=== PATIENT | female | born 1955 | race Caucasian/White ===

== ENCOUNTER → 2019-03-14 08:39 | Outpatient (CLI) | payer BC, SELFPAY ==
--- NOTE | 2019-03-14 13:49 | NEURO ---
NCS and/or EMG Patient Report Ordering Doctor: Logan Sen DATE OF SERVICE: 03/14/19 Kristine Hebert is a 63-year-old female presents for electrodiagnostic testing of the lower limbs. She reports chronic low back pain with burning in the feet. Electrodiagnostic findings: Peroneal motor nerve demonstrates normal distal latency, amplitude and conduction velocity bilaterally. Normal tibial motor response bilaterally. Peroneal tibial F waves are normal. Borderline prolonged H reflex bilaterally. Prolonged left sural latency is noted. Normal right sural response. Normal superficial peroneal and plantar responses bilaterally. On needle EMG, all muscles tested in the lower limb showed no evidence of denervation with normal motor unit action potentials. Electrodiagnostic impression: This is an abnormal study. 1. 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 It is unlikely whether this is of any significant clinical consequence. 2. No electrodiagnostic evidence is noted for peripheral polyneuropathy. 3. No electrodiagnostic evidence is noted for lumbosacral radiculopathy. If there are any further questions, please not hesitate to contact me
== END ==
PROVIDERS: Family Provider Family Medicine; PCP Family Medicine
DX: M54.17 Radiculopathy, lumbosacral region (principal)
CPT/HCPCS: 95886; 95913

== ENCOUNTER → 2023-02-24 | Outpatient (CLI) | payer MEDICARE, SELFPAY ==
[2023-02-24 10:14] LABS: Absolute Lymphocyte Count 0.95 X10^3/uL (0.83-4.51); Absolute Neutrophil Count 1.5 X10^3/uL (2.0-7.7); Basophil# 0.02 X10^3/uL; Basophil% 0.7 % (0-1); Eosinophil# 0.15 X10^3/uL; Eosinophils% 5.1 % (0-5); Hematocrit 42.3 % (37-47); Hemoglobin 13.7 g/dL (12.0-15.0); Lymphocyte # 0.95 X10^3/ul (0.83-4.51); Lymphocyte % 32.5 % (19-41); Mean Corp Hgb Conc 32.4 g/dL (32-36); Mean Corpuscular Hgb 27.9 pg (27.0-32.0); Mean Corpuscular Volume 86.2 fL (81-99); Mean Platelet Vol. 11.1 fl (6.2-12.0); Monocyte# 0.31 X10^3/uL; Monocyte% 10.6 % (0-10); NRBC Flagged by Analyzer 0 % (0-5); Neutrophil # 1.48 X10^3/uL (2.7-7.7); Neutrophil % 50.8 % (47-70); Platelet Count 202 K/mm3 (150-450); RBC Distribution Width CV 12.1 % (11.6-14.6); RBC Distribution Width SD 38.2 fl (35.1-43.9); Red Blood Count 4.91 M/mm3 (4.2-5.4); White Blood Count 2.9 K/mm3 (4.4-11.0)
[2023-02-24 10:41] LABS: Vitamin D,25 Hydroxy 72.7 ng/mL
[2023-02-24 10:55] LABS: AST(SGOT) 25 U/L (15-37); Alanine Aminotransfer ALT/SGPT 32 U/L (13-56); Albumin, Serum 3.7 g/dL (3.2-5.0); Alkaline Phosphatase 80 U/L (45-117); Anion Gap 4 (5-15); BUN 25 mg/dL (7-18); BUN/Creat Ratio 30.8 RATIO (10-20); Calcium,Total 9.2 mg/dL (8.5-10.1); Chloride 109 mmol/L (98-107); Cholesterol 176 mg/dL (200); Creatinine, Serum 0.81 mg/dL (0.55-1.02); EST Glomerular Filtration Rate 75 mL/min (>60); Est Glom Filt Rate - Afr Amer 91 mL/min (>60); Globulin 3.6 g/dL (2.2-4.2); Glucose 85 mg/dL (74-106); High Density Lipoprotein 66 mg/dL; Potassium 3.9 mmol/L (3.5-5.1); Protein, Total 7.3 g/dL (6.4-8.2); Sodium Level 141 mmol/L (136-145); T4 Total, Thyroxin 9.6 ug/dL (4.8-13.9); Thyroid Stim Hormone (TSH) 1.01 uIU/mL (0.358-3.74); Triglycerides 52 mg/dL; Very Low Density Lipoprotein 10 mg/dL (5-40)
== END | disposition home or self-care (01) ==
LOC: MFPLAB 08:21
PROVIDERS: PCP Family Medicine; Visit Provider Family Medicine
DX: E03.9 Hypothyroidism, unspecified (principal); E78.5 Hyperlipidemia, unspecified; E83.51 Hypocalcemia
CPT/HCPCS: 36415; 80053; 80061; 82306; 84436; 84443; 85025

== ENCOUNTER → 2024-03-15 | Outpatient (CLI) | payer MEDICARE, OTHER, SELFPAY ==
--- NOTE | 2024-03-15 11:47 | RAD_ITS ---
EXAM: XR LUMBOSACRAL SPINE, 2 OR 3 VIEWS CLINICAL INDICATION: DISC HENIATION TECHNIQUE: Frontal and lateral views of the lumbar spine and sacrum. COMPARISON: No relevant prior studies available. FINDINGS: VERTEBRAE: Bilateral L5 spondylolysis noted with grade 2 spondylolisthesis associated with prominent disc space narrowing of L5-S1. Mild levoscoliosis of the lumbar spine centered at the L2-3 level with the assumption that the T12 vertebral body with small or absent ribs. DISC SPACES: There is prominent disc space narrowing and vertebral body hypertrophy at the L3 level. RAD/Lumbar Spine 2 or 3 Views IMPRESSION: Chronic changes as described above. Electronically Signed: Francesco Cardenas MD at 14:32 EDT ,
== END | disposition home or self-care (01) ==
PROVIDERS: PCP Family Medicine; Referring Provider Family Medicine; Visit Provider Family Medicine
DX: M51.26 Other intervertebral disc displacement, lumbar region (principal)
CPT/HCPCS: 72100

== ENCOUNTER 2024-04-19 08:42 | Outpatient (RCR) | payer MEDICARE, OTHER, SELFPAY ==
--- NOTE | 2024-04-19 12:00 | HP.PTEVAL ---
Patient's Visit Information Visit Information Visit Information: NEY MILNER is a 69 year old F referred to Physical Therapy by Florence Mendez MD with a diagnosis of LUMBAR DISC HERNIATION. Date of Evaluation: 04/19/24 Physical Therapist: Millicent Malloy PT, Cert MDT Visit Plan Frequency: 2-3x /Week Duration: 4-6 Weeks Plan: AQUATIC THERAPY FOR PAIN RELIEF, POSTURE CORRECTION/STRENGTHENING, INSTRUCTION IN APPROPRIATE BODY MECHANICS AND ACTIVITY MODIFICATIONS. DLS WITH NEUTRAL SPINE ONLY. ARJUN LE ROM, STRETCHING AND STRENGTHENING. HEP INSTRUCTION. 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 Disability: NO Present symptoms: LOW BACK PAIN. R HIP PAIN. R THIGH PAIN. R LEG PAIN. PATIENT DENIES L LE SX AND DENIES ARJUN LE NUMBNESS AND TINGLING INCLUDING FEET. Present since: YEARS AGO. LOW BACK PAIN HAS BECOME WORSE IN THE LAST YEAR OR SO. PATIENT REPORTS FLARE UP OF R HIP BURSITIS (THAT SHE HAS HAD BEFORE AND TREATED WITH CORTISONE INJECTION) THAT FLARED UP AFTER WORK YESTERDAY AND IS CAUSING HER TO LIMP TODAY. STATES SHE WAS NOT LIMPING BEFORE YESTERDAY. Pain Scale: WORST 8/10, LEAST 1/10 Currently: 5/10 Is it getting better, worse or staying the same: WORSE Commenced as a result of: NO APPARENT REASON Symptoms at onset: LOW BACK Worse: PROLONGED SITTING, RISING FROM SITTING, INITIATING GAIT AFTER SITTING, LIFTING, AM - FIRST THING IN THE MORNING I CAN'T EVEN BEND OVER OR LIFT LEG TO PUT SOCK ON. AFTER I DO THE STRETCHES I'M A LITTLE BIT BETTER. Better: THE DAY PROGRESSES, BIOFREEZE, EXTRA-STRENGTH TYLONOL, STRETCHES IN THE MORNING, INVERSION TABLE. CHIROPRACTOR ONCE A MONTH IN [place] Disturbed sleep: I TOSS AND TURN Previous history/Previous treatment: CHIROPRACTOR. NO BACK SURGERY OR PAIN MGMT PROCEEDURES. R HIP CORTISONE INJECTION FOR BURSITIS BY DR. DENNIS IN [place]. Treatment this episode: STEROID DOSE JAMES - helped while on it then pain came back, opioid prescribed and filled but not taken per patient report. CONSULT PENDING WITH DR. SOTO MAY 10 2024. PATIENT REPORTS SHE WAS FIRST DX'D WITH LUMBAR DISC HERNIATION BY DR. MENDEZ IN MAR 2024. Coughing/sneezing/straining: DENIES INCREASED PAIN Gait: INDEP WITHOUT AD. IT HASN'T SLOWED ME DOWN ANY ONCE I GET GOING. PATIENT REPORTS SHE IS FINE ALL DAY WHILE SHE IS MOVING BUT DELAYED ONSET OF PAIN AFTER SHE IS DONE FOR THE DAY AND RESTS. Bowel or Bladder Dysfunction: NO Accidents: NO Unexplained weight loss: NO Imagin03/15/24 LUMBAR X-RAY: FINDINGS: VERTEBRAE: Bilateral L5 spondylolysis noted with grade 2 spondylolisthesis associated with prominent disc space narrowing of L5-S1. Mild levoscoliosis of the lumbar spine centered at the L2-3 level with the assumption that the T12 vertebral body with small or absent ribs. DISC SPACES: There is prominent disc space narrowing and vertebral body hypertrophy at the L3 level. PMH/Recent major surgery: UNREMARKABLE. Objective Objective: Sitting/Standing Posture: DECREASED LORDOSIS. NO RELEVANT LATERAL SHIFT. Active Correction of posture: Other Observations: INDEP GAIT BUT SLOW AND ANTALGIC WITH MAJOR LIMP ON R LE WHICH PATIENT REPORTS IS NEW STARTING YESTERDAY AFTER DOING A LOT OF FAST WALKING AT WORK. SHE RELATES IT TO FLARING UP HER R HIP BURSITIS WHICH SHE HAD A COUPLE OF YEARS AGO WHICH RESOLVED WITH A CORTISONE SHOT. Sensory deficit: ARJUN LE LIGHT TOUCH SENSATION GROSSLY INTACT AND SYMMETRICAL ROM deficit: R HIP ER TIGHTNESS AND PAIN. ARJUN HS, CALF AND HIP FLEX TIGHTNESS. Motor deficit: R HIP WEAKNESS 4-/5. L HIP 4/5 Reflexes: 2+ ARJUN QUADS. 1+ L ACHILLES. R ACHILLES ABSENT Dural Signs: NEGATIVE ARJUN LE'S. Lumbar mvmt loss: flex - MOD - INCREASES LOW BACK PAIN - NW ext - MOD - NE R SG - MOD - INCREASES R HIP - NW L SG - MOD BUT EASIER THAN R - NE. Core strength: POOR Palpation: TENDERNESS WITH PALPATION OF L345 AND UPPER SACRUM. ALSO TENDER OVER R GREATER TROCH AND AND PROXIMAL LATERAL R THIGH. Balance/Special Test Scores Oswestry Low Back Score: 10 Goals Goal 1:: DECREASE C/O LBP AND R LE PAIN BY AT LEAST 50% TO EASE WORK AND ADL FUNCTION Goal Time Frame: 4-6 Weeks Goal 2:: IMPROVE SITTING, RISING FROM SITTING, LIFTING, STANDING, WALKING, TRAVEL, HOMEMAKING AND SLEEP FUNCTION Goal Time Frame: 4-6 Weeks Goal 3:: INSTRUCT IN PROPHYLAXIS Goal Time Frame: 4-6 Weeks Rehabilitation Potential Physical Therapy Diagnosis: THIS PATIENT PRESENTS TO PT WITH C/O ARJUN LBP AND R LE PAIN LIMPING ON R LE. SHE HAS CORE WEAKNESS, ARJUN LE STIFFNESS R>L AND ARJUN LE WEAKNESS R>L. Rehabilitation Potential: Good Anticipated Interventions Patient/Client Instruction: Educate patient on: Condition, Plan of Care and Risk Factors For the Purpose of:: To improve self management Therapeutic Exercise to Include: Strength training, Body mechanics, Postural training, Flexibilty training, Neuromotor development, In an aquatic setting and Dynamic Lumbar Stabilization For the Purpose of:: To decrease pain, To improve muscle performance and motor function, To increase tolerance to activity/condition/position, To improve ability of physical actions for home/community/work/leisure and To increase flexibility/ROM Thermo therapy (hot pack): Yes Ultrasound (thermal/non thermal): Yes For the Purpose of:: To decrease pain and To improve nutrient delivery to tissue Text: Thank you for the opportunity to evaluate your patient. For Medicare and Medicare HMO plans, please review the plan of care and approve it. It will need to be FAXED BACK to us at [phone] for Medicare purposes. For Medicare only, by signing this I certify the plan of care. Please let me know if there are questions or concerns regarding this plan of care. Physician Signature: Date:
--- NOTE | 2024-06-27 10:24 | HP.PT.NRP ---
Patient Information Patient Information: NEY MILNER was seen in my office for initial evaluation on 04/19/24. The following Plan of Care was established for this patient: POC Established Initial Frequency: 2-3x /Week Initial Duration: 4-6 Weeks Anticipated Interventions Patient/Client Instruction: Educate patient on: Condition, Plan of Care and Risk Factors For the Purpose of:: To improve self management Therapeutic Exercise to Include: Strength training, Body mechanics, Postural training, Flexibilty training, Neuromotor development, In an aquatic setting and Dynamic Lumbar Stabilization For the Purpose of:: To decrease pain, To improve muscle performance and motor function, To increase tolerance to activity/condition/position, To improve ability of physical actions for home/community/work/leisure and To increase flexibility/ROM Thermo therapy (hot pack): Yes Ultrasound (thermal/non thermal): Yes For the Purpose of:: To decrease pain and To improve nutrient delivery to tissue Last Seen Last Seen: This patient was last seen in our office 04/19/24. Pertinent comments regarding their Physical therapy will appear below: It has been my pleasure to see this patient for a total of 1 visits (Initial Evaluation). This patient has not returned to Physical Therapy for more visits and is appropriate to return to MD for further follow-up as needed. At this point I will be discontinuing this patient from physical therapy. I would be happy to see this patient again in the future if found appropriate by the physician. Thank you! Millicent Malloy, PT, Cert MDT Balance/Gait/Functional tests Balance/Special Test Scores Oswestry Low Back Score: 10
== END 2024-04-19 19:00 | disposition home or self-care (01) ==
LOC: PT 08:42
PROVIDERS: PCP Family Medicine; Referring Provider Family Medicine; Visit Provider Family Medicine
DX: M51.26 Other intervertebral disc displacement, lumbar region (principal)
CPT/HCPCS: 97162; 97530

== ENCOUNTER → 2024-05-26 | Outpatient (CLI) | payer MEDICARE, OTHER, SELFPAY ==
--- NOTE | 2024-05-26 07:49 | MRI_ITS ---
STUDY: MRI LUMBAR SPINE WITHOUT CONTRAST REASON FOR EXAM: Female, 69 years old. pain TECHNIQUE: Standardized fat and water weighted pulse sequences were obtained in the sagittal and axial planes. COMPARISON: X-ray 03/15/2024 FINDINGS: T12-L1: Mild broad disc protrusion reduces mild spinal stenosis and mild bilateral neural foraminal stenosis. Normal lumbar lordosis. Mild levoscoliosis centered at L3. Normal conus medullaris that terminates at the T12/L1. L1-2: 2 mm retrolisthesis of L1 on L2 with a mild bilobed disc protrusion produces mild spinal stenosis and mild bilateral neural foraminal stenosis. L2-3: Mild bilobed disc protrusion produces mild spinal stenosis and mild bilateral neural foraminal stenosis. L3-4: 2 mm retrolisthesis of L3 on L4 with a mild broad disc protrusion reduces mild spinal stenosis and mild bilateral neural foraminal stenosis. L4-5: Mild broad disc protrusion produces mild spinal stenosis and mild bilateral neural foraminal stenosis. L5-S1: Bilateral pars defects the L5 vertebra consistent with L5 spondylolysis. 10 mm of anterolisthesis of L5 on S1 consistent with grade 2 spondylolisthesis. Mild broad disc protrusion produces mild spinal stenosis and moderate bilateral neural foraminal stenosis. Normal visualized sacral ala. Normal visualized paraspinous soft tissue structures. MRI/Spine Lumbar (Routine) IMPRESSION: L5 spondylolysis with grade 2 spinal listhesis of L5 on S1 with moderate bilateral neural foraminal stenosis with abutment of the L5 nerve roots bilaterally. Mild levoscoliosis and degenerative disc disease as described above. Electronically Signed: Lee Saunders MD at 15:06 EST ,
== END | disposition home or self-care (01) ==
LOC: MRI 14:56
PROVIDERS: PCP Family Medicine; Referring Provider Student in an Organized Health Care Education/Training Program; Visit Provider Student in an Organized Health Care Education/Training Program
DX: M43.06 Spondylolysis, lumbar region (principal); M48.07 Spinal stenosis, lumbosacral region; M41.9 Scoliosis, unspecified
CPT/HCPCS: 72148

== ENCOUNTER 2024-06-15 12:53 | Day surgery (SDC) | payer MEDICARE, OTHER, SELFPAY ==
[2024-05-17 12:18] VITALS: BP 113/74; PULSE 82; RESP 16; TEMP 36.6; O2SAT 99; BMI 25.6
--- NOTE | 2024-05-17 13:29 | NURSING ---
1315 discussed with pt about surgery delay and she has decided to not have surgery today because she has another procedure this afternoon. pt will call dr isabel's office to reschedule
[2024-06-15 13:55] VITALS: BP 135/85; PULSE 81; RESP 18; TEMP 36.4; O2SAT 99; BMI 25.6
--- NOTE | 2024-06-15 14:45 | LES_PTH ---
PATIENT: NEY MILNER LOC: [facility] [place] U#:[id number] AGE/SX: 69/F ROOM: RE06/15/[address]: Dr. Maryann Mantilla MD : [id number] BED: DIS: 06/15/2024 SPEC #: [id number] RECD: 06/15/24 17:02 STATUS: DAVE SINGH #: [id number] JOAQUIN: 06/15/24 14:[address]: Maryann Mantilla DEPT: SURGICAL PATHOLOGY RECD BY: Sammy Lombardo ENTERED: 06/18/24 07:35 SP TYPE: Lesion OTHR DR: Florence Looney MD Tissues: A - Skin of face, NOS B - Skin of face, NOS Procedures: Surgery Specimen Level IV HEADER OPERATION: Excision lesion left cheek, shave biopsy of left cheek PRE-OP DIAGNOSIS: Neoplasm of uncertain behavior of skin of face TISSUE SUBMITTED: A- Neoplasm of uncertain behavior of skin of face - left cheek *lateral*, B- Neoplasm of uncertain behavior of skin of face - left cheek *medial* MICROSCOPIC DIAGNOSIS A. Skin lesion of left cheek, lateral: Actinic keratosis with moderate atypia and severe solar elastosis. B. Skin lesion of left cheek, medial: Actinic keratosis with severe atypia transected at the base. Focal seborrheic changes. See Comment. This case has been reviewed in consultation with Dr. Sudha Sarmiento. IDC:NEFTALI CISNEROS. 06/19/2024 COMMENT Clinical correlation necessary. MICROSCOPIC DESCRIPTION Slides are reviewed. GROSS DESCRIPTION A. Received in fixative is one container labeled with the patient's name and designated Neoplasm of uncertain behavior of skin of face - left cheek - lateral. The specimen consists of a perera-white skin ellipse measuring 1.0 x 0.5 x 0.2cm. The specimen is inked, serially sectioned and submitted entirely in one cassette. B. Received in fixative is one container labeled with the patient's name and designated Neoplasm of uncertain behavior of skin of face - left cheek - medial. The specimen consists of a shave biopsy of perera-white skin measuring 0.7 x 0.4 x 0.1cm. The specimen is inked, serially sectioned and submitted entirely in one cassette. SJMarcos 06/18/2024 TC:5 CPT:39886b3
--- NOTE | 2024-06-15 15:21 | PCM.HP.STD ---
HPI - General General Date of Admission: 06/15/24 Date of Service: 06/15/24 Chief Complaint: Growing or changing neoplasms of her left cheek HPI Narrative NEY MILNER, is a 69 F who presents with relatively new onset of 2 neoplasms of left cheek. [facility] Medical History History of malignant neoplasm of cervix History of cardiac murmur History of cataract History of back problems History of arthritis History of environmental allergies Home Medications ?Medication ?Instructions ?Recorded ?Last Taken ?Type levothyroxine 50 mcg tablet 50 mcg PO QDAY 05/01/24 06/14/24 History cholecalciferol (vitamin D3) 25 25 mcg PO QDAY 05/10/24 06/15/24 History mcg (1,000 unit) capsule minoxidil 2.5 mg tablet 2.5 mg PO DAILY 05/10/24 05/17/24 History rosuvastatin 10 mg tablet 10 mg PO DAILY 05/10/24 05/15/24 History vitamin E 200 unit capsule 200 unit PO DAILY 06/15/24 06/15/24 History Allergy/AdvReac Type Severity Reaction Status Date / Time No Known Allergies Allergy Verified 06/15/24 13:52 Family History Father Alcoholism Mother Heart disease Brother Pancreatitis Grandmother Breast cancer Surgical History History of bunionectomy History of appendectomy Social History Smoking Status: Never smoker alcohol intake: never substance use type: does not use additional social history: pt denies marijuana use,denies edibles pt does vape pt does not use aspirin, pt uses ibuprofen Vital Signs Vital Signs Vital Signs: 06/15/24 13:55 06/15/24 13:55 Temperature 97.6 F L Temperature Source Temporal Pulse Rate 81 Respiratory Rate 18 Respiratory Pattern Normal Blood Pressure 135/85 H Blood Pressure Mean 101 Blood Pressure Source Monitor Blood Pressure Position Semi-Fowlers Blood Pressure Location Right Arm Pulse Ox 99 Oxygen Delivery Method Room Air Weight Weight: 158 lb 11.725 oz Body Mass Index (BMI) 25.6 Physical Exam Narrative She has a hyperkeratotic and erythematous lesion of the left cheek with another erythematous lesion just anterior to this. Because of a concern regarding skin malignancy, we will perform biopsy of both sites today with excision and shave biopsy Const alert, oriented x3, no apparent distress, average body habitus and well nourished General Appearance: cooperative and well developed Orientation / Consciousness: oriented to person, oriented to place and oriented to time HEENT head/scalp atraumatic, external ears normal and external nose normal Head and Scalp: normal to inspection, normocephalic, atraumatic and abrasion Face and Sinus: normal facial exam and face symmetric Nose: external nose normal External Ear: external ears normal External Auditory Canal: EAC's normal Mouth: lips normal Eyes PERRL, EOMs intact bilaterally and conjunctivae normal General Eye: normal appearance of both eyes Periorbital: periorbital findings normal Eyelid: eyelids normal Conjunctiva: conjunctiva normal Pupil: PERRL Neck full ROM Lymph Lymphatic: no lymphadenopathy noted Chest inspection of chest normal Breast/Axilla Palpation: no axillary lymphadenopathy Resp normal respiratory effort, normal air movement and clear to auscultation bilaterally Auscultation: clear to auscultation bilaterally Cardio regular rate, regular rhythm, S1 normal heart sound, S2 normal heart sound and no murmurs Rate: regular rate Rhythm: regular rhythm GI soft to palpation and non-tender Extremity normal to inspection and full ROM General Extremity: normal exam except as noted Skin General Skin Exam: turgor normal Neuro oriented x3, CN's II-XII intact bilaterally, moves all extremities, no focal motor deficits and no sensory deficits noted Sensorium / Orientation: awake, alert, oriented to person, oriented to place and oriented to time Speech: speech normal Gait (Neuro): normal gait Psych mental status grossly normal Attention / Concentration: concentration grossly intact Memory / Cognition: memory grossly intact Assessment & Plan Assessment/Plan (1) Neoplasm of uncertain behavior of skin of face: PLAN: Plan For excision lesion left cheek and shave lesion left anterior cheek
[2024-06-15 15:28] VITALS: BP 103/67; BP 121/65; O2SAT 95; O2SAT 96; O2SAT 97
[2024-06-15] MEDS: Lidocaine 1% /Epi 1:100 9 ML, Sodium Bicarbonate 1 MEQ OPERA.SITE (15:59)
[2024-06-15] MEDS: Bacitracin 500 UNITS/GM PACKET (16:02)
--- NOTE | 2024-06-15 16:08 | DCINST_ITS ---
Discharge Instructions Dressing / Incision Additional Dressing/Incision Instructions:: Apply a thin layer of antibiotic ointment (like Neosporin, bacitracin, or triple antibiotic ointment) to the site daily. You can discontinue wearing a Band-Aid when no further drainage is noted. Take the oral antibiotic (Keflex) 2 times a day until finished. Keeping your back elevated at night (recliner position) will decrease swelling and bruising. Follow Up Care Please Follow Up With: Maryann Mantilla MD When: 2 weeks Test Results: Test results from this visit will be discussed in further detail at your follow- up appointment, if applicable. Discharge Plan Admission Attending Provider: Maryann Mantilla Primary Care Provider: Florence Looney Instructions Print Language: Swedish Discharge Orders/Prescriptions Prescriptions: New cephalexin 500 mg capsule 500 mg PO BID 5 Days Qty: 10 0RF No Action rosuvastatin 10 mg tablet 10 mg PO DAILY minoxidil 2.5 mg tablet 2.5 mg PO DAILY cholecalciferol (vitamin D3) 25 mcg (1,000 unit) capsule 25 mcg PO QDAY levothyroxine 50 mcg tablet 50 mcg PO QDAY vitamin E 200 unit capsule 200 unit PO DAILY Referrals / Follow Up: Florence Looney MD [Primary Care Provider] - Disposition Disposition (needs filled in before D/C Order can be placed): Home, Self Care
--- NOTE | 2024-06-15 16:11 | OP.PCM_ITS ---
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: No Type of Anesthesia: Local RN Documented Start/Stop Times: Operation Date: 06/15/24 14:45 Case Time Into Pre-Op 06/15/24 13:54 Out of Pre-Op 06/15/24 15:21 Into Room 06/15/24 15:24 Procedure Start 06/15/24 15:41 Procedure End 06/15/24 16:03 Anesthesia End 06/15/24 16:08 Out of Room 06/15/24 16:08 Procedure Start Time: 15:41 Procedure Stop Time: 16:03 Select all DRAINS/GRAFTS/IMPLANTS that apply: None Estimated Blood Loss: Minimal Specimen collected: Yes Description of specimen(s) removed: Excise lesion left cheek; shave lesion left cheek Description of surgery: The patient presents for evaluation of 2 new lesions of the left cheek. The specimens will be sent to pathology for evaluation. Patient is brought to the operating room and placed on the operating room table in supine position. The face is prepped and draped in the usual sterile fashion. 1% Xylocaine with epinephrine buffered with sodium bicarb is used for local anesthetic. Following this, the hyperkeratotic lesion which is located laterally is excised and passed off the operative field to be sent to pathology. Hemostasis is controlled with cautery. The wound is then closed in layers using a Monocryl suture in the subcutaneous tissue and dermis. Skin edges were approximated with a running subcuticular Monocryl suture. Further reinforcement the closure is done with interrupted chromic suture. We then directed our attention to the erythematous lesion located medial to this. After this is anesthetized, it is shaved at the base and the base full rise. Antibiotic ointment and a Band-Aid is applied as a dressing. She tolerated the procedure well was taken to the recovery area in an awake and stable condition. Needle and sponge counts are correct. Surgical Findings: As above Complications Complications: No Admit VTE Documentation VTE Mechan Device Prophylaxis: None Reason prophylaxis not ordered: Treatment Not Indicated
[2024-06-15 16:30] VITALS: BP 132/76; BP 135/85; PULSE 74; RESP 16; TEMP 36.4; O2SAT 100
== END 2024-06-15 16:45 | disposition home or self-care (01) ==
LOC: SDC 12:54 → AC 12:59
PROVIDERS: PCP Family Medicine; Referring Provider Plastic Surgery; Visit Provider Plastic Surgery
PROC: (CPT 21011; principal; 2024-06-15 14:35)
DX: L57.0 Actinic keratosis (principal); L57.8 Other skin changes due to chronic exposure to nonionizing radiation; Z79.890 Hormone replacement therapy; Z79.899 Other long term (current) drug therapy
CPT/HCPCS: 21011; 11311

== ENCOUNTER → 2024-08-11 | Outpatient (CLI) | payer MEDICARE, OTHER, SELFPAY ==
--- NOTE | 2024-08-11 08:00 | MRI_ITS ---
PROCEDURE: MRI right hip without IV contrast REASON FOR EXAM: Pain, failed physical therapy TECHNIQUE: Multisequence multiplanar MR images of the right hip were obtained without the administration of intravenous contrast. COMPARISON: None. FINDINGS Negative for acute fracture or marrow edema. No suspicious marrow replacement. No sizeable joint effusion. Full-thickness tear of the gluteus minimus tendon with retraction measuring up to 1.2 cm. Contiguous full-thickness tear of the gluteus medius tendon at its lateral trochanteric facet with 1.9 cm of retraction. Posterior fibers of the gluteus medius tendon are intact and attached to the posterosuperior greater trochanteric facet. Gluteus marla, iliopsoas, common hamstring and rectus femoris tendons are intact. Degenerative tearing of the anterosuperior labrum with small adjacent paralabral cysts. Adjacent chondral thinning/fibrillation of the anterosuperior acetabulum. No full-thickness chondral defects. Moderate fluid in the trochanteric bursa. No other periarticular fluid collections. Musculature is symmetric. Degenerative changes of the pubic symphysis. MRI/Lower Ext Joint Only (Routine) IMPRESSION: 1. Full-thickness retracted tear of the gluteus minimus tendon. 2. Full-thickness partial width tear of the gluteus medius tendon. 3. Moderate fluid in the trochanteric bursa. 4. Mild right hip osteoarthritis as above. Reading Location: [facility]
== END | disposition home or self-care (01) ==
LOC: MRI 07:49
PROVIDERS: PCP Family Medicine; Referring Provider Family Medicine; Visit Provider Family Medicine
DX: M25.551 Pain in right hip (principal)
CPT/HCPCS: 73721

== ENCOUNTER 2024-10-24 10:16 | Day surgery (SDC) | payer MEDICARE, OTHER, SELFPAY ==
[2024-10-24 10:49] VITALS: BP 140/88; PULSE 83; RESP 16; TEMP 36.9; O2SAT 98; BMI 25.8
--- NOTE | 2024-10-24 11:00 | LES_PTH ---
PATIENT: NEY MILNER LOC: [facility] [place] U#:[id number] AGE/SX: 69/F ROOM: RE10/24/[address]: Dr. Maryann Mantilla MD : [id number] BED: DIS: 10/24/2024 SPEC #: [id number] RECD: 10/24/24 12:12 STATUS: DAVE SINGH #: [id number] JOAQUIN: 10/24/24 11:[address]: Maryann Mantilla DEPT: SURGICAL PATHOLOGY RECD BY: Chadwick Bee ENTERED: 10/24/24 13:18 SP TYPE: Lesion OTHR DR: Florence Looney MD Tissues: A - Skin of face, NOS Procedures: Frozen Section (charge) Immunohistochemical Stains Surgery Specimen Level IV IHC Stain ADDITIONAL HEADER OPERATION: Excision neoplasm of left cheek with frozen section PRE-OP DIAGNOSIS: Neoplasm of uncertain behavior of skin TISSUE SUBMITTED: A- Atypical lesion, left cheek FROZEN SECTION DIAGNOSIS A. Atypical lesion, left cheek, excision: Negative for malignancy. 10/24/2024 MICROSCOPIC DIAGNOSIS A. Skin, left cheek, excision: * Actinically damaged skin with reactive changes - see note and Comment. * Scar and associated reactive changes consistent with a previous surgical procedure. * Focal ectopic/dystrophic bone. * Note: IHC for Melan-A (A1, A3) supports the diagnosis. No atypical melanocytic proliferation is identified. COMMENT Selected slides/images were reviewed in intradepartmental consultation by Dr Rosalba Madera (dermatopathology division, [facility]) MICROSCOPIC DESCRIPTION Slides are reviewed. All matched controls reacted appropriately. These tests were developed and their performance characteristics determined by [facility]. They may not have been cleared or approved by the [place]. Food and Drug Administration. The FDA has determined that such clearance or approval is not necessary.? The above immunohistochemical/dualISH?markers are ordered and reviewed by the Pathologist. GROSS DESCRIPTION A. Received fresh for intraoperative consultation in a container labeled with the patient's name, date of , and Atypical Lesion L Cheek is an oriented and circular skin excision received oriented by the surgeon by an illustrated diagram. Digital photos are taken. A section diagram is made. The specimen is 1.1 cm from 12-6 o'clock, 1.0 cm from 3-9 o'clock, with a depth up to 0.5 cm. The white-perera epidermis is somewhat nodular, but otherwise unremarkable. The 9:00 half is inked blue, and the 3:00 half is inked black. The specimen is serially sectioned from 12:00 to 6:00 to reveal white-yellow, uniform, rubbery cut surfaces. The specimen is submitted entirely for frozen section analysis. The remaining remnants are submitted entirely as follows:A1. 12:00 end, perpendicularA2. 6:00 end, perpendicularA3. Midportion of specimen [facility] 10-24-2024 CPT:27376,93737,03617
--- NOTE | 2024-10-24 11:08 | PCM.HP.BLA ---
History and Physical Date of Admission: 10/24/24 The patient is examined and there are no changes to the H&P dated 10/17/2024. 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 Informed consent was obtained for reexcision of the neoplasm of the left cheek with frozen section evaluation of margins. Assessment & Plan Assessment/Plan (1) Neoplasm of uncertain behavior of skin: PLAN: Plan For reexcision neoplasm of the left cheek with frozen section evaluation.
[2024-10-24 11:30] VITALS: BP 122/65; BP 128/67; BP 141/77; O2SAT 94; O2SAT 95; O2SAT 96; O2SAT 97; O2SAT 98
[2024-10-24] MEDS: Lidocaine 1% /Epi 1:100 9 ML, Sodium Bicarbonate 1 MEQ OPERA.SITE (11:58)
--- NOTE | 2024-10-24 12:57 | DCINST_ITS ---
Discharge Instructions Dressing / Incision Additional Dressing/Incision Instructions:: Keep the paper tapes dry and intact until seen in the office. Keep your back elevated (recliner position) for the next 3-4 nights to help reduce swelling and bleeding. Take the oral antibiotic (Keflex) 2 times a day until finished. Follow Up Care Please Follow Up With: Maryann Mantilla MD When: 1 to 2 weeks Test Results: Test results from this visit will be discussed in further detail at your follow- up appointment, if applicable. Discharge Plan Admission Attending Provider: Maryann Mantilla Primary Care Provider: Florence Looney Instructions Print Language: Croatian Discharge Orders/Prescriptions Prescriptions: New cephalexin 500 mg capsule 500 mg PO BID 5 Days Qty: 10 0RF No Action rosuvastatin 10 mg tablet 10 mg PO DAILY minoxidil 2.5 mg tablet 2.5 mg PO DAILY cholecalciferol (vitamin D3) 25 mcg (1,000 unit) capsule 25 mcg PO QDAY levothyroxine 50 mcg tablet 50 mcg PO QDAY vitamin E 200 unit capsule 200 unit PO DAILY Referrals / Follow Up: Florence Looney MD [Primary Care Provider] - Disposition Disposition (needs filled in before D/C Order can be placed): Home, Self Care
--- NOTE | 2024-10-24 12:59 | PCM.OPRPT ---
Problems Associated Problem List Diagnoses (1) Neoplasm of uncertain behavior of skin: Operative Report (Standard) Operative Information Date of Procedure: 10/24/24 Pre-Operative Diagnosis: Neoplasm of uncertain behavior left cheek History of atypical neoplasm left cheek Post-Operative Diagnosis: Same Surgery/Procedure Performed: Excision neoplasm left cheek (2.5 cm) with frozen section and intermediate closure face painter: No Type of Anesthesia: Local RN Documented Start/Stop Times: Operation Date: 10/24/24 11:20 Case Time Into Pre-Op 10/24/24 10:40 Anesthesia Start 10/24/24 11:33 Into Room 10/24/24 11:33 Procedure Start 10/24/24 11:55 Procedure End 10/24/24 12:57 Anesthesia End 10/24/24 12:58 Out of Room 10/24/24 12:58 Procedure Start Time: 11:55 Procedure Stop Time: 12:57 Select all DRAINS/GRAFTS/IMPLANTS that apply: None Estimated Blood Loss: Minimal Specimen collected: Yes Description of specimen(s) removed: Neoplasm left cheek Description of surgery: The patient presents today with a history of an neoplasm with atypia of the left cheek. This site has remained elevated and firm to touch. She presents for reexcision of the area and frozen section evaluation of margins to rule out malignant transformation. An informed consent is obtained and the patient is marked in the preop holding area. The patient was brought to the operating room and placed on the operating room table in the supine position. The left face is prepped and draped in the usual sterile fashion. We initially began with injecting 1% Xylocaine with epinephrine buffered with sodium bicarb around the periphery of the site. Following this, the area is elliptically excised and passed off the operative field maintaining orientation for pathology. Pathology returns no evidence of malignancy. After ensuring hemostasis, the site is closed in layers using Monocryl suture for the subcutaneous tissue and dermis. Skin edges were approximated with a running subcuticular Monocryl suture. Further reinforcement the closure was done with interrupted Prolene suture. Dermabond and Steri-Strips were placed on the site. She tolerated the procedure well was taken to the recovery area in an awake and stable condition. Needle and sponge counts are correct. Surgical Findings: As above Complications Complications: No Admit VTE Documentation VTE Mechan Device Prophylaxis: None Reason prophylaxis not ordered: Treatment Not Indicated
== END 2024-10-24 13:19 | disposition home or self-care (01) ==
LOC: SDC 10:17 → AC 10:20
PROVIDERS: PCP Family Medicine; Referring Provider Plastic Surgery; Visit Provider Plastic Surgery
PROC: (CPT 11443; principal; 2024-10-24 11:10)
DX: L90.5 Scar conditions and fibrosis of skin (principal); L91.8 Other hypertrophic disorders of the skin; F17.290 Nicotine dependence, other tobacco product, uncomplicated; Z79.890 Hormone replacement therapy; Z79.899 Other long term (current) drug therapy
CPT/HCPCS: 11443; 12051; 88305; 88331; 88341; 88342

== ENCOUNTER → 2024-12-17 | Outpatient (CLI) | payer MEDICARE, OTHER, SELFPAY ==
[2024-12-17 18:05] LABS: Hematocrit 39.2 % (37-47); Hemoglobin 12.8 g/dL (12.0-15.0); Immature Granulocytes Count 0.010 X10^3/uL (0.0-0.0); Mean Corp Hgb Conc 32.7 g/dL (32-36); Mean Corpuscular Volume 84.3 fL (81-99); Mean Platelet Vol. 11.5 fl (6.2-12.0); NRBC Flagged by Analyzer 0 % (0-5); Platelet Count 207 K/mm3 (150-450); RBC Distribution Width CV 12.4 % (11.6-14.6); RBC Distribution Width SD 37.6 fl (35.1-43.9); Red Blood Count 4.65 M/mm3 (4.2-5.4); White Blood Count 4.7 K/mm3 (4.4-11.0)
[2024-12-17 18:37] LABS: AST(SGOT) 26 U/L (<=31); Alanine Aminotransfer ALT/SGPT 18 U/L (<=34); Albumin, Serum 4.3 g/dL (3.4-4.8); Alkaline Phosphatase 84 U/L (35-104); Anion Gap 12 (5-15); BUN 29 mg/dL (4-19); BUN/Creat Ratio 41.5 RATIO (10-20); Calcium,Total 9.5 mg/dL (7.6-11.0); Carbon Dioxide 24.3 mmol/L (21.0-32.0); Chloride 105 mmol/L (98-108); Cholesterol 179 mg/dL (<=200); Globulin 2.7 g/dL (2.2-4.2); Glucose 85 mg/dL (70-99); Low Density Lipoprotein Calc. 95 mg/dL; Potassium 4.1 mmol/L (3.3-5.1); Triglycerides 141 mg/dL; Very Low Density Lipoprotein 28 mg/dL (5-40); Vitamin D,25 Hydroxy 44.9 ng/mL (30-100); cholesterol:hdl ratio screen 3.19
--- OUTSIDE RECORDS SUMMARY | 2024-12-17 22:45 | XMS RPT_ITS | CCD ---
Author Organization [facility] Care Team Providers Care Bit Gatherer Name Role Phone Eugenia Adair Unavailable Craske, W. Don Unavailable Pedro Villatoro Unavailable Craske, W Logan Unavailable Unavailable Craske, W Logan Unavailable Unavailable Craske, W Logan Unavailable Unavailable Craske, W Logan Unavailable Unavailable Craske, W Logan Unavailable Unavailable Craske, W Logan Unavailable Unavailable CRASKE, W. DON Unavailable Unavailable CRASKE, W. DON Unavailable Unavailable MANA, EUGENIA PRASANNA Unavailable Unavailable CRASKE, W. DON Unavailable Unavailable CRASKE, W. DON Unavailable Unavailable CRASKE, W. DON Unavailable Unavailable MANA, EUGENIA PRASANNA Unavailable Unavailable CRASKE, W. DON Unavailable Unavailable CRASKE, W. DON Unavailable Unavailable MANA, EUGENIA PRASANNA Unavailable Unavailable CRASKE, W. DON Unavailable Unavailable MANA, EUGENIA PRASANNA Unavailable Unavailable CRASKE, W. DON Unavailable Unavailable CRASKE, W. DON Unavailable Unavailable MANA, EUGENIA PRASANNA Unavailable Unavailable CRASKE, W. DON Unavailable Unavailable MANA, EUGENIA PRASANNA Unavailable Unavailable CRASKE, W. DON Unavailable Unavailable MANA, EUGENIA PRASANNA Unavailable Unavailable Craske, W. Don III Unavailable Pedro Villatoro Sr. Unavailable Eugenia Adair Primary Care Provider Craske, W. Don Unavailable Pedro Villatoro Unavailable [phone] IGOR KHAN Admitting Unavaila JACKIE Clarke Attending Unavailable IGOR KHAN Referring Unavaila ble EUGENIA ADAIR PRASANNA Primary Care Unavailable IGOR KHAN Admitting Unavaila JACKIE Clarke Attending Unavailable IGOR KHAN Referring Unavaila EUGENIA Horn Primary Care Unavailable IGOR KHAN Admitting Unavaila ble LEENA BARBOSA Attending Unavailable IGOR KHAN Referring Unavaila liset ADAIR, EUGENIA MIMS Primary Care Unavailable IGOR KHAN Admitting Unavaila ble THERESA, JACKIE Attending Unavailable IGOR KHAN Referring Unavaila ble EUGENIA ADAIR Primary Care Unavailable Eugenia Adair Unavailable Unavailable Unavailable Eugenia Adair Unavailable Yoan Leos Unavailable Unavailabl Eugenia Fitzpatrick MD Unavailable Unavailable Unavailable Chadwick Mckeon Unavailable Unavailable Mana, Dr. uEgenia Mims Attending Unavailab claritza Adair, Dr. Eugenia Mims Primary Care Unavailab claritza Adair, Dr. Eugenia Mims Referring Unavailab le Mana, Dr. Eugenia Mims Attending Unavailab claritza Adair, Dr. Eugenia Mims Primary Care Unavailab claritza Adair, Dr. Eugenia Mims Referring Unavailab le Mana, Dr. Eugenia Mims Attending Unavailab claritza Adair, Dr. Eugenia Mims Primary Care Unavailab claritza Adair, Dr. Eugenia Mims Referring Unavailab Eugenia Marquez MD Primary Care Provider Chadwick Mckeon Attending Unavailable Mana, Dr. Eugenia Mims Primary Care Unavailab Chadwick Dunaway Attending Unavailable Mana, Dr. Eugenia Mims Primary Care Unavailab EUGENIA Marquez Primary Care Unavailable Eugenia Adair MD Unavailable EUGENIA ADAIR Attending Unavailable EUGENIA ADAIR Primary Care Unavailable Florence Mendez MD Primary Care Provider KOREY, LEENA Referring Unavailable LIZA ROACH Attending Unavail able LIZA ROACH Referring Unavail able AVERY BENTON Referring Unavailable AVERY BENTON Attending Unavailable MANA, EUGENIA L Primary Care Unavailable CHADWICK MCKEON Attending Unavailable EUGENIA ADAIR L Primary Care Unavailable JAZMYN KAPADIA Attending Unavailable Aayush ARRIOLA, [place] Primary Care Provider [phone] Aayush ARRIOLA, [place] Referring Provider Dr. Maryann Mantilla MD Attending Provider Emmy Smith Attending Provider [phone] Zakia ARRIOLA, Dr. Bragg Attending Provider [phone] Emmy Smith Referring Provider [phone] Annalee ARRIOLA, Dr. Wolf Referring Provider Dr. Maryann Mantilla MD Other Provider [phone] Aayush ARRIOLA, [place] Attending Provider Aayush ARRIOLA, [place] Primary Care Provider [phone] Aayush ARRIOLA, [place] Referring Provider [phone] Dr. Maryann Mantilla MD Attending Provider Emmy Smith Attending Provider [phone] Maryann Mantilla MD Referring Provider Dr. Maryann Mantilla MD Other Provider [phone] Aayush ARRIOLA, [place] Primary Care Provider [phone] Aayush ARRIOLA, [place] Referring Provider [phone] Dr. Maryann Mantilla MD Attending Provider Aayush, Chalon Primary Care Unavailable Aayush, Chalon Referring Unavailable Ghazoul, Maryann Attending Unavailable Aayush, Chalon Primary Care Unavailable Aayush, Chalon Referring Unavailable Ghazoul, Maryann Attending Unavailable Aayush, Chalon Primary Care Unavailable Aayush, Chalon Referring Unavailable Ghazoul, Maryann Attending Unavailable Aayush, Chalon Primary Care Unavailable Aayush, Chalon Referring Unavailable Ghazoul, Maryann Attending Unavailable Aayush, Chalon Referring Unavailable Ghazoul, Maryann Attending Unavailable Aayush, Chalon Primary Care Unavailable Aayush, Chalon Referring Unavailable Ghazoul, Maryann Attending Unavailable Aayush, Chalon Primary Care Unavailable Aayush, Chalon Primary Care Unavailable Aayush, Chalon Referring Unavailable Chary, Emmy Attending Unavailable Aayush, Chalon Primary Care Unavailable Zakia, Yemi Attending Unavailable Chary, Emmy Referring Unavailable Chary, Emmy Attending Unavailable Aayush, Chalon Primary Care Unavailable Aayush, Chalon Primary Care Unavailable Ghazoul, Maryann Consulting Unavailable Ghazoul, Maryann Referring Unavailable Ghazoul, Maryann Attending Unavailable Aayush, Chalon Primary Care Unavailable Ghazoul, Maryann Consulting Unavailable Ghazoul, Maryann Referring Unavailable Ghazoul, Maryann Attending Unavailable Aayush, Chalon Referring Unavailable Aayush, Chalon Primary Care Unavailable Ghazoul, Maryann Attending Unavailable Aayush, Chalon Primary Care Unavailable Ghazoul, Maryann Referring Unavailable Ghazoul, Maryann Attending Unavailable Aayush, Chalon Referring Unavailable Aayush, Chalon Attending Unavailable Aayush, Chalon Primary Care Unavailable Aayush, Chalon Referring Unavailable Aayush, Chalon Attending Unavailable Aayush, Chalon Primary Care Unavailable Aayush, Chalon Primary Care Unavailable Aayush, Chalon Referring Unavailable Aayush, Chalon Attending Unavailable Aayush, Chalon Primary Care Unavailable Ghazoul, Maryann Referring Unavailable Ghazoul, Maryann Attending Unavailable Aayush, Chalon Primary Care Unavailable Aayush, Chalon Referring Unavailable Ghazoul, Maryann Attending Unavailable Chary, Emmy Attending Unavailable Aayush, Chalon Primary Care Unavailable Aayush, Chalon Referring Unavailable Allergies Allergy Classification Reported Allergen(s) Allergy Type Date of Onset Reaction(s) Facility (20 sources) OTHER; Translations: [OTHER] Propensity to adverse reactions 5 Other (See Comments), Itching [facility] Work Phone: (8 sources) Simvastatin; Translations: [Zocor] Drug Allergy 3 Other [facility] Work Phone: (17 sources) beta-Blocking agent; Translations: [BETA-BLOCKERS (BETA-ADRENERGI C BLOCKING AGTS)] Propensity to adverse reactions to drug 3 Contraindicatio n-Medical Surgical, Other [facility] Work Phone: (17 sources) cow milk allergenic extract; Translations: [MILK] Drug Allergy 6 Diarrhea [facility] Work Phone: (17 sources) Tree and shrub pollen; Translations: [TREE AND SHRUB POLLEN] Drug Allergy 8 Other: See Comments, Other [facility] (13 sources) Cat Hair Extract; Translations: [CAT HAIR EXTRACT] Propensity to adverse reactions 5 Itching [facility] Work Phone: (12 sources) grasses [Other] Propensity to adverse reactions 6 Itching [facility] Work Phone: (12 sources) hops food [Other] Propensity to adverse reactions 6 [facility] Work Phone: (12 sources) pollens [Other] Propensity to adverse reactions 5 [facility] Work Phone: (3 sources) Simvastatin; Translations: [SIMVASTATIN] Drug Allergy 3 [facility] Medications Current Medications Medication Drug Class(es) Dates Sig (Normalized) Sig (Original) azithromycin 250 mg oral tablet (1 source) Macrolide Antimicrobial Start: 07-17-2022 take 2 tablets by mouth once, then take 1 tablet by mouth once daily azithromycin 250 mg oral tablet ; Take 2 tabs (500mg) x 1 days, then 1 tab (250mg) once daily x 4 days Quantity: 6 Refills: 0 Ordered: 17-Jul-2022 Chadwick Mckeon Start: 17-Jul-2022 Generic Substitution Allowed Comments: Do not take dairy products, antacids, or iron preparations within one hour of this medication.Finish all this medication unless otherwise directed by prescriber. Comment on above: Do not take dairy pr oducts, antacids, or iron preparations within one hour of this medication.Finish all this medication unless otherwise directed by prescriber. brompheniramine maleate 0.4 mg/ml / dextromethorphan hydrobromide 2 mg/ml / pseudoephedrine hydrochloride 6 mg/ml oral solution (2 sources) alpha-Adrenergic Agonist, Uncompetitive O-rbhpfh-M-aspartat e Receptor Antagonist, Sigma-1 Agonist Start: 08-05-2022 take 10 mL by mouth every six hours brompheniramine/p seudoephedrine/de xtromethorphan [id number]/5 mL oral syrup ; 5 milliliter(s) orally every 4-6 hours PRN cough Quantity: 120 Refills: 0 Ordered: 05-Aug-2022 Luisabdullahi Chadwick Start: 05-Aug-2022 Generic Substitution Allowed Comments: May cause drowsiness. Alcohol may intensify this effect. Use care when operating dangerous machinery.Obtain medical advice before taking any non-prescription drugs as some may affect the action of this medication. Start: 08-19-2020 take 5 mL by mouth every four to six hours brompheniramine/pseudoephedrine/dextrome thorphan [id number]/5 mL oral syrup ; 5 milliliter(s) orally every 4 to 6 hours, As Needed Quantity: 120 Refills: 0 Ordered: 19-Aug-2020 Alejo Horner Start: 19-Aug-2020 Generic Substitution Allowed Comments: May cause drowsiness. Alcohol may intensify this effect. Use care when operating dangerous machinery.Obtain medical advice before taking any non-prescription drugs as some may affect the action of this medication. Comment on above: May cause drowsiness . Alcohol may intensify this effect. Use care when operating dangerous machinery.Obtain medical advice before taking any non-prescription drugs as some may affect the action of this medication. calcium citrate 950 mg oral tablet (3 sources) take 1 tablet by mouth twice daily calcium citrate 950 mg (200 mg elemental calcium) oral tablet ; 1 tab(s) orally 2 times a day Quantity: 0 Refills: 0 Ordered: 07-May-2020 Jesica Moise Generic Substitution Allowed cholecalciferol 0.025 mg oral capsule (5 sources) Vitamin D Start: 2023 take 1 capsule by mouth once daily Cholecalciferol (Vitamin D3) 25 mcg (1,000 unit) capsule Active 25 ug PO daily May 10, 2024 1:00am cholecalciferol 400 unt / tricalcium phosphate 658 mg chewable tablet (11 sources) Vitamin D calcium phosphate-vitamin D3 (CALTRATE GUMMY BITES) 250-400 mg-unit Chew Chew and Swallow daily. 0 Active docosahexaenoic acid 120 mg / eicosapentaenoic acid 180 mg oral capsule (8 sources) fish oil concent rate (Bourg-3) 120-180 mg capsule Take by mouth. 0 Active krill oil 500 mg oral capsule (3 sources) take 2 capsules by mouth twice daily Fish Oil 500 mg oral capsule ; 2 cap(s) orally 2 times a day Quantity: 0 Refills: 0 Ordered: 07-May-2020 Jesica Moise Generic Substitution Allowed levothyroxine sodium 0.05 mg oral tablet (20 sources) l-Thyroxine Start: 2023 take 1 tablet by mouth once daily Levothyroxine 50 mcg tablet Active 50 ug PO daily May 01, 2024 1:00am Start: 04-21-2018 Levothyroxine Sodium 50 MCG Oral Tablet TAKE TABLET 1 tablet daily except on sunady take 0.5 tablet Quantity: 90 Refills: 3 Ordered: 20-Nov-2021 Eugenia Adair MD Start : 21-Apr-2018 Active Start: 03-06-2008 levothyroxine sodium(SYNTHROID 50 MCG TAB) Take 50 mcg by mouth. 50mg everyday 25 mg on 90 4 03/06/2008 Active levothyroxine (T irosint) 50 mcg capsule Take by mouth. 0 Active take 1 capsule by [facility] once daily levothyroxine 50 mcg (0.05 mg) oral capsule ; 1 cap(s) orally once a day Quantity: 0 Refills: 0 Ordered: 07-May-2020 Jesica Moise Generic Substitution Allowed Comment on above: Take 50 mcg by mouth . 50mg everyday 25 mg on meloxicam 15 mg oral tablet (3 sources) Nonsteroidal Anti-inflammatory Drug take 1 tablet by mouth once daily meloxicam (MOBIC) 15 MG tablet Take 15 mg by mouth daily . 0 Active minoxidil 2.5 mg oral tablet (5 sources) Arteriolar Vasodilator Start: 4 take 1 tablet by mouth once daily Minoxidil 2.5 mg tablet Active 2.5 mg PO DAILY May 10, 2024 1:00am montelukast 10 mg oral tablet (20 sources) Leukotriene Receptor Antagonist Start: 9 take 1 tablet by mouth once daily at bedtime montelukast (Singulair) 10 mg tablet Take 1 tablet (10 mg) by mouth once daily at bedtime. 0 04/20/2019 Active MONTELUKAST SODI UM (SINGULAIR ORAL) Indications: Encounter for screening for osteoporosis , Asymptomatic postmenopausal status , Encounter for gynecological examination without abnormal finding Take by mouth once daily. 0 Active Comment on above: Take by mouth once d aily. multivitamin (multivitamin) per tablet (10 sources) take 1 tablet by mouth once daily multivitamin (multivitamin) per tablet Take 1 tablet by mouth daily. 0 Active take 1 tablet by mouth once lennox y multivitamin (multivitamin) per tablet Take 1 tablet by mouth daily. Active Multivitamin Tablet (1 source) take 1 tablet by mouth once daily multivitamin (multivitamin) per tablet Take 1 tablet by mouth daily. Active multivitamin tablet (1 source) take 1 tablet by mouth once daily multivitamin tablet Take 1 tablet by mouth once daily. 0 Active naproxen sodium 220 mg oral tablet (8 sources) Nonsteroidal Anti-inflammatory Drug naproxen sodium ( Aleve) 220 mg tablet Take by mouth. 0 Active Aleve TABS Quant ity: 0 Refills: 0 Ordered: 16-Apr-2019 DO Active rosuvastatin calcium 10 mg oral tablet (20 sources) HMG-CoA Reductase Inhibitor Start: 05-10-2024 take 1 tablet by mouth once daily Rosuvastatin 10 mg tablet Active 10 mg PO DAILY May 10, 2024 1:00am Start: 03-02-2017 rosuvastatin ( CRESTOR) 10 mg tablet 10 mg. 0 03/02/2017 Active Start: 03-02-2017 rosuvastatin ( CRESTOR) 10 MG tablet 10 mg nightly . 1 03/02/2017 Active Comment on above: 10 mg. vitamin e 90 mg oral capsule (5 sources) Start: 06-15-2024 take 1 capsule by mouth once daily Vitamin E 200 unit capsule Active 200 U PO DAILY June 15, 2024 1:00am Completed/Discontinued Medications Medication Drug Class(es) Dates Sig (Normalized) Sig (Original) amoxicillin 875 mg / clavulanate 125 mg oral tablet (1 source) Penicillin-class Antibacterial Start: 08-19-2020 End: 08-28-2020 take 1 tablet by mouth twice daily at mealtime amoxicillin-clavul anate 875 mg-125 mg oral tablet ; 1 tab(s) orally 2 times a day Quantity: 20 Refills: 0 Ordered: 19-Aug-2020 Alejo Horner Start: 19-Aug-2020 End: 28-Aug-2020 Generic Substitution Allowed Comments: Finish all this medication unless otherwise directed by prescriber.Take with food or milk. Comment on above: Finish all this medi cation unless otherwise directed by prescriber.Take with food or milk. Calcium (7 sources) Phosphate Binder, Calcium Calcium + D TABS Quantity: 0 Refills: 0 Ordered: 16-Apr-2019 DO Active calcium carbonate 1500 mg oral tablet (14 sources) Start: 10-07-2009 calcium carbonate(CALTRATE 600 600 MG (1,500 MG) TAB) Take one(1) tablet three times daily. 0 10/07/2009 Active Start: 10-07-2009 calcium carbon ate 600 mg calcium (1,500 mg) tablet Take by mouth. 0 10/07/2009 Active End: 05-12-2017 calcium carbonate (OS-FARHEEN) 5 00 mg calcium (1,250 mg) chewable tablet Chew and Swallow 1 tablet daily. 05/12/2017 Discontinued Comment on above: Take one(1) tablet t hree times daily. cephalexin 500 mg oral capsule (13 sources) Cephalosporin Antibacterial Start: End: take 1 capsule by mouth twice daily Cephalexin 500 mg capsule Discontinued 500 mg PO TWICE A DAY 10 October 24, 2024 12:00am October 31, 2024 2:17pm Start: 06-15-2024 End: 07-11-2024 take 1 capsule by mouth twice daily Cephalexin 500 mg capsule Discontinued 500 mg PO TWICE A DAY June 27, 2024 1:00am July 11, 2024 3:41pm COMPOUNDED PRESCRIPTION (12 sources) Start: 10-07-2009 COMPOUNDED PRESCRIPTION eye drop for dry eyes - two drops in each eye once a day 0 10/07/2009 Active Comment on above: eye drop for dry eye s - two drops in each eye once a day [id number] 0.3 ml EPINEPHrine 1 mg/ml auto-injector (12 sources) alpha-Adrenergic Agonist, beta-Adrenergic Agonist, Catecholamine Start: 02-13-2014 EPINEPHrine (EPIPEN) 0.3 mg/0.3 mL (1:1,000) atIn Inject 0.3 mL intramuscularly as needed (for allergic reaction.Seek emergent medical care immediately after use.Disp:one 2-packw/manager document control). 1 Each 1 02/13/2014 Active Comment on above: Inject 0.3 mL intram uscularly as needed (for allergic reaction.Seek emergent medical care immediately after use.Disp:one 2-packw/manager document control). fluticasone propionate 0.05 mg/actuat metered dose nasal spray (20 sources) Corticosteroid Start: 08-08-2013 take 1-2 spray(s) nasal route once daily fluticasone 50 mcg/actuation nasal spray Indications: Allergic rhinitis, cause unspecified Use 1-2 Sprays in each nostril once daily. 3 Bottle 3 08/08/2013 Active fluticasone 50 m cg/inh nasal spray ; 1 spray(s) nasal once a day Quantity: 0 Refills: 0 Ordered: 07-May-2020 Jesica Moise Generic Substitution Allowed Comment on above: Use 1-2 Sprays in ea ch nostril once daily. ipratropium bromide 0.021 mg/actuat metered dose nasal spray (12 sources) Anticholinergic Start: 12-16-19 11 take 2 spray(s) nasal route four times daily as needed Ipratropium [place] (ATROVENT) 0.03 % NASAL nasal spray Use 2 Sprays in each nostril four times daily. As needed for runny nose. 3 Bottle 3 12/15/2010 Active Comment on above: Use 2 Sprays in each nostril four times daily. As needed for runny nose. Medrol Dosepak 4 mg oral tablet (1 source) Start: 08-06-19 23 Medrol Dosepak 4 mg oral tablet ; Take as directed. Quantity: 1 Refills: 0 Ordered: 05-Aug-2022 Chadwick Mckeon Start: 05-Aug-2022 Generic Substitution Allowed Comments: It is very important that you take or use this exactly as directed. Do not skip doses or discontinue unless directed by your doctor.Obtain medical advice before taking any non-prescription drugs as some may affect the action of this medication.Take with food or milk. Comment on above: It is very important that you take or use this exactly as directed. Do not skip doses or discontinue unless directed by your doctor.Obtain medical advice before taking any non-prescription drugs as some may affect the action of this medication.Take with food or milk. multivitamins(DAILY MULTIVITAMIN TAB) (12 sources) Start: 10-08-19 10 multivitamins(DAILY MULTIVITAMIN TAB) Take one(1) tablet daily. 0 10/07/2009 Active Comment on above: Take one(1) tablet d aily. nystatin 100 unt/mg topical powder (9 sources) Polyene Antifungal Start: 10-03-19 End: 02-11-20 23 nystatin (NYSTOP) powder Apply 1 application to affected area four times daily. 1 Bottle 1 10/02/2018 02/10/2023 Discontinued Comment on above: Apply 1 application to affected area four times daily. olopatadine 1 mg/ml ophthalmic solution (13 sources) Histamine-1 Receptor Inhibitor Start: 01-25-20 13 take 1 drop(s) into the eye(s) every twelve hours as needed olopatadine (PATANOL) 0.1 % ophthalmic solution Use 1 Drop in both eyes twice daily as needed. 3 Bottle 3 01/24/2013 Active Start: 01-24-2013 take 1 drop(s) into the eye(s) every twelve hours olopatadine (Patanol) 0.1 % ophthalmic solution 1 drop every 12 hours if needed. 0 01/24/2013 Active Start: 01-24-2013 take 1 drop(s) into the eye(s) twice daily as needed olopatadine (PATANOL) 0.1 % ophthalmic solution Use 1 Drop in both eyes twice daily as needed. 3 Bottle 3 01/24/2013 Active Comment on above: Use 1 Drop in both e yes twice daily as needed. predniSONE 10 mg oral tablet (1 source) Start: 08-20-19 21 take 3 tablets by mouth once daily at mealtime, then take 2 tablets by mouth once daily, then take 1 tablet by mouth once daily predniSONE 10 mg oral tablet ; 30 mg daily for 3 days, then take 20 mg daily for 3 days, then take 10 mg daily for 3 days. Quantity: 18 Refills: 0 Ordered: 19-Aug-2020 Alejo Horner Start: 19-Aug-2020 Generic Substitution Allowed Comments: It is very important that you take or use this exactly as directed. Do not skip doses or discontinue unless directed by your doctor.Obtain medical advice before taking any non-prescription drugs as some may affect the action of this medication.Take with food or milk. Comment on above: It is very important that you take or use this exactly as directed. Do not skip doses or discontinue unless directed by your doctor.Obtain medical advice before taking any non-prescription drugs as some may affect the action of this medication.Take with food or milk. triamcinolone acetonide 40 mg/ml injectable suspension (1 source) Corticosteroid Start: 04-08-20 Kenalog 40 MG/ML Injection Suspension INJECT 1 ML Intra-articular Quantity: 0 Refills: 0 Ordered: 08-Apr-2022 Eugenia Adair MD Start : 08-Apr-2022 Complete Problems Active Problems Problem Classification Problem Date Documented Date Episodic/Chronic Acquired foot deformities (2 sources) Hallux valgus; Translations: [Hallux valgus (acquired), left foot] 02-10-2023 Chronic Disorders of lipid metabolism (9 sources) Hyperlipidemia; Translations: [Other and unspecified hyperlipidemia] Onset: 3 11-25-2022 Chronic Headache; including migraine (1 source) Headache; including migraine; Translations: [Headache, unspecified] Onset: 3 Heart valve disorders (9 sources) Mitral valve prolapse; Translations: [Mitral valve disorders] Onset: 3 11-25-2022 Chronic Immunizations and screening for infectious disease (8 sources) Immunization due; Translations: [Need for prophylactic vaccination and inoculation against unspecified single disease] Episodic Neoplasms of unspecified nature or uncertain behavior (18 sources) Neoplasm of uncertain behavior of skin of face; Translations: [Neoplasm of uncertain behavior of skin] Onset: 5 05-01-2024 Episodic Other acquired deformities (10 sources) Lumbar spondylolisthesis; Translations: [Spondylolisthesis, lumbar region] 05-10-2024 Episodic Other acquired deformities (1 source) Dysplastic spondylolisthesis; Translations: [Spondylolisthesis, site unspecified] 05-10-2024 Episodic Other and unspecified benign neoplasm (7 sources) Dermal cellular nevus ; Translations: [Benign neoplasm of skin, site unspecified] Episodic Other and unspecified benign neoplasm (20 sources) Benign neoplasm of skin of face; Translations: [Other benign neoplasm of skin of unspecified part of face] 06-27-2024 Episodic Other bone disease and musculoskeletal deformities (1 source) Osteopenia; Translations: [Other specified disorders of bone density and structure, unspecified site] Episodic Other connective tissue disease (2 sources) Trochanteric bursitis; Translations: [Enthesopathy of hip region] Episodic Other connective tissue disease (2 sources) Pain in left foot; Translations: [Pain in left foot] 02-04-2023 Episodic Other connective tissue disease (1 source) Pain in left foot; Translations: [Pain in left foot] Onset: 3 Episodic Other screening for suspected conditions (not mental disorders or infectious disease) (10 sources) Patient encounter status; Translations: [Encounter for screening mammogram for malignant neoplasm of breast] Onset: 2 Episodic Other skin disorders (1 source) Foot callus; Translations: [Corns and callosities] 02-10-2023 Episodic Other skin disorders (12 sources) Scar conditions and fibrosis of skin; Translations: [Scar conditions and fibrosis of skin] 08-28-2024 Episodic Other upper respiratory disease (19 sources) Allergic rhinitis; Translations: [Allergic rhinitis, cause unspecified] Onset: 5 03-08-2005 Chronic Other upper respiratory infections (14 sources) Acute sinusitis; Translations: [Acute sinusitis, unspecified] Onset: 3 07-17-2022 Episodic Comment on above: URI Spondylosis; intervertebral disc disorders; other back problems (20 sources) Prolapsed lumbar intervertebral disc; Translations: [Displacement of lumbar intervertebral disc without myelopathy] Onset: 4 07-26-2024 Chronic Spondylosis; intervertebral disc disorders; other back problems (6 sources) Lumbosacral radiculopathy; Translations: [Thoracic or lumbosacral neuritis or radiculitis, unspecified] Episodic Syncope (2 sources) Syncope; Translations: [Syncope and collapse] 09-07-2021 Episodic Thyroid disorders (13 sources) Hypothyroidism; Translations: [Unspecified acquired hypothyroidism] Onset: 3 11-25-2022 Chronic Unclassified (2 sources) Other specified postprocedural states; Translations: [Other specified postprocedural states] Onset: 7 Unclassified (2 sources) LIGHT HEADED 09-07-2021 Comment on above: LIGHT HEADED Unclassified (2 sources) 1 YEAR OV 10-23-2020 Comment on above: 1 YEAR OV Unclassified (1 source) Cough, unspecified; Translations: [Cough, unspecified] Onset: 3 Unclassified (2 sources) Spondylolisthesis of lumbar region; Translations: [M43.16 - Spondylolisthesis, lumbar region] Unclassified (1 source) Low back pain, unspecified; Translations: [Low back pain, unspecified] Onset: Past or Other Problems Problem Classification Problem Date Documented Date Episodic/Chronic Lymphadenitis (2 sources) Localized enlarged lymph nodes; Translations: [Localized enlarged lymph nodes] Onset: 04-04-2023 Episodic Malaise and fatigue (1 source) Other malaise; Translations: [Other malaise] Onset: 08-05-2022 Episodic Other acquired deformities (1 source) Spondylolisthesis, lumbar region; Translations: [Spondylolisthesis, lumbar region] Onset: 05-10-2024 Episodic Other connective tissue disease (8 sources) Tibialis posterior tendinitis ; Translations: [Tibialis posterior tendinitis, unspecified laterality] Onset: 01-15-2019 01-15-2019 Episodic Other diseases of veins and lymphatics (9 sources) Peripheral venous insufficiency; Translations: [Venous insufficiency (chronic) (peripheral)] Onset: 06-01-2017 Resolved: 06-15-2017 06-15-2017 Episodic Other diseases of veins and lymphatics (4 sources) Disorder of vein; Translations: [Venous insufficiency] Onset: 06-01-2017 Resolved: 06-15-2017 06-15-2017 Episodic Other non-traumatic joint disorders (1 source) Pain in right hip; Translations: [Pain in right hip] Onset: 08-20-2024 Episodic Residual codes; unclassified (1 source) Pain, unspecified; Translations: [Pain, unspecified] Onset: 08-05-2022 Episodic Unclassified (5 sources) History of radiation therapy; Translations: [Status post endovenous radiofrequency ablation of saphenous vein] Onset: 06-15-2017 06-15-2017 Episodic Unclassified (1 source) Onset: 11-25-2022 11-25-2022 Varicose veins of lower extremity (20 sources) Venous varices; Translations: [Varicose veins of unspecified lower extremity with pain] Onset: 03-24-2017 03-24-2017 Episodic Results Test Name Value Interpretation Reference Range Facility Plastic Surgery Visit Report on 11-07-2024 Plastic Surgery Visit Report [facility] [address], [address] [place] [address] OFFICE VISIT Date of Service: 11/07/24 MR#: [id number] Acct: [id number] Name: NEY MILNER Rep #: [id number] : 1955 Provider: Dr. Maryann boyd MD Age/Sex: 69/F Location: [facility] Status: Signed Intake Vital Signs 10/31/24 14:16 11/07/24 14:12 Height 5 ft 6 in 5 ft 6 in Weight: 163 lb 2 oz 164 lb BMI 26.3 26.4 BP 123/71 H 113/71 Blood Pressure Location Lt brachial Lt brachial Position Sitting Sitting Respiration 18 18 Pulse 88 91 Temp 98.2 F 98.3 F Temp Source Temporal Temporal Pulse Oximetry (%) 95 95 Oxygen Delivery Method room air room air Intake Visit Reasons: 1 W FU Chief Complaint: post cheek lesion Is patient in pain?: No Allergies No Known Allergies Allergy (Verified 11/07/24 14:13) Medications ???Medication ???Instructions ???Recorded ???Confirmed ???Type levothyroxine 50 mcg tablet 50 mcg PO QDAY 05/01/24 11/07/24 H istory cholecalciferol (vitamin D3) 25 25 mcg PO QDAY 05/10/24 11/07/24 H istory mcg (1,000 unit) capsule minoxidil 2.5 mg tablet 2.5 mg PO DAILY 05/10/24 11/07/24 History rosuvastatin 10 mg tablet 10 mg PO DAILY 05/10/24 11/07/24 H istory vitamin E 200 unit capsule 200 unit PO DAILY 06/15/24 5 History Have you fallen in the past year?: No Nurse's Note: pt here for post cheek lesion, no issues Subjective Details: Ney comes for recheck of the lesion removed from her left cheek. She denies any problems. She has been applying antibiotic ointment to the site. Objective Details: The incisions well-approximated. There is no evidence of infection. I instructed the patient how to use Aquaphor on the area and massage this with pressure. She is to do this daily. I have also reviewed the importance of protecting it from sun exposure to help reduce the chance of pigmentation along the scar line. I also reviewed the path again with her. No further intervention is necessary. Coding Level of Care Code Global Post Op Diagnoses Benign neoplasm of skin of face D23.30 Scar condition and fibrosis of skin L90.5 [facility] Medical History History of malignant neoplasm of cervix History of cardiac murmur History of cataract History of back problems History of arthritis History of environmental allergies Surgical History History of bunionectomy History of appendectomy Family History Father Alcoholism Mother Heart disease Brother Pancreatitis Grandmother Breast cancer Social History Smoking Status: Never smoker alcohol intake: never substance use type: does not use additional social history: pt denies marijuana use,denies edibles pt does vape pt does not use aspirin, pt uses ibuprofen Assessment and Plan (No Qualifiers) Assessment and Plan (1) Benign neoplasm of skin of face: Status: Acute (2) Scar condition and fibrosis of skin: Status: Acute Plan Details Additional Comments: Follow-up as needed. 11/07/24 1503 Date Maryann Tabares Signature: Date (if applicable) CC: Normal [facility] Plastic Surgery Visit Report on 10-31-2024 Plastic Surgery Visit Report [facility] [address], [address] [place] [address] OFFICE VISIT Date of Service: 10/31/24 MR#: [id number] Acct: [id number] Name: NEY MILNER Rep #: [id number] : 1955 Provider: Dr. Maryann boyd MD Age/Sex: 69/F Location: [facility] Status: Signed Intake Vital Signs 10/17/24 14:20 10/24/24 10:49 10/31/24 14:16 Height 5 ft 6 in 5 ft 6 in 5 ft 6 in Weight: 163 lb 2 oz BMI 26.3 BP 123/71 H Blood Pressure Location Lt brachial Position Sitting Respiration 18 Pulse 88 Temp 98.2 F Temp Source Temporal Pulse Oximetry (%) 95 Oxygen Delivery Method room air Intake Visit Reasons: post op Chief Complaint: bump on cheek where previous lesion located Is patient in pain?: No Allergies No Known Allergies Allergy (Verified 10/31/24 14:17) Medications ???Medication ???Instructions ???Recorded ???Confirmed ???Type levothyroxine 50 mcg tablet 50 mcg PO QDAY 05/01/24 10/31/24 H istory cholecalciferol (vitamin D3) 25 25 mcg PO QDAY 05/10/24 10/31/24 H istory mcg (1,000 unit) capsule minoxidil 2.5 mg tablet 2.5 mg PO DAILY 05/10/24 10/31/24 History rosuvastatin 10 mg tablet 10 mg PO DAILY 05/10/24 10/31/24 H istory vitamin E 200 unit capsule 200 unit PO DAILY 06/15/24 5 History Have you fallen in the past year?: No Nurse's Note: pt here post op lesion on face Subjective Details: Ney comes in for recheck of the excision site on the left cheek. She denies any problems. Objective Details: The Steri-Strips are intact. There is no evidence of infection. Steri-Strips are removed and reinforcing sutures are clipped. Incisions well-approximated. I applied antibiotic ointment and showed the patient how to gently massage the incision. The pathology report was reviewed with her which demonstrated: Skin, left cheek, excision: * Actinically damaged skin with reactive changes - see note and Comment. * Scar and associated reactive changes consistent with a previous surgical procedure. * Focal ectopic/dystrophic bone. * Note: IHC for Melan-A (A1, A3) supports the diagnosis. No atypical melanocytic proliferation is identified. No further intervention is necessary. I will see her back in a week for recheck. Coding Level of Care Code Global Post Op Diagnoses Benign neoplasm of skin of face D23.30 [facility] Medical History History of malignant neoplasm of cervix History of cardiac murmur History of cataract History of back problems History of arthritis History of environmental allergies Surgical History History of bunionectomy History of appendectomy Family History Father Alcoholism Mother Heart disease Brother Pancreatitis Grandmother Breast cancer Social History Smoking Status: Never smoker alcohol intake: never substance use type: does not use additional social history: pt denies marijuana use,denies edibles pt does vape pt does not use aspirin, pt uses ibuprofen Assessment and Plan (No Qualifiers) Assessment and Plan (1) Benign neoplasm of skin of face: Status: Acute Plan Details Additional Comments: Follow-up 1 week 10/31/24 1440 Date Maryann Mantilla MD [facility] Signature: Date (if applicable) CC: Normal [facility] Discharge Instructionon 05 Discharge Instruction [facility] Medical Records Department [address] [place] [address] Instructions for Home/Discharge Instructions 10/24/24 1257 MR#: [id number] Acct: [id number] Name: NEY MILNER Rep #: [id number] : 1955 69 From: Maryann Mantilla MD PCP: Dr. Florence Mendez MD [place] [facility] [place] Instructions Dressing / Incision Additional Dressing/Incision Instructions:: Keep the paper tapes dry and intact until seen in the office. Keep your back elevated (recliner position) for the next 3-4 nights to help reduce swelling and bleeding. Take the oral antibiotic (Keflex) 2 times a day until finished. Follow Up Care Please Follow Up With: Maryann Mantilla MD When: 1 to 2 weeks Test Results: Test results from this visit will be discussed in further detail at your follow-up appointment, if applicable. Discharge Plan Admission Attending Provider: Maryann Mantilla Primary Care Provider: Florence Mendez Instructions Print Language: [place] Islander Discharge Orders/Prescriptions Prescriptions: New cephalexin 500 mg capsule 500 mg PO BID 5 Days Qty: 10 0RF No Action rosuvastatin 10 mg tablet 10 mg PO DAILY minoxidil 2.5 mg tablet 2.5 mg PO DAILY cholecalciferol (vitamin D3) 25 mcg (1,000 unit) capsule 25 mcg PO QDAY levothyroxine 50 mcg tablet 50 mcg PO QDAY vitamin E 200 unit capsule 200 unit PO DAILY Referrals / Follow Up: Florence Mendez MD [Primary Care Provider] - Disposition Disposition (needs filled in before D/C Order can be placed): Home, Self Care 10/24/24 0872 Maryann Mantilla MD CC: Dr. Florence Mendez MD Signed Normal [facility] Frozen Section (charge)on Frozen Section (charge) Patient Age/Sex Location Account Attending Physician NEY MILNER 69/[place] [facility] [id number]. Maryann Mantilla MD Specimen: [id number] Received: 10/24/24 Status: DAVE Cormier Num: [id number] Spec Type: Lesion Subm Dr: Dr. Maryann Mantilla MD HEADER OPERATION: Excision neoplasm of left cheek with frozen section PRE-OP DIAGNOSIS: Neoplasm of uncertain behavior of skin TISSUE SUBMITTED: A- Atypical lesion, left cheek FROZEN SECTION DIAGNOSIS A. Atypical lesion, left cheek, excision: Negative for malignancy. mr 10/24/2024 MICROSCOPIC DIAGNOSIS A. Skin, left cheek, excision: * Actinically damaged skin with reactive changes - see note and Comment. * Scar and associated reactive changes consistent with a previous surgical procedure. * Focal ectopic/dystrophic bone. * Note: IHC for Melan-A (A1, A3) supports the diagnosis. No atypical melanocytic proliferation is identified. COMMENT Selected slides/images were reviewed in intradepartmental consultation by Dr Rosalba Madera (dermatopathology division, [facility]) MICROSCOPIC DESCRIPTION Slides are reviewed. All matched controls reacted appropriately. These tests were developed and their performance characteristics determined by [facility]. They may not have been cleared or approved by the U.S. Food and Drug Administration. The FDA has determined that such clearance or approval is not necessary.??? The above immunohistochemical/dual IBIS???markers are ordered and reviewed by the Pathologist. Patient Age/Sex Location Account Attending Physician NEY MILNER 69/[place] [facility] [id number]. Maryann Mantilla MD GROSS DESCRIPTION A. Received fresh for intraoperative consultation in a container labeled with the patient's name, date of , and Atypical Lesion L Cheek is an oriented and circular skin excision received oriented by the surgeon by an illustrated diagram. Digital photos are taken. A section diagram is made. The specimen is 1.1 cm from 12-6 o'clock, 1.0 cm from 3-9 o'clock, with a depth up to 0.5 cm. The white-perera epidermis is somewhat nodular, but otherwise unremarkable. The 9:00 half is inked blue, and the 3:00 half is inked black. The specimen is serially sectioned from 12:00 to 6:00 to reveal white-yellow, uniform, rubbery cut surfaces. The specimen is submitted entirely for frozen section analysis. The remaining remnants are submitted entirely as follows:A1. 12:00 end, perpendicularA2. 6:00 end, perpendicularA3. Midportion of specimen B 10-24-2024 CPT:32148,70717,46126 Patient Age/Sex Location Account Attending Physician NEY MILNER 69/[place] [facility] [id number] [place]. Maryann Mantilla MD Signed (signature on file) Dr. Radha Damico MD 10/31/24 1208 [facility] Comment on above: Performed By: #### P FSC ####[facility] [id number] [place], [address] Operative Reporton 5 Operative Report [facility] Medical Records Department [address] [place] [address] Operative Report 10/24/24 1259 MR#: [id number] Acct: [id number] Name: NEY MILNER Rep #: [id number] : 1955 69 From: Maryann Mantilla MD PCP: Dr. 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 Post-Operative Diagnosis: Same Surgery/Procedure Performed: Excision neoplasm left cheek (2.5 cm) with frozen section and intermediate closure crepe maker: No Type of Anesthesia: Local RN Documented Start/Stop Times: Operation Date: 10/24/24 11:20 Case Time Into Pre-Op 10/24/24 10:40 Anesthesia Start 10/24/24 11:33 Into Room 10/24/24 11:33 Procedure Start 10/24/24 11:55 Procedure End 10/24/24 12:57 Anesthesia End 10/24/24 12:58 Out of Room 10/24/24 12:58 Procedure Start Time: 11:55 Procedure Stop Time: 12:57 Select all DRAINS/GRAFTS/IMPLANTS that apply: None Estimated Blood Loss: Minimal Specimen collected: Yes Description of specimen(s) removed: Neoplasm left cheek Description of surgery: The patient presents today with a history of an neoplasm with atypia of the left cheek. This site has remained elevated and firm to touch. She presents for reexcision of the area and frozen section evaluation of margins to rule out malignant transformation. An informed consent is obtained and the patient is marked in the preop holding area. The patient was brought to the operating room and placed on the operating room table in the supine position. The left face is prepped and draped in the usual sterile fashion. We initially began with injecting 1% Xylocaine with epinephrine buffered with sodium bicarb around the periphery of the site. Following this, the area is elliptically excised and passed off the operative field maintaining orientation for pathology. Pathology returns no evidence of malignancy. After ensuring hemostasis, the site is closed in layers using Monocryl suture for the subcutaneous tissue and dermis. Skin edges were approximated with a running subcuticular Monocryl suture. Further reinforcement the closure was done with interrupted Prolene suture. Dermabond and Steri-Strips were placed on the site. She tolerated the procedure well was taken to the recovery area in an awake and stable condition. Needle and sponge counts are correct. Surgical Findings: As above Complications Complications: No Admit VTE Documentation VTE Mechan Device Prophylaxis: None Reason prophylaxis not ordered: Treatment Not Indicated 10/24/24 1303 Cosigner Signature (if applicable): CC: Dr. Florence Mendez MD; Dr. Maryann Mantilla MD Signed Normal [facility] Plastic Surgery Visit Report on 10-17-2024 Plastic Surgery Visit Report [facility] [address], [address] [place] [address] OFFICE VISIT Date of Service: 10/17/24 MR#: [id number] Acct: [id number] Name: NEY MILNER Rep #: [id number] : 1955 Provider: Dr. Maryann boyd MD Age/Sex: 69/F Location: [facility] Status: Signed Intake Vital Signs 08/28/24 10:40 10/17/24 14:20 Height 5 ft 6 in 5 ft 6 in Weight: 163 lb 4 oz 163 lb BMI 26.3 26.3 BP 119/67 126/75 H Blood Pressure Location Lt brachial Lt brachial Position Sitting Sitting Respiration 18 18 Pulse 71 78 Temp 98.7 F 97.6 F L Temp Source Temporal Temporal Pulse Oximetry (%) 96 95 Oxygen Delivery Method room air room air Intake Visit Reasons: 1 M FU Chief Complaint: bump on cheek where previous lesion located Allergies No Known Allergies Allergy (Verified 10/17/24 14:21) Medications ???Medication ???Instructions ???Recorded ???Confirmed ???Type levothyroxine 50 mcg tablet 50 mcg PO QDAY 05/01/24 10/17/24 H istory cholecalciferol (vitamin D3) 25 25 mcg PO QDAY 05/10/24 10/17/24 H istory mcg (1,000 unit) capsule minoxidil 2.5 mg tablet 2.5 mg PO DAILY 05/10/24 10/17/24 History rosuvastatin 10 mg tablet 10 mg PO DAILY 05/10/24 10/17/24 H istory vitamin E 200 unit capsule 200 unit PO DAILY 06/15/24 5 History Have you fallen in the past year?: No [facility] Medical History History of malignant neoplasm of cervix History of cardiac murmur History of cataract History of back problems History of arthritis History of environmental allergies Surgical History History of bunionectomy History of appendectomy Family History Father Alcoholism Mother Heart disease Brother Pancreatitis Grandmother Breast cancer Social History Smoking Status: Never smoker alcohol intake: never substance use type: does not use additional social history: pt denies marijuana use,denies edibles pt does vape pt does not use aspirin, pt uses ibuprofen HPI 1 M FU Details: Ney comes in for recheck of the neoplasm removed from the left cheek in June. She has been doing conservative management of the scar with pressure and topical hydrocortisone. Exam Details There is a firm area of hypertrophic scar of the left cheek at the site of the previous excision. This has not resolved with conservative measures. The pathology on both sites was consistent with actinic keratosis and atypia noted along the margins. Because of this reason, I recommended reexcision with frozen section to ensure that this is not evolved into malignant neoplasm. This will be done under local anesthetic as an outpatient with frozen section evaluation of margins. Const General: cooperative, healthy appearing, no acute distress and well developed Nutritional Appearance: well nourished Orientation: alert [facility] Head: normal to inspection, normocephalic and atraumatic Ears: hearing grossly normal bilaterally Nose: external nose normal Face and sinus: normal facial exam and face symmetric Mouth: lip normal Eyes General: appearance normal, both eyes and all related structures Eyelids: eyelids normal Pupils: PERRL EOM: EOM intact bilaterally Neck Neck: normal visual inspection and no lymphadenopathy Chest Chest palpation inspection: normal inspection of the chest Resp Effort Inspection: normal respiratory effort Auscultation: clear to auscultation bilaterally Cardio Rate: regular rate Rhythm: regular rhythm Heart Sounds: S2 normal and click GI Inspection: normal to inspection Palpation: soft and nontender Neuro General: patient alert, patient awake and patient oriented x3 Cognition: normal cognition Speech: speech normal Motor: muscle tone normal throughout Sensory Exam: no sensory deficits noted Extrem General: normal to inspection and no pedal edema Psych Appearance: grossly normal Affect: normal affect Speech and Movement: speech and movement normal Attitude: cooperative Judgment: judgment good Coding Level of Care Code Off vis,est,level 4 Diagnoses Neoplasm of uncertain behavior of skin D48.5 Assessment and Plan (No Qualifiers) Assessment and Plan (1) Neoplasm of uncertain behavior of skin: Status: Acute Plan Details Additional Comments: The procedure of excision neoplasm left cheek with frozen section and intermediate closure was thoroughly reviewed with the patient including risks and alternatives of care. Informed consent was obtained. The patient will be scheduled for the procedure under [local] anesthesia. They are to call with any prob (more content not included)... Normal [facility] Plastic Surgery Visit Report on 09-19-2024 Plastic Surgery Visit Report [facility] [address], [address] [place] [address] OFFICE VISIT Date of Service: 09/19/24 MR#: [id number] Acct: [id number] Name: NEY MILNER Rep #: [id number] : 1955 Provider: Dr. Maryann boyd MD Age/Sex: 69/F Location: [facility] Status: Signed Intake Vital Signs 08/28/24 10:40 09/19/24 14:18 Height 5 ft 6 in Weight: 163 lb 4 oz 164 lb BMI 26.3 BP 119/67 112/75 Blood Pressure Location Lt brachial Lt brachial Position Sitting Sitting Respiration 18 18 Pulse 71 76 Pulse Source Monitor Temp 98.7 F 97.9 F Temp Source Temporal Oral Pulse Oximetry (%) 96 96 Oxygen Delivery Method room air room air Intake Visit Reasons: 3 W FU Chief Complaint: bump on cheek where previous lesion located Is patient in pain?: No Allergies No Known Allergies Allergy (Verified 09/19/24 14:17) Medications ???Medication ???Instructions ???Recorded ???Confirmed ???Type levothyroxine 50 mcg tablet 50 mcg PO QDAY 05/01/24 09/19/24 H istory cholecalciferol (vitamin D3) 25 25 mcg PO QDAY 05/10/24 09/19/24 H istory mcg (1,000 unit) capsule minoxidil 2.5 mg tablet 2.5 mg PO DAILY 05/10/24 09/19/24 History rosuvastatin 10 mg tablet 10 mg PO DAILY 05/10/24 09/19/24 H istory vitamin E 200 unit capsule 200 unit PO DAILY 06/15/24 5 History Have you fallen in the past year?: No Nurse's Note: pt reports doing well, thinks there is improvement to lesion. No concerns today. [facility] Medical History History of malignant neoplasm of cervix History of cardiac murmur History of cataract History of back problems History of arthritis History of environmental allergies Surgical History History of bunionectomy History of appendectomy Family History Father Alcoholism Mother Heart disease Brother Pancreatitis Grandmother Breast cancer Social History Smoking Status: Never smoker alcohol intake: never substance use type: does not use additional social history: pt denies marijuana use,denies edibles pt does vape pt does not use aspirin, pt uses ibuprofen HPI 3 W FU Details: Ney comes in for recheck of the neoplasm removed from her left cheek. She has been managing the scar with topical baar-syr-eigzbfp hydrocortisone and massage with pressure. She has seen improvement in the site as a result. Exam Details The area of excision on the left cheek has become less discolored. There is still some thickness to the site, although improved. I have asked her to continue with massage and pressure. I will see her back in a month for recheck. I have reviewed the possibility of a steroid injection to further promote scar remodeling. I also reviewed with her that despite the pathology being benign, atypical cells were noted and therefore there should be a reduced threshold to reexcise the site with any adverse signs. I will see her back in a month for recheck Const General: cooperative and healthy appearing Coding Level of Care Code Off vis,est,level 3 Diagnoses Scar condition and fibrosis of skin L90.5 Benign neoplasm of skin of face D23.30 Assessment and Plan (No Qualifiers) Assessment and Plan (1) Scar condition and fibrosis of skin: Status: Acute (2) Benign neoplasm of skin of face: Status: Acute Plan Details Additional Comments: Follow-up in 1 month Clinical Quality Measures Falls Risk Screening/Assistive Devices Have you fallen in the past year?: No 09/19/24 1450 Date Maryann Mantilla MD Cosigner Signature: Date (if applicable) CC: Normal [facility] Plastic Surgery Visit Report on 08-28-2024 Plastic Surgery Visit Report [facility] [address], [address] [place] [address] OFFICE VISIT Date of Service: 08/28/24 MR#: [id number] Acct: [id number] Name: NEY MILNER Rep #: [id number] : 1955 Provider: Dr. Maryann boyd MD Age/Sex: 69/F Location: [facility] Status: Signed Intake Vital Signs 07/11/24 14:42 08/28/24 10:40 Height 5 ft 6 in 5 ft 6 in Weight: 163 lb 163 lb 4 oz BMI 26.3 26.3 BP 138/81 H 119/67 Blood Pressure Location Lt brachial Lt brachial Position Sitting Sitting Respiration 18 18 Pulse 72 71 Temp 98.4 F 98.7 F Temp Source Temporal Temporal Pulse Oximetry (%) 96 96 Oxygen Delivery Method room air room air Intake Visit Reasons: PAINFUL BUMP Chief Complaint: bump on cheek where previous lesion located Is patient in pain?: Yes () Allergies No Known Allergies Allergy (Verified 08/28/24 10:42) Medications ???Medication ???Instructions ???Recorded ???Confirmed ???Type levothyroxine 50 mcg tablet 50 mcg PO QDAY 05/01/24 08/28/24 H istory cholecalciferol (vitamin D3) 25 25 mcg PO QDAY 05/10/24 08/28/24 H istory mcg (1,000 unit) capsule minoxidil 2.5 mg tablet 2.5 mg PO DAILY 05/10/24 08/28/24 History rosuvastatin 10 mg tablet 10 mg PO DAILY 05/10/24 08/28/24 H istory vitamin E 200 unit capsule 200 unit PO DAILY 06/15/24 5 History Have you fallen in the past year?: No Nurse's Note: pt here for evaluation bump where previous lesion was removed on cheek [facility] Medical History History of malignant neoplasm of cervix History of cardiac murmur History of cataract History of back problems History of arthritis History of environmental allergies Surgical History History of bunionectomy History of appendectomy Family History Father Alcoholism Mother Heart disease Brother Pancreatitis Grandmother Breast cancer Social History Smoking Status: Never smoker alcohol intake: never substance use type: does not use additional social history: pt denies marijuana use,denies edibles pt does vape pt does not use aspirin, pt uses ibuprofen HPI PAINFUL BUMP Details: Ney comes in for recheck of the excision site on the left cheek which she states is a bump and is slightly red. She has been massaging the area with Aquaphor. Exam Details The site of the excision on the left cheek is slightly thickened and there are some surrounding discoloration. The overlying skin is intact. This was the site of a previous actinic keratosis. I reviewed massage with moderate pressure on the site. I also suggested a topical hydrocortisone to diminish the erythema. She is to massage this several times a day but only to apply the hydrocortisone once a day. I will see her back in 3 to 4 weeks for recheck. Coding Level of Care Code Off vis,est,level 2 Diagnoses Benign neoplasm of skin of face D23.30 Scar condition and fibrosis of skin L90.5 Assessment and Plan (No Qualifiers) Assessment and Plan (1) Benign neoplasm of skin of face: Status: Acute (2) Scar condition and fibrosis of skin: Status: Acute Plan Details Additional Comments: Follow-up in 3 to 4 weeks. Clinical Quality Measures Falls Risk Screening/Assistive Devices Have you fallen in the past year?: No 08/28/24 1318 Date Maryann Mantilla MD Cosign Signature: Date (if applicable) CC: Normal [facility] Magnetic resonance imaging r eportOrdered By: Georges Pardo on 08-12-2024 Study report [facility] Imaging Services [address] [place], [place] [id number] Lower Ext Joint Only (Routine) MR#: [id number] Acct: [id number] Name: NEY MILNER Rep #: [id number] : 1955 F 69 From: Bert Pardo DO PCP: Dr. Florence Mendez MD Status: REG CL I Study:Lower Ext Joint Only (Routine) Date of Exam: 08/11/24 Exam# [id number] Ordering Dr: Jen Mendez MD PROCEDURE: MRI right hip without IV contrast REASON FOR EXAM: Pain, failed physical therapy TECHNIQUE: Multisequence multiplanar MR images of the right hip were obtained without the administration of intravenous contrast. COMPARISON: None. FINDINGS Negative for acute fracture or marrow edema. No suspicious marrow replacement. No sizeable joint effusion. Full-thickness tear of the gluteus minimus tendon with retraction measuring up to 1.2 cm. Contiguous full-thickness tear of the gluteus medius tendon at its lateral trochanteric facet with 1.9 cm of retraction. Posterior fibers of the gluteus medius tendon are intact and attached to the posterosuperior greater trochanteric facet. Gluteus marla, iliopsoas, common hamstring and rectus femoris tendons are intact. Degenerative tearing of the anterosuperior labrum with small adjacent paralabralcysts. Adjacent chondral thinning/fibrillation of the anterosuperior acetabulum. No full-thickness chondral defects. Moderate fluid in the trochanteric bursa. No other periarticular fluid collections. Musculature is symmetric. Degenerative changes of the pubic symphysis. MRI/Lower Ext Joint Only (Routine) IMPRESSION: 1. Full-thickness retracted tear of the gluteus minimus tendon. 2. Full-thickness partial width tear of the gluteus medius tendon. 3. Moderate fluid in the trochanteric bursa. 4. Mild right hip osteoarthritis as above. Reading Location: [facility] CC: Dr. Florence Mendez MD ~ Building Drafter: Signed [facility] Lower Ext Joint Only (Routin e)on 08-11-2024 Lower Ext Joint Only (Routine) [facility] Imaging Services [address] [place] [id number] Lower Ext Joint Only (Routine) MR#: [id number] Acct: [id number] Name: NEY MILNER Rep #: [id number] : 1955 F 69 From: Georges Martinez PCP: Dr. Florence Mendez MD Status: REG CLI Study: Lower Ext Joint Only (Routine) Date of Exam: 0 08/11/24 Exam# [id number] Ordering Dr: Florence Mendez MD PROCEDURE: MRI right hip without IV contrast REASON FOR EXAM: Pain, failed physical therapy TECHNIQUE: Multisequence multiplanar MR images of the right hip were obtained without the administration of intravenous contrast. COMPARISON: None. FINDINGS Negative for acute fracture or marrow edema. No suspicious marrow replacement. No sizeable joint effusion. Full-thickness tear of the gluteus minimus tendon with retraction measuring up to 1.2 cm. Contiguous full-thickness tear of the gluteus medius tendon at its lateral trochanteric facet with 1.9 cm of retraction. Posterior fibers of the gluteus medius tendon are intact and attached to the posterosuperior greater trochanteric facet. Gluteus marla, iliopsoas, common hamstring and rectus femoris tendons are intact. Degenerative tearing of the anterosuperior labrum with small adjacent paralabral cysts. Adjacent chondral thinning/fibrillation of the anterosuperior acetabulum. No full-thickness chondral defects. Moderate fluid in the trochanteric bursa. No other periarticular fluid collections. Musculature is symmetric. Degenerative changes of the pubic symphysis. MRI/Lower Ext Joint Only (Routine) IMPRESSION: 1. Full-thickness retracted tear of the gluteus minimus tendon. 2. Full-thickness partial width tear of the gluteus medius tendon. 3. Moderate fluid in the trochanteric bursa. 4. Mild right hip osteoarthritis as above. Reading Location: [facility] CC: Dr. Florence Mendez MD Building Drafter: Signed Normal [facility] Orthopedic Visit Reporton Orthopedic Visit Report [facility] [address] [place] [address] OFFICE VISIT Date of Service: 07/26/24 MR#: [id number] Acct: [id number] Name: NEY MILNER Rep #: [id number] : 1955 Provider: SIOBHAN Keita Age/Sex: 69/F Location: [facility] Status: Signed Intake Vital Signs 07/11/24 14:42 Height 5 ft 6 in Weight: 163 lb BMI 26.3 BP 138/81 H Blood Pressure Location Lt brachial Position Sitting Respiration 18 Pulse 72 Temp 98.4 F Temp Source Temporal Pulse Oximetry (%) 96 Oxygen Delivery Method room air Intake Visit Reasons: LUMBAR SPINE Allergies No Known Allergies Allergy (Verified 07/26/24 15:01) Medications ???Medication ???Instructions ???Recorded ???Confirmed ???Type levothyroxine 50 mcg tablet 50 mcg PO QDAY 05/01/24 07/26/24 H istory cholecalciferol (vitamin D3) 25 25 mcg PO QDAY 05/10/24 07/26/24 H istory mcg (1,000 unit) capsule minoxidil 2.5 mg tablet 2.5 mg PO DAILY 05/10/24 07/26/24 History rosuvastatin 10 mg tablet 10 mg PO DAILY 05/10/24 07/26/24 H istory vitamin E 200 unit capsule 200 unit PO DAILY 06/15/24 5 History Have you fallen in the past year?: No PFSH Medical History History of malignant neoplasm of cervix History of cardiac murmur History of cataract History of back problems History of arthritis History of environmental allergies Surgical History History of bunionectomy History of appendectomy Family History Father Alcoholism Mother Heart disease Brother Pancreatitis Grandmother Breast cancer Social History Smoking Status: Never smoker alcohol intake: never substance use type: does not use additional social history: pt denies marijuana use,denies edibles pt does vape pt does not use aspirin, pt uses ibuprofen HPI LUMBAR SPINE Details: This documentation accurately reflects the service provided and the decisions made by me, SIOBHAN Keita 07/26/24 6018. Part of today???s visit was documented by Mer ZHAO, acting as scribe. NEY MILNER is a 69 year old F here today for MRI review of her lumbar spine. She states that her pain has gotten better and she just completed 8 weeks of PT for her right IT band but it did help with her low back pain as well. She has not seen pain management. Says that her right sided leg pain has improved. She does continue to have some bilateral lumbar back pain but says that it has improved and she does not wish for further treatment at this time. HPI from 05/10/24: NEY MILNER is a 69 year old F here today NEW patient for low back pain. She states that she has had pain for several years but within the last year it has gotten worse. She thinks that her work may be contributing to her pain as she walks a lot. She is also having right hip pain which she has talked to Dr. Mendez about and he says that she has bursitis and has given her 2 cortisone injections which she states helped her back more than her hip. When her hip is bothering her the pain radiates down her lateral thigh and stops at the knee. Denies numbness, tingling or other associated symptoms. She states that walking up steps increases her pain and she feels that her right leg is weak. Says that the pain increases when she sits and denies any pain with walking. She denies previous injury or surgery. She denies PT and injection in her low back. She does have stretches that she does every morning that she has been doing for several years which does help. She takes 200mg Ibuprofen at night for her pain. Denies any dexterity or balance issues. No history of diabetes, no blood thinners, no heart or lung issues. Ortho Exam General General: Yes no acute distress Neurologic: Yes alert and Yes oriented x3 Spine SPINE TESTING CERVICAL THORACIC LUMBAR Musculoskeletal Strength 0=absent - 5=normal Details: Neurological exam of the lower extremities shows 5x5 power. Normal sensations across all dermatomes. No hyperreflexia. Mild midline tenderness, no paraspinal tenderness. Coding Level of Care Code Off vis,est,level 3 Diagnoses Spondylolisthesis, lumbar region M43.16 Degeneration of intervertebral disc of lumbar region with discogenic back pain M51.360 Disc-related pain type: discogenic back pain only Assessment and Plan Assessment and Plan (1) Spondylolisthesis, lumbar region: Status: Acute (2) Disc degeneration, lumbar: Status: Acute Qualifiers: Disc-related pain type: discogenic back pain only Qualified Code(s): M51.360 - Other intervertebral disc degeneration, lumbar region with discogen (more content not included)... Normal [facility] Plastic Surgery Visit Report on 07-11-2024 Plastic Surgery Visit Report [facility] [address], [address] [place], [place] [address] OFFICE VISIT Date of Service: 07/11/24 MR#: [id number] Acct: [id number] Name: NEY MILNER Rep #: [id number] : 1955 Provider: Dr. Maryann boyd MD Age/Sex: 69/F Location: [facility] Status: Signed Intake Vital Signs 06/27/24 14:22 07/11/24 14:42 Height 5 ft 6 in 5 ft 6 in Weight: 165 lb 163 lb BMI 26.6 26.3 BP 139/79 H 138/81 H Blood Pressure Location Lt brachial Lt brachial Position Sitting Sitting Respiration 18 18 Pulse 67 72 Temp 97.9 F 98.4 F Temp Source Oral Temporal Pulse Oximetry (%) 96 96 Oxygen Delivery Method room air room air Intake Visit Reasons: 2 W F/U Chief Complaint: lesion on face Is patient in pain?: No Allergies No Known Allergies Allergy (Verified 06/27/24 14:23) Medications ???Medication ???Instructions ???Recorded ???Confirmed ???Type levothyroxine 50 mcg tablet 50 mcg PO QDAY 05/01/24 06/27/24 H istory cholecalciferol (vitamin D3) 25 25 mcg PO QDAY 05/10/24 06/27/24 H istory mcg (1,000 unit) capsule minoxidil 2.5 mg tablet 2.5 mg PO DAILY 05/10/24 06/27/24 History rosuvastatin 10 mg tablet 10 mg PO DAILY 05/10/24 06/27/24 H istory vitamin E 200 unit capsule 200 unit PO DAILY 06/15/24 5 History Have you fallen in the past year?: No Nurse's Note: pt here post op no issues Subjective Details: eNy comes in for recheck of the lesions removed from her left cheek. She denies any problems. She has been cleaning the area with peroxide and states the site is much improved. Objective Details: The incisions are well-approximated. There is no evidence of infection. I showed her how to massage the area with Aquaphor to help prevent adhesions of the scar. No further interventions necessary. I will see her back as needed. Coding Level of Care Code Off vis,est,level 2 Diagnoses Benign neoplasm of skin of face D23.30 [facility] Medical History History of malignant neoplasm of cervix History of cardiac murmur History of cataract History of back problems History of arthritis History of environmental allergies Surgical History History of bunionectomy History of appendectomy Family History Father Alcoholism Mother Heart disease Brother Pancreatitis Grandmother Breast cancer Social History Smoking Status: Never smoker alcohol intake: never substance use type: does not use additional social history: pt denies marijuana use,denies edibles pt does vape pt does not use aspirin, pt uses ibuprofen Assessment and Plan (No Qualifiers) Assessment and Plan (1) Benign neoplasm of skin of face: Status: Acute Plan Details Additional Comments: She will follow-up as needed. 07/11/24 1701 Date Maryann Mantilla MD Cosigner Signature: Date (if applicable) CC: Normal [facility] Plastic Surgery Visit Report on 06-27-2024 Plastic Surgery Visit Report [facility] [address], [address] [place] [address] OFFICE VISIT Date of Service: 06/27/24 MR#: [id number] Acct: [id number] Name: NEY MILNER Rep #: [id number] : 1955 Provider: Dr. Maryann boyd MD Age/Sex: 69/F Location: [facility] Status: Signed Intake Vital Signs 05/17/24 12:18 06/15/24 13:55 06/27/24 14:22 Height 5 ft 6 in 5 ft 6 in 5 ft 6 in Weight: 165 lb BMI 26.6 BP 139/79 H Blood Pressure Location Lt brachial Position Sitting Respiration 18 Pulse 67 Temp 97.9 F Temp Source Oral Pulse Oximetry (%) 96 Oxygen Delivery Method room air Intake Visit Reasons: post op Chief Complaint: lesion on face Is patient in pain?: No Allergies No Known Allergies Allergy (Verified 06/27/24 14:23) Medications ???Medication ???Instructions ???Recorded ???Confirmed ???Type levothyroxine 50 mcg tablet 50 mcg PO QDAY 05/01/24 06/27/24 History cholecalciferol (vitamin D3) 25 25 mcg PO QDAY 05/10/24 06/27/24 History mcg (1,000 unit) capsule minoxidil 2.5 mg tablet 2.5 mg PO DAILY 05/10/24 06/27/24 History rosuvastatin 10 mg tablet 10 mg PO DAILY 05/10/24 06/27/24 History vitamin E 200 unit capsule 200 unit PO DAILY 06/15/24 06/27/24 History Have you fallen in the past year?: No Nurse's Note: pt here post op facial lesion, no issues Subjective Details: Ney comes in for recheck of the lesions removed from her left cheek. She denies any problem other than tenderness. Objective Details: The shaved area appears as excoriated. The excised site is well-approximated. There is some slight erythema around the periphery of the area. There is no drainage. She has been keeping a spot Band- Aid on the area and I believe the adhesive is sticking directly to the open sites. I cleaned the area off with peroxide and applied a Band-Aid. I have encouraged her to keep this open is much as she can. I will call in a prescription for an oral antibiotic I will see her back in 2 weeks for recheck. The pathology was reviewed which demonstrated both sides to be consistent with actinic keratosis with atypia but no evidence of malignancy. No further intervention is necessary.. Coding Level of Care Code Global Post Op Diagnoses Benign neoplasm of skin of face D23.30 [facility] Medical History History of malignant neoplasm of cervix History of cardiac murmur History of cataract History of back problems History of arthritis History of environmental allergies Surgical History History of bunionectomy History of appendectomy Family History Father Alcoholism Mother Heart disease Brother Pancreatitis Grandmother Breast cancer Social History Smoking Status: Never smoker alcohol intake: never substance use type: does not use additional social history: pt denies marijuana use,denies edibles pt does vape pt does not use aspirin, pt uses ibuprofen Assessment and Plan (No Qualifiers) Assessment and Plan (1) Benign neoplasm of skin of face: Status: Acute Plan Details Additional Comments: Follow-up in 2 weeks 06/27/24 1535 Date Mrayann Mantilla MD [facility] Signature: Date (if applicable) CC: Normal [facility] Discharge Instructionon 06-06 Discharge Instruction [facility] Medical Records Department [address] [place] [address] Instructions for Home/Discharge Instructions 06/15/24 1608 MR#: [id number] Acct: [id number] Name: NEY MILNER Rep #: [id number] : 1955 69 From: Maryann Mantilla MD PCP: Dr. Florence Mendez MD [place] [facility] [place] Instructions Dressing / Incision Additional Dressing/Incision Instructions:: Apply a thin layer of antibiotic ointment (like Neosporin, bacitracin, or triple antibiotic ointment) to the site daily. You can discontinue wearing a Band-Aid when no further drainage is noted. Take the oral antibiotic (Keflex) 2 times a day until finished. Keeping your back elevated at night (recliner position) will decrease swelling and bruising. Follow Up Care Please Follow Up With: Maryann Mantilla MD When: 2 weeks Test Results: Test results from this visit will be discussed in further detail at your follow-up appointment, if applicable. Discharge Plan Admission Attending Provider: Maryann Mantilla Primary Care Provider: Florence Mendez Instructions Print Language: [place] Islander Discharge Orders/Prescriptions Prescriptions: New cephalexin 500 mg capsule 500 mg PO BID 5 Days Qty: 10 0RF No Action rosuvastatin 10 mg tablet 10 mg PO DAILY minoxidil 2.5 mg tablet 2.5 mg PO DAILY cholecalciferol (vitamin D3) 25 mcg (1,000 unit) capsule 25 mcg PO QDAY levothyroxine 50 mcg tablet 50 mcg PO QDAY vitamin E 200 unit capsule 200 unit PO DAILY Referrals / Follow Up: Florence Mendez MD [Primary Care Provider] - Disposition Disposition (needs filled in before D/C Order can be placed): Home, Self Care 06/15/24 1617 Maryann Mantilla MD CC: Dr. Florence Mendez MD Signed Normal [facility] Operative Reporton Operative Report [facility] Medical Records Department [address] [place] [address] Operative Report 06/15/24 1611 MR#: [id number] Acct: [id number] Name: NEY MILNER Rep #: [id number] : 1955 69 From: Maryann Mantilla MD PCP: Dr. Florence Mendez MD Status:[facility] Location: [place] [address] Problems Associated Problem List Diagnoses (1) Neoplasm of uncertain behavior of skin of face: Operative Report (Standard) Operative Information Date of Procedure: 06/15/24 Pre-Operative Diagnosis: Neoplasm uncertain behavior left cheek x 2 Post-Operative Diagnosis: Same Surgery/Procedure Performed: Excision lesion left cheek (1.5 cm) with intermediate closure; Shave lesion left cheek (1.0 cm) crepe maker: No Type of Anesthesia: Local RN Documented Start/Stop Times: Operation Date: 06/15/24 14:45 Case Time Into Pre-Op 06/15/24 13:54 Out of Pre-Op 06/15/24 15:21 Into Room 06/15/24 15:24 Procedure Start 06/15/24 15:41 Procedure End 06/15/24 16:03 Anesthesia End 06/15/24 16:08 Out of Room 06/15/24 16:08 Procedure Start Time: 15:41 Procedure Stop Time: 16:03 Select all DRAINS/GRAFTS/IMPLANTS that apply: None Estimated Blood Loss: Minimal Specimen collected: Yes Description of specimen(s) removed: Excise lesion left cheek; shave lesion left cheek Description of surgery: The patient presents for evaluation of 2 new lesions of the left cheek. The specimens will be sent to pathology for evaluation. Patient is brought to the operating room and placed on the operating room table in supine position. The face is prepped and draped in the usual sterile fashion. 1% Xylocaine with epinephrine buffered with sodium bicarb is used for local anesthetic. Following this, the hyperkeratotic lesion which is located laterally is excised and passed off the operative field to be sent to pathology. Hemostasis is controlled with cautery. The wound is then closed in layers using a Monocryl suture in the subcutaneous tissue and dermis. Skin edges were approximated with a running subcuticular Monocryl suture. Further reinforcement the closure is done with interrupted chromic suture. We then directed our attention to the erythematous lesion located medial to this. After this is anesthetized, it is shaved at the base and the base full rise. Antibiotic ointment and a Band-Aid is applied as a dressing. She tolerated the procedure well was taken to the recovery area in an awake and stable condition. Needle and sponge counts are correct. Surgical Findings: As above Complications Complications: No Admit VTE Documentation VTE Mechan Device Prophylaxis: None Reason prophylaxis not ordered: Treatment Not Indicated 06/15/24 1615 Cosigner Signature (if applicable): CC: Dr. Florence Mendez MD; Dr. Maryann Mantilla MD Signed Normal [facility] Surgery Specimen Level Tushar 06-15-2024 Surgery Specimen Level IV Patient Age/Sex Location Account Attending Physician NEY MILNER 69/[place] [facility] [id number]. Maryann Mantilla MD Specimen: [id number] Received: 06/15/24 Status: RAPHAELPaola Casa Num: [id number] Spec Type: Lesion Subm Dr: Dr. Maryann Mantilla MD HEADER OPERATION: Excision lesion left cheek, shave biopsy of left cheek PRE-OP DIAGNOSIS: Neoplasm of uncertain behavior of skin of face TISSUE SUBMITTED: A- Neoplasm of uncertain behavior of skin of face - left cheek *lateral*, B- Neoplasm of uncertain behavior of skin of face - left cheek *medial* MICROSCOPIC DIAGNOSIS A. Skin lesion of left cheek, lateral: Actinic keratosis with moderate atypia and severe solar elastosis. B. Skin lesion of left cheek, medial: Actinic keratosis with severe atypia transected at the base. Focal seborrheic changes. See Comment. This case has been reviewed in consultation with Dr. Sudha Sarmiento. IDC:[email or web address] 06/19/2024 COMMENT Clinical correlation necessary. MICROSCOPIC DESCRIPTION Slides are reviewed. GROSS DESCRIPTION A. Received in fixative is one container labeled with the patient's name and designated Neoplasm of uncertain behavior of skin of face - left cheek - lateral. The specimen consists of a perera-white skin ellipse measuring 1.0 x 0.5 x 0.2cm. The specimen is inked, serially sectioned and submitted entirely in one cassette. B. Received in fixative is one container labeled with the patient's name and designated Neoplasm of uncertain behavior of skin of face - left cheek - medial. The specimen consists of a shave biopsy of perera-white skin measuring 0.7 x 0.4 x 0.1cm. The specimen is inked, serially sectioned and submitted entirely in one cassette. mr 06/18/2024 TC:5 CPT:38577f5 Patient Age/Sex Location Account Attending Physician NEY MILNER 69/[place] [facility] [id number]. Maryann Mantilla MD Signed (signature on file) Dr. Heather Dorado MD 06/19/24 1249 Normal [facility] Comment on above: Performed By: #### P SUIV ####[facility] [id number] [facility]. [place], [place], [id number] Spine Lumbar (Routine)on Spine Lumbar (Routine) [facility] Imaging Services [address], [place] [address] Spine Lumbar (Routine) MR#: [id number] Acct: [id number] Name: NEY MILNER Rep #: [id number] : 1955 F 69 From: Lee Saunders MD PCP: Dr. Florence Mendez MD Status: [facility] Study: Spine Lumbar (Routine) Date of Exam: 05/26/24 Exam# [id number] Ordering Dr: Emmy Diez [id number] STUDY: MRI LUMBAR SPINE WITHOUT CONTRAST REASON FOR EXAM: Female, 69 years old. pain TECHNIQUE: Standardized fat and water weighted pulse sequences were obtained in the sagittal and axial planes. COMPARISON: X-ray 03/15/2024 FINDINGS: T12-L1: Mild broad disc protrusion reduces mild spinal stenosis and mild bilateral neural foraminal stenosis. Normal lumbar lordosis. Mild levoscoliosis centered at L3. Normal conus medullaris that terminates at the T12/L1. L1-2: 2 mm retrolisthesis of L1 on L2 with a mild bilobed disc protrusion produces mild spinal stenosis and mild bilateral neural foraminal stenosis. L2-3: Mild bilobed disc protrusion produces mild spinal stenosis and mild bilateral neural foraminal stenosis. L3-4: 2 mm retrolisthesis of L3 on L4 with a mild broad disc protrusion reduces mild spinal stenosis and mild bilateral neural foraminal stenosis. L4-5: Mild broad disc protrusion produces mild spinal stenosis and mild bilateral neural foraminal stenosis. L5-S1: Bilateral pars defects the L5 vertebra consistent with L5 spondylolysis. 10 mm of anterolisthesis of L5 on S1 consistent with grade 2 spondylolisthesis. Mild broad disc protrusion produces mild spinal stenosis and moderate bilateral neural foraminal stenosis. Normal visualized sacral ala. Normal visualized paraspinous soft tissue structures. MRI/Spine Lumbar (Routine) IMPRESSION: L5 spondylolysis with grade 2 spinal listhesis of L5 on S1 with moderate bilateral neural foraminal stenosis with abutment of the L5 nerve roots bilaterally. Mild levoscoliosis and degenerative disc disease as described above. Electronically Signed: Lee Saunders MD at 15:06 EST , CC: SIOBHAN Keita; Dr. Florence eMndez MD Building Drafter: Signed Normal [facility] L/S Spine Bending Flex/[place] 05-10-2024 L/S Spine Bending Flex/Ext [facility] [address] [place] [address] L/S Spine Bending Flex/Ext MR#: [id number] Acct: [id number] Name: ALFNEY MAE Rep #: [id number] : 1955 F 69 From: Matt Bethea MD PCP: Dr. Florence Mendez MD Status: DEP AMB Study: L/S Spine Bending Flex/Ext Date of Exam: 05/10 Exam# [id number] Ordering Dr: Emmy Diez [id number] EXAM: XR LUMBOSACRAL SPINE FLEXION/EXTENSION ONLY, 2 OR 3 VIEWS CLINICAL INDICATION: pain -- flex/ext TECHNIQUE: Lateral flexion/extension views of the lumbar spine and sacrum. COMPARISON: No relevant prior studies available. FINDINGS: VERTEBRAE: There is anterior spondylolisthesis of L5 on S1 of 9 mm on flexion and 9 mm on extension. There is a bilateral pars defect at L5. Preserved vertebral body height. No fracture. Preservation of the normal lumbar lordosis. No significant facet arthropathy. DISC SPACES: No acute findings. Disc spaces are maintained. GASTROINTESTINAL TRACT: Unremarkable as visualized. Included bowel gas pattern is non-obstructive. RAD/L/S Spine Bending Flex/Ext IMPRESSION: Bilateral pars defect at L5 with anterior spondylolisthesis of L5 on S1 of 9 mm. This does not change with flexion or extension. Electronically Signed: Matt Bethea MD at 23:58 EST , CC: SIOBHAN Keita; Dr. Florence Mendez MD Building Drafter: Signed Normal [facility] Orthopedic Visit Reporton Orthopedic Visit Report [facility] [address] [place] [address] [address] [place] [address] OFFICE VISIT Date of Service: 05/10/24 MR#: [id number] Acct: [id number] Name: NEY MILNER Rep #: [id number] : 1955 Provider: SIOBHAN Keita Age/Sex: 69/F Location: [facility] Status: Signed Intake Vital Signs 05/01/24 14:26 05/10/24 08:25 Height 5 ft 6 in 5 ft 6 in Weight: 159 lb 8 oz BMI 25.7 Intake Visit Reasons: LUMBAR SPINE Accompanied by: Self Is patient in pain?: Yes Pain scale (1-10): 4 Allergies No Known Allergies Allergy (Unverified 05/01/24 14:27) Medications ???Medication ???Instructions ???Recorded ???Confirmed ???Type levothyroxine 50 mcg tablet 50 mcg PO QDAY 05/01/24 05/10/24 History cholecalciferol (vitamin D3) 25 25 mcg PO QDAY 05/10/24 05/10/24 History mcg (1,000 unit) capsule minoxidil 2.5 mg tablet 2.5 mg PO DAILY 05/10/24 05/10/24 History rosuvastatin 10 mg tablet mg PO 05/10/24 05/10/24 History Have you fallen in the past year?: No PFSH Medical History History of malignant neoplasm of cervix History of cardiac murmur History of cataract History of back problems History of arthritis History of environmental allergies Surgical History History of bunionectomy History of appendectomy Family History Father Alcoholism Mother Heart disease Brother Pancreatitis Grandmother Breast cancer Social History Smoking Status: Never smoker alcohol intake: never substance use type: does not use additional social history: pt denies marijuana use,denies edibles pt does vape pt does not use aspirin, pt uses ibuprofen HPI LUMBAR SPINE Details: This documentation accurately reflects the service provided and the decisions made by me, SIOBHAN Keita 05/10/24 0821. Part of today???s visit was documented by Mer ZHAO, acting as scribe. NEY MILNER is a 69 year old F here today NEW patient for low back pain. She states that she has had pain for several years but within the last year it has gotten worse. She thinks that her work may be contributing to her pain as she walks a lot. She is also having right hip pain which she has talked to Dr. Mendez about and he says that she has bursitis and has given her 2 cortisone injections which she states helped her back more than her hip. When her hip is bothering her the pain radiates down her lateral thigh and stops at the knee. Denies numbness, tingling or other associated symptoms. She states that walking up steps increases her pain and she feels that her right leg is weak. Says that the pain increases when she sits and denies any pain with walking. She denies previous injury or surgery. She denies PT and injection in her low back. She does have stretches that she does every morning that she has been doing for several years which does help. She takes 200mg Ibuprofen at night for her pain. Denies any dexterity or balance issues. No history of diabetes, no blood thinners, no heart or lung issues. Ortho Exam General General: Yes no acute distress Neurologic: Yes alert and Yes oriented x3 Spine SPINE TESTING CERVICAL THORACIC LUMBAR Musculoskeletal Strength 0=absent - 5=normal Details: Neurological exam of the lower extremities shows 5x5 power. Normal sensations across all dermatomes. No hyperreflexia. Mild midline tenderness, no paraspinal tenderness. 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 Degeneration of intervertebral disc of lumbar region with discogenic back pain and lower extremity pain M51.362 Disc-related pain type: discogenic back pain and lower extremity pain Assessment and Plan Assessment and Plan (1) Dysplastic spondylolisthesis: Status: Acute (2) Disc degeneration, lumbar: Status: Acute Qualifiers: Disc-related pain type: discogenic back pain and lower extremity pain Qualified Code(s): M51.362 - Other intervertebral disc degeneration, lumbar region with discogenic back pain and lower extremity pain Orders: Orders L/S Spine Bending Flex/Ext Today M54.50 - Low back pain, unspecified Referrals Physical Therapy Referral M43.16 - Spondylolisthesis, lumbar region Plan Obtained and reviewed flexion/extension xrays today with the patient and reviewed prior lumbar imaging. Xrays shows a L5 on S1 dysplastic spondylolisthesis, subtle levoscoliosis, multilevel disc height loss, and decreased bone density. No MRI. Explained imaging findings in detail. Recommended physical therapy to increase strength and stretching. She has done lumbar extensor exercises jumana (more content not included)... Normal [facility] Plastic Surgery Visit Report on 05-01-2024 Plastic Surgery Visit Report [facility] [address], [address] [place] [address] OFFICE VISIT Date of Service: 05/01/24 MR#: [id number] Acct: [id number] Name: NEY MILNER Rep #: [id number] : 1955 Provider: Dr. Maryann boyd MD Age/Sex: 69/F Location: [facility] Status: Signed Intake Vital Signs 05/01/24 14:26 Height 5 ft 6 in Weight: 162 lb BMI 26.1 BP 124/78 H Blood Pressure Location Lt brachial Position Sitting Respiration 16 Pulse 78 Temp 98.0 F Temp Source Oral Pulse Oximetry (%) 95 Oxygen Delivery Method room air Intake Visit Reasons: LESION ON FACE Chief Complaint: lesion on face Is patient in pain?: Yes (09/13-hip) Allergies No Known Allergies Allergy (Unverified 05/01/24 14:27) Medications ???Medication ???Instructions ???Recorded ???Confirmed ???Type levothyroxine 50 mcg tablet 50 mcg PO QDAY 05/01/24 05/01/24 History Have you fallen in the past year?: No Nurse's Note: pt referred by Dr. Mendez for suspicious lesion on face [facility] Medical History (Updated 05/01/24 @ 14:[address] Maryann Mantilla MD) History of malignant neoplasm of cervix History of cardiac murmur History of cataract History of back problems History of arthritis History of environmental allergies Surgical History (Updated 05/01/24 @ 14:18 by Luh Whyte) History of bunionectomy History of appendectomy Family History (Updated 05/01/24 @ 14:20 by Luh Whyte) Father Alcoholism Mother Heart disease Brother Pancreatitis Grandmother Breast cancer Social History (Updated 05/01/24 @ 14:26 by Luh Whyte) Smoking Status: Never smoker alcohol intake: never substance use type: does not use additional social history: pt denies marijuana use,denies edibles pt does vape pt does not use aspirin, pt uses ibuprofen HPI LESION ON FACE Details: Ney is a 69-year-old female who comes in with a 6-month history of a lesion on her left cheek. She had been applying steroid cream to this without resolution. She denies a personal history of skin cancer in the past. She does state that her mother had a history of skin cancer of unknown type. She does admit to heavy sun exposure from yardwork in the past. ROS General General: Yes good health; No fatigue, fever(s) or weight loss HENHI HENMT: Yes rhinitis; No sore throat/mouth sore, nasal congestion, contacts or glaucoma Endo Endocrine: Yes thyroid disease; No polydipsia, heat intolerance, cold intolerance, hepatitis or excessive urine Skin Skin: No Bleeding, bruising, changing moles or suspicious lesion Musc Musculoskeletal: Yes joint stiffness, back pain and osteoarthritis; No joint pain, muscle weakness or Muscle aches/ myalgia Neuro Neurological: No headache(s), No lightheadedness and No numbness Cardio Cardiovascular: No chest pain, pacemaker, fatigue or shortness of breat with exertion Psych Psychiatric: No depression, claustrophobia or anxiety Resp Respiratory: No spitting up, shortness of breath, sleep apnea, asthma, emphysema, TB, Cough or Smoker Gastro Gastrointestinal: No diarrhea, constipation, blood in stool, nausea, vomiting or abdominal bloating Kamron Hematologic: No anemia, No bleeding and No abnormal bleeding Genitourinary: No urinary frequency, blood in urine or incontinence Exam Details Patient with a hyperkeratotic plaque of the left cheek lateral to the nasolabial fold. Just medial to this is also a patch of slightly erythematous and hyperkeratotic skin. I reviewed excision of the plaque under local anesthetic. The patch I reviewed shave excision with her. Both of the specimens will be sent to pathology for evaluation. She is aware the potential need for further surgery depending on the resulting pathology. Const General: cooperative, healthy appearing, no acute distress and well developed Nutritional Appearance: well nourished Orientation: alert [facility] Head: normal to inspection, normocephalic and atraumatic Ears: hearing grossly normal bilaterally Nose: external nose normal Face and sinus: normal facial exam and face symmetric Mouth: lip normal Eyes General: appearance normal, both eyes and all related structures Eyelids: eyelids normal Pupils: PERRL EOM: EOM intact bilaterally Neck Neck: normal visual inspection and no lymphadenopathy Chest Chest palpation inspection: normal inspection of the chest Resp Effort Inspection: normal respiratory effort Auscultation: clear to auscultation bilaterally Cardio Rate: regular rate Rhythm: regular rhythm Heart Sounds: S1 normal and S2 normal GI Inspection: normal to inspection Palpation: soft and nontender Skin General: no rashes or lesions noted Trauma: no lacerations or abrasions N (more content not included)... Normal [facility] Inital Evaluation (1) - PTon 04-19-2024 Inital Evaluation (1) - PT [facility] Physical Therapy [facility] [address] [place] [address] / REHABILITATION SERVICES INITIAL EVALUATION MR#: [id number] Acct: [id number] Name: NEY MILNER Rep #: [id number] : 1955 69 From: Millicent Malloy PT, Cert. MDT Referring Dr.: Dr. Florence Mendez MD Status: REG R Insurance: AET SR SUPPLEMENT INS MEDICARE PART A B Patient's Visit Information Visit Information Visit Information: NEY MILNER is a 69 year old F referred to Physical Therapy by Florence Mendez MD with a diagnosis of LUMBAR DISC HERNIATION. Date of Evaluation: 04/19/24 Physical Therapist: Millicent Malloy PT, Cert MDT Visit Plan Frequency: 2-3x /Week Duration: 4-6 Weeks Plan: AQUATIC THERAPY FOR PAIN RELIEF, POSTURE CORRECTION/STRENGTHENING , INSTRUCTION IN APPROPRIATE BODY MECHANICS AND ACTIVITY MODIFICATIONS. DLS WITH NEUTRAL SPINE ONLY. ARJUN LE ROM, STRETCHING AND STRENGTHENING. HEP INSTRUCTION. 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 Disability: NO Present symptoms: LOW BACK PAIN. R HIP PAIN. R THIGH PAIN. R LEG PAIN. PATIENT DENIES L LE SX AND DENIES ARJUN LE NUMBNESS AND TINGLING INCLUDING FEET. Present since: YEARS AGO. LOW BACK PAIN HAS BECOME WORSE IN THE LAST YEAR OR SO. PATIENT REPORTS FLARE UP OF R HIP BURSITIS (THAT SHE HAS HAD BEFORE AND TREATED WITH CORTISONE INJECTION) THAT FLARED UP AFTER WORK YESTERDAY AND IS CAUSING HER TO LIMP TODAY. STATES SHE WAS NOT LIMPING BEFORE YESTERDAY. Pain Scale: WORST 8/10, LEAST 1/10 Currently: 5/10 Is it getting better, worse or staying the same: WORSE Commenced as a result of: NO APPARENT REASON Symptoms at onset: LOW BACK Worse: PROLONGED SITTING, RISING FROM SITTING, INITIATING GAIT AFTER SITTING, LIFTING, AM - FIRST THING IN THE MORNING I CAN'T EVEN BEND OVER OR LIFT LEG TO PUT SOCK ON. AFTER I DO THE STRETCHES I'M A LITTLE BIT BETTER. Better: THE DAY PROGRESSES, BIOFREEZE, EXTRA-STRENGTH TYLONOL, STRETCHES IN THE MORNING, INVERSION TABLE. CHIROPRACTOR ONCE A MONTH IN [place] Disturbed sleep: I TOSS AND TURN Previous history/Previous treatment: CHIROPRACTOR. NO BACK SURGERY OR PAIN MGMT PROCEEDURES. R HIP CORTISONE INJECTION FOR BURSITIS BY DR. ADAIR IN [place]. Treatment this episode: STEROID DOSE JAMES - helped while on it then pain came back, opioid prescribed and filled but not taken per patient report. CONSULT PENDING WITH DR. SOTO MAY 10 2024. PATIENT REPORTS SHE WAS FIRST DX'D WITH LUMBAR DISC HERNIATION BY DR. MENDEZ IN MAR 2024. Coughing/sneezing/strain ing: DENIES INCREASED PAIN Gait: INDEP WITHOUT AD. IT HASN'T SLOWED ME DOWN ANY ONCE I GET GOING. PATIENT REPORTS SHE IS FINE ALL DAY WHILE SHE IS MOVING BUT DELAYED ONSET OF PAIN AFTER SHE IS DONE FOR THE DAY AND RESTS. Bowel or Bladder Dysfunction: NO Accidents: NO Unexplained weight loss: NO Imagin03/15/24 LUMBAR X-RAY: FINDINGS: VERTEBRAE: Bilateral L5 spondylolysis noted with grade 2 spondylolisthesis associated with prominent disc space narrowing of L5-S1. Mild levoscoliosis of the lumbar spine centered at the L2-3 level with the assumption that the T12 vertebral body with small or absent ribs. DISC SPACES: There is prominent disc space narrowing and vertebral body hypertrophy at the L3 level. PMH/Recent major surgery: UNREMARKABLE. Objective Objective: Sitting/Standing Posture: DECREASED LORDOSIS. NO RELEVANT LATERAL SHIFT. Active Correction of posture: Other Observations: INDEP GAIT BUT SLOW AND ANTALGIC WITH MAJOR LIMP ON R LE WHICH PATIENT REPORTS IS NEW STARTING YESTERDAY AFTER DOING A LOT OF FAST WALKING AT WORK. SHE RELATES IT TO FLARING UP HER R HIP BURSITIS WHICH SHE HAD A COUPLE OF YEARS AGO WHICH RESOLVED WITH A CORTISONE SHOT. Sensory deficit: ARJUN LE LIGHT TOUCH SENSATION GROSSLY INTACT AND SYMMETRICAL ROM deficit: R HIP ER TIGHTNESS AND PAIN. ARJUN HS, CALF AND HIP FLEX TIGHTNESS. Motor deficit: R HIP WEAKNESS 4-/5. L HIP 4/5 Reflexes: 2+ ARJUN QUADS. 1+ L ACHILLES. R ACHILLES ABSENT Dural Signs: NEGATIVE ARJUN LE'S. Lumbar mvmt loss: flex - MOD - INCREASES LOW BACK PAIN - NW ext - MOD - NE R SG - MOD - INCREASES R HIP - NW L SG - MOD BUT EASIER THAN R - NE. Core strength: POOR Palpation: TENDERNESS WITH PALPATION OF L345 AND UPPER SACRUM. ALSO TENDER OVER R GREATER TROCH AND AND PROXIMAL LATERAL R THIGH. Balance/Special Test Scores Oswestry Low Back Score: 10 Goals Goal 1:: DECREASE C/O LBP AND R LE PAIN BY AT LEAST 50% TO EASE WORK AND ADL FUNCTION Goal Time Frame: 4-6 Weeks Goal 2:: IMPROVE SITTING, RISING FROM SITTING, LIFTING, STANDING, WALKING, TRAVEL, HOMEMAKING AND SLEEP FUNCTION Goal Time Frame: 4-6 Weeks Goal 3:: INSTRUCT IN PROPHYLAXIS Goal Time Frame: 4-6 Weeks Rehabilitation Potential Physical Therapy D (more content not included)... Normal [facility] Lumbar Spine 2 or 3 Viewson 03-15-2024 Lumbar Spine 2 or 3 Views [facility] Imaging Services [address], [place] [id number] Lumbar Spine 2 or 3 Views MR#: [id number] Acct: [id number] Name: NEY MILNER Rep #: [id number] : 1955 F 68 From: Francesco Cardenas MD PCP: Dr. Florence Mendez MD Status: REG CLI Study: Lumbar Spine 2 or 3 Views Date of Exam: Exam# [id number] Ordering Dr: Florence Mendez MD [id number] EXAM: XR LUMBOSACRAL SPINE, 2 OR 3 VIEWS CLINICAL INDICATION: DISC HENIATION TECHNIQUE: Frontal and lateral views of the lumbar spine and sacrum. COMPARISON: No relevant prior studies available. FINDINGS: VERTEBRAE: Bilateral L5 spondylolysis noted with grade 2 spondylolisthesis associated with prominent disc space narrowing of L5-S1. Mild levoscoliosis of the lumbar spine centered at the L2-3 level with the assumption that the T12 vertebral body with small or absent ribs. DISC SPACES: There is prominent disc space narrowing and vertebral body hypertrophy at the L3 level. RAD/Lumbar Spine 2 or 3 Views IMPRESSION: Chronic changes as described above. Electronically Signed: Francesco Cardenas MD at 14:32 EDT , CC: Dr. Florence Mendez MD Building Drafter: Signed [facility] 03-24-2023 [facility] Office Visit (OBGYWM ) -------- NEY MILNER ([id number]) 1955 F Date Time Provider Department 03/24/23 8:40 AM LIZA ROACH OBGYWM During your visit today, we recorded the following information about you: Blood pressure Weight Height 112/70 73 kg 1.676 m Liza Roach MD 03/24/2023 9:09 AM Signed Datastage Developer offered: Patient declines. Carmona is a 67 year old who presents for an annual gynecologic exam without complaints. Postmenopausal: Yes si HRT use: No. Last Pap: 03/18/2022 normal HPV: 03/17/2022 negative History of abnormal pap: No Last mammogram: 2022 normal History of abnormal mammogram: No Sexually active: Yes History of STDS: None Patient concerns for STD exposure: No. 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 History Comments: Sexual Activity: Yes; Male; tubal ligation/Postmenopausal Contraception: Surgical PAST MEDICAL HISTORY Diagnosis Date Allergic rhinitis, cause unspecified Hypothyroidism Lactose intolerance Osteopenia PMH - PAST MEDICAL HISTORY OF IRREGULAR HEARTBEAT Varicose veins of lower extremities with inflammation varicose vein stripping PAST SURGICAL HISTORY Procedure Laterality Date APPENDECTOMY BREAST BIOPSY 12/2018 left breast COLONOSCOPY FLX DX W/COLLJ SPEC WHEN PFRMD 05/10/2014 Colonoscopy CONIZATION OF CERVIX; COLD KNIFE/LASER three times, over 20 years ago DILATION AND CURETTAGE DXAND/THER NONOBSTETRIC Dilation AND curettage EYE SURGERY PROCEDURE 10/2008 left eyelid repaired due to droopy eyelid LIG/TRNSXJ FLP TUBE ABDL/VAG APPR UNI/BI Tubal ligation x 2 OTHER foot surgery PAST SURGICAL HISTORY OF VEIN STRIPPING PAST SURGICAL HISTORY OF 10/11 shatterd right wrist PAST SURGICAL HISTORY OF Right 05/2017 vein closer REMOVAL BONE SPUR XYPHOID PROCESS 10/2018 right foot FAMILY HISTORY Problem Relation Age of Onset Heart Mother Coronary Artery Disease Father Breast Cancer Paternal Grandmother Cancer Brother pancreatic with mets other (Rheumatoid Arthritis) Daughter SOCIAL HISTORY Social History Tobacco Use Smoking status: Never Smokeless tobacco: Never Vaping Use Vaping Use: Never used Substance Use Topics Alcohol use: No Drug use: No REVIEW OF SYSTEMS Abdomen: No abdominal pain, nausea, vomiting, diarrhea, ++ constipation. No bloating, early satiety, indigestion, or increased flatulence. Bladder: No dysuria, gross hematuria, urinary frequency, urinary urgency, or incontinence Breast: No breast lumps, nipple d/c, overlying skin changes, redness or skin retraction Allergies and current medication updated:Yes EXAM: BP 112/70 Ht 5' 6 (1.68m) Wt 161 lb (73.0kg) BMI 26.00 kg/(m2). GENERAL: pleasant, female in no apparent distress HEENT: Normocephalic, atraumatic, mucus membranes moist, and no lesions NECK: Supple, full range of motion, no adenopathy, and thyroid normal DERMATOLOGY: Normal, without lesions, non-icteric, and non-hirsute BREAST: soft, non-tender, symmetric, no dominant mass, normal nipple-areolar complex, no lymphadenopathy, and no nipple discharge ABDOMEN: soft, non-tender, and no masses PELVIC: external genitalia normal, normal Bartholin's glands, urethra, Oakland's glands, no vulvar lesions, no cervical lesions, good vaginal support, physiologic discharge present, normal appearing perineal body and perianal region BIMANUAL: uterus normal size, shape and consistency, no adnexal masses, and non-tender RECTOVAGINAL: deferred. NEURO: alert and oriented x3,exam grossly non-focal EXTREMITIES: normal ASSESSMENT/PLAN: 1) Health maintenance: Pap/HPV screening no longer needed Mammogram ordered Mammogram up to date Nutrition, exercise and routine health maintenance exams reviewed. Calcium/Vitamin D supplementation information provided. Colon cancer screening: declined BMD: up to date- declines tx 2) Follow up one year or sooner as needed- Liza Pena MD Allergies As of Date: 03/24/2023 Noted Allergy Reaction BETA BLOCKERS (BETA-BLOCKERS (BET*02/07/2013 15 - Contraindication-Medical [place]* Comments: Please avoid use of beta blockers as the patient is on allergy immunotherapy. CAT HAIR EXTRACT 04/15/2005 9 - Itching grasses [Other] 10/19/2005 9 - Itching Comments: AND SNEEZING hops food [Other] 10/19/2005 MILK 10/19/2005 6 - Diarrhea pollens [Other] 04/15/2005 TREE AND SHRUB POLLEN 02/22/2018 14 - Other: See Comments Comments: Sinus Date Reviewed: 03/24/2023 Reviewed by: Jhoan Veras Ma (more content not included)... Normal [facility] CNCOon 03-17-2023 [facility] ID: [id number] Author: Coordinator, Mammography Service: ? Author Type: Physician Type: Letter Filed: 03/21/2023 11:40 PM Note Text: March 18, 2023 PID: [id number] Ney Milner [address] [place] [address] Dear Ms. Milner, We are pleased to inform you that the results of your recent breast imaging exam on 03/17/2023 are normal. Early detection of cancer is very important. We also understand recommendations regarding breast cancer screening are controversial. Please discuss with your primary care provider which strategy is best for you and whether a mammogram is right for you. Your imaging studies and report will be kept on file at [facility] as part of your permanent medical record and are available for your continuing care. Thank you for allowing us to help in meeting your health care needs. Sincerely, Dr. Min Interpreting Radiologist [facility] (Normal over 40) Normal [facility] SCREENING W TOMOon 03-17 [facility] SCREENING W DAVID * * *Final Report* * * DATE OF EXAM: Mar 17 2023 9:20AM [id number] - [facility] SCREENING W DAVID / PROCEDURE REASON: Encounter for screening mammogram for malignant neoplasm of breast * * * * Physician Interpretation * * * * RESULT: #[id number] - [facility] SCREENING W DAVID BILATERAL DIGITAL SCREENING MAMMOGRAM TOMOSYNTHESIS WITH CAD: 03/17/2023 HISTORY: Encounter For Screening Mammogram For Malignant Neoplasm Of Breast /Screening Mammogram with DAVID - patient reports NO breast symptoms /priors available for comparison. RESULT: TECHNIQUE: The study was acquired using full field digital technology and interpreted from soft copy. Digital Breast Tomosynthesis (DBT) images were obtained and used to assist in the interpretation of this examination. Current study was also evaluated with a Computer Aided Detection (CAD). Comparison is made to exams dated: 02/28/2020 mammogram, 03/02/2021 mammogram, and 03/11/2022 mammogram - [facility]. There are scattered areas of fibroglandular density. No significant masses, calcifications, or other findings are seen in either breast. There has been no significant interval change. IMPRESSION: NEGATIVE There is no mammographic evidence of malignancy. A 1 year screening mammogram is recommended. The exam was reviewed by a staff physician. Soraida Yeung M.D. ld,os/penrad:03/17/2023 11:15:54 Regional Coordinator(s): RT Shayne(Debbi)(M), [facility] letter sent: Normal over 40 Mammogram BI-RADS: 1 Negative Multiple national specialty organizations have released breast cancer screening guidelines for women at average risk for developing breast cancer - guidelines that are based on both evidence and opinion, yet differ on when to start and how often to screen for breast cancer. With representation from Breast Imaging, Internal Medicine, Women's Health, Family Medicine, and Medical/Surgical Oncology, the [facility] has carefully reviewed the data and reached the following consensus: 1) All women should engage in shared decision-making with their providers to decide when to start and how often to screen; 2) All women should have the opportunity to start screening mammography at age 40; 3) For women ages 45-55, we recommend annual screening mammograms; 4) For women ages 55 and over, we support both the transition from an annual to a biennial interval if this aligns more with patient's values and preferences, or continuation with annual screening; 5) All women should discuss with their providers when to stop screening mammograms. Building Drafter: Kayleigh Transcribe Date/Time: Mar 17 2023 9:01A Dictated by: JAMEY YEUNG MD This examination was interpreted and the report reviewed and electronically signed by: SORAIDA MIN MD on Mar 17 2023 11:15AM EST [id number] Normal [facility] CNOVon 02-10-2023 CNOV Office Visit (PODIWS ) -------- NEY MILNER ([id number]) 1955 F Date Time Provider Department 02/10/23 8:15 AM AVERY [facility] PODIWS During your visit today, we recorded the following information about you: Anna Payne LPN 02/10/2023 8:27 AM Signed AMB ROOMING INTAKE FLOWSHEET DATA Pain Pain Level: 8 Pain Location: Foot-Left Description: Sore Duration Amount of Time: 3 Duration Units: Months Frequency: Continuous Patient presents with: Left Foot - New, Pain MORIS Valladares Matthew 02/10/2023 8:27 AM Signed Initial Podiatric Office Visit: Chief Complaint: This 67 year old female who presents with chief complaint:callus of left 2nd toe HPI Patient presents to clinic for evaluation of left foot Has painful callus of left 2nd toe due to the toes rubbing She treats with pummice stone She is here to discuss the callus and seek opinions. She had bunion surgeyr many years ago. PAIN EVALUATION 02/10/2023 0806 Pain Level: 8 Pain Location: Foot-Left Description: Sore Duration Amount of Time: 3 Duration Units: Months Frequency: Continuous No results found for: HBA1C PCP: No primary care provider on file. PAST MEDICAL HISTORY Diagnosis Date Allergic rhinitis, cause unspecified Hypothyroidism Lactose intolerance Osteopenia PMH - PAST MEDICAL HISTORY OF IRREGULAR HEARTBEAT Varicose veins of lower extremities with inflammation varicose vein stripping Current Outpatient Medications Medication Sig rosuvastatin (CRESTOR) 10 mg tablet 10 mg. MONTELUKAST SODIUM (SINGULAIR ORAL) Take by mouth once daily. 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 fluticasone 50 mcg/actuation nasal spray Use 1-2 Sprays in each nostril once daily. olopatadine (PATANOL) 0.1 % ophthalmic solution Use 1 Drop in both eyes twice daily as needed. Ipratropium [place] (ATROVENT) 0.03 % NASAL nasal spray Use 2 Sprays in each nostril four times daily. As needed for runny nose. calcium carbonate(CALTRATE 600 600 MG (1,500 MG) TAB) Take one(1) tablet three times daily. multivitamins(DAILY MULTIVITAMIN TAB) Take one(1) tablet daily. COMPOUNDED PRESCRIPTION eye drop for dry eyes - two drops in each eye once a day levothyroxine sodium(SYNTHROID 50 MCG TAB) Take 50 mcg by mouth. 50mg everyday 25 mg on No current facility-administered medications for this visit. ALLERGIES Allergen Reactions Beta Blockers [Beta* Contraindication-Medical Surgical Please avoid use of beta blockers as the patient is on allergy immunotherapy. Cat Hair Extract Itching Grasses [Other] Itching AND SNEEZING Hops Food [Other] Milk Diarrhea Pollens [Other] Tree And Shrub Poll* Other: See Comments Sinus PAST SURGICAL HISTORY Procedure Laterality Date APPENDECTOMY BREAST BIOPSY 12/2018 left breast COLONOSCOPY FLX DX W/COLLJ SPEC WHEN PFRMD 05/10/2014 Colonoscopy CONIZATION OF CERVIX; COLD KNIFE/LASER three times, over 20 years ago DILATION AND CURETTAGE DXAND/THER NONOBSTETRIC Dilation AND curettage EYE SURGERY PROCEDURE 10/2008 left eyelid repaired due to droopy eyelid LIG/TRNSXJ FLP TUBE ABDL/VAG APPR UNI/BI Tubal ligation x 2 OTHER foot surgery PAST SURGICAL HISTORY OF VEIN STRIPPING PAST SURGICAL HISTORY OF 10/11 shatterd right wrist PAST SURGICAL HISTORY OF Right 05/2017 vein closer REMOVAL BONE SPUR XYPHOID PROCESS 10/2018 right foot FAMILY HISTORY Problem Relation Age of Onset Heart Mother Coronary Artery Disease Father Breast Cancer Paternal Grandmother Cancer Brother pancreatic with mets other (Rheumatoid Arthritis) Daughter Social History Tobacco Use Smoking status: Never Smokeless tobacco: Never Vaping Use Vaping Use: Never used Substance Use Topics Alcohol use: No Drug use: No REVIEW OF SYSTEMS GENERAL: Negative for Malaise, significant weight loss, fever RESPIRATORY: Negative for cough, wheezing and shortness of breath CARDIOVASCULAR: Negative for chest pain, leg swelling and palpitations GI: Negative for abdominal discomfort, blood in stools or black stools and change in bowel habits : Negative for dysuria, frequency and incontinence MUSCULOSKELETAL: Negative for joint pain or swelling, back pain, and muscle pain. SKIN: Negative for lesions, rash, and itching. HEMATOLOGY/LYMPHOLOGY Negative for prolonged bleeding, bruising easily, and swollen nodes. ENDOCRINE: Negative for cold or heat intolerance, polyuria, polydipsia and goiter. NEURO: negative Physical Exam: Constitutional: Pt is a well developed 67 year old female who is alert, oriented and cooperative Eyes: Following during examination. No redness or drainage. Respiratory: RR normal and nonlabo (more content not included)... Normal [facility] XR FOOT 3V AP/LAT/OBL LTon 0 02-10-2023 XR FOOT 3V AP/LAT/OBL LT * * *Final Report* * * DATE OF EXAM: Feb 10 2023 8:01AM [id number] - XR FOOT 3V AP/LAT/OBL LT / PROCEDURE REASON: Pain in left foot * * * * Physician Interpretation * * * * PROCEDURE: Left foot INDICATION: Pain in left foot .PT STATES GREAT TOE AND 2ND TOE RUBBING ON LEFT FOOT TECHNIQUE: XR FOOT 3V AP/LAT/OBL LT COMPARISON: None FINDINGS: Prior bunionectomy surgery with 2 threaded screws in the 1st metatarsal. No evidence for hardware loosening or fracture. Joint spaces are maintained. No erosion or focal soft tissue swelling. No fracture or dislocation. Small dorsal and plantar calcaneal spurs. Narrowing and bony irregularity at the navicular 1st cuneiform articulation most consistent with degenerative change. Chronic bunionectomy changes of the right great toe. 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 Building Drafter: RADHA Transcribe Date/Time: Feb 12 2023 9:10P Dictated by : MARCELINA GIBSON MD This examination was interpreted and the report reviewed and electronically signed by: MARCELINA GIBSON MD on Feb 12 2023 9:12PM EST [id number] Normal [facility] XR FOOT GENERAL 3V AP/LAT/OB L LEFTon 02-10-2023 [facility] TSH WITH REFLEX TO FREE T4 I F ABNORMALon 11-25-2022 TSH Qn 0.99 m[IU]/L Normal 0.44 - 3.[address] [facility] Comment on above: Result Comment: TSH testing is performed using different testing methodology at [facility] than at other [facility]. Direct result comparisons should only be made within the same method. Performed By: #### T HYDS #### [place] [address] Lab Specimen Source Normal [facility] Comment on above: Performed By: #### T HYDS #### [place] [id number] Covid 19 Resultson 3 SARS-CoV-2 (COVID-19) RNA GAMAL+probe Ql (Unsp spec) POSITIVE COVID-19 Test Coronaviruses are common world-wide and are the cause of many common colds. SARS-COV2 is a new coronavirus that began circulating worldwide in 2019 so we are calling it COVID-19. It has been estimated that four out of five patients with COVID-19 will recover at home without the need for medical attention. Symptoms of COVID-19 may include cough, fever, shortness of breath, loss of taste or smell and other flu-like symptoms including chills, sore muscles, sore throat, and headache. Severe illness is more common in older people and people with other health problems such as high blood pressure, obesity, and immune system problems. If the test is positive, you have COVID-19. You will be contacted by the ordering physicians office and instructed to remain on home isolation, in accordance with CDC guidelines. You may also be contacted by the [facility] to see if any of your close contacts may have been exposed to the virus and need to quarantine. If the test is negative, you likely do not have COVID-19 at this time, but you still may have a different illness that can spread to other people (like Influenza, or the Flu) and could still be at risk for getting COVID-19. We recommend that you stay away from other people to limit the spread of illness until your symptoms are improving and you are fever-free for 24 hours without the use of fever lowering medications such as acetaminophen or ibuprofen. No test is 100% accurate so if you are still concerned you may have COVID-19, talk to your doctor about the need to continue to stay away from others. Medicines Unless your provider told you not to use the following: Acetaminophen (Tylenol and others) is generally safe. Anti-inflammatory medications, such as Ibuprofen (Advil or Motrin) or Naproxen (Aleve) can also be used. Ataa-oqb-jninwti cough and cold medicines can be used according to the instructions on the package. Some emfq-ryl-zdxdnuh medicines also contain acetaminophen. Make sure you are not taking more than your recommended dose. For those not hospitalized, there is no specific treatment available for this illness. Antibiotics do not treat Coronaviruses. Follow-Up Follow up with your doctor by scheduling a virtual visit or consider follow-up at one of our urgent care fever clinics. If you are having difficulty breathing, or are very weak and having difficulty standing, this is a medical emergency. Call 911 or have someone take you to the nearest emergency room immediately. If possible, wear a facemask. Additional guidance from the CDC for patients who tested POSITIVE for COVID-19 How to isolate: Isolate yourself in a specific room at home and limit your contact with others. Use a separate bathroom from other members of the household, when possible. Leave home only to get essential medical care. Do not go to work, school or public areas. Avoid using public transportation, ride-sharing, or taxis. Restrict contact with pets and other animals. If you must care for your pet or be around animals while you are sick, wash your hands before and after your interaction and wear a facemask. Make sure that shared spaces in the home have good airflow, such as by an air conditioner or an opened window, weather permitting. Personal Hygiene Procedures: Wear a face mask when in the same room as other people or pets. If a face mask interferes with your breathing, others should wear a mask when sharing space with you. Frequent hand-washing: wash your hands with soap and water for at least 20 seconds. If soap and water are not available, use alcohol-based hand drainage design coordinator. Avoid touching your eyes, nose, and mouth with unwashed hands. Household Hygiene Procedures: Avoid sharing personal household items such as dishes, glassware, cups, eating utensils, towels or bedding with other people or pets in your home. After use, these items should be washed with soap and hot water. Disinfect all high-touch surfaces every day with antibacterial cleaning solutions such as Lysol wipes, bleach, cleansers, etc. High-touch surfaces include tabletops, doorknobs, bathroom fixtures, toilets, phones, keyboards, tablets and bedside tables. Immediately clean any surfaces that may have blood, poop or body fluids on them, using antibacterial cleaning solutions such as Lysol wipes, bleach, cleansers, etc. If clothing or bedding come into contact with blood, poop or body fluids, they should be washed immediately. Follow the directions on the laundry detergent and clothing labels but hot water is recommended when possible. Stopping home isolation precautions: If possible, consult your doctor before stopping home isolation precautions. According to the CDC, you can discontinue home isolation precautions when you have met both of these criteria: Your fever and respiratory symptoms have been gone for 24 carolyne (more content not included)... Normal [facility] INFLUENZA A/B, COVID 2019 PC R,SYMPTOMATICon 08-05-2022 INFLUENZA A, PCR Not detected Normal Not Detected [facility] Comment on above: Result Comment: Resp iratory virus testing is performed routinely by PCR for Influenza A/B and RSV. Not Detected results do not preclude Influenza A/B or RSV infections since the adequacy of sample collection or low viral burden may impact the clinical sensitivity of this test method. Performed By: #### C OINP #### [place] [address] INFLUENZA B, PCR Not detected Normal Not Detected [facility] Comment on above: Result Comment: Resp iratory virus testing is performed routinely by PCR for Influenza A/B and RSV. Not Detected results do not preclude Influenza A/B or RSV infections since the adequacy of sample collection or low viral burden may impact the clinical sensitivity of this test method. Performed By: #### C OINP #### [place] [address] SARS-CoV-2 (COVID-19) RNA GAMAL+probe Ql (Unsp spec) Detected Abnormal Not Detected [facility] Comment on above: Result Comment: . This test has received [facility] Emergency Use Authorization (EUA) and has been verified by [facility]. This test is only authorized for the duration of time that circumstances exist to justify the authorization of the emergency use of in vitro diagnostic tests for the detection of SARS-CoV-2 virus and/or diagnosis of COVID-19 infection under section 564(b)(1) of the Act, 21 U.S.C. 360bbb-3(b)(1), unless the authorization is terminated or revoked sooner. [facility] is certified under CLIA-88 as qualified to perform high complexity testing. Testing is performed in the [facility] laboratory located at [address] [place] [address]. SARS-CoV-2/Flu/RSV Multiplex Test: Fact sheet for providers: https://www.fda.gov/media/955104/download Fact sheet for patients: https://www.fda.gov/media/033644/download Performed By: #### C OINP #### [place] [address] Lab Specimen Source Nasal, Nasopharyngeal Normal [facility] Comment on above: Performed By: #### C OINP #### [address] [place] [address] Provider Note - ED v3on 030 Provider Note - ED v3 Provider Note: Chart Review: ED NOTES ED NOTES: Presents for evaluation of URI. Symptoms including cough, congestion, body aches, malaise, and headache have been present for 1 days and refractory to OTC meds. No fever, chills, loss of taste/smell, nausea, vomiting, abdominal pain, CP, or SOB. No exacerbating factors. No known COVID 19/flu exposure. HISTORY OF PRESENTING ILLNESS NEY is a 67 year old Female and was seen by me at 05-Aug-2022 09:17. Triage Information: Most recent Vital Sign Value Date PAST MEDICAL HISTORY ALLERGIES/INTOLERANCES: Intolerance Allergen: Zocor Type: Drug Reaction: Muscle Weakness HEALTH HISTORY: Medical History Name:Thyroid disorder Code:E07.9 Name:High cholesterol Code:E78.00 Name:Irregular heart beat Code:I49.9 OUTPATIENT MEDICATIONS: Home Medications Review Status for Reconciliation: Complete Med Status: Patient Currently Takes Medications Drug Name: fluticasone 50 mcg/inh nasal spray Instructions: 1 spray(s) nasal once a day Drug Name: Fish Oil 500 mg oral capsule Instructions: 2 cap(s) orally 2 times a day Drug Name: calcium citrate 950 mg (200 mg elemental calcium) oral tablet Instructions: 1 tab(s) orally 2 times a day Drug Name: levothyroxine 50 mcg (0.05 mg) oral capsule Instructions: 1 cap(s) orally once a day Drug Name: Medrol Dosepak 4 mg oral tablet Instructions: Take as directed. Drug Name: brompheniramine/pseudoep hedrine/dextromethorphan [id number]/5 mL oral syrup Instructions: 5 milliliter(s) orally every 4-6 hours PRN cough SIGNIFICANT EVENTS: Past Medical History Description:HYPOTHYROIDI SM Past Surgical History Description:APPENDECTOMY / RT WRIST/ LT EYE REVIEW OF SYSTEMS All other systems reviewed and are negative REVIEW OF SYSTEMS: Comments See HPI PHYSICAL EXAM CONSTITUTIONAL: Dull nasally voice but appear, well nourished, awake, alert, oriented to person, place, time/situation and in no apparent distress. HENMT: Airway patent, ears with clear tympanic membranes bilaterally. Nasal mucosa clear. Mouth with normal mucosa. Throat has PND and posterior OP erythema, no edema, no oropharyngeal exudates and uvula is midline. Face with anterior cervical lymphadenopathy. EYES: Clear bilaterally, pupils equal, round and reactive to light. CARDIOVASCULAR: Normal rate, regular rhythm. Heart sounds S1, S2. No murmurs, rubs or gallops. PMI non-displaced. RESPIRATORY: Breath sounds clear and equal bilaterally. NEUROLOGICAL: Alert and oriented, no focal deficits, no motor or sensory deficits. SKIN: Skin normal color for race, warm, dry and intact. No evidence of trauma. PSYCHIATRIC: Alert and oriented to person, place, time/situation. normal mood and affect. No apparent risk to self or others. CRITICAL CARE VITAL SIGNS: T PRBP SpO2O2(LPM) %FiO2 Method 05-Aug-2022 09:07:[id number] MDM MDM/ED COURSE: Discussed Findings with: patient Data Reviewed: vital signs Awaiting: lab results Treatment Plan: Rx medrol dose james and bromfed DM. Swab obtained for flu/covid testing. Patient's clinical presentation is otherwise unremarkable at this time. Patient is discharged with instructions to follow-up with primary care or seek emergency medical attention for worsening symptoms or any new concerns. DISPOSITION Diagnosis/Annotation: ED Dx Name:Acute upper respiratory infection Code:J06.9 Disposition: discharged Type: home CONSULT CRITICAL CARE TIME Is this a critically ill patient: no Electronic Signatures: Chadwick Mckeon (GAS STATION SERVICE ATTENDANT-SUBSTATION OPERATOR TRANSFORMING) (Signed 05-Aug-2022 09:22) Authored: ED Notes, HPI, PMH, ROS, PE, Results/Vital Signs, MDM/ED Course, Clinical Impression, Attestation, Chart Review, Scores Last Updated: 05-Aug-2022 09:22 by Chadwick Mckeon (GAS STATION SERVICE ATTENDANT-SUBSTATION OPERATOR TRANSFORMING) [facility] Provider Note - ED v3on 07-07 Provider Note - ED v3 Provider Note: Chart Review: ED NOTES ED NOTES: Presents for evaluation of URI. Symptoms including cough, congestion, body aches, malaise, and headache have been present for several days and refractory to OTC meds. No fever, chills, loss of taste/smell, nausea, vomiting, abdominal pain, CP, or SOB. No exacerbating factors. No known COVID 19/flu exposure. HISTORY OF PRESENTING ILLNESS NEY is a 67 year old Female and was seen by me at 17-Jul-2022 09:06. Triage Information: Most recent Vital Sign Value Date PAST MEDICAL HISTORY ALLERGIES/INTOLERANCES: Intolerance Allergen: Zocor Type: Drug Reaction: Muscle Weakness HEALTH HISTORY: Medical History Name:Thyroid disorder Code:E07.9 Name:High cholesterol Code:E78.00 Name:Irregular heart beat Code:I49.9 OUTPATIENT MEDICATIONS: Home Medications Review Status for Reconciliation: Complete Med Status: Patient Currently Takes Medications Drug Name: fluticasone 50 mcg/inh nasal spray Instructions: 1 spray(s) nasal once a day Drug Name: Fish Oil 500 mg oral capsule Instructions: 2 cap(s) orally 2 times a day Drug Name: calcium citrate 950 mg (200 mg elemental calcium) oral tablet Instructions: 1 tab(s) orally 2 times a day Drug Name: levothyroxine 50 mcg (0.05 mg) oral capsule Instructions: 1 cap(s) orally once a day Drug Name: azithromycin 250 mg oral tablet Instructions: Take 2 tabs (500mg) x 1 days, then 1 tab (250mg) once daily x 4 days SIGNIFICANT EVENTS: Past Medical History Description:HYPOTHYROIDI SM Past Surgical History Description:APPENDECTOMY / RT WRIST/ LT EYE REVIEW OF SYSTEMS All other systems reviewed and are negative REVIEW OF SYSTEMS: Comments See HPI PHYSICAL EXAM CONSTITUTIONAL: Dull nasally voice but appears well nourished, awake, alert, oriented to person, place, time/situation and in no apparent distress. HENMT: Airway patent, ears with clear tympanic membranes bilaterally. Nasal mucosa clear. Mouth with normal mucosa. Throat has no vesicles, no oropharyngeal exudates and uvula is midline. Face with no lymph node enlargement. EYES: Clear bilaterally, pupils equal, round and reactive to light. CARDIOVASCULAR: Normal rate, regular rhythm. Heart sounds S1, S2. No murmurs, rubs or gallops. PMI non-displaced. RESPIRATORY: Breath sounds clear and equal bilaterally. NEUROLOGICAL: Alert and oriented, no focal deficits, no motor or sensory deficits. SKIN: Skin normal color for race, warm, dry and intact. No evidence of trauma. PSYCHIATRIC: Alert and oriented to person, place, time/situation. normal mood and affect. No apparent risk to self or others. CRITICAL CARE VITAL SIGNS: T PRBP SpO2O2(LPM) %FiO2 Method 17-Jul-2022 08:54:[id number] MDM MDM/ED COURSE: Differential Diagnosis: bronchitis, sinusitis, upper respiratory infection and viral syndrome Discussed Findings with: patient Data Reviewed: vital signs Treatment Plan: Rx Zithromax. Encouraged pt to trial otc cold remedies, push by mouth fluids and rest. Patient's clinical presentation is otherwise unremarkable at this time. Patient is discharged with instructions to follow-up with primary care or seek emergency medical attention for worsening symptoms or any new concerns. DISPOSITION Diagnosis/Annotation: ED Dx Name:Acute sinusitis Code:J01.90 Disposition: discharged Type: home CONSULT CRITICAL CARE TIME Is this a critically ill patient: no Electronic Signatures: Chadwick Mckeon (GAS STATION SERVICE ATTENDANT-SUBSTATION OPERATOR TRANSFORMING) (Signed 17-Jul-2022 09:10) Authored: ED Notes, HPI, PMH, ROS, PE, Results/Vital Signs, MDM/ED Course, Clinical Impression, Attestation, Chart Review, Scores Last Updated: 17-Jul-2022 09:10 by Chadwick Mckeon (GAS STATION SERVICE ATTENDANT-SUBSTATION OPERATOR TRANSFORMING) Normal [facility] Tobacco Screening.on 023 Tobacco use status CPHS b) No -[facility] Work Phone: JESSICA DIAG W DAVID RTon 022 JESSICA DIAG W DAVID RT * * *Final Report* * * DATE OF EXAM: Apr 21 2022 10:03AM WRW [id number] - JESSICA DIAG W DAVID RT / PROCEDURE REASON: Abnormal mammogram * * * * Physician Interpretation * * * * RESULT: #[id number] - JESSICA DIAG W DAVID RT UNILATERAL RIGHT DIGITAL DIAGNOSTIC MAMMOGRAM TOMOSYNTHESIS WITH CAD: 04/21/2022 HISTORY: Abnormal Mammogram / Call back/abnormal mamm: Right /priors available for comparison. RESULT: TECHNIQUE: The study was acquired using full field digital technology and interpreted from soft copy. Digital Breast Tomosynthesis (DBT) images were obtained and used to assist in the interpretation of this examination. Current study was also evaluated with a Computer Aided Detection (CAD). Comparison is made to exams dated: 03/11/2022 mammogram, 03/02/2021 mammogram, 02/28/2020 mammogram, and 02/23/2019 mammogram - [facility]. There are scattered fibroglandular elements in right breast. Prior asymmetry is no longer seen in the right breast. This is consistent with overlapping fibroglandular tissue. The parenchymal pattern and appearance of the right breast is unchanged from older mammograms taking into account differences in positioning and technique. No significant masses, calcifications, or other findings are seen in the breast. IMPRESSION: NEGATIVE There is no mammographic evidence of malignancy. Return to annual mammogram screening schedule is recommended. Stevenson rangel/kayleigh:04/21/2022 10:11:34 Regional Coordinator(s): Cherie Joya, [facility] Mammogram BI-RADS: 1 Negative Multiple national specialty organizations have released breast cancer screening guidelines for women at average risk for developing breast cancer - guidelines that are based on both evidence and opinion, yet differ on when to start and how often to screen for breast cancer. With representation from Breast Imaging, Internal Medicine, Women's Health, Family Medicine, and Medical/Surgical Oncology, the [facility] has carefully reviewed the data and reached the following consensus: 1) All women should engage in shared decision-making with their providers to decide when to start and how often to screen; 2) All women should have the opportunity to start screening mammography at age 40; 3) For women ages 45-55, we recommend annual screening mammograms; 4) For women ages 55 and over, we support both the transition from an annual to a biennial interval if this aligns more with patient's values and preferences, or continuation with annual screening; 5) All women should discuss with their providers when to stop screening mammograms. Building Drafter: Kayleigh Transcribe Date/Time: Apr 21 2022 9:54A Dictated by: STEVENSON TOMPKINS MD This examination was interpreted and the report reviewed and electronically signed by: STEVENSON TOMPKINS MD on Apr 21 2022 10:11AM EST [id number] Normal [facility] Office Visit (Family Medicin e)on 04-08-2022 Follow-up visit Diagnoses/Problems Greater trochanteric bursitis of right hip (726.5) (M70.61) Provider Impressions Procedure after informed written consent the insertion site was prepped with alcohol and Betadine. Using no touch technique introduced the needle at insertion site advanced the needle to the femoral trochanter. Withdrew needle 2 mm injected 1 ml Kenalog and 2 mL lidocaine without epi. Chief Complaint Pt. c/o right hip pain. History of Present Illness right hip x 1 year after starting jogging doing stretches 2 years ago every am merlenegerda elzbieta jennifer sees chiropracter limit unable to jog and walking no pain but aftert sitting hurts to get up unabl to sleep in the side mammogram march 12, 2022 PAP SMEAR 03/22/22 Active Problems Allergic rhinitis (477.9) (J30.9) Dermal nevus (216.9) (D23.9) Hyperlipidemia (272.4) (E78.5) Hypothyroidism (244.9) (E03.9) Immunization due (V05.9) (Z23) Lumbar disc herniation (722.10) (M51.26) Lumbosacral radiculopathy (724.4) (M54.17) Lumbosacral spondylosis (721.3) (M47.817) MVP (mitral valve prolapse) (424.0) (I34.1) Surgical History History of Appendectomy History of Bunionectomy History of Colonoscopy History of Eye surgery History of Tubal ligation History of Varicose vein ligation History of Wrist surgery Family History Family history of cardiac disorder (V17.49) (Z82.49) Family history of S/P CABG (coronary artery bypass graft) Family history of alcoholism (V17.0) (Z81.1) Family history of colonic polyps (V18.51) (Z83.71) Family history of alcoholism (V17.0) (Z81.1) Family history of pancreatic cancer (V16.0) (Z80.0) Social History Denies alcohol consumption (V49.89) (Z78.9) Never a smoker No illicit drug use No recent foreign travel Patient has living will (V49.89) (Z78.9) Allergies Zocor Recorded By: Silva Kay; 04/16/2019 7:53:26 AM Additional reactions - muscle aches Current Meds Medication NameInstructionReason Fluticasone Propionate 50 MCG/ACT Nasal SuspensionUSE 2 SPRAYS IN EACH NOSTRIL ONCE DAILYAllergic rhinitis Montelukast Sodium 10 MG Oral TabletTAKE 1 TABLET AT BEDTIME.Allergic rhinitis Aleve TABSHealth Maintenance Calcium + D TABSHealth Maintenance Bourg 3 1000 MG Oral CapsuleHealth Maintenance Rosuvastatin Calcium 10 MG Oral Tablettakes 1 three times per weekHyperlipidemia Levothyroxine Sodium 50 MCG Oral TabletTAKE TABLET 1 tablet daily except on sunady take 0.5 tabletHypothyroidism Vitals Vital Signs Recorded: 08Apr2022 09:10AM Heart Rate57 Dhbkjefn638 Gjomvagcx88 Ujjxgn116.64 cm Zlvxuo73.98 kg BMI Hwwppaypys54.33 kg/m2 BSA Calculated1.83 Tobacco Useb) No PHQ-2 #1. Over the last 2 weeks have you felt down, depressed or hopeless? (If yes, answer PHQ-9 below)No PHQ-2 #2. Over the last 2 weeks have you felt little interest or pleasure in doing things? (If yes, answer PHQ-9 below)No Falls Screening (Age 18+)a) No falls within the last year Physical Exam General: Alert and oriented, No acute distress. Musculoskeletal most tender at the right greater trochanteric bursa. Full range of motion of the hip Normal gait. Neurologic: Alert, Oriented, No focal deficits. Cognition and Speech: Oriented, Speech clear and coherent, Functional cognition intact. Psychiatric: Cooperative, Appropriate mood AND affect, Normal judgment. X-ray right hip Isa mild degenerative joint disease right hip. . 'Scores and Scales' Signatures Electronically signed by : Eugenia Adair MD; Apr 08 2022 9:55AM EST (Author) Normal [employer] Tobacco Screening.on 022 Adult depression screening assessment No [facility] Work Phone: Fall risk assessment a) No falls within the last year [facility] Work Phone: Tobacco use status CPHS b) No [facility] Work Phone: JESSICA SCREENING W Margarito 03-11 [facility] LIPID PANEL (CORONARY RISK 2 )on 11-23-2021 Cholesterol [Mass/Vol] 185 mg/dL Normal 0 - 199 [facility] Comment on above: Result Comment: . AGE DESIRABLE BORDERLINE HIGH HIGH 0-19 Y 0 - 169 170 - 199 >/= 200 20-24 Y 0 - 189 190 - 224 >/= 225 >24 Y 0 - 199 200 - 239 >/= 240 All ranges are based on fasting samples. Specific therapeutic targets will vary based on patient-specific cardiac risk. . Pediatric guidelines reference:Pediatrics 2011, 128(S5). Adult guidelines reference: NCEP ATPIII Guidelines, FERNANDO 2001, 258:2486-97 . Venipuncture immediately after or during the administration of Metamizole may lead to falsely low results. Testing should be performed immediately prior to Metamizole dosing. Performed By: #### L IPID #### [address] [address] Cholesterol in HDL [Mass/Vol] 61.0 mg/dL Normal [facility] Comment on above: Result Comment: . AGE VERY LOW LOW NORMAL HIGH 0-19 Y < 35 < 40 40-45 ---- 20-24 Y ---- < 40 >45 ---- >24 Y ---- < 40 40-60 >60 . Performed By: #### L IPID #### [address] [address] Cholesterol in LDL [Mass/Vol] 111 mg/dL High 0 - 99 [facility] Comment on above: Result Comment: . NEAR BORD AGE DESIRABLE OPTIMAL HIGH HIGH VERY HIGH 0-19 Y 0 - 109 --- 110-129 >/= 130 ---- 20-24 Y 0 - 119 --- 120-159 >/= 160 ---- >24 Y 0 - 99 100-129 130-159 160-189 >/=190 . Performed By: #### L IPID #### [address] [address] Cholesterol in VLDL [Mass/Vol] 13 mg/dL Normal 0 - 40 [facility] Comment on above: Performed By: #### L IPID #### [address] [address] Cholesterol.total/Ch olesterol in HDL [Mass ratio] 3.0 {ratio} Normal [facility] Comment on above: Result Comment: REF VALUES DESIRABLE < 3.4 HIGH RISK > 5.0 Performed By: #### L IPID #### [id number] [place] [address] Triglyceride [Mass/Vol] 64 mg/dL Normal 0 - 149 [facility] Comment on above: Result Comment: . AGE DESIRABLE BORDERLINE HIGH HIGH VERY HIGH 0 D-90 D 19 - 174 ---- ---- ---- 91 D- 9 Y 0 - 74 75 - 99 >/= 100 ---- 10-19 Y 0 - 89 90 - 129 >/= 130 ---- 20-24 Y 0 - 114 115 - 149 >/= 150 ---- >24 Y 0 - 149 150 - 199 200- 499 >/= 500 . Venipuncture immediately after or during the administration of Metamizole may lead to falsely low results. Testing should be performed immediately prior to Metamizole dosing. Performed By: #### L IPID #### [address] [address] Laboratory - Chemistry and C hemistry - challengeon 11-23-2021 TSH Qn 1.21 m[IU]/L See Below [facility] Work Phone: Comment on above: Reference Range: 0.4 4 - 3.98 TSH testing is performed using different testing methodology at [facility] than at other [facility]. Direct result comparisons should only be made within the same method. Lipid Panelon 11-23-2021 Cholesterol [Mass/Vol] 185 mg/dL 0 - 199 [facility] Work Phone: Comment on above: . AGE DESIRABLE BORD AZEB HIGH HIGH 0-19 Y 0 - 169 170 - 199 >/= 200 20-24 Y 0 - 189 190 - 224 >/= 225 >24 Y 0 - 199 200 - 239 >/= 240 All ranges are based on fasting samples. Specific therapeutic targets will vary based on patient-specific cardiac risk.. Pediatric guidelines reference:Pediatrics 2011, 128(S5). Adult guidelines reference: NCEP ATPIII Guidelines, FERNANDO 2001, 258:2486-97. Venipuncture immediately after or during the administration of Metamizole may lead to falsely low results. Testing should be performed immediately prior to Metamizole dosing. Cholesterol in HDL [Mass/Vol] 61.0 mg/dL [facility] Work Phone: Comment on above: . AGE VERY LOW LOW N ORMAL HIGH 0-19 Y < 35 < 40 40-45 ---- 20- 24 Y ---- < 40 >45 ---- >24 Y ---- < 40 40-60 >60. Cholesterol in LDL [Mass/Vol] 111 mg/dL above high threshold 0 - 99 [facility] Work Phone: Comment on above: . NEAR BORD AGE MACARIO RABLE OPTIMAL HIGH HIGH VERY HIGH 0-19 Y 0 - 109 --- 110-129 >/= 130 ---- 20-24 Y 0 - 119 --- 120-159 >/= 160 ---- >24 Y 0 - 99 100-129 130-159 160-189 >/=190. Cholesterol.total/Ch olesterol in HDL [Mass ratio] 3.0 {ratio} [facility] Work Phone: Comment on above: REF VALUESDESIRABLE < 3.4HIGH RISK > 5.0 Triglyceride [Mass/Vol] 64 mg/dL 0 - 149 [facility] Work Phone: Comment on above: . AGE DESIRABLE BORD AZEB HIGH HIGH VERY HIGH 0 D-90 D 19 - 174 ---- ---- ----91 D- 9 Y 0 - 74 75 - 99 >/= 100 ---- 10-19 Y 0 - 89 90 - 129 >/= 130 ---- 20-24 Y 0 - 114 115 - 149 >/= 150 ---- >24 Y 0 - 149 150 - 199 200- 499 >/= 500. Venipuncture immediately after or during the administration of Metamizole may lead to falsely low results. Testing should be performed immediately prior to Metamizole dosing. Lipid Panel 13 mg/dL 0 - 40 [facility] Work Phone: TSH WITH REFLEX TO FREE T4 I F ABNORMALon 11-23-2021 TSH Qn 1.21 m[IU]/L Normal 0.44 - 3.98 [facility] Comment on above: Result Comment: TSH testing is performed using different testing methodology at [facility] than at other [facility]. Direct result comparisons should only be made within the same method. Performed By: #### [facility] #### [facility] [address] [id number] Office Visit (Family Sandra combs)on 11-20-2021 Follow-up visit Diagnoses/Problems Hyperlipidemia (272.4) (E78.5) Hypothyroidism (244.9) (E03.9) MVP (mitral valve prolapse) (424.0) (I34.1) Orders Allergic rhinitis Renew: Fluticasone Propionate 50 MCG/ACT Nasal Suspension; USE 2 SPRAYS IN EACH NOSTRIL ONCE DAILY Renew: Montelukast Sodium 10 MG Oral Tablet (Singulair); TAKE 1 TABLET AT BEDTIME Hyperlipidemia Renew: Rosuvastatin Calcium 10 MG Oral Tablet; takes 1 three times per week Lipid Panel; Status:Active; Requested for:20Nov2021; Follow-up visit in 1 year Outpatient Follow-up Status: Hold For - Scheduling Requested for: 20Nov2021 Hypothyroidism Renew: Levothyroxine Sodium 50 MCG Oral Tablet; TAKE TABLET 1 tablet daily except on sunady take 0.5 tablet TSH WITH REFLEX TO FREE T4 IF ABNORMAL; Status:Active; Requested for:20Nov2021; Chief Complaint 1 yr mdck. History of Present Illness will get labs send letter with labs for next year since not done prior to exam Allergic rhinitis controlled with meds Family History of Colonic Polyps colonoscopy done normal Will get Cologuard next screening. 2024 due to patient's adverse reaction to bowel prep. Hyperlipidemia Doing well with Crestor no longer jogging due to a stress fracture that is being treated by Dr. Wilson. She walks regularly and does yard work. Hypothyroidism NOS no bowel changes continues to slowly lose weight appropriately. MVP [Mitral valve prolapse] occ palptiations but no Chest Pain exercises regularly no claudication mild edema varicose veins last echo 10+ years ago breast cancer screening Gets annually with [facility] her last one was March 2021 had dexa scan all other systems have been reviewed and are negative except as noted in the HPI Active Problems Allergic rhinitis (477.9) (J30.9) Dermal nevus (216.9) (D23.9) Hyperlipidemia (272.4) (E78.5) Hypothyroidism (244.9) (E03.9) Immunization due (V05.9) (Z23) Lumbar disc herniation (722.10) (M51.26) Lumbosacral radiculopathy (724.4) (M54.17) Lumbosacral spondylosis (721.3) (M47.817) MVP (mitral valve prolapse) (424.0) (I34.1) Surgical History History of Appendectomy History of Bunionectomy History of Colonoscopy History of Eye surgery History of Tubal ligation History of Varicose vein ligation History of Wrist surgery Family History Family history of cardiac disorder (V17.49) (Z82.49) Family history of S/P CABG (coronary artery bypass graft) Family history of alcoholism (V17.0) (Z81.1) Family history of colonic polyps (V18.51) (Z83.71) Family history of alcoholism (V17.0) (Z81.1) Family history of pancreatic cancer (V16.0) (Z80.0) Social History Denies alcohol consumption (V49.89) (Z78.9) Never a smoker No illicit drug use No recent foreign travel Patient has living will (V49.89) (Z78.9) Allergies Zocor Recorded By: Silva Kay; 04/16/2019 7:53:26 AM Additional reactions - muscle aches Current Meds Medication NameInstructionReason Fluticasone Propionate 50 MCG/ACT Nasal SuspensionUSE 2 SPRAYS IN EACH NOSTRIL ONCE DAILYAllergic rhinitis Singulair 10 MG Oral TabletTAKE 1 TABLET AT BEDTIME.Allergic rhinitis Aleve TABSHealth Maintenance Calcium + D TABSHealth Maintenance Bourg 3 1000 MG Oral CapsuleHealth Maintenance Rosuvastatin Calcium 10 MG Oral Tablettakes 1 three times per weekHyperlipidemia Levothyroxine Sodium 50 MCG Oral TabletTAKE TABLET 1 tablet daily except on sunady take 0.5 tabletHypothyroidism Vitals Vital Signs Recorded: 20Nov2021 08:38AM Heart Rate56 Aaslqzah886 Jqmmhvlds09 Zlzrip318.64 cm Zmqwvr38.39 kg BMI Feijbqmcix41.12 kg/m2 BSA Calculated1.83 Tobacco Useb) No PHQ-2 #1. Over the last 2 weeks have you felt down, depressed or hopeless? (If yes, answer PHQ-9 below)No PHQ-2 #2. Over the last 2 weeks have you felt little interest or pleasure in doing things? (If yes, answer PHQ-9 below)No 'Scores and Scales' Signatures Electronically signed by : Eugenia Adair MD; Nov 20 2021 9:17AM EST (Author) Normal [employer] Tobacco Screening.on 022 Adult depression screening assessment No [facility] Work Phone: [phone] Tobacco use status CPHS b) No -[facility] Work Phone: Initial Visit (Pain Medicine )on 10-05-2021 Initial Visit (Pain Medicine) Diagnoses/Problems Lumbosacral radiculopathy (724.4) (M54.17) Lumbar disc herniation (722.10) (M51.26) Lumbosacral spondylosis (721.3) (M47.817) Patient Discussion/Summary I discussed with the patient the likely etiology of her symptoms, as well as potential treatment options I reviewed her lumbar x-ray which showed multilevel disc disease along with a slight levoscoliosis but most importantly a grade 1 anterolisthesis at L5-S1 due to bilateral pars fractures. Her symptoms fit well with a right L5-S1 radiculopathy. We discussed options and since she has failed appropriate conservative management with NSAIDs, chiropractic treatments, and inversion table we will proceed with a right L5 and S1 transforaminal epidural steroid injection under fluoroscopy at her next visit. I went over the pros and cons of this plan and she was in agreement to proceed. If she fails to benefit we will consider a lumbar MRI and surgical consultation. I will see her for follow-up 4 weeks after the procedure for repeat evaluation. Chief Complaint NPV here for evaluation for rt side lower back pain started summer 2020, after she started jogging she ambulated to room 3 with a limp, describes as constant with sharp stabbing pain at times rates 5/10 now and 10/10 at its worst. She has tried Chiropractics, massage therapy, Inversion table, Aleve, Motrin, ES Tylenol she reports these things help to take the edge off of her pain but not good relief, she has had xrays. She is interest in an injection and would like to discuss her options. This is a 66-year-old female here for a new patient appointment for chief complaint of low back and right leg pain. She reports this has been going on for about a year with no obvious cause. She states the pain is constant but is worse with prolonged sitting. It will start in her back and radiate down the right leg into the top and bottom of the right foot. She has not noticed any left leg symptoms. She reports the symptoms are interrupting her function during the day as well as her sleep at night. She has been doing chiropractic treatments for several months and in particular has gone for the past 6 weeks. She reports some modest benefit but the pain is still limiting her function. She has been using NSAIDs for the past several months as well with limited benefit. She has also tried massage and inversion table. She does not want to have surgery unless there is no other choice. She denies numbness, tingling, weakness, or loss of bladder or bowel control. The patient's past medical, social, and family history along with medications and allergies are available and were reviewed. Adult Risk Screening Living Will. Living Will: Living will on file. Healthcare POA: No healthcare proxy on file. Domestic Violence Screen: Does not feel threatened or abused physically, emotionally or sexually. Do you feel UNSAFE? The patient feels safe in the home. Depression/Suicide Screening: She does not have a risk of suicide. She has not had thoughts of harming others. Reference Documentation See scanned note Review of Systems/ Opioid Risk Tool . History of Present Illness On a scale of 0 to 10, the patient rates the pain at 5. now and 10/10 at its worst. Pain Location: Low Back Pain and rt side. Pain Quality: Aching, Sharp and Stabbing. Pain Radiation: into lateral hip and down entire leg into bottom of her foot. Sensory/ Motor: Weakness and when the pain is really bad she has troube lifting her leg. Timing/Duration: Constant and > 12 weeks duration. Exacerbating Factors: standing, stairs, walking and weightbearing. Alleviating Factors: Massage, Medications, Moist Heat, Other: ___. 24 Hour Behavior: Symptoms are better in the am. Symptoms are the same as the day progresses. Symptoms are the same in the pm. Symptoms are worse when lying down. Effect of Movement on Symptoms: Bending doesn't change symptoms. Lying makes symptoms better. cannot lay on rt side. Rising from sitting makes symptoms worse. Sitting makes symptoms worse. Standing doesn't change symptoms. Rising from supine to sitting doesn't change symptoms. Walking makes symptoms worse. Twisting makes symptoms worse. Weather doesn't change symptoms. Pushing motion makes symptoms worse. Pulling motion makes symptoms worse. Lifting: Worse. Psychosocial Factors vs Last Visit: Physical Functioning: Worse. Family Relationships: Same. Social Relationships: Same. Mood: Same. Sleep Patterns: Worse. Overall Functioning: Worse. Self Management Tools: patient is resting with positive response, patient is using heat with positive response, patient is using exercise with positive response, patient is using mindfulness with positive response and patient is using relaxation with positive response. Goals for Pain Management: Opioid Risk score = 1. Patient Education:1 Inj. education completed written and verbally.1 . 1 Amended By: Chiara Coombs; October 05 (more content not included)... Normal [employer] Electrocardiogram 12 Leadon 09-07-2021 Electrocardiogram 12 Lead Ventricular Rate 58 Atrial Rate 58 P-R Interval 130 QRS Duration 100 Q-T Interval 422 QTC Calculation(Bazett) 414 P Aultman 35 R Aultman 82 T Aultman 53 QRS Count 10 Q Onset 222 P Onset 157 P Offset 204 T Offset 433 QTC Fredericia 417 Diagnosis Class Normal Diagnosis Please see physician note for formal interpretation confirmed by Scribe Confirmed by ELSY HUERTA () on 09/10/2021 10:24:52 AM Normal [facility] No Panel Informationon 09-07 Normal [facility] Work Phone: [phone] [email or web address]?RetrieveTestByDateTim e?QsmqlgyKT=[id number]&Da te=09-07-2021&Time=11%3a 35%3a56%3a00&TestType=EC G&Site=14&OutputType=PDF &Ext=PDF [facility] Work Phone: [phone] Please see physicia n note for formal interpretation confirmed by Scribe [facility] Work Phone: [phone] Normal [facility] Work Phone: [phone] [facility] Work Phone: [phone] [facility] Work Phone: [phone] [facility] Work Phone: [phone] [facility] Work Phone: [phone] [facility] Work Phone: [phone] [facility] Work Phone: [phone] [facility] Work Phone: [phone] [facility] Work Phone: [phone] [facility] Work Phone: [phone] [facility] Work Phone: [phone] [facility] Work Phone: [phone] [facility] Work Phone: [phone] [facility] Work Phone: [phone] [facility] Work Phone: Radiologyon 09-07-2021 XR Pelvis and Hip - left 2 Views Normal [facility] Work Phone: XR Spine Lumbosacral 2 or 3 Viewson 01-13-2019 XR Spine Lumbosacral 2 or 3 Views Exam Date/Time: 01/12/2019 08:27 EDT Reason for Exam: radiculopathy Report STUDY: XR Spine Lumbosacral 2 or 3 Views; 01/12/2019 8:27 am INDICATION: radiculopathy. COMPARISON: None. ACCESSION NUMBER(S): [id number] ORDERING CLINICIAN: Igor Khan FINDINGS: 3 views of the lumbar spine including AP, lateral and lateral cone-down views were obtained. There is no acute fracture identified. There is mild retrolisthesis of L1 on L2, of L2 on L3 and of L3 on L4 and mild to moderate anterolisthesis of L5 on S1. Mild discogenic degenerative changes are seen throughout the lumbar spine. Moderate facet degenerative changes are seen throughout the lumbar spine. IMPRESSION: 1. No evidence of acute fracture. 2. Degenerative changes throughout the lumbar spine, as described above. FINAL REPORT Dictated: 01/13/2019 12:44 pm Prasanna Fong MD Signed (Electronic Signature): 01/13/2019 12:44 pm Signed by: Prasanna Fong MD Technologist: HLL Normal [facility] Auto Diffon 10-09-2018 Basophils (Bld) [#/Vol] 0.0 E3/mcL Normal 0.0-0.2 [facility] Comment on above: Order Comment: Order Added by Discern Expert. Performed By: #### 2 [id number] #### [facility] [employer] [address] [place] [address] Basophils/100 WBC (Bld) 0.6 % Normal 0.0-2.0 [facility] Comment on above: Order Comment: Order Added by Discern Expert. Performed By: #### 2 [id number] #### [facility] [employer] [address] [place] [address] Eos Absolute 0.2 E3/mcL Normal 0.0-0.7 [facility] Comment on above: Order Comment: Order Added by Discern Expert. Performed By: #### 2 [id number] #### [facility] [employer] [address] [place] [address] Eosinophils/100 WBC (Bld) 3.3 % Normal 0.0-11.0 [facility] Comment on above: Order Comment: Order Added by Discern Expert. Performed By: #### 2 [id number] #### [facility] [employer] [address] [place] [address] Lymphocytes (Bld) [#/Vol] 1.4 E3/mcL Normal 1.2-3.4 [facility] Comment on above: Order Comment: Order Added by Discern Expert. Performed By: #### 2 [id number] #### [facility] [employer] [address] [place] [address] Lymphocytes/100 WBC (Bld) 28.4 % Normal 20.0-55.0 [facility] Comment on above: Order Comment: Order Added by Discern Expert. Performed By: #### 2 [id number] #### [facility] [employer] [address] [place] [address] Tyler Absolute 0.5 E3/mcL Normal 0.0-0.7 [facility] Comment on above: Order Comment: Order Added by Discern Expert. Performed By: #### 2 [id number] #### [facility] [address] [place] [address] Monocytes/100 WBC (Bld) 9.5 % Normal 0.0-10.0 [facility] Comment on above: Order Comment: Order Added by Discern Expert. Performed By: #### 2 [id number] #### [facility] [address] [place] [address] Neutro Absolute 2.9 E3/mcL Normal 1.4-6.5 [facility] Comment on above: Order Comment: Order Added by Discern Expert. Performed By: #### 2 [id number] #### [facility] [employer] [address] [place] [address] Neutro Auto 58.2 % Normal 37.0-75.0 [facility] Comment on above: Order Comment: Order Added by Discern Expert. Performed By: #### 2 [id number] #### [facility] [address] [place] [address] BMPon 10-09-2018 Anion gap [Moles/Vol] 10 mmol/L Normal 10-20 [facility] Comment on above: Performed By: #### 2 [id number] #### [facility] [place] [address] Calcium [Mass/Vol] 9.1 mg/dL Normal 8.6-10.3 [facility] Comment on above: Performed By: #### 2 [id number] #### [facility] [employer] [address] [place] [address] Chloride [Moles/Vol] 108 mmol/L High 98-107 [facility] Comment on above: Performed By: #### 2 [id number] #### [facility] [employer] [address] [place] [address] CO2 [Moles/Vol] 27.0 mmol/L Normal 21.0-32.0 [facility] Comment on above: Performed By: #### 2 532006 #### [facility] [employer] [address] [place] [address] Creatinine [Mass/Vol] 0.7 mg/dL Normal 0.5-1.1 [facility] Comment on above: Performed By: #### 2 695473 #### [facility] [employer] [address] [place] [address] Glucose [Mass/Vol] 97 mg/dL Normal 70-99 [facility] Comment on above: Performed By: #### 2 719646 #### [facility] [address] [place] [address] Potassium [Moles/Vol] 4.0 mmol/L Normal 3.5-5.3 [facility] Comment on above: Performed By: #### 2 794874 #### [facility] [address] [place] [address] Sodium [Moles/Vol] 141 mmol/L Normal 136-145 [facility] Comment on above: Performed By: #### 2 360085 #### [facility] [address] [place] [address] Urea nitrogen [Mass/Vol] 26 mg/dL High 6-23 [facility] Comment on above: Performed By: #### 2 381499 #### [facility] [address] [place] [address] Urea nitrogen/Creatinine [Mass ratio] 37.1 ratio High 5.4-30.0 [facility] Comment on above: Performed By: #### 2 [id number] #### [facility] [address] [place] [address] CBC w/ Auto Diffon 9 Erythrocyte distribution width (RBC) [Ratio] 13.3 % Normal 11.5-14.5 [facility] Comment on above: Performed By: #### 2 349576 #### [facility] [employer] [address] [place] [address] Hematocrit (Bld) [Volume fraction] 42.2 % Normal 36.0-48.0 [facility] Comment on above: Performed By: #### 2 874649 #### [facility] [employer] [address] [place] [address] Hemoglobin (Bld) [Mass/Vol] 13.6 g/dL Normal 12.0-16.0 [facility] Comment on above: Performed By: #### 2 397857 #### [facility] [employer] [address] [place] [address] MCH (RBC) [Entitic mass] 27.5 pg Normal 27.0-31.0 [facility] Comment on above: Performed By: #### 2 161733 #### [facility] [employer] [address] [place] [address] MCHC (RBC) [Mass/Vol] 32.3 g/dL Low 33.0-37.0 [facility] Comment on above: Performed By: #### 2 774346 #### [facility] [employer] [address] [place] [address] MCV (RBC) [Entitic vol] 85.1 fL Normal 78.0-100.0 [facility] Comment on above: Performed By: #### 2 282193 #### [facility] [employer] [address] [place] [address] Platelet mean volume (Bld) [Entitic vol] 9.3 fL Normal 7.4-11.0 [facility] Comment on above: Performed By: #### 2 347770 #### [facility] [employer] [address] [place] [address] Platelets (Bld) [#/Vol] 216 E3/mcL Normal 130-400 [facility] Comment on above: Performed By: #### 2 529172 #### [facility] [employer] [address] [place] [address] RBC (Bld) [#/Vol] 4.96 E6/mcL Normal 3.90-5.40 [facility] Comment on above: Performed By: #### 2 954560 #### [facility] [employer] [address] [place] [address] WBC (Bld) [#/Vol] 5.0 E3/mcL Normal 3.6-11.0 [facility] Comment on above: Performed By: #### 2 611170 #### [facility] [employer] [address] [place] [address] eGFRon 10-09-2018 GFR/1.73 sq M predicted among non-blacks MDRD (S/P/Bld) [Vol rate/Area] mL/min/{1.73_m2} Normal [facility] Comment on above: Order Comment: Order added by Discern Expert. Performed By: #### 1 [id number] #### [facility] [address] [place] [address] CMPon 09-13-2018 Albumin [Mass/Vol] 4.3 g/dL Normal 3.4-5.0 [facility] Comment on above: Performed By: #### 2 719297 #### [employer] [employer] [address] [place] [address] Albumin/Globulin [Mass ratio] 1.8 {ratio} Normal 1.1-1.9 [facility] Comment on above: Performed By: #### 2 463865 #### [employer] [employer] [address] [place] [address] Alk Phos 91 Int._Unit/L Normal 33-136 [facility] Comment on above: Performed By: #### 2 297620 #### [employer] [address] [place], [place] [id number] ALT [Catalytic activity/Vol] 28 Int._Unit/L Normal 7-45 [facility] Comment on above: Performed By: #### 2 051978 #### [employer] [employer] [address] [place] [address] Anion gap [Moles/Vol] 9 mmol/L Low 10-20 [facility] Comment on above: Performed By: #### 2 [id number] #### [employer] [employer] [address] [place] [address] AST [Catalytic activity/Vol] 29 Int._Unit/L Normal 9-39 [facility] Comment on above: Performed By: #### 2 [id number] #### [employer] [address] [place], [place] [id number] Bili Total 0.69 mg/dL Normal 0.00-1.20 [facility] Comment on above: Performed By: #### 2 900157 #### [employer] [employer] [address] [place] [address] Calcium [Mass/Vol] 9.5 mg/dL Normal 8.6-10.3 [facility] Comment on above: Performed By: #### 2 542229 #### [employer] [address] [place] [address] Chloride [Moles/Vol] 107 mmol/L Normal 98-107 [facility] Comment on above: Performed By: #### 2 902896 #### [employer] [address] [place] [address] CO2 [Moles/Vol] 30.0 mmol/L Normal 21.0-32.0 [facility] Comment on above: Performed By: #### 2 514179 #### [employer] [address] [place] [address] Creatinine [Mass/Vol] 0.8 mg/dL Normal 0.5-1.1 [facility] Comment on above: Performed By: #### 2 067478 #### [employer] [employer] [address] [place] [address] Globulin (S) [Mass/Vol] 2.0 g/dL Normal 2.0-4.0 [facility] Comment on above: Performed By: #### 2 862239 #### [employer] [employer] [address] [place] [address] Glucose [Mass/Vol] 85 mg/dL Normal 70-99 [facility] Comment on above: Performed By: #### 2 896701 #### [employer] [address] [place] [address] Potassium [Moles/Vol] 3.9 mmol/L Normal 3.5-5.3 [facility] Comment on above: Performed By: #### 2 443623 #### [employer] [employer] [address] [place] [address] Protein [Mass/Vol] 6.7 g/dL Normal 6.4-8.2 [facility] Comment on above: Performed By: #### 2 427966 #### [employer] [address] [place] [address] Sodium [Moles/Vol] 142 mmol/L Normal 136-145 [facility] Comment on above: Performed By: #### 2 001427 #### [employer] [address] [place] [address] Urea nitrogen [Mass/Vol] 27 mg/dL High 6-23 [facility] Comment on above: Performed By: #### 2 925110 #### [employer] [address] [place] [address] Urea nitrogen/Creatinine [Mass ratio] 33.8 ratio High 5.4-30.0 [facility] Comment on above: Performed By: #### 2 [id number] #### [employer] [address] [place] [address] Lipid Profileon 09-13-2018 Cholesterol [Mass/Vol] 185 mg/dL Normal 0-199 [facility] Comment on above: Result Comment: TOTA L CHOLEESTEROL: <200 NORMAL 200 - 239 BORDERLINE HIGH >240 HIGH Performed By: #### 3 [id number] #### [employer] [address] [place] [address] Cholesterol in HDL [Mass/Vol] 66 mg/dL High 40-60 [facility] Comment on above: Performed By: #### 3 [id number] #### [employer] [address] [place] [address] Cholesterol in LDL [Mass/Vol] 110 mg/dL Normal 0-130 [facility] Comment on above: Result Comment: <100 OPTIMAL 100-129 NEAR / ABOVE OPTIMAL 130-159 BORDERLINE HIGH 160-189 HIGH >190 VERY HIGH CALC LDL NOT VALID WHEN TRIGLYCERIDE IS >400 MG/DL Performed By: #### 3 [id number] #### [employer] [address] [place] [address] Cholesterol in VLDL [Mass/Vol] 9 mg/dL Normal 0-40 [facility] Comment on above: Performed By: #### 3 [id number] #### [employer] [address] [place] [address] Triglyceride [Mass/Vol] 47 mg/dL Normal 0-149 [facility] Comment on above: Result Comment: AGE DESIRABLE BORDERLINE HIGH 91 D - 9 Y 0 - 74 75 - 99 > 100 10 - 19 Y 0 - 89 90 - 129 > 130 20 -24 Y 0 - 114 115 - 149 > 150 > 25 0 - 149 150 - 199 200 - 499 Performed By: #### 3 [id number] #### [facility] [employer] [address] [place] [address] TSHon 09-13-2018 TSH Qn 0.01 mcIU/mL Low 0.30-5.60 [facility] Comment on above: Performed By: #### 2 015642 #### [facility] [employer] [address] [place] [address] eGFRon 09-13-2018 GFR/1.73 sq M predicted among non-blacks MDRD (S/P/Bld) [Vol rate/Area] mL/min/{1.73_m2} Normal [facility] Comment on above: Order Comment: Order added by Discern Expert. Performed By: #### 1 [id number] #### [facility] [facility] [place] [address] US DUPLEX VENOUS LEG RIGHTon 06-05-2017 US DUPLEX VENOUS LEG RIGHT Non-Invasive Vascular Patient: ALF [facility] Rec#: [id number] (Age): 1955(62y) Study Date: 06/03/2017 Room#: Type: Sex: F R eading: Dr. Georges Smith, MDReading: VESOReferring: Amberly KNOX III, DONSonographer: Marsha Angel, RVT, RDMSProcedure Info: [id number] Quality: Di agnosis:I87.2 Venous insufficiency (chronic) (peripheral)I83.811 Varicose veins of right lower extremities with painLower Venous Duplex Co nclusionsThe right great saphenous vein is noncompressible from the mid to distalthigh consistent with venous ablation. The right mid to distal femoraland popliteal veins are patent and compressible with no evidence of deepvenous thrombosis. The right great saphenous vein has been previouslyligated and is not visualized from the saphenofemoral junction to themid thigh. ____The procedure was explained to the patient. The patient voicedunderstanding. Finding Grids Right Duplex Exam Spont Phasic Mid Femoral Y Y Distal Femoral Y Y Popliteal Y Y Great Saphenous N N Augment Color Filling Compressibility Mid Femoral Y Y Y Distal Femoral Y Y Y Popliteal Y Y Y Great Saphenous N N N Bassett --------- Y = Yes N = NoHistory History Comments:GSV ablation zones 3-5 on 06/01/2017 with previousligation of the right GSV Electronically signed at 06/05/2017 11:38:50 by: Dr. Georges Smith MD [facility] US VENOUS INSUFFICIENCYon US VENOUS INSUFFICIENCY Non-Invasive Vascular Patient: ALF Sheppard [facility] Rec#: [id number] (Age): 1955(62y) Study Date: 04/29/2017 Room#: Type: Sex: F R eading: VESOReading: Dr. Georges Smith, MDReading: MAGGIE Louiseferring: Amberly KNOX III, DONSonographer: Lauren Vera RVT,RDMSProcedure Info: [id number] Quality: Lower Venous Reflux: Adequate Di agnosis:I83.819 Varicose veins of unspecified lower extremities with painLower Venous Duplex Lower Venous Reflux (Limb pain 729.5 ) C onclusionsNo evidence of deep venous thrombosis or obstruction noted bilaterally.No evidence of deep or reflux noted bilaterally. Evidence of superficialvenous reflux noted in the right great saphenous vein from the mid thighto knee. No Evidence of superficial venous reflux noted in the leftgreat saphenous vein form proximal thigh to the mid calf. No evidence ofsuperficial venous reflux noted in the small saphenous veinbilaterally. Carl lr'radha Comments: Right great saphenous vein post ligation andablation is visualized only form mid thigh to knee via branch . Leftsaphenous femoral junction is non visualized post ligation. The procedure was explained to the patient. The patient voicedunderstanding. Finding Grids Right Duplex Exam Spont Phasic External Iliac Y Y Common Femoral Y Y Proximal Profunda _ _ Proximal Femoral Y Y Mid Femoral Y Y Distal Femoral Y Y Popliteal Y Y Augment Color Filling Compressibility External Iliac Y Y Y Common Femoral Y Y Y Proximal Profunda _ _ Y Proximal Femoral Y Y Y Mid Femoral Y Y Y Distal Femoral Y Y Y Popliteal Y Y Y Bassett --------- Y = Yes Left Duplex Exam Spont Phasic External Iliac Y Y Common Femoral Y Y Proximal Profunda _ _ Proximal Femoral Y Y Mid Femoral Y Y Distal Femoral Y Y Popliteal Y Y Augment Color Filling Compressibility External Iliac Y Y Y Common Femoral Y Y Y Proximal Profunda _ _ Y Proximal Femoral Y Y Y Mid Femoral Y Y Y Distal Femoral Y Y Y Popliteal Y Y Y Bassett --------- Y = YesMeasurements Right Vein Diameters Name Value Units GSV at SFJ 0 mm GSV Thigh - prox 0 mm GSV Thigh - mid 3.7 mm GSV Thigh - dist 4.4 mm GSV at Knee 2.4 mm GSV Calf - prox 0 mm GSV Calf - mid 0 mm SSV at SPJ 0 mm SSV Calf - prox 3 mm SSV Calf - mid 2.3 mm Right Vein Reflux Times Name Value Units GSV at SFJ - Time 0 sec GSV Thigh - prox - Time 0 sec GSV Thigh - mid - Time 3.5 sec GSV Thigh - dist - Time 3 sec GSV at Knee - Time 3.8 sec GSV Calf - prox - Time 0 sec GSV Calf - mid - Time 0 sec SSV at SPJ - Time 0 sec SSV Calf - prox - Time 0 sec SSV Calf - mid - Time 0 sec Left Vein Diameters Name Value Units GSV at SFJ 0 mm GSV Thigh - prox 4.1 mm GSV Thigh - mid 2.2 mm GSV Thigh - dist 1.9 mm GSV at Knee 2 mm GSV Calf - prox 2.6 mm GSV Calf - mid 2.4 mm SSV at SPJ 3.4 mm SSV Calf - prox 3.9 mm SSV Calf - mid 2.4 mm Left Vein Reflux Times Name Value Units GSV at SFJ -Time 0 sec GSV Thigh - prox - Time 0 sec GSV Thigh - mid -Time 0 sec GSV Thigh - dist - Time 0 sec GSV at Knee - Time 0 sec GSV Calf - prox - Time 0 sec GSV Calf - mid - Time 0 sec SSV at SPJ - Time 0 sec SSV Calf - prox - Time 0 sec SSV Calf - mid - Time 0 sec History Hyperlipidemia. Varicose Veins. Vascular Surgery. History Comments:Bilateral GSV ligation; right GSV ablation Electronically signed at 04/29/2017 15:49:23 by: Dr. Georges Smith MD [facility] Ultrasound venous insufficie ncy examon 04-29-2017 Ultrasound venous insufficiency exam Non-Invasive Vascular Patient: ALF Sheppard [facility] Rec#: [id number] (Age): 1955(62y) Study Date: 04/29/2017 Room#: Type: Sex: F Reading: LEVI Reading: Dr. Georges Smith MD Reading: Amberly Knox DO Referring: Amberly KNOX III, DON [employer] Operator: Lauren Vera RVT,RDMS Procedure Info: [id number] Study Quality: Lower Venous Reflux: Adequate Diagnosis: I83.819 Varicose veins of unspecified lower extremities with pain Lower Venous Duplex Lower Venous Reflux (Limb pain 729.5 ) Conclusions No evidence of deep venous thrombosis or obstruction noted bilaterally. No evidence of deep or reflux noted bilaterally. Evidence of superficial venous reflux noted in the right great saphenous vein from the mid thigh to knee. No Evidence of superficial venous reflux noted in the left great saphenous vein form proximal thigh to the mid calf. No evidence of superficial venous reflux noted in the small saphenous vein bilaterally. [employer] Operator's Comments: Right great saphenous vein post ligation and ablation is visualized only form mid thigh to knee via branch . Left saphenous femoral junction is non visualized post ligation. The procedure was explained to the patient. The patient voiced understanding. Finding Grids Right Duplex Exam Spont Phasic External Iliac Y Y Common Femoral Y Y Proximal Profunda _ _ Proximal Femoral Y Y Mid Femoral Y Y Distal Femoral Y Y Popliteal Y Y Augment Color Filling Compressibility External Iliac Y Y Y Common Femoral Y Y Y Proximal Profunda _ _ Y Proximal Femoral Y Y Y Mid Femoral Y Y Y Distal Femoral Y Y Y Popliteal Y Y Y Bassett --------- Y = Yes Left Duplex Exam Spont Phasic External Iliac Y Y Common Femoral Y Y Proximal Profunda _ _ Proximal Femoral Y Y Mid Femoral Y Y Distal Femoral Y Y Popliteal Y Y Augment Color Filling Compressibility External Iliac Y Y Y Common Femoral Y Y Y Proximal Profunda _ _ Y Proximal Femoral Y Y Y Mid Femoral Y Y Y Distal Femoral Y Y Y Popliteal Y Y Y Bassett --------- Y = Yes Measurements Right Vein Diameters Name Value Units GSV at SFJ 0 mm GSV Thigh - prox 0 mm GSV Thigh - mid 3.7 mm GSV Thigh - dist 4.4 mm GSV at Knee 2.4 mm GSV Calf - prox 0 mm GSV Calf - mid 0 mm SSV at SPJ 0 mm SSV Calf - prox 3 mm SSV Calf - mid 2.3 mm Right Vein Reflux Times Name Value Units GSV at SFJ - Time 0 sec GSV Thigh - prox - Time 0 sec GSV Thigh - mid - Time 3.5 sec GSV Thigh - dist - Time 3 sec GSV at Knee - Time 3.8 sec GSV Calf - prox - Time 0 sec GSV Calf - mid - Time 0 sec SSV at SPJ - Time 0 sec SSV Calf - prox - Time 0 sec SSV Calf - mid - Time 0 sec Left Vein Diameters Name Value Units GSV at SFJ 0 mm GSV Thigh - prox 4.1 mm GSV Thigh - mid 2.2 mm GSV Thigh - dist 1.9 mm GSV at Knee 2 mm GSV Calf - prox 2.6 mm GSV Calf - mid 2.4 mm SSV at SPJ 3.4 mm SSV Calf - prox 3.9 mm SSV Calf - mid 2.4 mm Left Vein Reflux Times Name Value Units GSV at SFJ -Time 0 sec GSV Thigh - prox - Time 0 sec GSV Thigh - mid -Time 0 sec GSV Thigh - dist - Time 0 sec GSV at Knee - Time 0 sec GSV Calf - prox - Time 0 sec GSV Calf - mid - Time 0 sec SSV at SPJ - Time 0 sec SSV Calf - prox - Time 0 sec SSV Calf - mid - Time 0 sec History Hyperlipidemia. Varicose Veins. Vascular Surgery. History Comments:Bilateral GSV ligation; right GSV ablation Electronically signed at 04/29/2017 15:49:23 by: Dr. Georges Smith MD Invalid Interpretation Code EM RAD Ultrasound venous insufficiency exam Interface, [facility] - 04/29/2017 3:50 PM EST Non-Invasive Vascular Patient: ALF Sheppard [facility] Rec#: [id number] (Age): 1955(62y) Study Date: 04/29/2017 Room#: Type: Sex: F Reading: LEVI Reading: Dr. Georges Smith MD Reading: Amberly Knox DO Referring: Amberly KNOX III, DON [employer] Operator: Lauren Vera RVT, RDMS Procedure Info: [id number] Study Quality: Lower Venous Reflux: Adequate Diagnosis: I83.819 Varicose veins of unspecified lower extremities with pain Lower Venous Duplex Lower Venous Reflux (Limb pain 729.5 ) Conclusions No evidence of deep venous thrombosis or obstruction noted bilaterally. No evidence of deep or reflux noted bilaterally. Evidence of superficial venous reflux noted in the right great saphenous vein from the mid thigh to knee. No Evidence of superficial venous reflux noted in the left great saphenous vein form proximal thigh to the mid calf. No evidence of superficial venous reflux noted in the small saphenous vein bilaterally. [employer] Operator's Comments: Right great saphenous vein post ligation and ablation is visualized only form mid thigh to knee via branch . Left saphenous femoral junction is non visualized post ligation. The procedure was explained to the patient. The patient voiced understanding. Finding Grids Right Duplex Exam Spont Phasic External Iliac Y Y Common Femoral Y Y Proximal Profunda _ _ Proximal Femoral Y Y Mid Femoral Y Y Distal Femoral Y Y Popliteal Y Y Augment Color Filling Compressibility External Iliac Y Y Y Common Femoral Y Y Y Proximal Profunda _ _ Y Proximal Femoral Y Y Y Mid Femoral Y Y Y Distal Femoral Y Y Y Popliteal Y Y Y Bassett --------- Y = Yes Left Duplex Exam Spont Phasic External Iliac Y Y Common Femoral Y Y Proximal Profunda _ _ Proximal Femoral Y Y Mid Femoral Y Y Distal Femoral Y Y Popliteal Y Y Augment Color Filling Compressibility External Iliac Y Y Y Common Femoral Y Y Y Proximal Profunda _ _ Y Proximal Femoral Y Y Y Mid Femoral Y Y Y Distal Femoral Y Y Y Popliteal Y Y Y Bassett --------- Y = Yes Measurements Right Vein Diameters Name Value Units GSV at SFJ 0 mm GSV Thigh - prox 0 mm GSV Thigh - mid 3.7 mm GSV Thigh - dist 4.4 mm GSV at Knee 2.4 mm GSV Calf - prox 0 mm GSV Calf - mid 0 mm SSV at SPJ 0 mm SSV Calf - prox 3 mm SSV Calf - mid 2.3 mm Right Vein Reflux Times Name Value Units GSV at SFJ - Time 0 sec GSV Thigh - prox - Time 0 sec GSV Thigh - mid - Time 3.5 sec GSV Thigh - dist - Time 3 sec GSV at Knee - Time 3.8 sec GSV Calf - prox - Time 0 sec GSV Calf - mid - Time 0 sec SSV at SPJ - Time 0 sec SSV Calf - prox - Time 0 sec SSV Calf - mid - Time 0 sec Left Vein Diameters Name Value Units GSV at SFJ 0 mm GSV Thigh - prox 4.1 mm GSV Thigh - mid 2.2 mm GSV Thigh - dist 1.9 mm GSV at Knee 2 mm GSV Calf - prox 2.6 mm GSV Calf - mid 2.4 mm SSV at SPJ 3.4 mm SSV Calf - prox 3.9 mm SSV Calf - mid 2.4 mm Left Vein Reflux Times Name Value Units GSV at SFJ -Time 0 sec GSV Thigh - prox - Time 0 sec GSV Thigh - mid -Time 0 sec GSV Thigh - dist - Time 0 sec GSV at Knee - Time 0 sec GSV Calf - prox - Time 0 sec GSV Calf - mid - Time 0 sec SSV at SPJ - Time 0 sec SSV Calf - prox - Time 0 sec SSV Calf - mid - Time 0 sec History Hyperlipidemia. Varicose Veins. Vascular Surgery. History Comments:Bilateral GSV ligation; right GSV ablation Electronically signed at 04/29/2017 15:49:23 by: Dr. Georges Smith MD Invalid Interpretation Code [facility] Vital Signs Date Time Vital Sign Value Performing Clinician Facility 11-07-2024 14:120400 Body height 167.64 cm Florence Mendez MD Work Phone: [facility] 11-07-2024 14:12-0400 Body mass index (BMI) [Ratio] 26.4 kg/m2 Florence Mendez MD Work Phone: [facility] 11-07-2024 14:12-0400 Body temperature 98.3 [degF] Florence Mendez MD Work Phone: [facility] 11-07-2024 14:12-0400 Body weight 74.38 kg Florence Mendez MD Work Phone: [facility] 11-07-2024 14:12-0400 Diastolic blood pressure 71 mm[Hg] Florence Mendez MD Work Phone: [facility] 11-07-2024 14:12-0400 Heart rate 91 /min Florence Mendez MD Work Phone: [facility] 11-07-2024 14:12-0400 Respiratory rate 18 /min Florence Mendez MD Work Phone: [facility] 11-07-2024 14:12-0400 SaO2% (BldA) [Mass fraction] 95 % Florence Mendez MD Work Phone: [facility] 11-07-2024 14:12-0400 Systolic blood pressure 113 mm[Hg] Florence Mendez MD Work Phone: [facility] 10-31-2024 14:16-0400 Body height 167.64 cm Florence Mendez MD Work Phone: [facility] 10-31-2024 14:16-0400 Body mass index (BMI) [Ratio] 26.3 kg/m2 Florence Mendez MD Work Phone: [facility] 10-31-2024 14:16-0400 Body temperature 98.2 [degF] Florence Mendze MD Work Phone: [facility] 10-31-2024 14:16-0400 Body weight 73.99 kg Florence Mendez MD Work Phone: [facility] 10-31-2024 14:16-0400 Diastolic blood pressure 71 mm[Hg] Florence Mendez MD Work Phone: [facility] 10-31-2024 14:16-0400 Heart rate 88 /min Florence Mendez MD Work Phone: [facility] 10-31-2024 14:16-0400 Respiratory rate 18 /min Florence Mendez MD Work Phone: [facility] 10-31-2024 14:16-0400 SaO2% (BldA) [Mass fraction] 95 % Florence Mendez MD Work Phone: [facility] 10-31-2024 14:16-0400 Systolic blood pressure 123 mm[Hg] Florence Mendez MD Work Phone: [facility] 10-24-2024 11:30-0400 Diastolic blood pressure 65 mm[Hg] Florence Mendez MD Work Phone: [facility] 10-24-2024 11:30-0400 Systolic blood pressure 122 mm[Hg] Florence Mendez MD Work Phone: [facility] 10-24-2024 10:49-0400 Body height 167.64 cm Florence Mendez MD Work Phone: [facility] 10-24-2024 10:49-0400 Body mass index (BMI) [Ratio] 25.8 kg/m2 Florence Mendez MD Work Phone: [facility] 10-24-2024 10:49-0400 Body temperature 98.4 [degF] Florence Mendez MD Work Phone: [facility] 10-24-2024 10:49-0400 Body weight 72.57 kg Florence Mendez MD Work Phone: [facility] 10-24-2024 10:49-0400 Heart rate 83 /min Florence Mendez MD Work Phone: [facility] 10-24-2024 10:49-0400 Respiratory rate 16 /min Florence Mendez MD Work Phone: [facility] 10-24-2024 10:49-0400 SaO2% (BldA) [Mass fraction] 98 % Florence Mendez MD Work Phone: [facility] 10-17-2024 14:20-0400 Body height 167.64 cm Florence Mendez MD Work Phone: [facility] 10-17-2024 14:20-0400 Body mass index (BMI) [Ratio] 26.3 kg/m2 Florence Mendez MD Work Phone: [facility] 10-17-2024 14:20-0400 Body temperature 97.6 [degF] Florence Mendez MD Work Phone: [facility] 10-17-2024 14:20-0400 Body weight 73.93 kg Florence Mendez MD Work Phone: [facility] 10-17-2024 14:20-0400 Diastolic blood pressure 75 mm[Hg] Florence Mendez MD Work Phone: [facility] 10-17-2024 14:20-0400 Heart rate 78 /min Florence Mendez MD Work Phone: [facility] 10-17-2024 14:20-0400 Respiratory rate 18 /min Florence Mednez MD Work Phone: [facility] 10-17-2024 14:20-0400 SaO2% (BldA) [Mass fraction] 95 % Florence Mendez MD Work Phone: [facility] 10-17-2024 14:20-0400 Systolic blood pressure 126 mm[Hg] Florence Mendez MD Work Phone: [facility] 09-19-2024 14:18-0400 Body temperature 97.9 [degF] Florence Mendez MD Work Phone: [facility] 09-19-2024 14:18-0400 Body weight 74.38 kg Florence Mendez MD Work Phone: [facility] 09-19-2024 14:18-0400 Diastolic blood pressure 75 mm[Hg] Florence Mendez MD Work Phone: [facility] 09-19-2024 14:18-0400 Heart rate 76 /min Florence Mendez MD Work Phone: [facility] 09-19-2024 14:18-0400 Respiratory rate 18 /min Florence Mendez MD Work Phone: [facility] 09-19-2024 14:18-0400 SaO2% (BldA) [Mass fraction] 96 % Florence Mendez MD Work Phone: [facility] 09-19-2024 14:18-0400 Systolic blood pressure 112 mm[Hg] Florence Mendze MD Work Phone: [facility] 08-28-2024 10:40-0400 Body mass index (BMI) [Ratio] 26.3 kg/m2 Florence Mendez MD Work Phone: [facility] 08-28-2024 10:40-0400 Body temperature 98.7 [degF] Florence Mendez MD Work Phone: [facility] 08-28-2024 10:40-0400 Body weight 74.04 kg Florence Mendez MD Work Phone: [facility] 08-28-2024 10:40-0400 Diastolic blood pressure 67 mm[Hg] Florence Mendez MD Work Phone: [facility] 08-28-2024 10:40-0400 Heart rate 71 /min Florence Mendez MD Work Phone: [facility] 08-28-2024 10:40-0400 Respiratory rate 18 /min Florence Mendez MD Work Phone: [facility] 08-28-2024 10:40-0400 SaO2% (BldA) [Mass fraction] 96 % Florence Mendez MD Work Phone: [facility] 08-28-2024 10:40-0400 Systolic blood pressure 119 mm[Hg] Florence Mendez MD Work Phone: [facility] 07-11-2024 14:42-0500 Body height 167.64 cm Florence Mendez MD Work Phone: [facility] 07-11-2024 14:42-0500 Body mass index (BMI) [Ratio] 26.3 kg/m2 Florence Mendez MD Work Phone: [facility] 07-11-2024 14:42-0500 Body temperature 98.4 [degF] Florence Mendez MD Work Phone: [facility] 07-11-2024 14:42-0500 Body weight 73.93 kg Floernce Mendez MD Work Phone: [facility] 07-11-2024 14:42-0500 Diastolic blood pressure 81 mm[Hg] Florence Mendez MD Work Phone: [facility] 07-11-2024 14:42-0500 Heart rate 72 /min Florence Mendez MD Work Phone: [facility] 07-11-2024 14:42-0500 Respiratory rate 18 /min Florence Mendez MD Work Phone: [facility] 07-11-2024 14:42-0500 SaO2% (BldA) [Mass fraction] 96 % Florence Mendez MD Work Phone: [facility] 07-11-2024 14:42-0500 Systolic blood pressure 138 mm[Hg] Florence Mendez MD Work Phone: [facility] 06-27-2024 14:22-0500 Body mass index (BMI) [Ratio] 26.6 kg/m2 Florence Mendez MD Work Phone: [facility] 06-27-2024 14:22-0500 Body temperature 97.9 [degF] Florence Mendez MD Work Phone: [facility] 06-27-2024 14:22-0500 Body weight 74.84 kg Florence Mendez MD Work Phone: [facility] 06-27-2024 14:22-0500 Diastolic blood pressure 79 mm[Hg] Florence Mendez MD Work Phone: [facility] 06-27-2024 14:22-0500 Heart rate 67 /min Florence Mendez MD Work Phone: [facility] 06-27-2024 14:22-0500 Respiratory rate 18 /min Florence Mendez MD Work Phone: [facility] 06-27-2024 14:22-0500 SaO2% (BldA) [Mass fraction] 96 % Florence Mendez MD Work Phone: [facility] 06-27-2024 14:22-0500 Systolic blood pressure 139 mm[Hg] Florence Mendez MD Work Phone: 0(518)745-234859 [place] [address] 06-15-2024 16:30-0500 Body temperature 97.6 [degF] Florence Mendez MD Work Phone: 0(250)925-904807 [place] [address] 06-15-2024 16:30-0500 Diastolic blood pressure 76 mm[Hg] Florence Mendez MD Work Phone: 6(955)596-946107 [place] [address] 06-15-2024 16:30-0500 Heart rate 74 /min Florence Mendez MD Work Phone: 5(978)473-370507 [place] [address] 06-15-2024 16:30-0500 Respiratory rate 16 /min Florence Mendez MD Work Phone: 0(978)375-698107 [place] [address] 06-15-2024 16:30-0500 SaO2% (BldA) [Mass fraction] 100 % Florence Mendez MD Work Phone: 2(896)485-186607 [place] [address] 06-15-2024 16:30-0500 Systolic blood pressure 132 mm[Hg] Florence Mendez MD Work Phone: 4(733)078-799607 [place] [address] 06-15-2024 13:55-0500 Body mass index (BMI) [Ratio] 25.6 kg/m2 Florence Mendez MD Work Phone: 9(026)877-631407 [place] [address] 06-15-2024 13:55-0500 Body weight 72 kg Florence Mendez MD Work Phone: 2(328)566-925907 [place] [address] 05-10-2024 08:25-0500 Body mass index (BMI) [Ratio] 25.7 kg/m2 Florence Mendez MD Work Phone: 4(589)587-459107 [place] [address] 05-10-2024 08:25-0500 Body weight 72.34 kg Florence Mendez MD Work Phone: 1(114)081-742307 [place] [address] 05-01-2024 14:26-0500 Body mass index (BMI) [Ratio] 26.1 kg/m2 Florence Mendez MD Work Phone: 1(725)884-610307 [place] [address] 05-01-2024 14:26-0500 Body temperature 98 [degF] Florence Mendez MD Work Phone: 2(259)048-733607 [place] [address] 05-01-2024 14:26-0500 Body weight 73.48 kg Florence Mendez MD Work Phone: [facility] 05-01-2024 14:26-0500 Diastolic blood pressure 78 mm[Hg] Florence Mendez MD Work Phone: [facility] 05-01-2024 14:26-0500 Heart rate 78 /min Florence Mendez MD Work Phone: [facility] 05-01-2024 14:26-0500 Respiratory rate 16 /min Florence Mendez MD Work Phone: [facility] 05-01-2024 14:26-0500 SaO2% (BldA) [Mass fraction] 95 % Florence Mendez MD Work Phone: [facility] 05-01-2024 14:26-0500 Systolic blood pressure 124 mm[Hg] Florence Mendez MD Work Phone: [facility] 03-24-2023 08:30-0400 Body height 167.6 cm Liza Low MD Work Phone: [facility] 03-24-2023 08:30-0400 Body weight 73.03 kg Liza Low MD Work Phone: [facility] 03-24-2023 08:30-0400 Diastolic blood pressure 70 mm[Hg] Liza Low MD Work Phone: [facility] 03-24-2023 08:30-0400 Systolic blood pressure 112 mm[Hg] Liza Low MD Work Phone: [facility] 11-25-2022 08:02-0400 Body height 165.1 cm Eugenia Adair MD Work Phone: [facility] 11-25-2022 08:02-0400 Body mass index (BMI) [Ratio] 26.56 kg/m2 Eugenia Adair MD Work Phone: [facility] 11-25-2022 08:02-0400 Body weight 72.39 kg Eugenia Adair MD Work Phone: [facility] 11-25-2022 08:02-0400 Diastolic blood pressure 80 mm[Hg] Eugenia Adair MD Work Phone: [facility] 11-25-2022 08:02-0400 Heart rate 56 /min Eugenia Adair MD Work Phone: [facility] 11-25-2022 08:02-0400 SaO2% (BldA) [Mass fraction] 99 % Eugenia Adair MD Work Phone: [facility] 11-25-2022 08:02-0400 Systolic blood pressure 128 mm[Hg] Eugenia Adair MD Work Phone: [facility] 08-05-2022 11:07-0500 Body height 166 cm Eugenia Adair Other Phone: [facility] 08-05-2022 11:07-0500 Body temperature 97.88 [degF] Eugenia Adair Other Phone: [facility] 08-05-2022 11:07-0500 Diastolic blood pressure 76 mm[Hg] Eugenia Adair Other Phone: [facility] 08-05-2022 11:07-0500 Heart rate 86 /min Eugenia Adair Other Phone: [facility] 08-05-2022 11:07-0500 Respiratory rate 14 /min Eugenia Adair Other Phone: [facility] 08-05-2022 11:07-0500 SaO2% (BldA) [Mass fraction] 98 % Eugenia Adair Other Phone: [facility] 08-05-2022 11:07-0500 Systolic blood pressure 118 mm[Hg] Eugenia Adair Other Phone: [facility] 07-17-2022 10:54-0500 Body height 168 cm Eugenia Mana Other Phone: [facility] 07-17-2022 10:54-0500 Body temperature 96.98 [degF] Eugenia Roaer Other Phone: [facility] 07-17-2022 10:54-0500 Diastolic blood pressure 72 mm[Hg] Eugenia Roaer Other Phone: [facility] 07-17-2022 10:54-0500 Heart rate 80 /min Eugenia Roaer Other Phone: [facility] 07-17-2022 10:54-0500 SaO2% (BldA) [Mass fraction] 94 % Eugenia Roaer Other Phone: [facility] 07-17-2022 10:54-0500 Systolic blood pressure 122 mm[Hg] Eugenia Roaer Other Phone: [facility] 06-10-2022 09:03-0500 Body height 167.6 cm Eugenia L Mana Work Phone: [facility] Work Phone: 06-10-2022 09:03-0500 Body mass index (BMI) [Ratio] 26.05 kg/m2 Eugenia L Mana Work Phone: [facility] Work Phone: 06-10-2022 09:03-0500 Body surface area Derived from formula 1.83 m2 Eugenia L Mana Work Phone: [facility] Work Phone: 06-10-2022 09:03-0500 Body weight 73.16 kg Eugenia L Mana Work Phone: [facility] Work Phone: 06-10-2022 09:03-0500 Diastolic blood pressure 68 mm[Hg] Eugenia L Mana Work Phone: [facility] Work Phone: 06-10-2022 09:03-0500 Heart rate 62 /min Eugenia L Mana Work Phone: [facility] Work Phone: 06-10-2022 09:03-0500 Systolic blood pressure 102 mm[Hg] Eugenia L Mana Work Phone: [facility] Work Phone: 04-08-2022 09:10-0400 Body height 167.64 cm Eugenia L Mana Work Phone: [facility] Work Phone: 04-08-2022 09:10-0400 Body mass index (BMI) [Ratio] 26.33 kg/m2 Eugenia L Mana Work Phone: [facility] Work Phone: 04-08-2022 09:10-0400 Body surface area Derived from formula 1.83 m2 Eugenia L Mana Work Phone: [facility] Work Phone: 04-08-2022 09:10-0400 Body weight 73.98 kg Eugenia L Mana Work Phone: [facility] Work Phone: 04-08-2022 09:10-0400 Diastolic blood pressure 78 mm[Hg] Eugenia L Mana Work Phone: [facility] Work Phone: 04-08-2022 09:10-0400 Heart rate 57 /min Eugenia L Mana Work Phone: [facility] Work Phone: 04-08-2022 09:10-0400 Systolic blood pressure 128 mm[Hg] Eugenia L Mana Work Phone: [facility] Work Phone: 03-11-2022 09:46-0400 Body height 167.6 cm Liza Low MD Work Phone: [facility] 03-11-2022 09:46-0400 Body weight 73.03 kg Liza Low MD Work Phone: [facility] 03-11-2022 09:46-0400 Diastolic blood pressure 62 mm[Hg] Liza Low MD Work Phone: [facility] 03-11-2022 09:46-0400 Systolic blood pressure 110 mm[Hg] Liza Low MD Work Phone: [facility] 11-20-2021 08:38-0400 Body height 167.64 cm Eugenia L Mana Work Phone: [facility] Work Phone: 11-20-2021 08:38-0400 Body mass index (BMI) [Ratio] 26.12 kg/m2 Eugenia L Mana Work Phone: [facility] Work Phone: 11-20-2021 08:38-0400 Body surface area Derived from formula 1.83 m2 Eugenia L Mana Work Phone: [facility] Work Phone: 11-20-2021 08:38-0400 Body weight 73.39 kg Eugenia L Mana Work Phone: [facility] Work Phone: 11-20-2021 08:38-0400 Diastolic blood pressure 80 mm[Hg] Eugenia L Mana Work Phone: [facility] Work Phone: 11-20-2021 08:38-0400 Heart rate 56 /min Eugenia L Mana Work Phone: [facility] Work Phone: 11-20-2021 08:38-0400 Systolic blood pressure 120 mm[Hg] Eugenia L Mana Work Phone: [facility] Work Phone: 10-05-2021 09:59-0400 Body mass index (BMI) [Ratio] 26.63 kg/m2 Eugenia L Mana Work Phone: [facility] Work Phone: 10-05-2021 09:59-0400 Body surface area Derived from formula 1.84 m2 Eugenia L Mana Work Phone: [facility] Work Phone: 10-05-2021 09:59-0400 Body weight 74.84 kg Eugenia L Mana Work Phone: [facility] Work Phone: 10-05-2021 09:59-0400 Diastolic blood pressure 76 mm[Hg] Eugenia L Mana Work Phone: [facility] Work Phone: 10-05-2021 09:59-0400 Heart rate 71 /min Eugenia L Mana Work Phone: [facility] Work Phone: 10-05-2021 09:59-0400 Respiratory rate 14 /min Eugenia L Mana Work Phone: [facility] Work Phone: 10-05-2021 09:59-0400 Systolic blood pressure 128 mm[Hg] Eugenia L Mana Work Phone: [facility] Work Phone: 09-07-2021 14:30-0400 Diastolic blood pressure 75 mm[Hg] Eugenia Mana Other Phone: [facility] 09-07-2021 14:30-0400 Heart rate 57 /min Eugenia Mana Other Phone: [facility] 09-07-2021 14:30-0400 Respiratory rate 16 /min Eugenia Adair Other Phone: [facility] 09-07-2021 14:30-0400 SaO2% (BldA) [Mass fraction] 97 % Eugenia Adair Other Phone: [facility] 09-07-2021 14:30-0400 Systolic blood pressure 116 mm[Hg] Eugenia Adair Other Phone: [facility] 09-07-2021 13:47-0400 Body height 167.6 cm Eugenia Adair Other Phone: [facility] 09-07-2021 13:47-0400 Body temperature 98.24 [degF] Eugenia Adair Other Phone: [facility] 09-07-2021 13:47-0400 Body weight 72.7 kg Eugenia Adair Other Phone: [facility] 06-15-2017 14:02-0500 BP Diastolic 77 mm[Hg] Amberly Knox [facility] Work Phone: 06-15-2017 14:02-0500 BP Systolic 117 mm[Hg] Amberly Knox [facility] Work Phone: 06-15-2017 14:01-0500 BMI (Body Mass Index) 25.82 kg/m2 WMarcos Knox [facility] Work Phone: 06-15-2017 14:01-0500 Height 167.6 cm Amberly Knox [facility] Work Phone: 06-15-2017 14:01-0500 Pulse (Heart Rate) 80 /min Amberly Knox [facility] Work Phone: 06-15-2017 14:01-0500 Respiratory Rate 16 /min Amberly Knox [facility] Work Phone: 06-15-2017 14:01-0500 Weight 72.58 kg WMarcos Knox [facility] Work Phone: 05-12-2017 07:57-0500 BP Diastolic 78 mm[Hg] Amberly Knox [facility] Work Phone: 05-12-2017 07:57-0500 BP Systolic 120 mm[Hg] [facility] Work [facility]: 05-12-2017 07:57-0500 Pulse (Heart Rate) 61 /min Amberly Knox [facility] Work Phone: 05-12-2017 07:56-0500 BMI (Body Mass Index) 26.37 kg/m2 Amberly Knox [facility] Work Phone: 05-12-2017 07:56-0500 Height 167.6 cm Amberly Knox [facility] Work Phone: 05-12-2017 07:56-0500 Respiratory Rate 16 /min Amberly Knox [facility] Work Phone: 05-12-2017 07:56-0500 Weight 74.12 kg Amberly Knox [facility] Work Phone: 03-24-2017 07:59-0400 BP Diastolic 85 mm[Hg] Amberly Knox [facility] Work Phone: 03-24-2017 07:59-0400 BP Systolic 137 mm[Hg] Amberly Knox [facility] Work Phone: 03-24-2017 07:59-0400 Pulse (Heart Rate) 63 /min Amberly Knox [facility] Work Phone: 03-24-2017 07:58-0400 BMI (Body Mass Index) 26.87 kg/m2 Amberly Knox [facility] Work Phone: 03-24-2017 07:58-0400 Height 167.6 cm Amberly Knox [facility] Work Phone: 03-24-2017 07:58-0400 Respiratory Rate 16 /min [facility] Work Phone: 03-24-2017 07:58-0400 Weight 75.52 kg Amberly Knox [facility] Work Phone: Encounters Encounter Date Encounter Type Care Provider Facility Start: 11-07-2024 End: 11-07-[address] Maryann Mantilla MD -[facility] Work Phone: Start: 11-07-2024 End: 11-07-2024 ambulatory Florence Mendez MD Work Phone: [facility] Work Phone: Start: 10-31-2024 End: 10-31-[address] Maryann Mantilla MD -[facility] Work Phone: Start: 10-31-2024 End: 10-31-2024 ambulatory Florence Mendez MD Work Phone: [facility] Work Phone: Start: 10-24-2024 Non-patient / Non-visit Dr. Maryann tracy MD -[facility] Start: 10-24-2024 End: 10-24-2024 Admission to same day surgery center Dr. Maryann Mantilla MD [facility] Start: 10-24-2024 End: 10-24-2024 ambulatory Florence Mendez MD Work Phone: [facility] Work Phone: Start: 10-17-2024 End: 10-17-2024 ambulatory Florence Mendez MD Work Phone: [facility] Work Phone: Start: 10-17-2024 End: 10-17-[address] Mrayann Mantilla MD -[facility] Work Phone: Start: 09-19-2024 End: 09-19-[address] Maryann Mantilla MD -[facility] Work Phone: Start: 09-19-2024 End: 09-19-2024 ambulatory Chalon Aayush Facility:[facility] Start: 08-28-2024 End: 08-28-[address] Maryann Mantilla MD -[facility] Work Phone: Start: 08-28-2024 End: 08-28-2024 ambulatory Chalon Aayush Facility:[facility] Start: 08-11-2024 End: 08-11-2024 ambulatory Florence Mendez MD Work Phone: [facility] Work Phone: Start: 08-11-2024 End: 08-11-[address] Florence Mendez MD -[facility] Work Phone: Start: 08-11-2024 End: 08-11-2024 ambulatory Chalon Aayush Facility:[facility] Start: 07-26-2024 End: 07-26-2024 Patient encounter procedure Emmy MCCANN -[facility] Work Phone: Start: 07-26-2024 End: 07-26-2024 ambulatory Emmy Diez Facility:[facility] Start: 07-11-2024 End: 07-11-[address] Maryann Mantilla MD -[facility] Work Phone: Start: 07-11-2024 End: 07-11-2024 ambulatory Chalon Aayush Facility:[facility] Start: 06-27-2024 End: 06-27-[address] Maryann Mantilla MD -[facility] Work Phone: Start: 06-27-2024 End: 06-27-2024 ambulatory Chalon Aayush Facility:[facility] Start: 06-15-2024 ambulatory Chalon Aayush Facility:[facility] Start: 06-15-2024 Non-patient / Non-visit Dr. Maryann tracy MD -[facility] Start: 06-15-2024 End: 06-15-2024 Admission to same day surgery center Dr. Maryann Mantilla MD [facility] Start: 06-15-2024 End: 01-10-2025 ambulatory Chalon Aayush Facility:[facility] Start: 05-26-2024 End: 05-26-2024 Patient encounter procedure Emmy MCCANN -[facility] Work Phone: Start: 05-26-2024 End: 05-26-2024 ambulatory Emmy Diez Facility:[facility] Start: 05-10-2024 End: 05-10-2024 Patient encounter procedure Emmy MCCANN -[facility] Work Phone: Start: 05-10-2024 End: 05-10-2024 ambulatory Chalon Aayush Facility:[facility] Start: 05-01-2024 End: 05-01-[address] Maryann Mantilla MD -[facility] Work Phone: Start: 05-01-2024 End: 05-01-2024 ambulatory Chalon Aayush Facility:[facility] Start: 04-19-2024 End: 04-19-2024 ambulatory Chalon Aayush Facility:[facility] Start: 03-15-2024 End: 03-15-2024 ambulatory Chalon Aayush Facility:[facility] Start: 09-14-2023 End: 09-14-2023 ambulatory [facility] Start: 04-04-2023 End: 04-04-2023 ambulatory [facility] Start: 03-24-2023 End: 03-24-2023 ambulatory LIZA LOW Facility:[facility] Start: 03-24-2023 End: 03-24-2023 Patient encounter procedure Liza Low MD Work Phone: OB/Gynecology Comment on above: Encounter for gyneco logical examination (general) (routine) without abnormal findings (Primary Dx); Encounter for screening mammogram for breast cancer Start: 03-24-2023 End: 03-24-2023 Patient encounter status Liza Low MD Work Phone: [facility] Start: 03-17-2023 Documentation procedure Mammog rick Coordinator [facility] Start: 03-17-2023 Letter encounter Mammography Coordinator [facility] Department Start: 03-17-2023 End: 03-17-2023 ambulatory LIZA LOW Facility:[facility] Start: 03-17-2023 End: 03-17-2023 Subsequent hospital visit by physician Screen Mammo [facility] Comment on above: Encounter for screen ing mammogram for malignant neoplasm of breast [Z12.31] Start: 02-10-2023 End: 02-10-2023 ambulatory AVERY BENTON Facility:[facility] Start: 02-10-2023 End: 02-10-2023 Patient encounter procedure Avery Rolandmoses Work Phone: Podiatry Comment on above: Hallux valgus of lef t foot (Primary Dx); Hammer toe of left foot; Callus of foot Start: 02-10-2023 End: 02-10-2023 Subsequent hospital visit by physician Xr [facility] Rodriguez Aguillon Work Phone: Radiology Comment on above: Pain in left foot [M 79.672] Start: 02-04-2023 Orders Only Avery lopes Work Phone: Podiatry Comment on above: Pain in left foot (P rimary Dx) Start: 11-25-2022 End: 11-26-2022 ambulatory EUGENIA ADAIR [facility] Start: 11-25-2022 End: 11-25-2022 Encounter for general adult medical examination without abnormal findings [facility] Start: 11-25-2022 End: 11-25-2022 Assay of hemosiderin, quant Eugenia Adair MD Work Phone: [facility] Work Phone: Start: 11-25-2022 End: 11-25-2022 Patient encounter procedure Eugenia Adair MD Work Phone: [facility] Comment on above: Routine general medi farheen examination at health care facility (Primary Dx); Acquired hypothyroidism; Pure hypercholesterolemia; MVP (mitral valve prolapse) Start: 08-05-2022 End: 08-05-2022 Emergency department patient visit [facility] Start: 07-17-2022 End: 07-17-2022 Emergency department patient visit [facility] Start: 06-10-2022 Patient encounter procedure Eugenia Adair Work Phone: [facility] Work Phone: Start: 06-10-[address] Eugenia Orozco acility:[id number] Start: 04-21-2022 End: 04-21-2022 ambulatory [facility] Facility:[facility] Start: 04-21-2022 End: 04-21-2022 Subsequent hospital visit by physician Diagnostic Mammo [facility] Start: 04-08-2022 Patient encounter procedure Eugenia Adair Work Phone: [facility] Work Phone: Start: 04-08-[address] Eugenia Orozco acility:[phone] Start: 03-23-2022 Telephone encounter Liza Low MD Work Phone: OB/Gynecology Comment on above: Results Start: 03-12-2022 Telephone encounter Leena [facility] chris EATON Work Phone: OB/Gynecology Comment on above: Orders Start: 03-11-2022 Documentation procedure Mammog rick Coordinator [facility] Start: 03-11-2022 Letter encounter Mammography Coordinator [facility] Department Start: 03-11-2022 End: 03-11-2022 Patient encounter procedure Liza Low MD Work Phone: OB/Gynecology Comment on above: Encounter for gyneco logical examination (general) (routine) without abnormal findings (Primary Dx); Encounter for screening mammogram for malignant neoplasm of breast; Screening for osteoporosis; Osteopenia, unspecified location; Screening for cervical cancer; Special screening examination for human papillomavirus (HPV) Start: 03-11-2022 End: 03-11-2022 Patient encounter status Liza Low MD Work Phone: OB/Gynecology Start: 03-11-2022 End: 03-11-2022 Subsequent hospital visit by physician Screen Mammo [facility] Comment on above: Encounter for screen ing mammogram for malignant neoplasm of breast [Z12.31] Start: 11-24-2021 Chart Update Eugenia Amado Deann lr Work Phone: [facility] Work Phone: Start: 11-23-2021 Chart Update Eugeniatiffanie Roacandace lr Work Phone: [facility] Work Phone: Start: 11-20-[address] Eugenia Orozco acility:[phone] Start: 10-05-2021 Patient encounter procedure Eugenia Roaer Work Phone: [facility] Work Phone: Start: 09-07-2021 End: 09-07-2021 Emergency department patient visit Yoan Leos [facility] Emergency 16 Start: 03-02-2021 AUDIT Eugenia Amado Deann lr Work Phone: [facility] Work Phone: Start: 10-23-2020 Office outpatient vi sit 25 minutes Eugenia Amado Mana Work Phone: [facility] Work Phone: Start: 01-24-2019 End: 01-28-2019 Patient encounter procedure [facility] Start: 01-24-2019 End: 01-24-2019 Patient encounter procedure Igor Taylormerman Work Phone: [facility] Comment on above: Tibialis posterior t endinitis, unspecified laterality (Primary Dx) Start: 01-22-2019 End: 01-26-2019 Patient encounter procedure [facility] Start: 01-22-2019 End: 01-22-2019 Patient encounter procedure Igor Nieto Khan Work Phone: [facility] Comment on above: Tibialis posterior t endinitis, unspecified laterality (Primary Dx) Start: 01-17-2019 End: 01-21-2019 Patient encounter procedure IGOR KHAN [facility] Start: 01-17-2019 End: 01-17-2019 Patient encounter procedure Igor Khan Work Phone: [facility] Comment on above: Tibialis posterior t endinitis, unspecified laterality (Primary Dx) Start: 01-15-2019 End: 01-19-2019 Patient encounter procedure IGOR NIETO [facility] Start: 01-15-2019 End: 01-15-2019 Patient encounter procedure Igor Khan Work Phone: [facility] Comment on above: Tibialis posterior t endinitis, unspecified laterality Start: 06-15-2017 Office/outpatient vi sit, est, level 2 Amberly Knox Work Phone: [facility] Start: 06-03-2017 End: 06-04-2017 Ambulatory Candice Knox Facility:[place] Start: 06-03-2017 End: 06-03-2017 Ambulatory Amberly Chopracandace Work Phone: [facility] Start: 06-03-2017 End: 06-03-2017 Ambulatory Amberly Knox Work Phone: [facility] Start: 06-02-2017 Ambulatory Candice Knox Facilit y:[place] Start: 06-02-2017 End: 06-02-2017 Ambulatory Amberly Chopracandace Work Phone: [facility] Start: 06-01-2017 End: 06-02-2017 Ambulatory Amberly CHOPRACandace [facility] Ambulatory Start: 06-01-2017 ND OFFICE/OUTPT VISIT,PROCEDURE ONLY Amberly Knox Work Phone: [facility] Start: 06-01-2017 End: 06-01-2017 Ambulatory Amberly Knox Work Phone: [facility] Start: 05-12-2017 End: 05-12-2017 Ambulatory Amberly KNOX [facility] Start: 05-12-2017 Office outpatient vi sit 15 minutes Amberly Knox Work Phone: [facility] Start: 04-29-2017 End: 04-30-2017 Ambulatory Candice Knox Facility:[place] Start: 04-29-2017 End: 04-29-2017 Ambulatory Amberly Knox Work Phone: [facility] Start: 03-24-2017 End: 03-24-2017 [facility] Start: 03-24-2017 End: 03-24-2017 Office outpatient new 30 minutes Amberly Knox Work Phone: [facility] Comment on above: Varicose veins with pain (Primary Dx) Start: 02-24-2017 Ambulatory Amberly KNOX [facility] Ambulatory Procedures Date Procedure Procedure Detail Performing Clinician Start: 10-24-2024 Excision Florence combs MD Work Phone: Start: 08-11-2024 MRI of joint of lowe r extremity Florence Mendez MD Work Phone: Start: 05-26-2024 MRI of lumbar spine Jen Mendez MD Work Phone: Start: 05-10-2024 X-ray of lumbosacral spine Florence Mendez MD Work Phone: Start: 09-14-2023 POCT BD VERITOR TRIPLEX AG EUGENIA MANA Start: 04-04-2023 POCT BD VERITOR COVID-19 AG EUGENIATIFFANIE ADAIR Start: 03-17-2023 Screening digital br east tomosynthesis bi Liza Low MD Work Phone: Start: 02-10-2023 Radex foot complete minimum 3 views Avery Benton Work Phone: Start: 11-25-2022 TSH WITH REFLEX TO F REE T4 IF ABNORMAL EUGENIA ADAIR Start: 04-21-2022 JESSICA DIAG W DAVID RIGHT R enee Rosie GAS STATION SERVICE ATTENDANT.SUBSTATION OPERATOR TRANSFORMING Work Phone: Start: 03-11-2022 JESSICA SCREENING W DAVID De smitare Grace Low MD Work Phone: Start: 03-11-2022 Mammography Liza Low MD Work Phone: Start: 11-23-2021 Lipid 1996 panel - S rachelle or Plasma Eugenia Adair MD Work Phone: Start: 09-07-2021 End: 09-07-2021 EKG impression Yoan Leos Start: 03-02-2021 Mammography Eugenia drake MD Work Phone: Start: 05-12-2020 Colonoscopy Eugenia drake MD Work Phone: Start: 04-25-2019 Thyrotropin [Units/v olume] in Serum or Plasma Eugenia Adair MD Work Phone: Start: 02-22-2018 Mammography Jackie tovar Start: 06-24-2011 Colonoscopy Liza Low MD Work Phone: Appendectomy Eugenia L Mana Work Phone: Colonoscopy Eugenia L Mana Work Phone: Excision of bunion Eugenia L Mana Work Phone: Ligation of fallopian tube D ouglas L Mana Work Phone: Ligation of varicose vein Do uglas L Mana Work Phone: Operative procedure on wrist Eugenia L Mana Work Phone: Surgical procedure o n eye proper Eugenia L Mana Work Phone: Plan of Treatment Date Care Activity Detail Author Start: 05-12-2030 Screening for malign ant neoplasm of colon [facility] Start: 11-23-2026 Lipid 1996 panel - S rachelle or Plasma Lipid Screening [facility] Start: 11-23-2026 Lipid panel Lipid Panel [facility] Start: 11-23-2026 LIPID SCREEN LIPID SCREEN [facility] Start: 10-24-2024 Exc b9 les mrgn xcp sk tg f/e/e/n/l/m 2.1-3.0cm EXC FACE-MM B9+MACEY 2.1-3 CM [facility] Start: 10-24-2024 Repair intermediate f/e/e/n/l&/muc 2.5 cm/< INTMD RPR FACE/MM 2.5 CM/< [facility] Start: 10-24-2024 [facility] Start: 06-15-2024 [facility] Start: 06-15-2024 Excision tumor soft tiss face/scalp subq <2cm EXC FACE LES SC <2 CM [facility] Start: 06-15-2024 Shvg skin lesion 1 f/e/e/n/l/m diam 0.6-1.0 cm SHAVE SKIN LESION 0.6-1.0 CM [facility] Start: 05-10-2024 Patient referral [facility] Work Phone: Start: 03-17-2024 Mammography Mammogram Screening [facility] Start: 12-01-2023 End: 12-01-2023 Patient encounter procedure 12/01/2023 8:00 AM EDT Office Visit [facility] [address] [facility] [address] [place] [id number] Eugenia Adair MD [address] [facility] [address] [place] [address] [facility] Start: 03-11-2023 Mammography MAMMOGRAM [facility] Start: 02-04-2023 Covid-19 Vaccine ( season) Covid-19 Vaccine ( season) [facility] Start: 02-04-2023 Influenza vaccination INFLUENZA (#1) [facility] Start: 11-25-2022 End: 11-26-2023 TSH with reflex to Free T4 if abnormal TSH with reflex to Free T4 if abnormal Lab Routine Acquired hypothyroidism Expected: 11/25/2022 (Approximate), Expires: 11/26/2023 [facility] Service Area Work Phone: Comment on above: Expected: 11/25/2022 (Approximate), Expires: 11/26/2023 Start: 11-25-2022 Patient encounter procedure [facility] Medicine [place] Start: 11-22-2022 EPV, Provider: Eugenia Adair, Status: Pen, Time: 8:00 AM EPV, Provider: Eugenia Adair, Status: Pen, Time: 8:00 AM [facility] Work Phone: Start: 07-13-2022 COVID-19 VACCINE (5 - Moderna series) COVID-19 VACCINE (5 - Moderna series) [facility] Start: 06-06-2022 ADVANCE DIRECTIVE DISCUSSION ADVANCE DIRECTIVE DISCUSSION [facility] Start: 06-06-2022 DEPRESSION ASSESSMENT DEPRESSION ASS ESSMENT [facility] Start: 05-07-2022 COVID-19 Vaccine (4 - Booster for Moderna series) COVID-19 Vaccine (4 - Booster for Moderna series) [facility] Start: 03-02-2022 Mammography MAMMOGRAM [facility] Start: 03-02-2022 Screening for malign ant neoplasm of breast Mammogram [facility] Start: 11-23-2021 FUV, Provider: James Parker, Status: Pen, Time: 8:30 AM FUV, Provider: James Parker, Status: Pen, Time: 8:30 AM [facility]: Start: 11-20-2021 EPV, Provider: Eugenia Adair, Status: Pen, Time: 8:40 AM EPV, Provider: Eugenia Adair, Status: Pen, Time: 8:40 AM [facility] Work Phone: Start: 10-29-2021 EPV, Provider: Eugenia Adair, Status: Pen, Time: 8:40 AM EPV, Provider: Eugenia Adair, Status: Pen, Time: 8:40 AM [facility] Work Phone: Start: 10-29-2021 Patient encounter procedure [facility] Start: 06-06-2021 ADVANCE DIRECTIVE DISCUSSION ADVANCE DIRECTIVE DISCUSSION [facility] Start: 06-06-2021 DEPRESSION ASSESSMENT DEPRESSION ASS ESSMENT [facility] Start: 05-29-2021 COVID-19 VACCINE (4 - Booster for Moderna series) COVID-19 VACCINE (4 - Booster for Moderna series) [facility] Start: 2021 Pneumococcal Vaccine : 65+ (1 - PCV) Pneumococcal Vaccine: 65+ (1 - PCV) [facility] Start: 2021 PNEUMOCOCCAL: 65+ (1 - PCV) PNEUMOCOCCAL: 65+ (1 - PCV) [facility] Start: 04-25-2020 Thyroid stimulating hormone measurement TSH Level [facility] Start: 02-22-2019 Screening mammography [facility] Start: 02-22-2019 End: 02-22-2019 Treatment 02/22/2019 Treatment Rehabilitation Igor Khan, DPM [address] [place] [address] [phone] [facility] Start: 02-19-2019 End: 02-19-2019 Treatment 02/19/2019 Treatment Rehabilitation Igor Khan DPM [address] [place] [address] [phone] [facility] Start: 02-14-2019 End: 02-14-2019 Treatment 02/14/2019 Treatment Igor Cheng DPM [address] [place] [address] [phone] [facility] Barbosa, [facility] Start: 02-12-2019 End: 02-12-2019 Treatment 02/12/2019 Treatment Rehabilitation Igor Khan DPM [address] [place] [address] [phone] [facility] Start: 02-09-2019 End: 02-09-2019 Treatment 02/09/2019 Treatment Rehabilitation Igor Khan DPM [address] [place] [address] [phone] Selma Rincon, [facility] Start: 02-07-2019 End: 02-07-2019 Treatment 02/07/2019 Treatment Rehabilitation Igor Khan, DPM [address] [place] [address] [phone] Leena Barbosa PTA [facility] Start: 02-04-2019 Influenza vaccinatio n given SEQUENTIAL INFLUENZA VACCINE (#1) [facility] Start: 01-24-2019 End: 01-24-2019 Treatment 01/24/2019 Treatment Rehabilitation Igor Khan, JANEYM [address] [place] [address] [phone] Jackie Goff, PT [facility] Start: 01-22-2019 End: 01-22-2019 Treatment 01/22/2019 Treatment Rehabilitation Igor Khan, JANEYM [address] [place] [address] [phone] Leena Barbosa PTA [facility] Start: 01-17-2019 End: 01-17-2019 Treatment 01/17/2019 Treatment Rehabilitation Igor Khan, DPM [address] [place] [address] [phone] Jackie Goff, PT [facility] Start: 06-24-2018 Colonoscopy COLONOSCOPY [facility] Start: 06-24-2018 COLORECTAL CANCER SCREENING COLORECTAL CANCER SCREENING [facility] Start: 06-15-2017 Ambulatory 06/15/2017 Off ice Visit Cardiology Amberly Konx III, DO [address] [place] [address] [phone] [facility] Start: 06-03-2017 Ambulatory 06/03/2017 Ninfa ointment Cardiology Amberly Knox III, DO [address] [place] [address] [phone] [facility] Start: 05-12-2017 Ambulatory 05/12/2017 Off ice Visit Cardiology Amberly Knox III, DO [address] [facility] [place] [address] [phone] [facility] Start: 04-15-2017 Ambulatory 04/15/2017 Ninfa ointment Cardiology Amberly Knox III, DO [address] [place] [address] [phone] [facility] Start: 02-04-2017 Influenza vaccination SEQUENTI AL INFLUENZA VACCINE (#1) [facility] Work Phone: Start: 2016 RSV Vaccine (1 - 1-d ose 60+ series) RSV Vaccine (1 - 1-dose 60+ series) [facility] Start: 2016 Zoster vacc, sc ZOSTER VACCINE [facility] Work Phone: Start: 03-06-2016 DIABETES SCREEN DIABETES SCREEN [facility] Start: 03-06-2016 Diabetes Screening Diabetes Screenin g [facility] Start: 02-05-2016 LIPID SCREEN LIPID SCREEN [facility] Start: 08-08-2014 FECAL OCCULT BLOOD FECAL OCCULT BLOO D [facility] Start: 2006 Administration of he rpes zoster vaccine Zoster Vaccines (1 of 2) [facility] Start: 2006 SHINGRIX VACCINE (1 of 2) SHINGRIX VACCINE (1 of 2) [facility] Start: 2001 COLOGUARD (FIT-DNA) COLOGUARD (FIT-D NA) [facility] Start: [address] COLONOGRAPHY [facility] Start: 2001 SIGMOIDOSCOPY SIGMOIDOSCOPY [facility] Start: 1978 DTaP/Tdap/Td Vaccine s (1 - Tdap) DTaP/Tdap/Td Vaccines (1 - Tdap) [facility] Start: 1975 Urine microalbumin profile [facility] Start: 1974 Diabetes mellitus screening Diabetes Screening [facility] Start: 1974 HEPATITIS C SCREENING HEPATITIS C [facility] Start: 1974 Hepatitis C screening Hepatitis C [facility] Start: 1974 HIV SCREENING HIV SCREENING [facility] Start: 1959 History and physical examination, annual for health maintenance Wellness Visit [facility] Start: 1956 Hepatitis C antibody , confirmatory test HEPATITIS C SCREENING [facility] Start: 1956 Medicare Annual Well ness Visit Medicare Annual Wellness Visit (AWV) [facility] Start: 1956 Screening for malign ant neoplasm of colon [facility] Start: 1956 Screening for osteoporosis Bone Density Scan [facility] Start: 1956 Screening mammography Mammogram [facility] Start: 1956 HEPATITIS C SCREENING HEPATITIS C SC REENING [facility] Work Phone: Start: 1956 Screening colonoscopy COLONOSCOPY O [facility] Work Phone: Start: 1956 End: 1956 Screening for malignant neoplasm of cervix PAP SMEAR [facility] Work Phone: Start: 1956 End: 1956 Tetanus vaccination TETANUS EVERY 10 YR [facility] Work Phone: End: 04-11-2023 Diagnostic mammography computer-aided detcj uni JESSICA DIAGNOSTIC RT Radiology Routine Abnormal mammogram 1 Occurrences starting 03/12/2022 until 04/11/2023 [facility] Work Phone: Comment on above: 1 Occurrences starti ng 03/12/2022 until 04/11/2023 End: 04-10-2023 Dxa bone density study 1/> sites axial skel DXA-AXIAL SKELETON Radiology Routine Screening for osteoporosis Osteopenia, unspecified location 1 Occurrences starting 03/11/2022 until 04/10/2023 [facility] Work Phone: Comment on above: 1 Occurrences starti ng 03/11/2022 until 04/10/2023 H/O: surgery [facility] H/O: tubal ligation History of t ubal ligation [facility] History of appendectomy History of append ectomy [facility] History of colonoscopy History of colonos copy [facility] History of operative procedure on foot History of bunionectomy [facility] End: 04-10-2023 JESSICA SCREENING W DAVID JESSICA SCREENING W DAVID Radiology Routine Encounter for screening mammogram for malignant neoplasm of breast 1 Occurrences starting 03/11/2022 until 04/10/2023 [facility] Work Phone: Comment on above: 1 Occurrences starti ng 03/11/2022 until 04/10/2023 End: 04-22-2024 JESSICA SCREENING W DAVID JESSICA SCREENING W DAVID Radiology Routine Encounter for screening mammogram for breast cancer 1 Occurrences starting 03/24/2023 until 04/22/2024 [facility] Work Phone: Comment on above: 1 Occurrences starti ng 03/24/2023 until 04/22/2024 PAP FLUID CERVICAL SCREENING PAP FLUID CERVICAL SCREENING Lab Routine Screening for cervical cancer Special screening examination for human papillomavirus (HPV) Ordered: 03/11/2022 [facility] Work Phone: Comment on above: Ordered: 03/11/2022 Patient referral [facility] Work Phone: End: 06-03-2017 Ultrasound duplex venous leg right Ultrasound duplex venous leg right Routine Venous insufficiency Varicose veins of right lower extremity with pain Status post endovenous radiofrequency ablation (RFA) of saphenous vein Once for 1 Occurrences starting 06/03/2017 until 06/03/2017 [facility] Work Phone: Ultrasound duplex ve nous leg right Ultrasound duplex venous leg right Routine Venous insufficiency Varicose veins of right lower extremity with pain Status post endovenous radiofrequency ablation (RFA) of saphenous vein 06/03/2017 3:02 PM EST [facility] Work Phone: End: 06-01-2017 Ultrasound Venous Ablation Ultrasound Venous Ablation Routine Venous insufficiency Varicose veins of right lower extremity with pain Once for 1 Occurrences starting 06/01/2017 until 06/01/2017 [facility] Work Phone: Ultrasound Venous Ablation Ultrasound Venous Ablation Routine Venous insufficiency Varicose veins of right lower extremity with pain 06/01/2017 10:52 AM EST [facility] Work Phone: End: 05-25-2018 Ultrasound venous insufficiency exam Ultrasound venous insufficiency exam Routine Varicose veins with pain 1 Occurrences starting 03/24/2017 until 05/25/2018 [facility] Work Phone: Comment on above: 1 Occurrences starti ng 03/24/2017 until 05/25/2018 End: 04-11-2023 Us breast uni real time with image limited US BREAST LTD RT Radiology Routine Abnormal mammogram 1 Occurrences starting 03/12/2022 until 04/11/2023 [facility] Work Phone: Comment on above: 1 Occurrences starti ng 03/12/2022 until 04/11/2023 End: 03-05-2024 XR FOOT GENERAL 3V AP/LAT/OBL LEFT XR FOOT GENERAL 3V AP/LAT/OBL LEFT Radiology Routine Pain in left foot 1 Occurrences starting 02/04/2023 until 03/05/2024 [facility] Work Phone: Comment on above: 1 Occurrences starti ng 02/04/2023 until 03/05/2024 [facility] Immunizations Immunization Date Immunization Notes Care Provider Nigel de 03-27-2022 pneumococcal polysaccharide vaccine, 23 valent Eugenia Fischer [employer] Work Phone: [facility] Work Phone: Comment on above: Series: 03-12-2022 Pfizer COVID-19 Vac Bivalent 30 MCG/0.3ML Intramuscular Suspension Eugenia [employer] Work Phone: [facility] Work Phone: Comment on above: Series: 02-12-2022 Fluad Quadrivalent 0 .5 ML Intramuscular Prefilled Syringe Eugenia [employer] Work Phone: [facility] Work Phone: 02-12-2022 influenza, injectabl e, quadrivalent, preservative free Eugenia [employer] Work Phone: [facility] Work Phone: Comment on above: Series: 04-03-2021 Moderna COVID-19 Vac cine 100 MCG/0.5ML Intramuscular Suspension [employer] Work Phone: [facility] Work Phone: 03-27-2021 pneumococcal conjuga te vaccine, 13 valent Eugenia L Mana Work Phone: [facility] Work Phone: 03-04-2021 influenza, injectabl e, quadrivalent, preservative free Eugenia L Mana Work Phone: [facility] Work Phone: 09-25-2020 Moderna COVID-19 Vac cine 100 MCG/0.5ML Intramuscular Suspension Eugenia L Mana Work Phone: [facility] Work Phone: 08-28-2020 Moderna COVID-19 Vac cine 100 MCG/0.5ML Intramuscular Suspension Eugenia L Mana Work Phone: [facility] Work Phone: 03-05-2020 zoster vaccine recombinant Eugenia L Mana Work Phone: [facility] Work Phone: 12-27-2019 zoster vaccine recombinant Eugenia L Mana Work Phone: [facility] Work Phone: 04-20-2019 influenza, injectabl e, quadrivalent, preservative free; Translations: [Flulaval Quadrivalent 0.5 ML Intramuscular Suspension Prefilled Syringe] Eugenia L Mana Work Phone: [facility] Work Phone: Comment on above: Series: 04-21-2018 influenza, injectabl e, quadrivalent, preservative free Eugenia L Maan Work Phone: [facility] Work Phone: 04-25-2017 hepatitis B vaccine, adult dosage Eugenia L Mana Work Phone: [facility] Work Phone: 03-02-2017 influenza, injectabl e, quadrivalent, preservative free Eugenia L Mana Work Phone: [facility] Work Phone: 11-24-2016 hepatitis B vaccine, adult dosage Eugenia Roaer Work Phone: [facility] Work Phone: 10-13-2016 hepatitis B vaccine, adult dosage Eugenia Fischer Mana Work Phone: [facility] Work Phone: 05-14-2008 influenza virus vacc ine, unspecified formulation Liza Low MD Work Phone: [facility] 04-04-2007 influenza virus vacc ine, unspecified formulation Liza Low MD Work Phone: [facility] 04-12-2006 influenza virus vacc ine, unspecified formulation Liza Low MD Work Phone: [facility] 04-06-2005 influenza virus vacc ine, unspecified formulation Liza Low MD Work Phone: [facility] Work Phone: Payers Date Payer Category Payer Self-pay 2022 Private Health Insurance [id number] 2022 Private Health Insurance [id number] 2021 Medicare [id number] 2021 Medicare [id number] 2019 Unknown 2019 Unknown [id number] 2018 Unknown ALEXANDRE BEAL/KOTA/HMO/PPO xxxxxxxxxxxx 2018-Present [id number] 2018 Unknown [id number] 2017 Private Health Insurance [id number] 2.16.840.1.239163.3.249.1 3 1956 Unknown [id number] 2.16.840.1.825496.3.579.2 .903 1956 Unknown [id number] 2.16.840.1.473656.3.579.2 .903 1956 Unknown [id number] 2.16.840.1.854318.3.579.2 .903 1956 Unknown [id number] 2.16.840.1.099924.3.579.2 .903 1956 Unknown [id number] 2.16.840.1.808265.3.579.2 .356 1956 Unknown [id number] 2.16.840.1.797548.3.579.2 .356 1956 Unknown [id number] 2..840.1.575367.3.579.2 .356 1956 Unknown [id number] 2..840.1.821597.3.579.2 .1069 1956 Unknown [id number] 2.16.840.1.316051.3.579.2 .1069 1956 Unknown [id number] 2.16.840.1.419434.3.579.2 .1245 1956 Unknown [id number] 2.16.840.1.277345.3.579.2 .1244 1956 Unknown [id number] 2.16.840.1.877020.3.579.2 .1243 1956 Unknown [id number] 2.16.840.1.439731.3.579.2 .1243 Private Health Insurance [id number] 2.16.840.1.003001.3.249.1 3 Unknown [id number] 2.16.840.1.550595.3.579.2 .462 Unknown [id number] 2.16.840.1.125518.3.579.2 .462 Unknown [id number] 2.16.840.1.532193.3.579.2 .462 Unknown [id number] 2.16.840.1.772345.3.579.2 .462 Unknown [id number] 2.16.840.1.584904.3.579.2 .462 Unknown [id number] 2.16.840.1.547537.3.579.2 .462 Unknown [id number] 2.16.840.1.015403.3.579.2 .462 Unknown [id number] 2.16.840.1.759457.3.579.2 .462 Unknown [id number] 2.16.840.1.477588.3.579.2 .462 Unknown [id number] 2.16.840.1.361842.3.579.2 .462 Unknown [id number] 2.16.840.1.877865.3.579.2 .462 Unknown [id number] 2.16.840.1.483392.3.579.2 .462 Unknown [id number] 2.16.840.1.331018.3.579.2 .462 Unknown [id number] 2.16.840.1.336898.3.579.2 .462 Unknown [id number] 2.16.840.1.442928.3.579.2 .462 Unknown [id number] 2.16.840.1.157008.3.579.2 .462 Unknown [id number] 2.16.840.1.597194.3.579.2 .462 Unknown [id number] 2.16.840.1.415392.3.579.2 .462 Unknown [id number] 2.16.840.1.320016.3.579.2 .462 Social History Date Type Detail Facility Start: 06-15-2017 End: 05-01-2024 Tobacco smoking status NHIS Never smoker [facility] Start: 1955 Sex Assigned At Not on file [facility] Work Phone: Start: 01-22-2019 End: 02-10-2023 Alcohol intake Current non-drinker of alcohol (finding) [facility] Start: 03-11-2022 End: 02-10-2023 Never a smoker Never a smoker [facility] Work Phone: Tobacco smoking consumption unknown [facility] Start: 03-11-2022 End: 11-25-2022 Tobacco use and exposure Smokeless tobacco non-user [facility] Start: 03-01-2022 End: 11-25-2022 Exposure to SARS-CoV-2 (event) Not sure [facility] Work Phone: Start: 11-25-2022 Alcohol intake Lifetime non-d charles (finding) [facility] Work Phone: Start: 03-11-2022 End: 02-10-2023 Gender identity Not on file [facility] Work Phone: National Score (1-100), lower number is lower risk 57 [facility] Start: 08-20-2024 Sex Female (finding) [facility] Start: 1955 Sex Assigned At Female [facility] Goals Date Patient Goal Desired Activity /State Mental Status Date Assessment Result Facility 10-24-2024 Cognitive function Voice/Name [facility] Work Phone: 06-15-2024 Cognitive function Voice/Name [facility] Work Phone: Clinical Notes 04-08-2020 to 10-24-2024 Note Date & Type Note Facility 10-24-2024 History and physical note Note Date/Time October 24, 2024 11:11 am [facility] Medical Records Department [address] [place] [address] History & Physical Exam 10/24/24 1108 MR#: [id number] Acct: [id number] Name: NEY MILNER Rep #:[id number] : 1955 69 From: Maryann Mantilla MD PCP: Dr. Florence Mendez MD Status:REG SD C Location: [place] [address] History and Physical Date of Admission: 10/24/24 The patient is examined and there are no changes to the H&P dated 10/17/2024. 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 Informed consent was obtained for reexcision of the neoplasm of the left cheek with frozen section evaluation of margins. Assessment & Plan Assessment/Plan (1) Neoplasm of uncertain behavior of skin: PLAN: Plan For reexcision neoplasm of the left cheek with frozen section evaluation. 10/24/24 1111 <Electronically signed by Maryann Mantilla MD> Cosigner Signature (if applicable): CC: Dr. Florence Mendez MD; Dr. Maryann Mantilla MD~ Signed [facility] Work Phone: 1(664) 909-223205-21-2025 Procedure note [facility] Medical Records Department [address] [place] [address] Operative Report 10/24/24 1259 MR#: [id number] Acct: [id number] Name: NEY MILNER Rep #:[id number] : 1955 69 From: Maryann Mantilla MD PCP: Dr. 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 Post-Operative Diagnosis: Same Surgery/Procedure Performed: Excision neoplasm left cheek (2.5 cm) with frozen section and intermediate closure crepe maker: No Type of Anesthesia: Local RN Documented Start/Stop Times: Operation Date: 10/24/24 11:20 Case Time Into Pre-Op 10/24/24 10:40 Anesthesia Start 10/24/24 11:33 Into Room 10/24/24 11:33 Procedure Start 10/24/24 11:55 Procedure End 10/24/24 12:57 Anesthesia End 10/24/24 12:58 Out of Room 10/24/24 12:58 Procedure Start Time: 11:55 Procedure Stop Time: 12:57 Select all DRAINS/GRAFTS/IMPLANTS that apply: None Estimated Blood Loss: Minimal Specimen collected: Yes Description of specimen(s) removed: Neoplasm left cheek Description of surgery: The patient presents today with a history of an neoplasm with atypia of the leftcheek. This site has remained elevated and firm to touch. She presents for reexcision of the area and frozen section evaluation of margins to rule out malignant transformation. An informed consent is obtained and the patient is marked in the preop holding area. The patient was brought to the operating room and placed on the operating room table in the supine position. The left face is prepped and draped in the usual sterile fashion. We initially began with injecting 1% Xylocaine with epinephrine buffered with sodium bicarb around the periphery of the site. Following this, the area is elliptically excised and passed off the operative field maintaining orientation for pathology. Pathology returns no evidence of malignancy. After ensuring hemostasis, thesite is closed in layers using Monocryl suture for the subcutaneous tissue and dermis. Skin edges were approximated with a running subcuticular Monocryl suture. Further reinforcementthe closure was done with interrupted Prolene suture. Dermabond and Steri-Strips were placed on the site. She tolerated the procedure well was taken to the recovery area in an awake and stable condition. Needle and sponge counts are correct. Surgical Findings: As above Complications Complications: No Admit VTE Documentation VTE Mechan Device Prophylaxis: None Reason prophylaxis not ordered: Treatment Not Indicated 10/24/24 1303 Cosigner Signature (if applicable): CC: Dr. Florence Mendez MD; Dr. Maryann Mantilla MD~ Signed [facility]05-21-2025 Discharge summary [facility] Medical Records Department [address] [place] [address] Instructions for Home/Discharge Instructions 10/24/24 1257 MR#: [id number] Acct: [id number] Name: NEY MILNER Rep #:[id number] : 1955 69 From: Maryann Mantilla MD PCP: Dr. Florence Mendez MD Status:REG SD C Discharge Instructions Dressing / Incision Additional Dressing/Incision Instructions:: Keep the paper tapes dry and intact until seen in the office. Keep your back elevated (recliner position) for the next 3-4 nights to help reduce swelling and bleeding. Take the oral antibiotic (Keflex) 2 times a day until finished. Follow Up Care Please Follow Up With: Maryann Mantilla MD When: 1 to 2 weeks Test Results: Test results from this visit will be discussed in further detail at your follow- up appointment, if applicable. Discharge Plan Admission Attending Provider: Maryann Mantilla Primary Care Provider: Florence Mendez Instructions Print Language: Solomon Islander Discharge Orders/Prescriptions Prescriptions: New cephalexin 500 mg capsule 500 mg PO BID 5 Days Qty: 10 0RF No Action rosuvastatin 10 mg tablet 10 mg PO DAILY minoxidil 2.5 mg tablet 2.5 mg PO DAILY cholecalciferol (vitamin D3) 25 mcg (1,000 unit) capsule 25 mcg PO QDAY levothyroxine 50 mcg tablet 50 mcg PO QDAY vitamin E 200 unit capsule 200 unit PO DAILY Referrals / Follow Up: Florence Mendez MD [Primary Care Provider] - Disposition Disposition (needs filled in before D/C Order can be placed): Home, Self Care 10/24/24 1259Maryann Mantilla MD CC: Dr. Florence Mendez MD ~ Signed [facility]05-21-2025 History and physical note [facility] Medical Records Department [address] [place] [address] History & Physical Exam 10/24/24 1108 MR#: [id number] Acct: [id number] Name: NEY MILNER Rep #:[id number] : 1955 69 From: Maryann Mantilla MD PCP: Dr. Florence Mendez MD Status:REG SD C Location: [place] [address] History and Physical Date of Admission: 10/24/24 The patient is examined and there are no changes to the H&P dated 10/17/2024. 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 Informed consent was obtained for reexcision of the neoplasm of the left cheek with frozen section evaluation of margins. Assessment & Plan Assessment/Plan (1) Neoplasm of uncertain behavior of skin: PLAN: Plan For reexcision neoplasm of the left cheek with frozen section evaluation. 10/24/24 1111 Cosigner Signature (if applicable): CC: Dr. Florence Mendez MD; Dr. Maryann Mantilla MD~ Signed [facility]05-21-2025 [facility] Medical Records Department [address] [place] [address] History Physical Exam 10/24/24 1108 MR#: [id number] Acct: [id number] Name: NEY MILNER Rep #: [id number] : 1955 69 From: Maryann Mantilla MD PCP: Dr. Florence Mendez MD Status:[facility] Location: [place] [address] History and Physical Date of Admission: 10/24/24 The patient is examined and there are no changes to the H P dated 10/17/2024. 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 Informed consent was obtained for reexcision of the neoplasm of the left cheek with frozen section evaluation of margins. Assessment Plan Assessment/Plan (1) Neoplasm of uncertain behavior of skin: PLAN: Plan For reexcision neoplasm of the left cheek with frozen section evaluation. 10/24/24 1111 Cosigner Signature (if applicable): CC: Dr. Florence Mendez MD; Dr. Maryann Mantilla MD [facility] Evaluation note* Diagnosis Onset Date Resolution Status Admit Date Benign neoplasm of skin of face acute July 11 2:13pm Disc degeneration, lumbar acute July 26, 2024 2:50pm Spondylolisthesis, lumbar region acute July 26, 025 2:50pm Benign neoplasm of skin of face acute August 28, 2024 10:34am Scar condition and fibrosis of skin acute August 28, 2024 10:34am Benign neoplasm of skin of face acute September 19, 2024 2:10pm Scar condition and fibrosis of skin acute September 19, 2024 2:10pm Neoplasm of uncertain behavior of skin acute October 17, 2024 2:10pm Neoplasm of uncertain behavior of skin acute October 24, 2024 10:16am [facility] Work Phone: 1(920) 549-955802-05-2025 Evaluation note* Diagnosis Onset Date Resolution Status Admit Date Benign neoplasm of skin of face acute July 11 2:13pm Disc degeneration, lumbar acute July 26, 2024 2:50pm Spondylolisthesis, lumbar region acute July 26, 2 025 2:50pm Benign neoplasm of skin of face acute August 28, 2024 10:34am Scar condition and fibrosis of skin acute August 28, 2024 10:34am Benign neoplasm of skin of face acute September 19, 2024 2:10pm Scar condition and fibrosis of skin acute September 19, 2024 2:10pm Neoplasm of uncertain behavior of skin acute October 17, 2024 2:10pm Neoplasm of uncertain behavior of skin acute October 24, 2024 10:16am Benign neoplasm of skin of face acute October 31, 2024 2 :11pm [facility] [employer] Work Phone: 1(359) 892-919001-22-2025 Evaluation note* Diagnosis Onset Date Resolution Status Admit Date Benign neoplasm of skin of face acute June 27 2:02pm Benign neoplasm of skin of face acute July 11 2:13pm Disc degeneration, lumbar acute July 26, 2024 2:50pm Spondylolisthesis, lumbar region acute July 26, 2 025 2:50pm Benign neoplasm of skin of face acute August 28, 2024 10:34am Scar condition and fibrosis of skin acute August 28, 2024 10:34am Benign neoplasm of skin of face acute September 19, 2024 2:10pm Scar condition and fibrosis of skin acute September 19, 2024 2:10pm [facility] [facility] Work Phone: 1(696) 496-649801-22-2025 Evaluation note* Diagnosis Onset Date Resolution Status Admit Date Benign neoplasm of skin of face acute June 27 2:02pm Benign neoplasm of skin of face acute July 11 2:13pm Disc degeneration, lumbar acute July 26, 2024 2:50pm Spondylolisthesis, lumbar region acute July 26, 2 025 2:50pm Benign neoplasm of skin of face acute August 28, 2024 10:34am Scar condition and fibrosis of skin acute August 28, 2024 10:34am Benign neoplasm of skin of face acute September 19, 2024 2:10pm Scar condition and fibrosis of skin acute September 19, 2024 2:10pm Neoplasm of uncertain behavior of skin acute October 17, 2024 2:10pm Neoplasm of uncertain behavior of skin acute October 24, 2024 10:16am [facility] Work Phone: 1(412) 594-720701-10-2025 [facility] Medical Records Department [address] [place] [address] History Physical Exam 06/15/24 1521 MR#: [id number] Acct: [id number] Name: NEY MILNER Rep #: [id number] : 1955 69 From: Maryann Mantilla MD PCP: Dr. Florence Mendez MD Status:[facility] Location: [place] [address] HPI - General General Date of Admission: 06/15/24 Date of Service: 06/15/24 Chief Complaint: Growing or changing neoplasms of her left cheek HPI Narrative NEY MILNER, is a 69 F who presents with relatively new onset of 2 neoplasms of left cheek. [facility] Medical History History of malignant neoplasm of cervix History of cardiac murmur History of cataract History of back problems History of arthritis History of environmental allergies Home Medications ???Medication ???Instructions ???Recorded ???Last Taken ???Type levothyroxine 50 mcg tablet 50 mcg PO QDAY 05/01/24 06/14/24 History cholecalciferol (vitamin D3) 25 25 mcg PO QDAY 05/10/24 06/15/24 History mcg (1,000 unit) capsule minoxidil 2.5 mg tablet 2.5 mg PO DAILY 05/10/24 05/17/24 History rosuvastatin 10 mg tablet 10 mg PO DAILY 05/10/24 05/15/24 History vitamin E 200 unit capsule 200 unit PO DAILY 06/15/24 06/15/24 History Allergy/AdvReac Type Severity Reaction Status Date / Time No Known Allergies Allergy Verified 06/15/24 13:52 Family History Father Alcoholism Mother Heart disease Brother Pancreatitis Grandmother Breast cancer Surgical History History of bunionectomy History of appendectomy Social History Smoking Status: Never smoker alcohol intake: never substance use type: does not use additional social history: pt denies marijuana use,denies edibles pt does vape pt does not use aspirin, pt uses ibuprofen Vital Signs Vital Signs Vital Signs: 06/15/24 13:55 06/15/24 13:55 Temperature 97.6 F L Temperature Source Temporal Pulse Rate 81 Respiratory Rate 18 Respiratory Pattern Normal Blood Pressure 135/85 H Blood Pressure Mean 101 Blood Pressure Source Monitor Blood Pressure Position Semi-Fowlers Blood Pressure Location Right Arm Pulse Ox 99 Oxygen Delivery Method Room Air Weight Weight: 158 lb 11.725 oz Body Mass Index (BMI) 25.6 Physical Exam Narrative She has a hyperkeratotic and erythematous lesion of the left cheek with another erythematous lesion just anterior to this. Because of a concern regarding skin malignancy, we will perform biopsy of both sites today with excision and shave biopsy Const alert, oriented x3, no apparent distress, average body habitus and well nourished General Appearance: cooperative and well developed Orientation / Consciousness: oriented to person, oriented to place and oriented to time HEENT head/scalp atraumatic, external ears normal and external nose normal Head and Scalp: normal to inspection, normocephalic, atraumatic and abrasion Face and Sinus: normal facial exam and face symmetric Nose: external nose normal External Ear: external ears normal External Auditory Canal: EAC's normal Mouth: lips normal Eyes PERRL, EOMs intact bilaterally and conjunctivae normal General Eye: normal appearance of both eyes Periorbital: periorbital findings normal Eyelid: eyelids normal Conjunctiva: conjunctiva normal Pupil: PERRL Neck full ROM Lymph Lymphatic: no lymphadenopathy noted Chest inspection of chest normal Breast/Axilla Palpation: no axillary lymphadenopathy Resp normal respiratory effort, normal air movement and clear to auscultation bilaterally Auscultation: clear to auscultation bilaterally Cardio regular rate, regular rhythm, S1 normal heart sound, S2 normal heart sound and no murmurs Rate: regular rate Rhythm: regular rhythm GI soft to palpation and non-tender Extremity normal to inspection and full ROM General Extremity: normal exam except as noted Skin General Skin Exam: turgor normal Neuro oriented x3, CN's II-XII intact bilaterally, moves all extremities, no focal motor deficits and no sensory deficits noted Sensorium / Orientation: awake, alert, oriented to person, oriented to place and oriented to time Speech: speech normal Gait (Neuro): normal gait Psych mental status grossly normal Attention / Concentration: concentration grossly intact Memory / Cognition: memory grossly intact Assessment Plan Assessment/Plan (1) Neoplasm of uncertain behavior of skin of face: PLAN: Plan For excision lesion left cheek and shave lesion left anterior cheek 06/15/24 1524 Cosigner Signature (if applicable): CC: Dr. Florence Mendez MD; Dr. Wolf (more content not included)...[facility]11-26-2024 Evaluation note* Diagnosis Onset Date Resolution Status Admit Date Neoplasm of uncertain behavi or of skin of face acute May 01, 2 024 1:53pm Disc degeneration, lumbar acute May 10, 2024 8:14am Dysplastic spondylolisthesis deleted May 10, 2024 8:14am Neoplasm of uncertain behavi or of skin of face acute June 15 12:53pm Benign neoplasm of skin of face acut e June 27, 2024 2:02pm Benign neoplasm of skin of face acut e July 11, 2024 2:13pm Disc degeneration, lumbar acute July 26, 2024 2:50pm Spondylolisthesis, lumbar region acu te July 26, 2024 2:50pm [facility] Work Phone: 1(503) 355-452510-19-2023 NoteHNO ID: [id number] Author: Liza Roach MD Service: ? Author Type: Physician Type: Progress Notes Filed: 03/24/2023 9:09 AM Note Text: Datastage Developer offered: Patient declines. Carmona is a 67 year old who presents for an annual gynecologic exam without complaints. Postmenopausal: Yes si HRT use: No. Last Pap: 03/18/2022 normal HPV: 03/17/2022 negative History of abnormal pap: No Last mammogram: 2022 normal History of abnormal mammogram: No Sexually active: Yes History of STDS: None Patient concerns for STD exposure: No. 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 History Comments: Sexual Activity: Yes; Male; tubal ligation/Postmenopausal Contraception: Surgical PAST MEDICAL HISTORY Diagnosis Date Allergic rhinitis, cause unspecified Hypothyroidism Lactose intolerance Osteopenia PMH - PAST MEDICAL HISTORY OF IRREGULAR HEARTBEAT Varicose veins of lower extremities with inflammation varicose vein stripping PAST SURGICAL HISTORY Procedure Laterality Date APPENDECTOMY BREAST BIOPSY 12/2018 left breast COLONOSCOPY FLX DX W/COLLJ SPEC WHEN PFRMD 05/10/2014 Colonoscopy CONIZATION OF CERVIX; COLD KNIFE/LASER three times, over 20 years ago DILATION AND CURETTAGE DXAND/THER NONOBSTETRIC Dilation AND curettage EYE SURGERY PROCEDURE 10/2008 left eyelid repaired due to droopy eyelid LIG/TRNSXJ FLP TUBE ABDL/VAG APPR UNI/BI Tubal ligation x 2 OTHER foot surgery PAST SURGICAL HISTORY OF VEIN STRIPPING PAST SURGICAL HISTORY OF 10/11 shatterd right wrist PAST SURGICAL HISTORY OF Right 05/2017 vein closer REMOVAL BONE SPUR XYPHOID PROCESS 10/2018 right foot FAMILY HISTORY Problem Relation Age of Onset Heart Mother Coronary Artery Disease Father Breast Cancer Paternal Grandmother Cancer Brother pancreatic with mets other (Rheumatoid Arthritis) Daughter SOCIAL HISTORY Social History Tobacco Use Smoking status: Never Smokeless tobacco: Never Vaping Use Vaping Use: Never used Substance Use Topics Alcohol use: No Drug use: No REVIEW OF SYSTEMS Abdomen: No abdominal pain, nausea, vomiting, diarrhea, ++ constipation. No bloating, early satiety, indigestion, or increased flatulence. Bladder: No dysuria, gross hematuria, urinary frequency, urinary urgency, or incontinence Breast: No breast lumps, nipple d/c, overlying skin changes, redness or skin retraction Allergies and current medication updated:Yes EXAM: BP 112/70 Ht 5' 6 (1.68m) Wt 161 lb (73.0kg) BMI 26.00 kg/(m2). GENERAL: pleasant, female in no apparent distress HEENT: Normocephalic, atraumatic, mucus membranes moist, and no lesions NECK: Supple, full range of motion, no adenopathy, and thyroid normal DERMATOLOGY: Normal, without lesions, non-icteric, and non-hirsute BREAST: soft, non-tender, symmetric, no dominant mass, normal nipple-areolar complex, no lymphadenopathy, and no nipple discharge ABDOMEN: soft, non-tender, and no masses PELVIC: external genitalia normal, normal Bartholin's glands, urethra, [place]'s glands, no vulvar lesions, no cervical lesions, good vaginal support, physiologic discharge present, normal appearing perineal body and perianal region BIMANUAL: uterus normal size, shape and consistency, no adnexal masses, and non-tender RECTOVAGINAL: deferred. NEURO: alert and oriented x3,exam grossly non-focal EXTREMITIES: normal ASSESSMENT/PLAN: 1) Health maintenance: Pap/HPV screening no longer needed Mammogram ordered Mammogram up to date Nutrition, exercise and routine health maintenance exams reviewed. Calcium/Vitamin D supplementation information provided. Colon cancer screening: declined BMD: up to date- declines tx 2) Follow up one year or sooner as needed- Liza Pena [facility]10-19-2023 History of Present illness Narrative* Liza Roach MD - 03/24/2023 8:28 AM EDT Datastage Developer offered: Patient declines. Ney is a 67 year old who presents for an annual gynecologic exam without complaints. Postmenopausal: Yes si HRT use: No. Last Pap: 03/18/2022 normal HPV: 03/17/2022 negative History of abnormal pap: No Last mammogram: 2022 normal History of abnormal mammogram: No Sexually active: Yes History of STDS: None Patient concerns for STD exposure: No. 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 History Comments: Sexual Activity: Yes; Male; tubal ligation/Postmenopausal Contraception: Surgical PAST MEDICAL HISTORY Diagnosis Date Allergic rhinitis, cause unspecified Hypothyroidism Lactose intolerance Osteopenia PMH - PAST MEDICAL HISTORY OF IRREGULAR HEARTBEAT Varicose veins of lower extremities with inflammation varicose vein stripping PAST SURGICAL HISTORY Procedure Laterality Date APPENDECTOMY BREAST BIOPSY 12/2018 left breast COLONOSCOPY FLX DX W/COLLJ SPEC WHEN PFRMD 05/10/2014 Colonoscopy CONIZATION OF CERVIX; COLD KNIFE/LASER three times, over 20 years ago DILATION & CURETTAGE DX&/THER NONOBSTETRIC Dilation & curettage EYE SURGERY PROCEDURE 10/2008 left eyelid repaired due to droopy eyelid LIG/TRNSXJ FLP TUBE ABDL/VAG APPR UNI/BI Tubal ligation x 2 OTHER foot surgery PAST SURGICAL HISTORY OF VEIN STRIPPING PAST SURGICAL HISTORY OF 10/11 shatterd right wrist PAST SURGICAL HISTORY OF Right 05/2017 vein closer REMOVAL BONE SPUR XYPHOID PROCESS 10/2018 right foot FAMILY HISTORY Problem Relation Age of Onset Heart Mother Coronary Artery Disease Father Breast Cancer Paternal Grandmother Cancer Brother pancreatic with mets other (Rheumatoid Arthritis) Daughter SOCIAL HISTORY Social History Tobacco Use Smoking status: Never Smokeless tobacco: Never Vaping Use Vaping Use: Never used Substance Use Topics Alcohol use: No Drug use: No REVIEW OF SYSTEMS Abdomen: No abdominal pain, nausea, vomiting, diarrhea, ++ constipation. No bloating, early satiety, indigestion, or increased flatulence. Bladder: No dysuria, gross hematuria, urinary frequency, urinary urgency, or incontinence Breast: No breast lumps, nipple d/c, overlying skin changes, redness or skin retraction Allergies and current medication updated:Yes EXAM: BP 112/70 Ht 5' 6 (1.68m) Wt 161 lb (73.0kg) BMI 26.00 kg/(m^2). GENERAL: pleasant, female in no apparent distress HEENT: Normocephalic, atraumatic, mucus membranes moist, and no lesions NECK: Supple, full range of motion, no adenopathy, and thyroid normal DERMATOLOGY: Normal, without lesions, non-icteric, and non-hirsute BREAST: soft, non-tender, symmetric, no dominant mass, normal nipple-areolar complex, no lymphadenopathy, and no nipple discharge ABDOMEN: soft, non-tender, and no masses PELVIC: external genitalia normal, normal Bartholin's glands, urethra, [place]'s glands, no vulvar lesions, no cervical lesions, good vaginal support, physiologic discharge present, normal appearing perineal body and perianal region BIMANUAL: uterus normal size, shape and consistency, no adnexal masses, and non-tender RECTOVAGINAL: deferred. NEURO: alert and oriented x3,exam grossly non-focal EXTREMITIES: normal ASSESSMENT/PLAN: 1) Health maintenance: Pap/HPV screening no longer needed Mammogram ordered Mammogram up to date Nutrition, exercise and routine health maintenance exams reviewed. Calcium/Vitamin D supplementation information provided. Colon cancer screening: declined BMD: up to date- declines tx 2) Follow up one year or sooner as needed- Liza Pena MD [facility] Miscellaneous Notes* Letter - Coordinator, Mammography - 03/17/2023 11:15 AM EDT March 18, 2023 PID: [id number] Ney Milner [address] [place] [address] Dear Marcos Herreray, We are pleased to inform you that the results of your recent breast imaging exam on 03/17/2023 are normal. Early detection of cancer is very important. We also understand recommendations regarding breast cancer screening are controversial. Please discuss with your primary care provider which strategy is best for you and whether a mammogram is right for you. Your imaging studies and report will be kept on file at [facility] as part of your permanent medical record and are available for your continuing care. Thank you for allowing us to help in meeting your health care needs. Sincerely, Dr. Min Interpreting Radiologist [facility] (Normal over 40) documented in this encounterHolzer [facility] System10-12-2023 NoteHNO ID: [id number] Author: Mena Arellano [employer] Service: ? Author Type: Movie Producer Type: Progress Notes Filed: 03/17/2023 9:15 AM Note Text: Radiology Service Progress Note PATIENT NAME: Ney Milner DATE OF SERVICE: March 17, 2023 TIME: 8:52 AM PATIENT IDENTITY VERIFICATION COMPLETED USING TWO (2) IDENTIFIERS: Name and Date of confirmed by patient verbally. FALL SCREENING: Has the patient had 2 falls in the last year or 1 fall with injury or currently using an Ambulatory Assistive Device (Walker, Cane, Wheelchair, Crutches, etc.)? No PATIENT GENDER DATA: Female. status: : No status: NO. PATIENT RELEVANT IMPLANT DATA REVIEWED: Not Applicable RADIOLOGY DEPARTMENT: Mammography PERIPHERAL IV DATA: Not applicable SIGNED BY: Jeanne Peters March 17, 2023 8:52 [facility]10-12-2023 History of Present illness Narrative* Mena Arellano Mammo Tech - 03/17/2023 9:10 AM EDT Radiology Service Progress Note PATIENT NAME: Ney Milner DATE OF SERVICE: March 17, 2023 TIME: 8:52 AM PATIENT IDENTITY VERIFICATION COMPLETED USING TWO (2) IDENTIFIERS: Name and Date of confirmedby patient verbally. FALL SCREENING: Has the patient had 2 falls in the last year or 1 fall with injury or currently using an Ambulatory Assistive Device (Walker, Cane, Wheelchair, Crutches, etc.)? No PATIENT GENDER DATA: Female. status: : No status: NO. PATIENT RELEVANT IMPLANT DATA REVIEWED: Not Applicable RADIOLOGY DEPARTMENT: Mammography PERIPHERAL IV DATA: Not applicable SIGNED BY: Jeanne Peters March 17, 2023 8:52 AM documented in this encounterHolzer [facility] System09-07-2023 NoteHNO ID: [id number] Author: Avery Benton Service: ? Author Type: Physician Type: Progress Notes Filed: 02/10/2023 8:27 AM Note Text: Initial Podiatric Office Visit: Chief Complaint: This 67 year old female who presents with chief complaint:callus of left 2nd toe HPI Patient presents to clinic for evaluation of left foot Has painful callus of left 2nd toe due to the toes rubbing She treats with pummice stone She is here to discuss the callus and seek opinions. She had bunion surgeyr many years ago. PAIN EVALUATION 02/10/2023 0806 Pain Level: 8 Pain Location: Foot-Left Description: Sore Duration Amount of Time: 3 Duration Units: Months Frequency: Continuous No results found for: HBA1C PCP: No primary care provider on file. PAST MEDICAL HISTORY Diagnosis Date Allergic rhinitis, cause unspecified Hypothyroidism Lactose intolerance Osteopenia PMH - PAST MEDICAL HISTORY OF IRREGULAR HEARTBEAT Varicose veins of lower extremities with inflammation varicose vein stripping Current Outpatient Medications Medication Sig rosuvastatin (CRESTOR) 10 mg tablet 10 mg. MONTELUKAST SODIUM (SINGULAIR ORAL) Take by mouth once daily. 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 fluticasone 50 mcg/actuation nasal spray Use 1-2 Sprays in each nostril once daily. olopatadine (PATANOL) 0.1 % ophthalmic solution Use 1 Drop in both eyes twice daily as needed. Ipratropium [place] (ATROVENT) 0.03 % NASAL nasal spray Use 2 Sprays in each nostril four times daily. As needed for runny nose. calcium carbonate(CALTRATE 600 600 MG (1,500 MG) TAB) Take one(1) tablet three times daily. multivitamins(DAILY MULTIVITAMIN TAB) Take one(1) tablet daily. COMPOUNDED PRESCRIPTION eye drop for dry eyes - two drops in each eye once a day levothyroxine sodium(SYNTHROID 50 MCG TAB) Take 50 mcg by mouth. 50mg everyday 25 mg on No current facility-administered medications for this visit. ALLERGIES Allergen Reactions Beta Blockers [Beta* Contraindication-Medical Surgical Please avoid use of beta blockers as the patient is on allergy immunotherapy. Cat Hair Extract Itching Grasses [Other] Itching AND SNEEZING Hops Food [Other] Milk Diarrhea Pollens [Other] Tree And Shrub Poll* Other: See Comments Sinus PAST SURGICAL HISTORY Procedure Laterality Date APPENDECTOMY BREAST BIOPSY 12/2018 left breast COLONOSCOPY FLX DX W/COLLJ SPEC WHEN PFRMD 05/10/2014 Colonoscopy CONIZATION OF CERVIX; COLD KNIFE/LASER three times, over 20 years ago DILATION AND CURETTAGE DXAND/THER NONOBSTETRIC Dilation AND curettage EYE SURGERY PROCEDURE 10/2008 left eyelid repaired due to droopy eyelid LIG/TRNSXJ FLP TUBE ABDL/VAG APPR UNI/BI Tubal ligation x 2 OTHER foot surgery PAST SURGICAL HISTORY OF VEIN STRIPPING PAST SURGICAL HISTORY OF 10/11 shatterd right wrist PAST SURGICAL HISTORY OF Right 05/2017 vein closer REMOVAL BONE SPUR XYPHOID PROCESS 10/2018 right foot FAMILY HISTORY Problem Relation Age of Onset Heart Mother Coronary Artery Disease Father Breast Cancer Paternal Grandmother Cancer Brother pancreatic with mets other (Rheumatoid Arthritis) Daughter Social History Tobacco Use Smoking status: Never Smokeless tobacco: Never Vaping Use Vaping Use: Never used Substance Use Topics Alcohol use: No Drug use: No REVIEW OF SYSTEMS GENERAL: Negative for Malaise, significant weight loss, fever RESPIRATORY: Negative for cough, wheezing and shortness of breath CARDIOVASCULAR: Negative for chest pain, leg swelling and palpitations GI: Negative for abdominal discomfort, blood in stools or black stools and change in bowel habits : Negative for dysuria, frequency and incontinence MUSCULOSKELETAL: Negative for joint pain or swelling, back pain, and muscle pain. SKIN: Negative for lesions, rash, and itching. HEMATOLOGY/LYMPHOLOGY Negative for prolonged bleeding, bruising easily, and swollen nodes. ENDOCRINE: Negative for cold or heat intolerance, polyuria, polydipsia and goiter. NEURO: negative Physical Exam: Constitutional: Pt is a well developed 67 year old female who is alert, oriented and cooperative Eyes: Following during examination. No redness or drainage. Respiratory: RR normal and nonlabored. Even breathing. No evidence of distress or shortness of breath. Psychology: Patient is engaged during conversation. Normal affect and mood. Does not appear depressed or anxious during encounter. Vascular: Dorsalis pedis and posterior tibial pulses palpable as b/l Capillary Fill time < 5 seconds to digits 1-5 b/l Skin temperature warm to warm proximal to distal b/l Hair growth present to digits Neurological: intact light touch/epicritic sensation b/l intact (more content not included)...[facility]09-07-2023 Note HNO ID: [id number] Author: Anna Payne LPN Service: ? Author Type: LICENSED NURSE Type: Progress Notes Filed: 02/10/2023 8:27 AM Note Text: AMB ROOMING INTAKE FLOWSHEET DATA Pain Pain Level: 8 Pain Location: Foot-Left Description: Sore Duration Amount of Time: 3 Duration Units: Months Frequency: Continuous Patient presents with: Left Foot - New, Pain Anna Payne, [facility]09-07-2023 NoteHNO ID: [id number] Author: Consuelo Galindo RT(R) Service: ? Author Type: Technologist Type: Progress Notes Filed: 02/10/2023 8:02 AM Note Text: Radiology Service Progress Note PATIENT NAME: Ney Milner DATE OF SERVICE: February 10, 2023 TIME: 8:02 AM PATIENT IDENTITY VERIFICATION COMPLETED USING TWO (2) IDENTIFIERS: Name and Date of confirmed by patient verbally. FALL SCREENING: Has the patient had 2 falls in the last year or 1 fall with injury or currently using an Ambulatory Assistive Device (Walker, Cane, Wheelchair, Crutches, etc.)? No PATIENT GENDER DATA: Female. status: : No status: NO. PATIENT RELEVANT IMPLANT DATA REVIEWED: Not Applicable RADIOLOGY DEPARTMENT: General X-ray: Exam(s) Completed: Lower Extremity X-Ray(s): Foot, Left and Wt. Bearing PERIPHERAL IV DATA: Not applicable SIGNED BY: RT Sumeet(R) February 10, 2023 8:02 [facility]09-07-2023 History of Present illness Narrative* Avery Benton - 02/10/2023 8:11 AM EDT Initial Podiatric Office Visit: Chief Complaint: This 67 year old female who presents with chief complaint:callus of left 2nd toe HPI Patient presents to clinic for evaluation of left foot Has painful callus of left 2nd toe due to the toes rubbing She treats with pummice stone She is here to discuss the callus and seek opinions. She had bunion surgeyr many years ago. PAIN EVALUATION 02/10/2023 0806 Pain Level: 8 Pain Location: Foot-Left Description: Sore Duration Amount of Time: 3 Duration Units: Months Frequency: Continuous No results found for: HBA1C PCP: No primary care provider on file. PAST MEDICAL HISTORY Diagnosis Date Allergic rhinitis, cause unspecified Hypothyroidism Lactose intolerance Osteopenia PMH - PAST MEDICAL HISTORY OF IRREGULAR HEARTBEAT Varicose veins of lower extremities with inflammation varicose vein stripping Current Outpatient Medications Medication Sig rosuvastatin (CRESTOR) 10 mg tablet 10 mg. MONTELUKAST SODIUM (SINGULAIR ORAL) Take by mouth once daily. 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 fluticasone 50 mcg/actuation nasal spray Use 1-2 Sprays in each nostril once daily. olopatadine (PATANOL) 0.1 % ophthalmic solution Use 1 Drop in both eyes twice daily as needed. Ipratropium [place] (ATROVENT) 0.03 % NASAL nasal spray Use 2 Sprays in each nostril four times daily. As needed for runny nose. calcium carbonate(CALTRATE 600 600 MG (1,500 MG) TAB) Take one(1) tablet three times daily. multivitamins(DAILY MULTIVITAMIN TAB) Take one(1) tablet daily. COMPOUNDED PRESCRIPTION eye drop for dry eyes - two drops in each eye once a day levothyroxine sodium(SYNTHROID 50 MCG TAB) Take 50 mcg by mouth. 50mg everyday 25 mg on No current facility-administered medications for this visit. ALLERGIES Allergen Reactions Beta Blockers [Beta* Contraindication-Medical Surgical Please avoid use of beta blockers as the patient is on allergy immunotherapy. Cat Hair Extract Itching Grasses [Other] Itching AND SNEEZING Hops Food [Other] Milk Diarrhea Pollens [Other] Tree And Shrub Poll* Other: See Comments Sinus PAST SURGICAL HISTORY Procedure Laterality Date APPENDECTOMY BREAST BIOPSY 12/2018 left breast COLONOSCOPY FLX DX W/COLLJ SPEC WHEN PFRMD 05/10/2014 Colonoscopy CONIZATION OF CERVIX; COLD KNIFE/LASER three times, over 20 years ago DILATION & CURETTAGE DX&/THER NONOBSTETRIC Dilation & curettage EYE SURGERY PROCEDURE 10/2008 left eyelid repaired due to droopy eyelid LIG/TRNSXJ FLP TUBE ABDL/VAG APPR UNI/BI Tubal ligation x 2 OTHER foot surgery PAST SURGICAL HISTORY OF VEIN STRIPPING PAST SURGICAL HISTORY OF 10/11 shatterd right wrist PAST SURGICAL HISTORY OF Right 05/2017 vein closer REMOVAL BONE SPUR XYPHOID PROCESS 10/2018 right foot FAMILY HISTORY Problem Relation Age of Onset Heart Mother Coronary Artery Disease Father Breast Cancer Paternal Grandmother Cancer Brother pancreatic with mets other (Rheumatoid Arthritis) Daughter Social History Tobacco Use Smoking status: Never Smokeless tobacco: Never Vaping Use Vaping Use: Never used Substance Use Topics Alcohol use: No Drug use: No REVIEW OF SYSTEMS GENERAL: Negative for Malaise, significant weight loss, fever RESPIRATORY: Negative for cough, wheezing and shortness of breath CARDIOVASCULAR: Negative for chest pain, leg swelling and palpitations GI: Negative for abdominal discomfort, blood in stools or black stools and change in bowel habits : Negative for dysuria, frequency and incontinence MUSCULOSKELETAL: Negative for joint pain or swelling, back pain, and muscle pain. SKIN: Negative for lesions, rash, and itching. HEMATOLOGY/LYMPHOLOGY Negative for prolonged bleeding, bruising easily, and swollen nodes. ENDOCRINE: Negative for cold or heat intolerance, polyuria, polydipsia and goiter. NEURO: negative Physical Exam: Constitutional: Pt is a well developed 67 year old female who is alert, oriented and cooperative Eyes: Following during examination. No redness or drainage. Respiratory: RR normal and nonlabored. Even breathing. No evidence of distress or shortness of breath. Psychology: Patient is engaged during conversation. Normal affect and mood. Does not appear depressed or anxious during encounter. Vascular: Dorsalis pedis and posterior tibial pulses palpable as b/l Capillary Fill time < 5 seconds to digits 1-5 b/l Skin temperature warm to warm proximal to distal b/l Hair growth present to digits Neurological: intact light touch/epicritic sensation b/l intact protective sensation no significant neurological deficits Dermatological: Nails 1-5 b/l appear normal. Webspaces clean and dry 1-4 b/l. Skin appears well hydrated and supple. good color, texture, turgor. No open lesions present. Callus to left 5th toe lateral aspect and left medial 2nd toe Musculoskeletal/Orthopaedic: Patient has pain to palpation of left 2nd toe and 5th toe at site of callus Small recurrent bunion of left foot. 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 MTJ, STJ are full and free of pain and crepitus. +5/5 muscle strength dorsiflexion, plantarflexion, inversion, eversion b/l Radiographs: 3 views left foot ordered February 10, 2023: I have personally reviewed and interpreted these XR myself: recurrent bunion of left foot ASSESSMENT: (M20.12) Hallux valgus of left foot (primary encounter diagnosis) (M20.42) Hammer toe of left foot (L84) Callus of foot PLAN: 1. History and physical examination performed. 2. XR reviewed with patient and interpreted today 3. Discussed painful callus of left 2nd toe. Caused by rubbing on hallux. Optinos include periodic filing of callus vs use of gel spacer vs correction of hallux deformity via kenya osteotomy vs first mtpj fusion vs 2nd toe amputation. Patient has opted for padding. Callus of left 2nd toe filed with 15 blade and dremmel 4. Discussed callus of left 5th toe. Caused by adductovarus. Would try padding. Surgical options include derotational arthroplasty. She has elected padding. Callus filed with 15 blade and dremmel Avery Benton DPM Podiatry [facility] [address] [facility] [address] Dept: [phone] Dept * Anna Payne LPN - 02/10/2023 8:05 AM EDT AMB ROOMING INTAKE FLOWSHEET DATA Pain Pain Level: 8 Pain Location: Foot-Left Description: Sore Duration Amount of Time: 3 Duration Units: Months Frequency: Continuous Patient presents with: Left Foot - New, Pain Anna Payne LPN documented in this encounterHol[facility]09-07-2023 History of Present illness Narrative* Consuelo Galindo, RT(R) - 02/10/2023 8:00 AM EDT Radiology Service Progress Note PATIENT NAME: Ney Milner DATE OF SERVICE: February 10, 2023 TIME: 8:02 AM PATIENT IDENTITY VERIFICATION COMPLETED USING TWO (2) IDENTIFIERS: Name and Date of confirmedby patient verbally. FALL SCREENING: Has the patient had 2 falls in the last year or 1 fall with injury or currently using an Ambulatory Assistive Device (Walker, Cane, Wheelchair, Crutches, etc.)? No PATIENT GENDER DATA: Female. status: : No status: NO. PATIENT RELEVANT IMPLANT DATA REVIEWED: Not Applicable RADIOLOGY DEPARTMENT: General X-ray: Exam(s) Completed: Lower Extremity X- Ray(s): Foot, Left and Wt. Bearing PERIPHERAL IV DATA: Not applicable SIGNED BY: RT Sumeet(R) February 10, 2023 8:02 AM documented in this encounterHolzer Health System06-22-2023 History of Present illness Narrative* Eugenia Adair MD - 11/25/2022 8:00 AM EDT Subjective Reason for Visit: Ney Milner is an 67 y.o. female here for a Medicare Wellness visit. Past Medical, Surgical, and Family History reviewed and updated in chart. Reviewed all medications by prescribing practitioner or clinical pharmacist (such as prescriptions,OTCs, herbal therapies and supplements) and documented in the medical record. HPI Allergic rhinitis controlled with meds immunotherapy now once a month Uses nasal lavage Family History of Colonic Polyps colonoscopy done normal Will get Cologuard next screening. 2024 due to patient's adverse reaction to bowel prep. Hyperlipidemia Doing well with Crestor Hypothyroidism NOS no bowel changes , wt changes, no temp instability States has been losing hair, no scalp itching Mtwf full and none on Tuesday and half on sat MVP [Mitral valve prolapse] occ palptiations but no Chest Pain last echo 10+ years ago breast cancer screening Gets annually with [facility] her last one was March 2021 had dexa scan Exercises regularly No more burstits PPSV and P!3 current Patient Care Team: Eugenia Adair MD as PCP - General Review of Systems Objective Vitals: BP 128/80 Pulse 56 Ht 1.651 m (5' 5) Wt 72.4 kg (159 lb 9.6 oz) SpO2 99% BMI 26.56 kg/m Physical Exam Vitals reviewed. Constitutional: Appearance: Normal appearance. HENT: Head: Normocephalic and atraumatic. Eyes: Conjunctiva/sclera: Conjunctivae normal. Cardiovascular: Rate and Rhythm: Normal rate and regular rhythm. Pulmonary: Effort: Pulmonary effort is normal. Breath sounds: Normal breath sounds. Musculoskeletal: Cervical back: Neck supple. Skin: General: Skin is warm and dry. Neurological: General: No focal deficit present. Mental Status: She is alert and oriented to person, place, and time. Psychiatric: Mood and Affect: Mood normal. Behavior: Behavior normal. Thought Content: Thought content normal. Judgment: Judgment normal. Assessment/Plan Problem List Items Addressed This Visit Acquired hypothyroidism Relevant Orders TSH with reflex to Free T4 if abnormal Pure hypercholesterolemia MVP (mitral valve prolapse) Other Visit Diagnoses Routine general medical examination at health care facility - Primary documented in this [facility] Work Phone: 1(543) 588-457111-16-2022 NoteHNO ID: [id number] Author: RT Fidel(Debbi) Service: ? Author Type: Technologist Type: Progress Notes Filed: 04/21/2022 9:48 AM Note Text: Radiology Service Progress Note PATIENT NAME: Ney Milner DATE OF SERVICE: April 21, 2022 TIME: 9:47 AM PATIENT IDENTITY VERIFICATION COMPLETED USING TWO (2) IDENTIFIERS: Name and Date of confirmed by patient verbally. FALL SCREENING: Has the patient had 2 falls in the last year or 1 fall with injury or currently using an Ambulatory Assistive Device (Walker, Cane, Wheelchair, Crutches, etc.)? No PATIENT GENDER DATA: Female. status: : No status: NO. PATIENT RELEVANT IMPLANT DATA REVIEWED: Not Applicable RADIOLOGY DEPARTMENT: Mammography PERIPHERAL IV DATA: Not applicable SIGNED BY: RT Fidel(R) April 21, 2022 9:47 [facility]11-16-2022 History of Present illness Narrative* Cherie Joya RT(R) - 04/21/2022 10:00 AM EST Radiology Service Progress Note PATIENT NAME: Ney Milner DATE OF SERVICE: April 21, 2022 TIME: 9:47 AM PATIENT IDENTITY VERIFICATION COMPLETED USING TWO (2) IDENTIFIERS: Name and Date of confirmedby patient verbally. FALL SCREENING: Has the patient had 2 falls in the last year or 1 fall with injury or currently using an Ambulatory Assistive Device (Walker, Cane, Wheelchair, Crutches, etc.)? No PATIENT GENDER DATA: Female. status: : No status: NO. PATIENT RELEVANT IMPLANT DATA REVIEWED: Not Applicable RADIOLOGY DEPARTMENT: Mammography PERIPHERAL IV DATA: Not applicable SIGNED BY: RT Fidel(R) April 21, 2022 9:47 AM documented in this encounterHol[facility]22 History of Present illness Narrative* Right greater trochanteric bursitis. Injected in April felt good for 1 month continued running 30 minutes daily 5 to 6 days a week. Gradually started to return with pain now to the point of limping after walking. She had an x-ray through chiropractor. * Patient would like another injection. * She has tried icing. -[facility] Work Phone: 1(551) 183-826610-18-2022 Miscellaneous Notes* Telephone Encounter - Ivette Corona RN - 03/23/2022 3:58 PM EDT Patient notified. Ivette Corona RN * Telephone Encounter - Josefina Arora RN - 03/23/2022 10:29 AM EDT Left message for patient to call office. Josefina Arora RN * Telephone Encounter - Josefina Arora RN - 03/23/2022 10:29 AM EDT ----- Message from Liza Low MD sent at 03/23/2022 9:50 AM EDT ----- Worsening osteopenia in right hip and has osteoporosis in lumbar spine. Continue Calcium and Vit D-may consider treatment options- can discuss with PCP or endocrinology if desired. documented in this encounterHolzer Health System10-06-2022 Miscellaneous Notes* Letter - Mammography Coordinator - 03/11/2022 12:17 PM EDT March 11, 2022 PID: [id number] Ney Milner [address] [id number] Dear Ms. Milner, Your recent breast imaging exam on 03/11/2022 showed a possible finding that requires additional imaging studies for a complete evaluation. Most such findings are probably benign (not cancer). If you have a healthcare provider who ordered/prescribed your screening mammogram: Please call [phone] or [phone]: [phone] to schedule an appointment for your additional imaging (if youhave not already done so). If you DO NOT have a healthcare provider (ie you did not have an order/prescription for your screening mammogram): Please call to schedule an appointment for your additional imaging (if you have not already done so). You must have an order/prescription from your physician when calling to schedule your appointment. If your order/prescription is not electronic, you must bring the hard copy with you on the day of your exam to avoid delays. Your imaging studies and reports are kept on file at [facility] as part of your permanent medical record, and are available for your continuing care. Thank you for allowing us to help in meeting your health care needs. Sincerely, Dr. Gaston Interpreting Radiologist [facility] (Additional imaging) documented in this encounterHolzer Health System10-06-2022 History of Present illness Narrative* RT Fidel(R) - 03/11/2022 10:50 AM EDT Radiology Service Progress Note PATIENT NAME: Ney Milner DATE OF SERVICE: March 11, 2022 TIME: 10:30 AM PATIENT IDENTITY VERIFICATION COMPLETED USING TWO (2) IDENTIFIERS: Name and Date of confirmedby patient verbally. FALL SCREENING: Has the patient had 2 falls in the last year or 1 fall with injury or currently using an Ambulatory Assistive Device (Walker, Cane, Wheelchair, Crutches, etc.)? No PATIENT GENDER DATA: Female. status: : No status: NO. PATIENT RELEVANT IMPLANT DATA REVIEWED: Not Applicable RADIOLOGY DEPARTMENT: Mammography PERIPHERAL IV DATA: Not applicable SIGNED BY: RT Fidel(R) March 11, 2022 10:30 AM documented in this encounterHolzer Health System10-06-2022 History of Present illness Narrative* Liza Low MD - 03/11/2022 10:34 AM EDT Ney is a 66 year old who presents for an annual gynecologic exam without complaints. 8 grandchildren. Having some lower back pain seeing chiropractor Postmenopausal: Yes HRT use: No. Last Pap: 03/01/2018 normal HPV: 02/24/2018 negative History of abnormal pap: yes- conization >20 yrs ago Last mammogram: 2021 pending today History of abnormal mammogram: No Sexually active: Yes History of STDS: None Patient concerns for STD exposure: No. 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[employer] History Comments: Sexual Activity: Yes; Male; tubal ligation/Postmenopausal Contraception: Surgical PAST MEDICAL HISTORY Diagnosis Date Allergic rhinitis, cause unspecified Hypothyroidism Lactose intolerance Osteopenia PMH - PAST MEDICAL HISTORY OF IRREGULAR HEARTBEAT Varicose veins of lower extremities with inflammation varicose vein stripping PAST SURGICAL HISTORY Procedure Laterality Date APPENDECTOMY BREAST BIOPSY 12/2018 left breast COLONOSCOPY FLX DX W/COLLJ SPEC WHEN PFRMD 05/10/2014 Colonoscopy CONIZATION OF CERVIX; COLD KNIFE/LASER three times, over 20 years ago DILATION & CURETTAGE DX&/THER NONOBSTETRIC Dilation & curettage EYE SURGERY PROCEDURE 10/2008 left eyelid repaired due to droopy eyelid LIG/TRNSXJ FLP TUBE ABDL/VAG APPR UNI/BI Tubal ligation x 2 OTHER foot surgery PAST SURGICAL HISTORY OF VEIN STRIPPING PAST SURGICAL HISTORY OF 10/11 shatterd right wrist PAST SURGICAL HISTORY OF Right 05/2017 vein closer REMOVAL BONE SPUR XYPHOID PROCESS 10/2018 right foot FAMILY HISTORY Problem Relation Age of Onset Heart Mother Coronary Artery Disease Father Breast Cancer Paternal Grandmother Cancer Brother pancreatic with mets other (Rheumatoid Arthritis) Daughter SOCIAL HISTORY Social History Tobacco Use Smoking status: Never Smokeless tobacco: Never Vaping Use Vaping Use: Never used Substance Use Topics Alcohol use: No Drug use: No REVIEW OF SYSTEMS Abdomen: No abdominal pain, nausea, vomiting, diarrhea, or constipation. No bloating, early satiety, indigestion, or increased flatulence. Bladder: No dysuria, gross hematuria, urinary frequency, urinary urgency, or incontinence Breast: No breast lumps, nipple d/c, overlying skin changes, redness or skin retraction Allergies and current medication updated:Yes EXAM: BP 110/62 Ht 5' 6 (1.68m) Wt 161 lb (73.0kg) BMI 26.00 kg/(m^2). GENERAL: pleasant, female in no apparent distress HEENT: Normocephalic, atraumatic, mucus membranes moist, and no lesions NECK: Supple, full range of motion, no adenopathy, and thyroid normal DERMATOLOGY: Normal, without lesions, non-icteric, and non-hirsute BREAST: soft, non-tender, symmetric, no dominant mass, normal nipple-areolar complex, no lymphadenopathy, and no nipple discharge ABDOMEN: soft, non-tender, and no masses PELVIC: external genitalia normal, normal Bartholin's glands, urethra, Oakland's glands, no vulvar lesions, no cervical lesions, good vaginal support, physiologic discharge present, normal appearing perineal body and perianal region BIMANUAL: uterus normal size, shape and consistency, no adnexal masses, and non-tender RECTOVAGINAL: deferred. NEURO: alert and oriented x3,exam grossly non-focal EXTREMITIES: normal ASSESSMENT/PLAN: 1) Health maintenance: Pap done with HPV. Mammogram ordered Mammogram up to date Nutrition, exercise and routine health maintenance exams reviewed. Calcium/Vitamin D supplementation information provided. Colon cancer screening: up to date with screening BMD: ordered 2) Follow up one year or sooner as needed Liza Pena MD * Crystal Rito Yi - 03/11/2022 9:42 AM EDT Datastage Developer offered: Patient declines. documented in this encounterHolzer Health System05-02-2022 History of Present illness Narrative* On a scale of 0 to 10, the patient rates the pain at 5. * now and 10/10 at its worst. * Pain Location: Low Back Pain and rt side. * Pain Quality: Aching, Sharp and Stabbing. * Pain Radiation: into lateral hip and down entire leg into bottom of her foot. * Sensory/ Motor: Weakness and when the pain is really bad she has troube lifting her leg. * Timing/Duration: Constant and > 12 weeks duration. * Exacerbating Factors: standing, stairs, walking and weightbearing. * Alleviating Factors: Massage, Medications, Moist Heat, Other: ___. * 24 Hour Behavior: * Symptoms are better in the am. * Symptoms are the same as the day progresses. * Symptoms are the same in the pm. * Symptoms are worse when lying down. * Effect of Movement on Symptoms: * Bending doesn't change symptoms. * Lying makes symptoms better. cannot lay on rt side. * Rising from sitting makes symptoms worse. * Sitting makes symptoms worse. * Standing doesn't change symptoms. * Rising from supine to sitting doesn't change symptoms. * Walking makes symptoms worse. * Twisting makes symptoms worse. * Weather doesn't change symptoms. * Pushing motion makes symptoms worse. * Pulling motion makes symptoms worse. * Lifting: Worse. * Psychosocial Factors vs Last Visit: * Physical Functioning: Worse. * Family Relationships: Same. * Social Relationships: Same. * Mood: Same. * Sleep Patterns: Worse. * Overall Functioning: Worse. * Self Management Tools: patient is resting with positive response, patient is using heat with positive response, patient is using exercise with positive response, patient is using mindfulness with positive response and patient is using relaxation with positive response. * Goals for Pain Management: * Opioid Risk score = 1. * Patient Education: * Inj. education completed written and verbally. [facility] Work Phone: 1(191) 499-450812-05-2021 History of Present illness Narrative* will get labs * send letter with labs for next year since not done prior to exam * Allergic rhinitis * flonase prn * immunotherapy from Dr Villatoro and on singulair prn * Family History of Colonic Polyps * 05/10/2014 recommended every 5 years but wants to wait untl next year * done normal discus cg since got really sick with bowel prep * Hyperlipidemia * on crestor n * exercise and jog 45 minute Aurality rodriguez * aleve prn once a week for LBP * Hypothyroidism NOS * no bowel changes * energy is typically tired * no heat cold intolerance * exercise has lost 5 kg * MVP [Mitral valve prolapse] * no palptiations but no Chest Pain * exercises regularly * no claudication * mild edema varicose veins * last echo 10+ years ago * breast cancer screening * done [employer] every summer had done in february 2019, april 2020 * [facility]cf * all other systems have been reviewed and are negative except as noted in the HPI [facility] Work Phone: 1([phone]) 311-264311-03-2020 History of Present illness Narrative* right hip x 1 year after starting jogging * doing stretches 2 years ago every am * aleve and motrin * sees chiropracter * limit unable to jog and walking no pain but aftert sitting hurts to get up * unabl to sleep in the side * mammogram march 12, 2022 * PAP SMEAR 03/22/22 [facility] Work Phone: chieq complaint Narrative - Reported* NPV here for evaluation for rt side lower back pain started summer 2020, after she started jogging she ambulated to room 3 with a limp, describes as constant with sharp stabbing pain at times rates 5/10 now and 10/10 at its worst. She has tried Chiropractics, massage therapy, Inversion table, Aleve, Motrin, ES Tylenol she reports these things help to take the edge off of her pain but not good reli ef, she has had xrays. She is interest in an injection and would like to discuss her options. * This is a 66-year-old female here for a new patient appointment for chief complaint of low back andright leg pain. She reports this has been going on for about a year with no obvious cause. She states the pain is constant but is worse with prolonged sitting. It will start in her back and radiate down the right leg into the top and bottom of the right foot. She has not noticed any left leg symptoms. She reports the symptoms are interrupting her function during the day as well as her sleep at night. She has been doing chiropractic treatments for several months and in particular has gone for the past 6 weeks. She reports some modest benefit but the pain is still limiting her function. She hasbeen using NSAIDs for the past several months as well with limited benefit. She has also tried massage and inversion table. She does not want to have surgery unless there is no other choice. She denies numbness, tingling, weakness, or loss of bladder or bowel control. * The patient's past medical, social, and family history along with medications and allergies are available and were reviewed. [facility] Work Phone: discharge summary Author Maryann Mantilla [facility] Note Date/Time October 24, 2024 12:59 pm [facility] Medical Records Department [address] [place] [address] Instructions for Home/Discharge Instructions 10/24/24 1257 MR#: [id number] Acct: [id number] Name: NEY MILNER Rep #:[id number] : [id number] From: Maryann Mantilla MD PCP: Dr. Florence Mendez MD Status:REG SD C Discharge Instructions Dressing / Incision Additional Dressing/Incision Instructions:: Keep the paper tapes dry and intact until seen in the office. Keep your back elevated (recliner position) for the next 3-4 nights to help reduce swelling and bleeding. Take the oral antibiotic (Keflex) 2 times a day until finished. Follow Up Care Please Follow Up With: Maryann Mantilla MD When: 1 to 2 weeks Test Results: Test results from this visit will be discussed in further detail at your follow- up appointment, if applicable. Discharge Plan Admission Attending Provider: Maryann Mantilla Primary Care Provider: Florence Mendez Instructions Print Language: Solomon Islander Discharge Orders/Prescriptions Prescriptions: New cephalexin 500 mg capsule 500 mg PO BID 5 Days Qty: 10 0RF No Action rosuvastatin 10 mg tablet 10 mg PO DAILY minoxidil 2.5 mg tablet 2.5 mg PO DAILY cholecalciferol (vitamin D3) 25 mcg (1,000 unit) capsule 25 mcg PO QDAY levothyroxine 50 mcg tablet 50 mcg PO QDAY vitamin E 200 unit capsule 200 unit PO DAILY Referrals / Follow Up: Florence Mendez MD [Primary Care Provider] - Disposition Disposition (needs filled in before D/C Order can be placed): Home, Self Care 10/24/24 1259<Electronically signed by Maryann Mantilla MD>Maryann Mantilla MD CC: Dr. Florence Mendez MD ~ Signed [facility] Work Phone: Evaluation note* Diagnosis Encounter for gynecological examination (general) (routine) without abnormal findings- Primary Encounter for screening mammogram for malignant neoplasm of breast Other screening mammogram Screening for osteoporosis Special screening for osteoporosis Osteopenia, unspecified location Screening for cervical cancer Screening for malignant neoplasm of the cervix Special screening examination for human papillomavirus (HPV) documented [facility]* Diagnosis Encounter for screening mammogram for malignant neoplasm of breast Other screening mammogram [facility]* Diagnosis Abnormal mammogram- Primary Abnormal mammogram, unspecified documented [facility]* Diagnosis Routine general medical examination at health care facility- Primary Routine general medical examination at a health care facility Acquired hypothyroidism Unspecified hypothyroidism Pure hypercholesterolemia MVP (mitral valve prolapse) Mitral valve disorders documented in this encounter [facility] Work Phone: Evaluation note* Diagnosis Pain in left foot- Primary Pain in limb [facility]* Diagnosis Hallux valgus of left foot- Primary Hammer toe of left foot Callus of foot Corns and callosities documented [facility] this [facility]* Diagnosis Encounter for gynecological examination (general) (routine) without abnormal findings- Primary Encounter for screening mammogram for breast cancer documented [facility]* Diagnosis Abnormal mammogram Abnormal mammogram, unspecified [facility] Diagnosis Pain in left foot Pain in limb documented in this encounter [facility] note* Diagnosis Encounter for screening mammogram for malignant neoplasm of breast Other screening mammogram documented in this encounter [facility] for referral (narrative)* Diagnostic Procedure Only (Routine) - Authorized Specialty Diagnoses / Procedures Referred By Charles rm Referred To Contact BR IMAGING Diagnoses Encounter for screening mammogram for malignant neoplasm of breast Procedures JESSICA SCREENING W DAVID SCREENING DIGITAL BREAST TOMOSYNTHESIS BI SCREENING MAMMOGRAPHY BI 2-VIEW BREAST INC CAD Liza Roach MD [address] [place] [address] [facility] [address] [place] [address] Referral ID Status Reason Start Date Expiration Date Visits Requested Visits Authorized [id number] Authorized Auto-Generat ed Referral 03/11/2022 04/10/2023 1 1 [facility] for referral (narrative)* Diagnostic Procedure Only (Routine) - Closed Specialty Diagnoses / Procedures Referred By Charles rm Referred To Contact BR IMAGING Diagnoses Encounter for screening mammogram for malignant neoplasm of breast Procedures JESSICA SCREENING W DAVID SCREENING BREAST DGTL DAVID UNI/BILAT ADD ON SCREENING MAMMOGRAPHY BI 2-VIEW BREAST INC CAD Liza Roach MD [address] [place] [address] [facility] [address] [place] [address] Referral ID Status Reason Start Date Expiration Date V isits Requested Visits Authorized [id number] Closed Auto-Generate d Referral 03/09/2021 04/08/2022 1 1 [facility] for referral (narrative)* Diagnostic Procedure Only (Routine) - Pending Review Specialty Diagnoses / Procedures Referred By Charles rm Referred To Contact BR IMAGING Diagnoses Abnormal mammogram Procedures JESSICA DIAGNOSTIC RT DIAGNOSTIC MAMMOGRAPHY COMPUTER-AIDED DETCJ UNI Leena Joseph APRN.SUBSTATION OPERATOR TRANSFORMING [address] [place] [address] [facility] [address] [place] [address] Referral ID Status Reason Start Date Expiration Date Visits Requested Visits Authorized [id number] Pending Review Auto-Generat ed Referral 03/12/2022 04/11/2023 1 1 * Diagnostic Procedure Only (Routine) - Pending Review Specialty Diagnoses / Procedures Referred By Contac t Referred To Contact BR IMAGING Diagnoses Abnormal mammogram Procedures US BREAST LTD RT US BREAST UNI REAL TIME WITH IMAGE LIMITED Leena Joseph APRN.CNP [address] [place] [address] Br Imaging [address] [place] [phone] Referral ID Status Reason Start Date Expiration Date Visits Requested Visits Authorized [id number] Pending Review Auto-Generat ed Referral 03/12/2022 04/11/2023 1 1 [facility] for referral (narrative)* Diagnostic Procedure Only (Routine) - Pending Review Specialty Diagnoses / Procedures Referred By Contac t Referred To Contact XR IMAGING Diagnoses Pain in left foot Procedures XR FOOT GENERAL 3V AP/LAT/OBL LEFT RADEX FOOT COMPLETE MINIMUM 3 VIEWS Avery Benton [address] [place] [address] [place] [address] Referral ID Status Reason Start Date Expiration Date Visits Requested Visits Authorized [id number] Pending Review Auto-Generat ed Referral 02/04/2023 03/05/2024 1 1 [facility] for referral (narrative)* Diagnostic Procedure Only (Routine) - Pending Review Specialty Diagnoses / Procedures Referred By Contac t Referred To Contact BR IMAGING Diagnoses Encounter for screening mammogram for breast cancer Procedures JESSICA SCREENING W DAVID SCREENING DIGITAL BREAST TOMOSYNTHESIS BI SCREENING MAMMOGRAPHY BI 2-VIEW BREAST INC CAD Liza Roach MD [address] [place] [address] [facility] [address] [place] [address] Referral ID Status Reason Start Date Expiration Date Visits Requested Visits Authorized [id number] Pending Review Auto-Generat ed Referral 04/22/2024 1 1 [facility] for referral (narrative)* Diagnostic Procedure Only (Routine) - Closed Specialty Diagnoses / Procedures Referred By Charles rm Referred To Contact XR IMAGING Diagnoses Pain in left foot Procedures XR FOOT GENERAL 3V AP/LAT/OBL LEFT RADEX FOOT COMPLETE MINIMUM 3 VIEWS Avery Benton [address] [place] [address] Xr Imaging [facility] Referral ID Status Reason Start Date Expiration Date V isits Requested Visits Authorized [id number] Closed Auto-Generate d Referral 02/04/2023 03/05/2024 1 1 [facility] for referral (narrative)* Diagnostic Procedure Only (Routine) - Closed Specialty Diagnoses / Procedures Referred By Charles rm Referred To Contact BR IMAGING Diagnoses Encounter for screening mammogram for malignant neoplasm of breast Procedures JESSICA SCREENING W DAVID SCREENING DIGITAL BREAST TOMOSYNTHESIS BI SCREENING MAMMOGRAPHY BI 2-VIEW BREAST INC CAD Liza Roach MD [address] [place] [address] [facility] Imaging [address] [place] [address] Referral ID Status Reason Start Date Expiration Date V isits Requested Visits Authorized [id number] Closed Auto-Generate d Referral 03/11/2022 04/10/2023 1 1 [facility] for referral (narrative)No reason for referral information [facility] N[facility]* Diagnostic Procedure Only (Routine) - Closed Specialty Diagnoses / Procedures Referred By Cesarioac t Referred To Contact BR IMAGING Diagnoses Encounter for screening mammogram for malignant neoplasm of breast Procedures JESSICA SCREENING W DAVID SCREENING BREAST DGTL DAVID UNI/BILAT ADD ON SCREENING MAMMOGRAPHY BI 2-VIEW BREAST INC CAD Liza Roach MD [address] [place] [address] [facility] Imaging [address] [place] [address] Referral ID Status Reason Start Date Expiration Date V isits Requested Visits Authorized [id number] Closed Auto-Generate d Referral 03/09/2021 04/08/2022 1 1 [facility] for visit Narrative* Diagnostic Procedure Only (Routine) - Closed Specialty Diagnoses / Procedures Referred By Contac t Referred To Contact BR IMAGING Diagnoses Abnormal mammogram Procedures JESSICA DIAGNOSTIC RT DIAGNOSTIC MAMMOGRAPHY COMPUTER-AIDED DETCJ UNI Leena Joseph, GAS STATION SERVICE ATTENDANT.SUBSTATION OPERATOR TRANSFORMING [address] [place] [address] Br Imaging [address] [phone] Referral ID Status Reason Start Date Expiration Date V isits Requested Visits Authorized [id number] Closed Auto-Generate d Referral 03/12/2022 04/11/2023 1 1 [facility] for visit Narrative* Diagnostic Procedure Only (Routine) - Closed Specialty Diagnoses / Procedures [facility] XR IMAG[facility] Diagnoses Pain in left foot Procedures XR FOOT GENERAL 3V AP/LAT/OBL LEFT RADEX FOOT COMPLETE MINIMUM 3 VIEWS Avery Benton [address] [place] [address] [place] [address] Referral ID Status Reason Start Date Expiration Date V isits Requested Visits Authorized [id number] Closed Auto-Generate d Referral 02/04/2023 03/05/2024 1 1 [facility]* Diagnostic Procedure Only (Routine) - Closed Specialty Diagnoses / Procedures Referred By Contac t Referred To Contact BR IMAGING Diagnoses Encounter for screening mammogram for malignant neoplasm of breast Procedures JESSICA SCREENING W DAVID SCREENING DIGITAL BREAST TOMOSYNTHESIS BI SCREENING MAMMOGRAPHY BI 2-VIEW BREAST INC CAD Liza Roach MD [address] [place] [address] [facility] Imaging [address] [place] [address] Referral ID Status Reason Start Date Expiration Date V isits Requested Visits Authorized [id number] Closed Auto-Generate d Referral 03/11/2022 04/10/2023 1 1 [facility] Assessments Diagnosis Venous insufficiency - Prima ry Unspecified venous (peripheral) insufficiency Varicose veins with pain Status post endovenous radio frequency ablation of saphenous vein Diagnosis Venous insufficiency Unspecified venous (peripheral) insufficiency Varicose veins of right lowe r extremity with pain Status post endovenous radio frequency ablation (RFA) of saphenous vein Diagnosis Venous insufficiency Unspecified venous (peripheral) insufficiency Varicose veins of right lowe r extremity with pain Diagnosis Varicose veins with pain - P rimary Venous insufficiency Unspecified venous (peripheral) insufficiency Diagnosis Venous insufficiency - Prima ry Unspecified venous (peripheral) insufficiency Varicose veins with pain Diagnosis Varicose veins with pain Diagnosis Varicose veins with pain - P rimary Diagnosis Tibialis posterior tendinitis, unspecified laterality- Primary Diagnosis Tibialis posterior tendinitis, unspecified laterality- Primary Diagnosis Tibialis posterior tendinitis, unspecified laterality- Primary Diagnosis Tibialis posterior tendinitis, unspecified laterality Summary Purpose Family History No Family History Records FoundUnknown Family Member Name Dates Details Family history of cardiac di sorder: Mother(V17.49, Z82.49) Status:Active S/P CABG (coronary artery by pass graft): Mother(V45.81, Z95.1) Status:Active Family history of alcoholism : Father, Sister(V17.0, Z81.1) Status:Active Family history of colonic po lyps: Father(V18.51, Z83.71) Status:Active Family history of pancreatic cancer: Brother(V16.0, Z80.0) Status:Active Unknown Family Member Name Dates Details Family history of cardiac di sorder: Mother(V17.49, Z82.49) Status:Active S/P CABG (coronary artery by pass graft): Mother(V45.81, Z95.1) Status:Active Family history of alcoholism : Father, Sister(V17.0, Z81.1) Status:Active Family history of colonic po lyps: Father(V18.51, Z83.71) Status:Active Family history of pancreatic cancer: Brother(V16.0, Z80.0) Status:Active Unknown Family Member Name Dates Details Family history of cardiac di sorder: Mother(V17.49, Z82.49) Status:Active S/P CABG (coronary artery by pass graft): Mother(V45.81, Z95.1) Status:Active Family history of alcoholism : Father, Sister(V17.0, Z81.1) Status:Active Family history of colonic po lyps: Father(V18.51, Z83.71) Status:Active Family history of pancreatic cancer: Brother(V16.0, Z80.0) Status:Active Unknown Family Member Name Dates Details Family history of cardiac di sorder: Mother(V17.49, Z82.49) Status:Active S/P CABG (coronary artery by pass graft): Mother(V45.81, Z95.1) Status:Active Family history of alcoholism : Father, Sister(V17.0, Z81.1) Status:Active Family history of colonic po lyps: Father(V18.51, Z83.71) Status:Active Family history of pancreatic cancer: Brother(V16.0, Z80.0) Status:Active Unknown Family Member Name Dates Details Family history of cardiac di sorder: Mother(V17.49, Z82.49) Status:Active S/P CABG (coronary artery by pass graft): Mother(V45.81, Z95.1) Status:Active Family history of alcoholism : Father, Sister(V17.0, Z81.1) Status:Active Family history of colonic po lyps: Father(V18.51, Z83.71) Status:Active Family history of pancreatic cancer: Brother(V16.0, Z80.0) Status:Active Unknown Family Member Name Dates Details Family history of cardiac di sorder: Mother(V17.49, Z82.49) Status:Active S/P CABG (coronary artery by pass graft): Mother(V45.81, Z95.1) Status:Active Family history of alcoholism : Father, Sister(V17.0, Z81.1) Status:Active Family history of colonic po lyps: Father(V18.51, Z83.71) Status:Active Family history of pancreatic cancer: Brother(V16.0, Z80.0) Status:Active Unknown Family Member Name Dates Details Family history of cardiac di sorder: Mother(V17.49, Z82.49) Status:Active S/P CABG (coronary artery by pass graft): Mother(V45.81, Z95.1) Status:Active Family history of alcoholism : Father, Sister(V17.0, Z81.1) Status:Active Family history of colonic po lyps: Father(V18.51, Z83.71) Status:Active Family history of pancreatic cancer: Brother(V16.0, Z80.0) Status:Active Relationship Condition Age at Onset Recorded Date/T rupert father Alcoholism Unknown mother Cardiac disease Unknown brother Pancreatitis Unknown grandmother Malignant neoplasm of breast Unknown Advance Directives No Advanced Directives Records FoundDocuments on File Type Date Recorded Patient Information Security Systems Instructor Expl anation Advance Directives and Livin g Will 01/15/2019 1:33 PM Documents on File Type Date Recorded Patient Information Security Systems Instructor Expl anation Advance Directives and Livin g Will 01/15/2019 1:33 PM History of Present Illness * Amberly Knox III, DO - 03/24/2017 8:23 AM EDT Formatting of this note may be different from the original. Assessment & Plan: SNOMED CT(R) 1. Varicose veins with pain VENOUS VARICES Ultrasound venous insufficiency exam Plan: At the present time Mrs. Milner is stable with regards to her venous disease, despite having continued symptoms of pain, achiness, swelling, heaviness and fatigue. I instructed her to start wearing herstockings again on a more regular basis (5-6 days a week). This will again help meet insurance criteria. I did inform her that we need to really need to start from scratch for evaluation of her venous disease. As result we will see her back in the office in 2 months. We will obtain a venous duplex scan with insufficiency testing at that time to determine her treatment options. Despite having prior ligation and division of her great saphenous veins, she probably has developed collateralizations of the ligation site and therefore is had redevelopment of great saphenous vein reflux lower into the leg. I feel she may be a good candidate for venous ablation in the future. But we will keep you informed of her next visit with testing evaluation. We appreciate the opportunity to participate in her care. If you have any questions, please feel free to contact us. Follow Up Ordered: Return in about 2 months (around 05/24/2017) for Recheck with testing in [place] office.. Subjective: Ney Milner is a 61 y.o. female seen in the office today for evaluation regarding venous disease. Mrs. Milner ( date 1955) was seen in the office today in [place] on March 24, 2017. She presents, as a self-referral, with a complaint of heaviness, fatigue, discomfort, pain, swelling of the lower extremities. She has a known history of bilateral great saphenous vein ligation and division [place] January [address] Gonzalez. She had been doing well but complained of increasing symptoms over the past 1-2 years. She was seen by a physician in [place] (Dr. Velazquez) who got her into compression stockings during the fall of 2015. She was seen in July 2016 to coordinate venous procedures. Shefelt that there was some confusion regarding insurance coverage and financial liability for the [facility], so she was reluctant to pursue therapies with his office. As result she presents today in the office to discuss her symptoms and treatment options and therapies. She has not been wearing her stockings with any significant regularity over the past few months. She continues to have heaviness, fatigue, swelling of the lower extremities. She states that her right leg is more symptomatic than her left leg, though both legs bother her. She does deny any ulcers or tissue loss or stasis changes of lower extremities. I do not have access to any prior scans at the present time. Histories: Past Medical History: Diagnosis Date Arthritis MVP (mitral valve prolapse) Varicose vein of leg Past Surgical History: Procedure Laterality Date APPENDECTOMY 1966 BUNIONECTOMY Bilateral 2008 eye lid surg Left unknown HIGH LIGATION AND DIVISION, GREATER SAPHENOUS VEIN AND BRANCHES Bilateral 01/22/2000 Dr Gonzalez TUBAL LIGATION 1989 WRIST SURGERY Right 2007 Family History Problem Relation Age of Onset Heart disease Mother Cancer Paternal Grandmother breast Esophageal cancer Father Heart disease Father Social History Substance Use Topics Smoking status: Never Smoker Smokeless tobacco: Never Used Alcohol use No Current Outpatient Prescriptions Medication Sig Dispense Refill levothyroxine (SYNTHROID, LEVOTHROID) 50 MCG tablet Take 50 mcg by mouth once daily. rosuvastatin (CRESTOR) 10 MG tablet 10 mg nightly . 1 No current facility-administered medications for this visit. Allergies Allergen Reactions Other Other (See Comments) Ragweed, pollen, cats, dogs, grass, lactose intolerant Review of Systems Constitution: Negative for chills, decreased appetite, fever, night sweats, weight gain and weight loss. HENT: Negative. Negative for hoarse voice and sore throat. Eyes: Negative for vision loss in left eye, vision loss in right eye and visual disturbance. Cardiovascular: Positive for leg swelling. Negative for chest pain, claudication, cyanosis, dyspneaon exertion, irregular heartbeat, palpitations and paroxysmal nocturnal dyspnea. Respiratory: Negative for cough, hemoptysis, shortness of breath, sleep disturbances due to breathing and wheezing. Endocrine: Negative. Negative for cold intolerance. Hematologic/Lymphatic: Negative for bleeding problem. Does not bruise/bleed easily. Skin: Negative. Negative for color change, dry skin, nail changes and poor wound healing. Musculoskeletal: Positive for myalgias. Negative for arthritis, back pain, falls, gout, joint pain and muscle weakness. Aching lower extremities Gastrointestinal: Negative for abdominal pain, constipation, diarrhea, heartburn, jaundice, melena,nausea and vomiting. Genitourinary: Negative for dysuria, flank pain, frequency, hematuria and nocturia. Neurological: Negative for brief paralysis, dizziness, focal weakness, headaches, light-headedness,loss of balance, numbness and paresthesias. Psychiatric/Behavioral: Negative for altered mental status, depression, memory loss and substance abuse. The patient is not nervous/anxious. Allergic/Immunologic: Negative. Negative for hives and persistent infections. Objective: Vitals: Vitals: 03/24/17 0758 03/24/17 0759 BP: 123/81 137/85 BP Location: Right arm Left arm Patient Position: Sitting Sitting BP Cuff Size: Adult Adult Pulse: 70 63 Resp: 16 Weight: 75.5 kg (166 lb 8 oz) Height: 5' 6 Physical Exam Constitutional: She is oriented to person, place, and time. Vital signs are normal. She appears well-developed and well-nourished. She is active. HENT: Head: Normocephalic and atraumatic. Eyes: Conjunctivae, EOM and lids are normal. Neck: Trachea normal, normal range of motion and full passive range of motion without pain. Neck supple. Normal carotid pulses and no JVD present. Carotid bruit is not present. No thyromegaly present. Cardiovascular: Normal rate, regular rhythm and normal heart sounds. No murmur heard. Pulses: Carotid pulses are 2+ on the right side, and 2+ on the left side. Radial pulses are 2+ on the right side, and 2+ on the left side. Femoral pulses are 2+ on the right side, and 2+ on the left side. Popliteal pulses are 2+ on the right side, and 2+ on the left side. Dorsalis pedis pulses are 2+ on the right side, and 2+ on the left side. Posterior tibial pulses are 2+ on the right side, and 2+ on the left side. Quaternary and reticular varicose veins bilateral medial distal thighs and calves. Worse in the right leg versus the left leg. No clots, cords, ropes palpable. The veins measure 2-5 mm in diameter. Pulmonary/Chest: Effort normal and breath sounds normal. She has no decreased breath sounds. She has no wheezes. She has no rhonchi. She has no rales. Abdominal: Soft. Normal appearance and bowel sounds are normal. She exhibits no abdominal bruit. There is no hepatosplenomegaly. There is no tenderness. There is no rigidity, no rebound and no guarding. Limited exam due to body habitus. Musculoskeletal: Normal range of motion. Neurological: She is alert and oriented to person, place, and time. She has normal strength. No cranial nerve deficit or sensory deficit. She displays a negative Romberg sign. Skin: Skin is warm, dry and intact. No cyanosis. Nails show no clubbing. Scattered telangectasia and venous pools bilateral lower extremities. They measure 1-2 mm without clots/cords. Psychiatric: She has a normal mood and affect. Her speech is normal and behavior is normal. Judgment and thought content normal. Cognition and memory are normal. in this encounter* TheresaJackie serrano, PT - 01/17/2019 1:00 PM EDT [facility] DAILY TREATMENT NOTE Today's Date 01/17/2019 Patient Name: Ney Milner Date of : 1955 Current Visit #: 2 Authorized Visits: 50 Case Name: Therapy Tibialis posterior tendinitis, unspecified lateralit History: Pre-Treatment Pain Scale: 4 Symptoms: stabilized Functional Diagnosis: SNOMED CT(R) 1. Tibialis posterior tendinitis, unspecified laterality TIBIALIS POSTERIOR TENDINITIS Clinical Information: Subjective: Patient reports her tendon feels about the same since the initial evaluation. Patient reports she has new blisters on her heels due to wearing her orthotics while walking. Objective: trailed DN to tibialis posterior to help decrease ankle pain. Treatments: Physical Therapy Exercise Log - 01/17/19 1537 OTHER Notes Jackie 07/18 12:45-1:40 Therapeutic Exercise (52921) Intervention Piriformis stretch x30 Parameters Gastroc Stretching 30x3 Intervention HEP education 6' Manual Therapy (02395) Intervention Pin/Stretch L piriformis Parameters Deep tissue palpation and mobiliztion L tibialis posterior (nerve on R toe) 12' Manual Therapy (57655) Intervention STM to L gastroc 10' Additional Exercises Add more exercises? Yes Modalities Modalities Electrical Stim - Unattended Parameters 20' 4Hz Intensity increased per patient tolerance PT Treatment Times Therex Total Time 8 Manual Therapy Total Time 22 Modalities Total Time 20 Direct Treatment Time 50 Total Treatment Time 55 Goals: Physical Therapy Ortho Goals: 1. Patient reports their primary goal is to be able to walk with minimal pain. 2. Patient will safely, correctly, and independently demonstrate the ability to perform a progressive HEP to achieve maximal rehabilitation potential and prevent this condition from recurring. 3. Patient will be able to walk for 45 minutes with 0-2/10 ankle/foot pain. 4. Patient will demonstrate a 10 increase in L ankle DF in order to be able to negotiate a flight of stairs. 5. Patient will demonstrate 4+/5 PF/INV ankle strength in order to be able to show proper toe off during ambulation. IE date: 01/15/2019 Progress report due: 02/19/19 Recert due: visit # 10 Patient Education: Quality of movement, Verbal HEP and HEP Modification with patient verbalized understanding. Post-Treatment Pain Scale: 3 Assessment: Patient had an expected response to treatment. Written and verbal consent were obtainedfrom patient before starting treatment. Patient was placed in supported sitting on the table with arms in a comfortable position per patient preference. Eight needles were placed into medial tibial border and proximal/distal to peroneal tendon insertion at a depth of 20 mm along with one needle at medial calcaneal tubercle that was removed due to increased patient discomfort. Manual twisting needle manipulation was performed at all levels until patient noticed increased muscle tightening. Then electrical stimulation was placed proximal to distal in a sanjana cross pattern moving distally with the current running parallel with tibia. Electrical stimulation was used for 20 minutes with increases of intensity every 4 minutes per patient tolerance. Highest electrical stimulation achieved was 4.[place] with then mechanically stimulated via twisting and left in for 2 additional minutes before being taken out. There were no bleeding at removal of needles. During treatment patient reported mild discomfort. After treatment patient states it feels weird and is maybe less painful. Patient had no adverse effects to needling at this time and was told to call the physical therapist if they notices any difficulties or any new changes. Focused on improving gastroc mobility and patient demonstrates increased tenderness to L gasroc/soleus muscle. Skilled Intervention demonstrated by modifications of treatment per exercise log including increased mobility, assessment of patient's response and modalities as indicated and safety interventions per exercise log. Progress towards goals as expected. Plan for Next Visit: Treatment Visit with focus on decreasing posterior tibialis pain and improvingankle ROM. Jackie Goff PT State License, [id number] documented in this encounter* Leena Barbosa, TELEPHONE TECHNICIAN - 01/22/2019 1:00 PM EDT [facility] DAILY TREATMENT NOTE Today's Date 01/22/2019 Patient Name: Ney Milner Date of : 1955 Current Visit #: 3 Authorized Visits: 50 Case Name: Therapy Tibialis posterior tendinitis, unspecified lateralit History: Pre-Treatment Pain Scale: 4 Symptoms: stabilized Functional Diagnosis: 1. Tibialis posterior tendinitis, unspecified laterality Clinical Information: Subjective: Reports her foot is still the same. The pain hasn't improved. Objective Tenderness to palpate along gastroc and PF area. Pain increase with cupping along gastrocand STM along PF. Treatments: Physical Therapy Exercise Log - 01/22/19 1714 OTHER Notes Leena 08/15 12:55-1:35 Therapeutic Exercise (71535) Intervention Piriformis stretch x30 Parameters Gastroc Stretching 30x3 Manual Therapy (60308) Intervention Pin/Stretch L piriformis Parameters Deep tissue palpation and mobiliztion L tibialis posterior (nerve on R toe) 12' Manual Therapy (57912) Intervention STM to L gastroc 10' Additional Exercises Add more exercises? Yes PT Treatment Times Therex Total Time 15 Manual Therapy Total Time 25 Direct Treatment Time 40 Total Treatment Time 40 Goals: Physical Therapy Ortho Goals: 1. Patient reports their primary goal is to be able to walk with minimal pain. 2. Patient will safely, correctly, and independently demonstrate the ability to perform a progressive HEP to achieve maximal rehabilitation potential and prevent this condition from recurring. 3. Patient will be able to walk for 45 minutes with 0-2/10 ankle/foot pain. 4. Patient will demonstrate a 10 increase in L ankle DF in order to be able to negotiate a flight of stairs. 5. Patient will demonstrate 4+/5 PF/INV ankle strength in order to be able to show proper toe off during ambulation. IE date: 01/15/2019 Progress report due: 02/19/19 Recert due: visit # 10 Patient Education: Quality of movement with patient demonstrated understanding. Post-Treatment Pain Scale: 3 Assessment: Patient had an expected response to treatment. Skilled Intervention demonstrated by modifications of treatment per exercise log including increased load and safety interventions per exercise log. Progress towards goals as expected. Plan for Next Visit: Treatment Visit with focus on pain control Leena Barbosa PTA STATE LICENSE, [id number] documented in this encounter* Jackie Goff, PT - 01/24/2019 1:00 PM EDT [facility] DAILY TREATMENT NOTE Today's Date 01/24/2019 Patient Name: Ney Milner Date of : 1955 Current Visit #: 4 Authorized Visits: 50 Case Name: Therapy Tibialis posterior tendinitis, unspecified lateralit History: Pre-Treatment Pain Scale: 4 Symptoms: stabilized Functional Diagnosis: 1. Tibialis posterior tendinitis, unspecified laterality Clinical Information: Subjective: Patient reports it has felt about the same and she has not noticed much difference since starting physical therapy. Patient reports her feet are somewhat swollen and tender today which iswhy she decided not to wear tennis shoes today. Patient states she is not sure if she can afford the co-pay, she took the sales agent financial report service paperwork and will be talking to her and let us know ifshe will be able to continue physical therapy. Objective: Trailed DN plantar fascia protocol Treatments: Physical Therapy Exercise Log - 01/24/19 6786 OTHER Notes Jackie 09/15 1:00-1:45 Therapeutic Exercise (50757) Intervention Piriformis stretch Parameters Gastroc Stretching Manual Therapy (71937) Intervention Pin/Stretch L piriformis Parameters Deep tissue palpation and mobiliztion plantar fascia 10' Manual Therapy (45727) Intervention STM to L gastroc/plantarfascia 10' Parameters Gastroc PNF 10x8 Manual Therapy (12282) Intervention Kinesio tape 3' Additional Exercises Add more exercises? Yes Modalities Modalities Electrical Stim - Unattended Parameters 15' 4Hz Intensity increased per patient tolerance PT Treatment Times Manual Therapy Total Time 25 Modalities Total Time 15 Direct Treatment Time 40 Total Treatment Time 45 Goals: Physical Therapy Ortho Goals: 1. Patient reports their primary goal is to be able to walk with minimal pain. 2. Patient will safely, correctly, and independently demonstrate the ability to perform a progressive HEP to achieve maximal rehabilitation potential and prevent this condition from recurring. 3. Patient will be able to walk for 45 minutes with 0-2/10 ankle/foot pain. 4. Patient will demonstrate a 10 increase in L ankle DF in order to be able to negotiate a flight of stairs. 5. Patient will demonstrate 4+/5 PF/INV ankle strength in order to be able to show proper toe off during ambulation. IE date: 01/15/2019 Progress report due: 02/19/19 Recert due: visit # 10 Patient Education: Quality of movement, Verbal HEP and HEP Modification with patient verbalized understanding. Post-Treatment Pain Scale: 2 Assessment: Patient had an expected response to treatment. Written and verbal consent were obtainedfrom patient before starting treatment. Patient was placed in prone on the table with arms in a comfortable position per patient preference. Three needles were placed into distal plantar fascia, proximal plantar fascia, and medial calcaneal tubercle at a depth of 10 mm. Manual twisting needle manipulation was performed at all levels until patient noticed increased muscle tightening. Then electrical stimulation was placed from proximal to distal plantar fascia with the current running parallel to plantar fascia. Electrical stimulation was used for 20 minutes with increases of intensity every 4minutes per patient tolerance. Highest electrical stimulation achieved was 3. [place] with then mechanically stimulated via twisting and left in for 2 additional minutes before being taken out. Therewere no bleeding at removal of needles. During treatment patient reported feeling some tingling. Aft er treatment patient states it feels better than when she walked in. Patient had no adverse effectsto needling at this time and was told to call the physical therapist if they notices any difficulties or any new changes. Educated patient on stretching and application of kinesio tape. Skilled Intervention demonstrated by modifications of treatment per exercise log including increased mobility, assessment of patient's response and modalities as indicated and safety interventions per exercise log. Progress towards goals as expected. Plan for Next Visit: Treatment Visit with focus on increasing plantar fascia muscle mobility. Jackie Goff PT State License, [id number] documented in this encounter* Jackie Goff, PT - 01/15/2019 1:45 PM EDT [facility] Evaluation Today's Date 01/15/2019 Patient Name: Ney Milner Date of : 1955 Case Name: Therapy Tibialis posterior tendinitis, unspecified lateralit Functional Diagnosis: SNOMED CT(R) 1. Tibialis posterior tendinitis, unspecified laterality TIBIALIS POSTERIOR TENDINITIS Clinical Information: Subjective Referring Diagnosis: Tibialis posterior tendinitis, unspecified laterality Follow-up with physician: 02/05/2019 History of Present Illness Chief Complaint/ Mechanism of Injury: Patient reports her L foot has been hurting. Patient states she has been having tingling and pain in her foot for awhile now. Patient states she has had bone spur removal surgery on his R foot. Patient states she has been doing the rolling on the water bottle and that has not helped. Patient reports in the morning her foot is fine, but as the day progresses it begins to hurt more. Patient states she continues to have tingling in her R toe. Patient got her back x-rayed last week and is going to get an EEG at [facility] in March. Previous Imaging: X-ray Status: unchanged Pain Scale: Average Pain: 4/10 (dull/achy/constant) Pain at highest: 8/10 (sharp) Aggravating factors: prolonged walking the further the day goes Easing factors: biofreeze, resting legs Functional Status Functional Limitations: limited mobility Premorbid Functional Level: Patient reported Current Functional Level: None Daily activity scale: very active Prior level of function: very active Sleep Assessment Sleep disturbance: Sleep Disturbance (unable to get comfortable) Red Flags: None Barriers to Care: None Fall risk screening Fallen 2 or more times in the last 12 months: No Injured as a result of a fall in the last 12 months: No Personal Goals: Be able to walk Walk, play with the grandchildren, volunteer, read Social History 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 Dorsiflexion Active: 40 Plantar Flexion Active: 12 Muscle Strength: DorsiFlexion: 5 Plantar Flexion: 5 Inversion: 4+ Eversion: 4+ Special Tests Anterior Drawer: Negative Talar Tilt: Negative Encinas's: Negative Clements's: Negative Tinel's: Negative Squeeze: Negative Left Ankle/Foot Tenderness: Increased facilitation of plantar fascia with tenderness over medial calcaneal tubercle; increased pain with palpation to posterior tibial tendon insertion Some increased facilitation of gastroc and soleus Range of Motion: Left rom functional limits: Great Toe Extension: 38. Dorsiflexion Active: 35 Plantar Flexion Active: 20 Muscle Strength: DorsiFlexion: 4+ Plantar Flexion: 4+ Inversion: 4+ (increased pain with plantar flexion) Eversion: 5 Special Tests Anterior Drawer: Negative Talar Tilt: Negative Encinas's: Negative Clements's: Negative Tinel's: NegativeNegative Patient's scars are intact and healing well from previous surgeries Treatments: Physical Therapy Exercise Log - 01/15/19 1439 OTHER Notes Jackie 06/17 1:45-2:30 Therapeutic Exercise (33140) Intervention Piriformis stretch x30 Manual Therapy (67757) Intervention Pin/Stretch L piriformis x10 Parameters DN to L posterior tibial tendon/PF protocol (nerve on R toe) (A) Manual Therapy (01873) Intervention STM to L gastroc (A) PT Treatment Times Total Treatment Time 45 Treatment Plan: Frequency of Visits: twice per week Duration: 5 weeks Interventions: Therapeutic Exercise, Neuromuscular Re-Education, Manual Therapy, Therapeutic/ Functional Activities, Gait Training, Self Care, Hot/Cold Pack, Electrical Stimulation, Ultrasound, Iontophoresis, Vasopneumatic and dry needling. Rehab Potential: good Goals: Physical Therapy Ortho Goals: 1. Patient reports their primary goal is to be able to walk with minimal pain. 2. Patient will safely, correctly, and independently demonstrate the ability to perform a progressive HEP to achieve maximal rehabilitation potential and prevent this condition from recurring. 3. Patient will be able to walk for 45 minutes with 0-2/10 ankle/foot pain. 4. Patient will demonstrate a 10 increase in L ankle DF in order to be able to negotiate a flight of stairs. 5. Patient will demonstrate 4+/5 PF/INV ankle strength in order to be able to show proper toe off during ambulation. IE date: 01/15/2019 Progress report due: 02/19/19 Recert due: visit # 10 Patient Education provided: Education on patient diagnosis, physical therapist POC, and HEP to begin until next visit. Clinical Impression: Patient would benefit from skilled physical therapy in order to be able to increase L ankle/ foot ROM, increase strength, improve neuromuscular control, increase muscle mobility,and improve joint stabilization in order to return to normal ADLs. Jackie Goff PT State License, [id number] documented in this encounter Chief Complaint mdck,.Pt. c/o right hip pain.right hip cortisone injection Chief Complaint and Reason for Visit Chief Complaint Admit Date LESION ON FACE May 01, 2024 1:53pm LUMBAR SPINE May 10, 2024 8 :14am rm 3 May 10, 2024 8 :34am LUMBAR DDD May 26, 2024 2:54pm post op June 27, 2024 2 :02pm 2 W F/U July 11, 2024 2 :13pm LUMBAR SPINE July 26, 2024 2:50pm RT HIP PAIN August 11, 2024 7:48 am Reason for Visit Admit Date Neoplasm of uncertain behavior of skin o f face May 01, 2024 1:53pm Disc degeneration, lumbar May 10, 2024 8:14am Dysplastic spondylolisthesis May 8:14am Neoplasm of uncertain behavior of skin o f face June 15, 2024 12:53pm Benign neoplasm of skin of face June 27, 2024 2:02pm Benign neoplasm of skin of face July 11, 2024 2:13pm Disc degeneration, lumbar July 26, 2024 2:50pm Spondylolisthesis, lumbar region uar y 2024 2:50pm Chief Complaint Admit Date post op June 27, 2024 2 :02pm 2 W F/U July 11, 2024 2 :13pm LUMBAR SPINE July 26, 2024 2:50pm RT HIP PAIN August 11, 2024 7:48 am PAINFUL BUMP August 28, 2024 10: 34am 3 W FU September 19, 2024 2:1 0pm 1 M FU October 17, 2024 2:10p m Reason for Visit Admit Date Benign neoplasm of skin of face June 27, 2024 2:02pm Benign neoplasm of skin of face July 11, 2024 2:13pm Disc degeneration, lumbar July 26, 2024 2:50pm Spondylolisthesis, lumbar region Februar 2024 2:50pm Benign neoplasm of skin of face August 282024 10:34am Scar condition and fibrosis of skin [facility] 2024 10:34am Benign neoplasm of skin of face September 192024 2:10pm Scar condition and fibrosis of skin Apri l 2024 2:10pm Reason for Visit Admit Date Benign neoplasm of skin of face June 27, 2024 2:02pm Benign neoplasm of skin of face July 11, 2024 2:13pm Disc degeneration, lumbar July 26, 2024 2:50pm Spondylolisthesis, lumbar region Februar y 2024 2:50pm Benign neoplasm of skin of face August 282024 10:34am Scar condition and fibrosis of skin [facility] 2024 10:34am Benign neoplasm of skin of face September 192024 2:10pm Scar condition and fibrosis of skin Apri l 2024 2:10pm Neoplasm of uncertain behavior of skin M ay 2024 2:10pm Neoplasm of uncertain behavior of skin M ay 2024 10:16am Chief Complaint Admit Date 2 W F/U July 11, 2024 2 :13pm LUMBAR SPINE July 26, 2024 2:50pm RT HIP PAIN August 11, 2024 7:48 am PAINFUL BUMP August 28, 2024 10: 34am 3 W FU September 19, 2024 2:1 0pm 1 M FU October 17, 2024 2:10p m post op October 31, 2024 2:11p m Reason for Visit Admit Date Benign neoplasm of skin of face July 11, 2024 2:13pm Disc degeneration, lumbar July 26, 2024 2:50pm Spondylolisthesis, lumbar region Februar y 2024 2:50pm Benign neoplasm of skin of face August 282024 10:34am Scar condition and fibrosis of skin [facility] 2024 10:34am Benign neoplasm of skin of face September 192024 2:10pm Scar condition and fibrosis of skin Apri l 2024 2:10pm Neoplasm of uncertain behavior of skin M ay 2024 2:10pm Neoplasm of uncertain behavior of skin M ay 2024 10:16am Chief Complaint Admit Date 2 W F/U July 11, 2024 2 :13pm LUMBAR SPINE July 26, 2024 2:50pm RT HIP PAIN August 11, 2024 7:48 am PAINFUL BUMP August 28, 2024 10: 34am 3 W FU September 19, 2024 2:1 0pm 1 M FU October 17, 2024 2:10p m post op October 31, 2024 2:11p m 1 W FU November 07, 2024 2:09p m Reason for Visit Admit Date Benign neoplasm of skin of face July 11, 2024 2:13pm Disc degeneration, lumbar July 26, 2024 2:50pm Spondylolisthesis, lumbar region Februar y 2024 2:50pm Benign neoplasm of skin of face August 282024 10:34am Scar condition and fibrosis of skin Declan h 2024 10:34am Benign neoplasm of skin of face September 192024 2:10pm Scar condition and fibrosis of skin Apri l 2024 2:10pm Neoplasm of uncertain behavior of skin M ay 2024 2:10pm Neoplasm of uncertain behavior of skin M ay 2024 10:16am Benign neoplasm of skin of face October 2:11pm Additional Source Comments INFORMATION SOURCE (unrecogn ized section and content) DATE CREATED AUTHOR 11/28/2017 [facility] DATE CREATED AUTHOR AUTHOR'S ORGANIZ ATION 11/29/2017 [facility] DATE CREATED AUTHOR AUTHOR'S ORGANIZ ATION 01/13/2019 [facility] DATE CREATED AUTHOR AUTHOR'S ORGANIZ ATION 01/28/2019 [facility] DATE CREATED AUTHOR AUTHOR'S ORGANIZ ATION 04/09/2022 [facility] DATE CREATED AUTHOR AUTHOR'S ORGANIZ ATION 08/06/2022 [facility] DATE CREATED AUTHOR AUTHOR'S ORGANIZ ATION 11/26/2022 [facility] DATE CREATED AUTHOR AUTHOR'S ORGANIZ ATION 11/29/2022 [facility] DATE CREATED AUTHOR AUTHOR'S ORGANIZ ATION 02/17/2023 [facility] DATE CREATED AUTHOR AUTHOR'S ORGANIZ ATION 2023 [facility] DATE CREATED AUTHOR AUTHOR'S ORGANIZ ATION 09/16/2023 [facility] DATE CREATED AUTHOR AUTHOR'S ORGANIZ ATION 12/07/2024 [facility] Reason for Visit (unrecogniz ed section and content) Reason Comments Physical Therapy Tibialis posterior t endinitis, unspecified laterality Status Reason Specialty Diagnoses / Procedures Referred By Contact Referred To Contact Authorized Physical Therapy / Rehabilitation Diagnoses Tibialis posterior tendinitis, unspecified laterality Igor Khan DPM [address] [place] [address] [phone] Reason Comments Varicose Veins both legs. Wears sup pport stockings. Seen by Dr Velazquez last fall. Status Reason Specialty Diagnoses / Procedures Referred By Contact Referred To Contact Authorized Physical Therapy / Rehabilitation Diagnoses Tibialis posterior tendinitis, unspecified laterality Igor Khan, DPSilver [address] [place] [address] [facility] [address] [phone] Reason Comments Physical Therapy Reason Comments Yearly Exam Reason Comments Orders Reason Comments Results Reason Comments Medicare Annual Wellness Visit Subsequen t 1 year Reason Comments New Pain <item><item><item> Privacy Markings (unrecogniz ed section and content) Section Author: Arcelia Lawson PROHIBITION ON REDISCLOSURE OF CONFIDENTIAL INFORMATION This notice accompanies a disclosure of information concerning a client made to you with the consent of such client. Section Author: Arcelia Lawson PROHIBITION ON REDISCLOSURE OF CONFIDENTIAL INFORMATION This notice accompanies a disclosure of information concerning a client made to you with the consent of such client. Section Author: Arcelia Lawson PROHIBITION ON REDISCLOSURE OF CONFIDENTIAL INFORMATION This notice accompanies a disclosure of information concerning a client made to you with the consent of such client. Source Comments (unrecognize d section and content) In the event this informatio n is protected by the Federal Confidentiality of Alcohol and Drug Abuse Patient Records regulations: The Federal rules restrict any use of the information to criminally investigate or prosecute any alcohol or drug abuse patient.[facility] System[facility] the event this information is protected by the Federal Confidentiality of Alcohol and Drug Abuse Patient Records regulations: The Federal rules restrict any use of the information to criminally investigate or prosecute any alcohol or drug abuse patient.[facility] SystemIn the event this information is protected by the Federal Confidentiality of Alcohol and Drug Abuse Patient Records regulations: The Federal rules restrict any use of the information to criminally investigate or prosecute any alcohol or drug abuse patient.[facility] SystemIn the event this information is protected by the Federal Confidentiality of Alcohol and Drug Abuse Patient Records regulations: The Federal rules restrict any use of the information to criminally investigate or prosecute any alcohol or drug abuse patient.[facility] SystemIn the event this information is protected by the Federal Confidentiality of Alcohol and Drug Abuse Patient Records regulations: The Federal rules restrict any use of the information to criminally investigate or prosecute any alcohol or drug abuse patient.[facility] SystemIn the event this information is protected by the Federal Confidentiality of Alcohol and Drug Abuse Patient Records regulations: The Federal rules restrict any use of the information to criminally investigate or prosecute any alcohol or drug abuse patient.[facility] System[facility] the event this information is protected by the Federal Confidentiality of Alcohol and Drug Abuse Patient Records regulations: The Federal rules restrict any use of the information to criminally investigate or prosecute any alcohol or drug abuse patient.[facility] SystemIn the event this information is protected by the Federal Confidentiality of Alcohol and Drug Abuse Patient Records regulations: The Federal rules restrict any use of the information to criminally investigate or prosecute any alcohol or drug abuse patient.[facility] SystemIn the event this information is protected by the Federal Confidentiality of Alcohol and Drug Abuse Patient Records regulations: The Federal rules restrict any use of the information to criminally investigate or prosecute any alcohol or drug abuse patient.[facility] System[facility] the event this information is protected by the Federal Confidentiality of Alcohol and Drug Abuse Patient Records regulations: The Federal rules restrict any use of the information to criminally investigate or prosecute any alcohol or drug abuse patient.[facility] SystemIn the event this information is protected by the Federal Confidentiality of Alcohol and Drug Abuse Patient Records regulations: The Federal rules restrict any use of the information to criminally investigate or prosecute any alcohol or drug abuse patient.[facility] SystemIn the event this information is protected by the Federal Confidentiality of Alcohol and Drug Abuse Patient Records regulations: The Federal rules restrict any use of the information to criminally investigate or prosecute any alcohol or drug abuse patient.[facility] Care Teams (unrecognized sec tion and content) Bit Gatherer Relationship Specialty Start Date End Date Eugenia Adair MD [address] [place] [phone] Primary Staff Physician Family Medicine 03/09/21 Bit Gatherer Relationship Specialty Start Date End Date Eugenia Adair MD [address] [place] [phone] Primary Staff Physician Family Medicine 03/09/21 Bit Gatherer Relationship Specialty Start Date End Date Eugenia Adair MD [address] [place] [phone] Primary Staff Physician Family Medicine 03/09/21 Bit Gatherer Relationship Specialty Start Date End Date Eugenia Adair MD [address] [place] [address] Primary Staff Physician Family Medicine 03/09/21 Bit Gatherer Relationship Specialty Start Date End Date Eugenia Adair MD [address] [place] [phone] Primary Staff Physician Family Medicine 03/09/21 Bit Gatherer Relationship Specialty Start Date End Date Eugenia Adair MD [address] [place] [facility] [address] [place], [place] [id number] PCP - General 02/06/19 Bit Gatherer Relationship Specialty Start Date End Date Eugenia Adair MD [address] [place] [phone] Primary Staff Physician Family Medicine 03/09/21 Bit Gatherer Relationship Specialty Start Date End Date Eugenia Adair MD [address] [place] [phone] Primary Staff Physician Family Medicine 03/09/21 Bit Gatherer Relationship Specialty Start Date End Date Eugenia Adair MD [address] [place], [phone] Primary Staff Physician Family Medicine 03/09/21 Bit Gatherer Relationship Specialty Start Date End Date Florence Mendez MD Replaced by [facility] [address] [place], [place] [id number] PCP - General Internal Medicine 03/24/23 Eugenia Adair MD [address] [place] [phone] Primary Staff Physician Family Medicine 03/09/21 Bit Gatherer Relationship Specialty Start Date End Date Eugenia Adair MD [address] [place] [phone] Primary Staff Physician Family Medicine 03/09/21 Bit Gatherer Relationship Specialty Start Date End Date Eugenia Adair MD [address] [place] [address] Primary Staff Physician Family Medicine 03/09/21 Team Status: Active Member Role Status Chyna Mendez MD Primary Care Provider Active Team Status: Inactive Member Role Status Chyna Mendez MD Primary Care Provider Active St art: May 01, 2024 End: May 01, 2024 Florence Mendez MD Referring Provider Active Start : May 01, 2024 End: May 01, 2024 Dr. Maryann Mantilla MD Attending Provider Active Start: May 01, 2024 End: May 01, 2024 Team Status: Inactive Member Role Status Chyna Mendez MD Primary Care Provider Active St art: May 10, 2024 End: May 10, 2024 Florence Mendez MD Referring Provider Active Start : May 10, 2024 End: May 10, 2024 SIOBHAN Keita Attending Provider Active Star t: May 10, 2024 End: May 10, 2024 Team Status: Inactive Member Role Status Chyna Mendez MD Primary Care Provider Active St art: May 10, 2024 End: May 10, 2024 Dr. Yemi Koehler MD Attending Provider Active S tart: May 10, 2024 End: May 10, 2024 Team Status: Inactive Member Role Status Chyna Mendez MD Primary Care Provider Active St art: May 26, 2024 End: May 26, 2024 SIOBHAN Keita Attending Provider Active Star t: May 26, 2024 End: May 26, 2024 SIOBHAN Keita Referring Provider Active Star t: May 26, 2024 End: May 26, 2024 Team Status: Inactive Member Role Status Chyna Mendez MD Primary Care Provider Active St art: June 15, 2024 End: June 15, 2024 Dr. Maryann Mantilla MD Attending Provider Active Start: June 15, 2024 End: June 15, 2024 Dr. Maryann Mantilla MD Referring Provider Active Start: June 15, 2024 End: June 15, 2024 Team Status: Active Member Role Status Chyna Mendez MD Primary Care Provider Active St art: June 15, 2024 Dr. Maryann Mantilla MD Attending Provider Active Start: June 15, 2024 Dr. Maryann Mantilla MD Referring Provider Active Start: June 15, 2024 Dr. Maryann Mantilla MD Other Provider Active St art: June 15, 2024 Team Status: Inactive Member Role Status Chyna Mendez MD Primary Care Provider Active St art: June 27, 2024 End: June 27, 2024 Florence Mendez MD Referring Provider Active Start : June 27, 2024 End: June 27, 2024 Dr. Maryann Mantilla MD Attending Provider Active Start: June 27, 2024 End: June 27, 2024 Team Status: Inactive Member Role Status Chyna Mendez MD Primary Care Provider Active St art: July 11, 2024 End: July 11, 2024 Florence Mendez MD Referring Provider Active Start : July 11, 2024 End: July 11, 2024 Dr. Maryann Mantilla MD Attending Provider Active Start: July 11, 2024 End: July 11, 2024 Team Status: Inactive Member Role Status Chyna Mendez MD Primary Care Provider Active St art: July 26, 2024 End: July 26, 2024 Florence Mendez MD Referring Provider Active Start : July 26, 2024 End: July 26, 2024 SIOBHAN Keita Attending Provider Active Star t: July 26, 2024 End: July 26, 2024 Team Status: Inactive Member Role Status Chyna Mendez MD Primary Care Provider Active St art: August 11, 2024 End: August 11, 2024 Florence Mendez MD Attending Provider Active Start : August 11, 2024 End: August 11, 2024 Florence Mendez MD Referring Provider Active Start : August 11, 2024 End: August 11, 2024 Team Status: Inactive Member Role Status Chyna Mendez MD Primary Care Provider Active St art: August 28, 2024 End: August 28, 2024 Florence Mendez MD Referring Provider Active Start : August 28, 2024 End: August 28, 2024 Dr. Maryann Mantilla MD Attending Provider Active Start: August 28, 2024 End: August 28, 2024 Team Status: Inactive Member Role Status Chyna Mendez MD Primary Care Provider Active St art: September 19, 2024 End: September 19, 2024 Florence Mendez MD Referring Provider Active Start : September 19, 2024 End: September 19, 2024 Dr. Maryann Mantilla MD Attending Provider Active Start: September 19, 2024 End: September 19, 2024 Team Status: Inactive Member Role Status Chyna Mendez MD Primary Care Provider Active St art: October 17, 2024 End: October 17, 2024 Florence Mendez MD Referring Provider Active Start : October 17, 2024 End: October 17, 2024 Dr. Maryann Mantilla MD Attending Provider Active Start: October 17, 2024 End: October 17, 2024 Team Status: Inactive Member Role Status Chyna Mendez MD Primary Care Provider Active St art: October 24, 2024 End: October 24, 2024 Dr. Maryann Mantilla MD Attending Provider Active Start: October 24, 2024 End: October 24, 2024 Dr. Maryann Mantilla MD Referring Provider Active Start: October 24, 2024 End: October 24, 2024 Team Status: Active Member Role Status Chyna Mendez MD Primary Care Provider Active St art: October 24, 2024 Dr. Maryann Mantilla MD Attending Provider Active Start: October 24, 2024 Dr. Maryann Mantilla MD Referring Provider Active Start: October 24, 2024 Dr. Maryann Mantilla MD Other Provider Active St art: October 24, 2024 Team Status: Inactive Member Role Status Chyna Mendez MD Primary Care Provider Active St art: October 31, 2024 End: October 31, 2024 Florence Mendez MD Referring Provider Active Start : October 31, 2024 End: October 31, 2024 Dr. Maryann Mantilla MD Attending Provider Active Start: October 31, 2024 End: October 31, 2024 Team Status: Inactive Member Role Status Chyna Mendez MD Primary Care Provider Active St art: November 07, 2024 End: November 07, 2024 Florence Mendez MD Referring Provider Active Start : November 07, 2024 End: November 07, 2024 Dr. Maryann Mantilla MD Attending Provider Active Start: November 07, 2024 End: November 07, 2024 Goals (unrecognized section and content) Goals may be documented in a n alternate section FOR RECORDS PERTAINING TO PATIENTS WHO ARE OR HAVE BEEN ENROLLED IN A CHEMICAL DEPENDENCY/SUBSTANCEABUSE PROGRAM, SOME INFORMATION MAY BE OMITTED. This clinical summary was aggregated from multiple sources. Caution should be exercised in using it in the provision of clinical care. This summary normalizes information from multiple sources, and as a consequence, information in this document may materially change the coding, format and clinical context of patient data. In addition, data may be omitted in some cases. CLINICAL DECISIONS SHOULD BE BASED ON THE PRIMARY CLINICAL RECORDS. [email or web address]. provides no warranty or guarantee of the accuracy or completeness of information in this document.
== END | disposition home or self-care (01) ==
LOC: MFPLAB 14:41
PROVIDERS: PCP Family Medicine; Referring Provider Family Medicine; Visit Provider Family Medicine
DX: Z13.1 Encounter for screening for diabetes mellitus (principal); M79.89 Other specified soft tissue disorders; Z13.220 Encounter for screening for lipoid disorders
CPT/HCPCS: 36415; 80053; 80061; 82306; 85025

== ENCOUNTER → 2025-01-11 | Outpatient (CLI) | payer MEDICARE, OTHER, SELFPAY ==
--- NOTE | 2025-01-11 14:34 | ECHOD_ITS ---
Reason For Study Reason For Study: MVP Procedure This was a 2D Doppler, Color Flow transthoracic echocardiogram. Exam performed in department. Left Ventricle Normal LV size. Left ventricular systolic function is normal. The left ventricular ejection fraction is 55 %. No regional wall motion abnormalities noted. Right Ventricle Normal RV size. Normal systolic function. Atria Normal left atrium. Normal right atrium. Mitral Valve Normal mitral valve. Mild (1+) eccentric mitral valve insufficiency. Tricuspid Valve Normal tricuspid valve. Aortic Valve Trisinus/trileaflet aortic valve. Pulmonic Valve Normal pulmonic valve. Great Vessels Normal aortic root. The pulmonary artery is normal size. Inferior vena cava collapse with sniff. Pericardium/Pleural No pericardial effusion. MMode/2D Measurements & Calculations LVIDd: 4.7 cm IVSd: 1.1 cm LVOT diam: 2.0 cm LVIDs: 3.3 cm LVPWd: 1.0 cm LVOT area: 3.0 cm2 RVDd: 2.8 cm FS: 29.1 % Ao root diam: 3.3 cm LAV(MOD-bp): 56.5 ml LVAd ap4: 28.7 cm2 LAV(MOD-bp) Indexed: 31.1 ml/m2 LVLd ap4: 7.9 cm LAV(MOD-sp2): 63.3 ml EDV(MOD-sp4): 87.5 ml LAV(MOD-sp4): 44.2 ml EDV(sp4-el): 88.7 ml LVAs ap4: 18.4 cm2 LVLs ap4: 6.7 cm ESV(MOD-sp4): 43.1 ml ESV(sp4-el): 43.0 ml EF(MOD-sp4): 50.8 % EF(sp4-el): 51.6 % SV(MOD-sp4): 44.5 ml SV(sp4-el): 45.8 ml LA A4 area: 16.2 cm2 SI(MOD-sp4): 24.4 ml/m2 LA dimension(2D): 4.3 cm RA A4 area: 13.7 cm2 Time Measurements MV dec time: 0.15 sec Doppler Measurements & Calculations MV E max jc: 74.6 cm/sec Lat Peak E' Jc: 11.1 cm/sec Med Peak E' Jc: 6.9 cm/sec MV A max jc: 86.2 cm/sec E/E' lat: 6.7 E/E' med: 10.8 MV E/A: 0.87 MV V2 max: 93.8 cm/sec Ao V2 max: 151.5 cm/sec MV max P.5 mmHg MV dec slope: 522.0 cm/sec2 Ao max P.2 mmHg MV V2 mean: 62.5 cm/sec Ao V2 mean: 100.3 cm/sec MV mean P.7 mmHg Ao mean P.6 mmHg MV V2 VTI: 27.8 cm Ao V2 VTI: 35.9 cm AV (velocity ratio): 0.85 MVA(VTI): 3.3 cm2 COURTNEY(I,D): 2.5 cm2 COURTNEY(V,D): 2.6 cm2 LV V1 max: 129.1 cm/sec SV(LVOT): 91.5 ml PA V2 max: 122.5 cm/sec LV V1 max P.7 mmHg PA V2 mean: 97.5 cm/sec LV V1 mean P.5 mmHg LV V1 mean: 87.6 cm/sec LV V1 VTI: 30.5 cm ECHO/Echo Complete Interpretation Summary The left ventricular ejection fraction is 55 %. Left ventricular systolic function is normal. Mild (1+) eccentric mitral valve insufficiency. Normal LV size. Ordering Physician: Florence Looney Referring Physician: Florence Looney Performed By: Claire Gotti RCS
--- OUTSIDE RECORDS SUMMARY | 2025-01-11 15:18 | XMS RPT_ITS | CCD ---
Author Organization [facility] [facility] Care Team Providers Care Facility Examiner Name Role Phone Eugenia Adair Unavailable Craske, W. Don Unavailable Pedro Villatoro Unavailable [phone] Craske, W Logan Unavailable Unavailable Craske, W [...] Don III Unavailable Pedro Villatoro Sr. Unavailable Eugneia Adair Primary Care Provider [phone] Luisske, W. Don Unavailable Pedro Villatoro Unavailable [phone] IGOR KHAN Admitting Unavaila ble THERESA, JACKIE Attending Unavailable IGOR KHAN Referring Unavaila ble MANA, EUGENIA MIMS Primary Care Unavailable IGOR KHAN Admitting Unavaila ble THERESA, JACKIE Attending Unavailable IGOR KHAN Referring Unavaila ble MANA, EUGENIA MIMS Primary Care Unavailable IGOR KHAN Admitting Unavaila ble WARLOVE, LEENA Attending Unavailable IGOR KHAN Referring Unavaila ble MANA, EUGENIA MIMS Primary Care Unavailable IGOR KHAN Admitting Unavaila ble THERESA, JACKIE Attending Unavailable IGOR KHAN Referring Unavaila ble MANA, EUGENIA MIMS Primary Care Unavailable Eugenia Adair Unavailable Unavailable Unavailable Eugenia Adair Unavailable Yoan Leos Unavailable Unavailabl Eugenia Fitzpatrick MD Unavailable Unavailable Unavailable Chadwick Mckeon Unavailable Unavailable Mana, Dr. Eugenia Mims Attending Unavailab claritza [...] Referring Unavail able AVERY BENTON Referring Unavailable TESTAVERY WASHINGTON Attending Unavailable EUGENIA ADAIR Primary Care Unavailable CHADWICK MCKEON Attending Unavailable EUGENIA ADAIR Primary Care Unavailable JAZMYN KAPADIA Attending Unavailable Aayush ARRIOLA, Florence Primary Care Provider Florence Mendez MD Referring Provider Dr. Maryann Mantilla MD Attending Provider Emmy Smith Attending Provider Zakia ARRIOLA, Dr. Bragg Attending Provider Emmy Smith Referring Provider [phone] Annalee ARRIOLA, Dr. Wolf Referring Provider Dr. Maryann Mantilla MD Other Provider Florence Mendez MD Attending Provider Aayush ARRIOLA, Florence Primary Care Provider Aayush ARRIOLA, Florence Referring Provider Dr. Maryann Mantilla MD Attending Provider Emmy Smith Attending Provider [phone] Maryann Mantilla MD Referring Provider Dr. Maryann Mantilla MD Other Provider Aayush ARRIOLA, Florence Primary Care Provider Aayush ARRIOLA, Florence Referring Provider Dr. Maryann Mantilla MD Attending Provider Aayush ARRIOLA, Florence Primary Care Provider Aayush ARRIOLA, Florence Referring Provider Dr. Maryann Mantilla MD Attending Provider Florence Mendez MD Attending Provider Florence Mendez Attending Unavailable Aayush, Ivetteon Referring Unavailable Aayush, Chalon Primary Care Unavailable Chary, Emmy Referring Unavailable Chary, Emmy Attending Unavailable Aayush, Chalon Primary Care Unavailable Aayush, Chalon Attending Unavailable Aayush, Chalon Primary Care Unavailable Aayush, Chalon Referring Unavailable Aayush, Chalon Primary Care Unavailable Ghazoul, Maryann Consulting Unavailable Ghazoul, Maryann Referring Unavailable Ghazoul, Maryann Attending Unavailable Aayush, Chalon Primary Care Unavailable Ghazoul, Maryann Attending Unavailable Aayush, Chalon Referring Unavailable Aayush, Chalon Primary Care Unavailable Aayush, Chalon Referring Unavailable Ghazoul, Maryann Attending Unavailable Aayush, Chalon Attending Unavailable Aayush, Chalon Referring Unavailable Aayush, Chalon Primary Care Unavailable Aayush, Chalon Referring Unavailable Aayush, Chalon Primary Care Unavailable Aayush, Chalon Attending Unavailable Aayush, Chalon Primary Care Unavailable Aayush, Chalon Referring Unavailable Ghazoul, Maryann Attending Unavailable Chary, Emmy Attending Unavailable Aayush, Chalon Primary Care Unavailable Aayush, Chalon Referring Unavailable Aayush, Chalon Primary Care Unavailable Ghazoul, Maryann Referring Unavailable Ghazoul, Maryann Attending Unavailable Aayush, Chalon Primary Care Unavailable Ghazoul, Maryann Referring Unavailable Ghazoul, Maryann Attending Unavailable Aayush, Chalon Attending Unavailable Aayush, Chalon Referring Unavailable Aayush, Chalon Primary Care Unavailable Aayush, Chalon Primary Care Unavailable Aayush, Chalon Referring Unavailable Ghazoul, Maryann Attending Unavailable Aayush, Chalon Primary Care Unavailable Ghazoul, Maryann Attending Unavailable Aayush, Chalon Referring Unavailable Aayush, Chalon Primary Care Unavailable Aayush, Chalon Referring Unavailable Ghazoul, Maryann Attending Unavailable Aayush, Chalon Primary Care Unavailable Aayush, Chalon Referring Unavailable Ghazoul, Maryann Attending Unavailable Aayush, Chalon Referring Unavailable Aayush, Chalon Primary Care Unavailable Ghazoul, Maryann Attending Unavailable Chary, Emmy Attending Unavailable Aayush, Chalon Primary Care Unavailable Aayush, Chalon Referring Unavailable Aayush, Chalon Primary Care Unavailable Zakia, Jewett Attending Unavailable Aayush, Chalon Primary Care Unavailable Ghazoul, Maryann Consulting Unavailable Ghazoul, Maryann Referring Unavailable Ghazoul, Maryann Attending Unavailable Allergies Allergy Classification Reported Allergen(s) Allergy Type Date of Onset Reaction(s) Facility (20 sources) OTHER; Translations: [OTHER] Propensity to adverse reactions 11-10-200 5 Other (See Comments), Itching [facility] Work Phone: (8 sources) Simvastatin; Translations: [Zocor] Drug Allergy 3 Other -[facility] Work Phone: (17 sources) beta-Blocking agent; Translations: [BETA-BLOCKERS (BETA-ADRENERGI C BLOCKING AGTS)] Propensity to adverse reactions to drug 3 Contraindicatio n-Medical Surgical, Other [facility] Work Phone: (17 sources) cow milk allergenic extract; Translations: [MILK] Drug Allergy 6 Diarrhea [facility] Work Phone: (17 sources) Tree and shrub pollen; Translations: [TREE AND SHRUB POLLEN] Drug Allergy 8 Other: See Comments, [facility] (13 sources) Cat Hair Extract; Translations: [CAT HAIR EXTRACT] Propensity to adverse reactions 5 Itching [facility] Work Phone: (12 sources) grasses [Other] Propensity to adverse reactions 6 Itching [facility] Work Phone: (12 sources) hops food [Other] Propensity to adverse reactions 6 [facility] Work Phone: (12 sources) pollens [Other] Propensity to adverse reactions 5 [facility] Work Phone: (3 sources) Simvastatin; Translations: [SIMVASTATIN] Drug Allergy 3 [facility] Medications Current Medications Medication Drug Class(es) [...] oral solution (2 sources) alpha-Adrenergic Agonist, Uncompetitive Y-bzliuj-Y-aspartat e Receptor Antagonist, Sigma-1 Agonist Start: 08-05-2022 take 10 mL by mouth every six hours brompheniramine/p seudoephedrine/de xtromethorphan [id number]/5 mL oral syrup ; 5 milliliter(s) orally every 4-6 hours PRN cough Quantity: 120 Refills: 0 Ordered: 05-Aug-2022 Chadwick Mckeon Start: 05-Aug-2022 Generic Substitution Allowed Comments: May cause drowsiness. Alcohol may intensify this effect. Use care when operating dangerous machinery.Obtain medical advice before taking any non-prescription drugs as some may affect the action of this medication. Start: 08-19-2020 take 5 mL by mouth every four to six hours brompheniramine/pseudoephedrine/dextrome thorphan [id number]/5 mL oral syrup ; 5 milliliter(s) orally [...] Quantity: 0 Refills: 0 Ordered: 07-May-2020 Jesica Mosie Generic Substitution Allowed cholecalciferol 0.025 mg oral capsule (6 sources) Vitamin D Start: 2023 take 1 [...] capsule (8 sources) fish oil concent rate (Austin-3) 120-180 mg capsule Take by mouth. 0 [...] mouth. 0 Active take 1 capsule by nh ut once daily levothyroxine 50 mcg (0.05 mg) [...] 0 Active minoxidil 2.5 mg oral tablet (6 sources) Arteriolar Vasodilator Start: take 1 tablet by mouth once daily Minoxidil 2.5 mg tablet Active 2.5 mg PO DAILY May 10, 2024 1:00am montelukast 10 mg oral tablet (20 sources) Leukotriene Receptor Antagonist Start: take 1 tablet by mouth once daily [...] mg. vitamin e 90 mg oral capsule (6 sources) Start: 06-15-2024 take 1 capsule by [...] times daily. cephalexin 500 mg oral capsule (16 sources) Cephalosporin Antibacterial Start: End: take 1 capsule by mouth twice daily Cephalexin 500 mg capsule Discontinued 500 mg PO TWICE A DAY 10 5 0 October 24, 2024 12:00am October 31, 2024 2:17pm Start: 06-15-2024 End: 07-11-2024 take 1 capsule by mouth twice daily Cephalexin 500 mg capsule Discontinued 500 mg PO TWICE A DAY 14 0 June 27, 2024 1:00am July 11, 2024 3:41pm COMPOUNDED PRESCRIPTION (12 sources) Start: 10-07-2009 COMPOUNDED PRESCRIPTION eye drop for dry eyes - two drops in each eye once a day 0 10/07/2009 Active Comment on above: eye drop for dry eye s - two drops in each eye once a day [id number] 0.3 ml EPINEPHrine 1 mg/ml auto-injector (12 sources) alpha-Adrenergic Agonist, beta-Adrenergic Agonist, Catecholamine Start: 02-13-2014 EPINEPHrine (EPIPEN) 0.3 mg/0.3 mL (1:1,000) atIn Inject 0.3 mL intramuscularly as needed (for allergic reaction.Seek emergent medical care immediately after use.Disp:one 2-packw/product trainer). 1 Each 1 02/13/2014 Active Comment on above: Inject 0.3 mL intram uscularly as needed (for allergic reaction.Seek emergent medical care immediately after use.Disp:one 2-packw/product trainer). fluticasone propionate 0.05 mg/actuat metered dose nasal spray (20 sources) Corticosteroid Start: 08-08-2013 take 1-2 spray(s) nasal route once daily fluticasone 50 mcg/actuation nasal spray Indications: Allergic rhinitis, cause unspecified Use 1-2 Sprays in each nostril once daily. 3 Bottle 3 08/08/2013 Active fluticasone 50 m cg/inh nasal spray ; 1 spray(s) nasal once a day Quantity: 0 Refills: 0 [facility]May-[facility] Substitution Allowed Comment on above: Use 1-2 Sprays in ea ch nostril once daily. ipratropium bromide 0.021 mg/actuat metered dose nasal spray (12 sources) Anticholinergic Start: 12-16-19 11 take 2 spray(s) nasal route four times daily as needed Ipratropium [place] (ATROVENT) 0.03 % NASAL nasal spray Use [...] [Headache, unspecified] Onset: 3 Heart valve disorders (10 sources) Mitral valve prolapse; Translations: [Mitral valve disorders] Onset: 3 11-25-2022 Chronic Immunizations and screening for infectious disease (8 sources) Immunization due; Translations: [Need for prophylactic vaccination and inoculation against unspecified single disease] Episodic Neoplasms of unspecified nature or uncertain behavior (20 sources) Neoplasm of uncertain behavior of skin of face; Translations: [Neoplasm of uncertain behavior of skin] Onset: 5 05-01-2024 Episodic Other acquired deformities (11 sources) Lumbar spondylolisthesis; Translations: [Spondylolisthesis, lumbar region] [...] conditions (not mental disorders or infectious disease) (11 sources) Patient encounter status; Translations: [Encounter for screening mammogram for malignant neoplasm of breast] Onset: 2 Episodic Other skin disorders (1 source) Foot callus; Translations: [Corns and callosities] 02-10-2023 Episodic Other skin disorders (16 sources) Scar conditions and fibrosis of skin; [...] unspecified; Translations: [Low back pain, unspecified] Onset: 5 Past or Other Problems Problem Classification Problem [...] Test Name Value Interpretation Reference Range Facility Absolute lymphocyte countOrd ered By: Florence Mendez on 12-17-2024 Lymphocytes Auto (Unsp spec) [#/Vol] 1.25 10*3/uL 0.83-4.51 [facility] Absolute neutrophil countOrd ered By: Florence Mendez on 12-17-2024 Neutrophils (Bld) [#/Vol] 2.7 10*3/uL 2.0-7.7 [facility] Anion gap in Serum or Plasma Ordered By: Florence Mendez on 12-17-2024 Anion gap [Moles/Vol] 12 mmol/L 5-15 [facility] Automated lymphocyte count a s percentage of total leukocytesOrdered By: Florence Mendez on 12-17-2024 Lymphocytes/100 WBC Auto (Unsp spec) 26.6 % 19- [facility] BUN/creatinine ratioOrdered By: Florence Mendez on 12-17-2024 Urea nitrogen/Creatinine [Mass ratio] 41.5 mg/mg High 10-20 [facility] Basophil percentageOrdered B y: Florence Mendez on 12-17-2024 Basophils/100 WBC (Bld) 0.6 % 0-1 [facility] Bilirubin, totalOrdered By: Florence Mendez on 12-17-2024 Bilirubin [Mass/Vol] 0.43 mg/dL 0.00-1.30 [facility] CBC W/Diff, Automatedon 12-04 Absolute Lymph 1.25 X10 3/uL Normal 0.83-4.51 [facility] Comment on above: Order Comment: Order Date: 12/17/24Order Info: [id number] - CBCD Performed By: #### L 100.0100, L500.4100, L500.4050 ####[facility] [address] [place], [address] Absolute Neut 2.7 X10 3/uL Normal 2.0-7.7 [facility] Comment on above: Order Comment: Order Date: 12/17/24Order Info: [id number] - CBCD Performed By: #### L 100.0100, L500.4100, L500.4050 ####[facility] [address] [place], [address] Basophils/100 WBC (Bld) 0.6 % Normal 0-1 [facility] Comment on above: Order Comment: Order Date: 12/17/24Order Info: [id number] - CBCD Performed By: #### L 100.0100, L500.4100, L500.4050 ####[facility] [address] [place], [address] Eosinophils/100 WBC (Bld) 3.0 % Normal 0-5 [facility] Comment on above: Order Comment: Order Date: 12/17/24Order Info: [id number] - CBCD Performed By: #### L 100.0100, L500.4100, L500.4050 ####[facility] [address] [place], [address] Erythrocyte distribution width (RBC) [Ratio] 12.4 % Normal 11.6-14.6 [facility] Comment on above: Order Comment: Order Date: 12/17/24Order Info: [id number] - CBCD Performed By: #### L 100.0100, L500.4100, L500.4050 ####[facility] [address] [place], [address] Hematocrit (Bld) [Volume fraction] 39.2 % Normal 37-47 [facility] Comment on above: Order Comment: Order Date: 12/17/24Order Info: [id number] - CBCD Performed By: #### L 100.0100, L500.4100, L500.4050 ####[facility] [address] [place], [address] Hemoglobin (Bld) [Mass/Vol] 12.8 g/dL Normal 12.0-15.0 [facility] Comment on above: Order Comment: Order Date: 12/17/24Order Info: [id number]- - CBCD Performed By: #### L 100.0100, L500.4100, L500.4050 ####[facility] [address] [place], [address] IG% 0.200 Normal 0.0-0.9 [facility] Comment on above: Order Comment: Order Date: 12/17/24Order Info: [id number]- - CBCD Result Comment: IG% - Immature Granulocytes (promyelocytes, myelocytes and metamyelocytes) > 1% indicates that a LEFT SHIFT is Present. Performed By: #### L 100.0100, L500.4100, L500.4050 ####[facility] [address] [place], [address] Lymphocytes/100 WBC (Bld) 26.6 % Normal 19-41 [facility] Comment on above: Order Comment: Order Date: 12/17/24Order Info: [id number] - CBCD Performed By: #### L 100.0100, L500.4100, L500.4050 ####[facility] [address] [place], [address] MCH (RBC) [Entitic mass] 27.5 pg Normal 27.0-32.0 [facility] Comment on above: Order Comment: Order Date: 12/17/24Order Info: [id number] - CBCD Performed By: #### L 100.0100, L500.4100, L500.4050 ####[facility] [address] [place], [address] MCHC (RBC) [Mass/Vol] 32.7 g/dL Normal 32-36 [facility] Comment on above: Order Comment: Order Date: 12/17/24Order Info: [id number] - CBCD Performed By: #### L 100.0100, L500.4100, L500.4050 ####[facility] [address] [place], [address] MCV (RBC) [Entitic vol] 84.3 fL Normal 81-99 [facility] Comment on above: Order Comment: Order Date: 12/17/24Order Info: [id number] - CBCD Performed By: #### L 100.0100, L500.4100, L500.4050 ####[facility] [address] [place], [address] Monocytes/100 WBC (Bld) 12.1 % High 0-10 [facility] Comment on above: Order Comment: Order Date: 12/17/24Order Info: [id number] - CBCD Performed By: #### L 100.0100, L500.4100, L500.4050 ####[facility] [address] [place], [address] Neutrophils/100 WBC (Bld) 57.5 % Normal 47-70 [facility] Comment on above: Order Comment: Order Date: 12/17/24Order Info: [id number] - CBCD Performed By: #### L 100.0100, L500.4100, L500.4050 ####[facility] [address] [place], [address] Nucleated RBC (Bld) [#/Vol] 0 10*3/uL Normal 0-5 [facility] Comment on above: Order Comment: Order Date: 12/17/24Order Info: [id number] - CBCD Performed By: #### L 100.0100, L500.4100, L500.4050 ####[facility] [address] [place], [address] Platelet mean volume (Bld) [Entitic vol] 11.5 fL Normal 6.2-12.0 [facility] Comment on above: Order Comment: Order Date: 12/17/24Order Info: [id number] - CBCD Performed By: #### L 100.0100, L500.4100, L500.4050 ####[facility] [address] [place], [address] Platelets (Bld) [#/Vol] 207 10*3/uL Normal 150-450 [facility] Comment on above: Order Comment: Order Date: 12/17/24Order Info: [id number] - CBCD Performed By: #### L 100.0100, L500.4100, L500.4050 ####[facility] [address] [place], [address] RBC (Bld) [#/Vol] 4.65 10*6/uL Normal 4.2-5.4 [facility] Comment on above: Order Comment: Order Date: 12/17/24Order Info: [id number] - CBCD Performed By: #### L 100.0100, L500.4100, L500.4050 ####[facility] [address] [place], [address] RDW SD 37.6 fl Normal 35.1-43.9 [facility] Comment on above: Order Comment: Order Date: 12/17/24Order Info: [id number] - CBCD Performed By: #### L 100.0100, L500.4100, L500.4050 ####[facility] [address] [place], [address] WBC (Bld) [#/Vol] 4.7 10*3/uL Normal 4.4-11.0 [facility] Comment on above: Order Comment: Order Date: 12/17/24Order Info: [id number] - CBCD Performed By: #### L 100.0100, L500.4100, L500.4050 ####[facility] [address] [place], [address] Calculated very low density lipoprotein (VLDL) cholesterol measurementOrdered By: Florence Mendez on 12-17-2024 Calculated very low density lipoprotein (VLDL) cholesterol measurement 28 mg/dL 5-40 [facility] Carbon dioxide, total [Moles /volume] in Central venous bloodOrdered By: Florence Mendez on 12-17-2024 CO2 [Moles/Vol] 24.3 mmol/L 21.0-32.0 [facility] Chloride assayOrdered By: Aretha Mendez on 12-17-2024 Chloride [Moles/Vol] 105 mmol/L 98-108 [facility] Comprehensive Metabolic Prof ilon 12-17-2024 Albumin [Mass/Vol] 4.3 g/dL Normal 3.4-4.8 [facility] Comment on above: Order Comment: Order Date: 12/17/24Order Info: [id number] - CMPOrder Info: [id number] - LIPID Performed By: #### L 100.0100, L500.4100, L500.4050 ####[facility] [address] [place], [address] Albumin/Globulin [Mass ratio] 1.6 {ratio} Normal 0.9-2.4 [facility] Comment on above: Order Comment: Order Date: 12/17/24Order Info: [id number] - CMPOrder Info: [id number] - LIPID Performed By: #### L 100.0100, L500.4100, L500.4050 ####[facility] [address] [place], [address] ALK PHOS 84 U/L Normal 35-104 [facility] Comment on above: Order Comment: Order Date: 12/17/24Order Info: [id number] - CMPOrder Info: [id number] - LIPID Performed By: #### L 100.0100, L500.4100, L500.4050 ####[facility] [address] [place], [address] ALT [Catalytic activity/Vol] 18 U/L Normal <=34 [facility] Comment on above: Order Comment: Order Date: 12/17/24Order Info: [id number] - CMPOrder Info: [id number] - LIPID Performed By: #### L 100.0100, L500.4100, L500.4050 ####[facility] [address] [place], [address] AST [Catalytic activity/Vol] 26 U/L Normal <=31 [facility] Comment on above: Order Comment: Order Date: 12/17/24Order Info: [id number] - CMPOrder Info: [id number] - LIPID Performed By: #### L 100.0100, L500.4100, L500.4050 ####[facility] [address] [place], [address] Bilirubin [Mass/Vol] 0.43 mg/dL Normal 0.00-1.30 [facility] Comment on above: Order Comment: Order Date: 12/17/24Order Info: [id number] - CMPOrder Info: [id number] - LIPID Performed By: #### L 100.0100, L500.4100, L500.4050 ####[facility] [address] [place], [address] BUN/CRE 41.5 RATIO High 10-20 [facility] Comment on above: Order Comment: Order Date: 12/17/24Order Info: [id number] - CMPOrder Info: [id number] - LIPID Performed By: #### L 100.0100, L500.4100, L500.4050 ####[facility] [address] [place], [address] Calcium [Mass/Vol] 9.5 mg/dL Normal 7.6-11.0 [facility] Comment on above: Order Comment: Order Date: 12/17/24Order Info: [id number] - CMPOrder Info: [id number] - LIPID Performed By: #### L 100.0100, L500.4100, L500.4050 ####[facility] [address] [place], [address] Chloride [Moles/Vol] 105 mmol/L Normal 98-108 [facility] Comment on above: Order Comment: Order Date: 12/17/24Order Info: [id number] - CMPOrder Info: [id number] - LIPID Performed By: #### L 100.0100, L500.4100, L500.4050 ####[facility] [address] [place], [address] CO2 [Moles/Vol] 24.3 mmol/L Normal 21.0-32.0 [facility] Comment on above: Order Comment: Order Date: 12/17/24Order Info: [id number]- - CMPOrder Info: [id number] - LIPID Performed By: #### L 100.0100, L500.4100, L500.4050 ####[facility] [address] [place], [address] Creatinine [Mass/Vol] 0.71 mg/dL Normal 0.70-1.20 [facility] Comment on above: Order Comment: Order Date: 12/17/24Order Info: [id number] - CMPOrder Info: [id number] - LIPID Performed By: #### L 100.0100, L500.4100, L500.4050 ####[facility] [address] [place], [address] GAP 12 Normal 5-15 [facility] Comment on above: Order Comment: Order Date: 12/17/24Order Info: [id number] - CMPOrder Info: [id number] - LIPID Performed By: #### L 100.0100, L500.4100, L500.4050 ####[facility] [address] [place], [address] GFR/1.73 sq M.predicted among non-blacks MDRD (S/P/Bld) [Vol rate/Area] 93 mL/min/{1.73_m2} Normal >60 [facility] Comment on above: Order Comment: Order Date: 12/17/24Order Info: [id number] - CMPOrder Info: [id number] - LIPID Result Comment: mL/m in/1.73m2 CKD-EPI Creatinine Equation (2020) Performed By: #### L 100.0100, L500.4100, L500.4050 ####[facility] [address] [place], [address] Globulin (S) [Mass/Vol] 2.7 g/dL Normal 2.2-4.2 [facility] Comment on above: Order Comment: Order Date: 12/17/24Order Info: [id number] - CMPOrder Info: [id number] - LIPID Performed By: #### L 100.0100, L500.4100, L500.4050 ####[facility] [address] [place], [address] Glucose [Mass/Vol] 85 mg/dL Normal 70-99 [facility] Comment on above: Order Comment: Order Date: 12/17/24Order Info: [id number]- - CMPOrder Info: [id number] - LIPID Performed By: #### L 100.0100, L500.4100, L500.4050 ####[facility] [address] [place], [address] Potassium [Moles/Vol] 4.1 mmol/L Normal 3.3-5.1 [facility] Comment on above: Order Comment: Order Date: 12/17/24Order Info: [id number] - CMPOrder Info: [id number] - LIPID Performed By: #### L 100.0100, L500.4100, L500.4050 ####[facility] [address] [place], [address] Sodium [Moles/Vol] 140 mmol/L Normal 133-145 [facility] Comment on above: Order Comment: Order Date: 12/17/24Order Info: [id number] - CMPOrder Info: [id number] - LIPID Performed By: #### L 100.0100, L500.4100, L500.4050 ####[facility] [address] [place], [address] T PROT 6.9 g/dL Normal 5.9-8.4 [facility] Comment on above: Order Comment: Order Date: 12/17/24Order Info: [id number] - CMPOrder Info: [id number] - LIPID Performed By: #### L 100.0100, L500.4100, L500.4050 ####[facility] [address] [place], [address] Urea nitrogen [Mass/Vol] 29 mg/dL High 4-19 [facility] Comment on above: Order Comment: Order Date: 12/17/24Order Info: [id number] - CMPOrder Info: [id number] - LIPID Performed By: #### L 100.0100, L500.4100, L500.4050 ####[facility] [address] [place], [address] Eosinophil percentageOrdered By: Florence Mendez on 12-17-2024 Eosinophils/100 WBC (Bld) 3.0 % 0-5 [facility] Erythrocyte distribution wid th ratioOrdered By: Florence Mendez on 12-17-2024 Erythrocyte distribution width (RBC) [Ratio] 12.4 % 11.6-14.6 [facility] Erythrocyte distribution wid th standard deviationOrdered By: Florence Mendez on 12-17-2024 Erythrocyte distribution width (RBC) [Ratio] 37.6 fl 35.1-43.9 [facility] Glomerular filtration rate ( GFR) estimation/1.73 sq m using serum, plasma, or whole bOrdered By: Florence Mendez on 12-17-2024 GFR/1.73 sq M.predicted among non-blacks MDRD (S/P/Bld) [Vol rate/Area] 93 mL/min/{1.73_m2} >60 [facility] Comment on above: mL/min/1.73m2 CKD-EP I Creatinine Equation (2020) Hematocrit Auto (Bld) [Volum e fraction]Ordered By: Florence Mendez on 12-17-2024 Hematocrit (Bld) [Volume fraction] 39.2 % 37-47 [facility] Hemoglobin measurementOrdere d By: Florence Mendez on 12-17-2024 Hemoglobin (Bld) [Mass/Vol] 12.8 g/dL 12.0-15.0 [facility] Immature granulocytes/100 WB C Auto (Bld)Ordered By: Florence Mendez on 12-17-2024 Immature granulocytes/100 WBC (Bld) 0.200 % 0.0-0.9 [facility] Comment on above: IG% - Immature Granu locytes (promyelocytes, myelocytes and metamyelocytes) > 1% indicates that a LEFT SHIFT is Present. LDL calc ser/plasOrdered By: Florence Mendez on 12-17-2024 Cholesterol in LDL [Mass/Vol] 95 mg/dL [facility] Comment on above: Tegnbvddhy=988-153 m g/dL & Higher Krlw=463 mg/dL or greater Laboratory - Chemistry and C hemistry - challengeOrdered By: Florence Mendez on 12-17-2024 AST [Catalytic activity/Vol] 26 U/L <32 [facility] Lipid Profileon 12-17-2024 CHOL:HDL 3.19 Normal [facility] Comment on above: Order Comment: Order Date: 12/17/24Order Info: [id number] - CMPOrder Info: [id number] - LIPID Performed By: #### L 100.0100, L500.4100, L500.4050 ####[facility] [address] [place], [address] Cholesterol [Mass/Vol] 179 mg/dL Normal <=200 [facility] Comment on above: Order Comment: Order Date: 12/17/24Order Info: [id number] - CMPOrder Info: [id number] - LIPID Result Comment: Chol esterol level, Desirable <200 mg/dL Borderline high cholesterol 200-239 mg/dL High cholesterol >=240 mg/dL Recommendations of the NCEP Adult Treatment Panel for the following risk-cutoff thresholds for the [place] population. Performed By: #### L 100.0100, L500.4100, L500.4050 ####[facility] [address] [place], [address] Cholesterol in HDL [Mass/Vol] 56 mg/dL Normal [facility] Comment on above: Order Comment: Order Date: 12/17/24Order Info: 0786 - CMPOrder Info: [id number] - LIPID Result Comment: Amanda onal Cholesterol Education Program (NCEP) guidelines: <40 mg/dL: Low HDL-cholesterol (major risk factor for CHD) >= 60 mg/dL: High HDL-cholesterol (negative risk factor for CHD) HDL-cholesterol is affected by a number of factors, e.g. smoking, exercise, hormones, sex and age. Performed By: #### L 100.0100, L500.4100, L500.4050 ####[facility] [address] [place], [address] Cholesterol in LDL [Mass/Vol] 95 mg/dL Normal [facility] Comment on above: Order Comment: Order Date: 12/17/24Order Info: 0786- - CMPOrder Info: [id number] - LIPID Result Comment: Bord skrjcw=213-849 mg/dL Higher Absa=355 mg/dL or greater Performed By: #### L 100.0100, L500.4100, L500.4050 ####[facility] [address] [place], [address] Cholesterol in VLDL [Mass/Vol] 28 mg/dL Normal 5-40 [facility] Comment on above: Order Comment: Order Date: 12/17/24Order Info: 0786-1 - CMPOrder Info: [id number] - LIPID Performed By: #### L 100.0100, L500.4100, L500.4050 ####[facility] [address] [place], [place], [address] Triglyceride [Mass/Vol] 141 mg/dL Normal [facility] Comment on above: Order Comment: Order Date: 12/17/24Order Info: [id number] - CMPOrder Info: [id number] - LIPID Result Comment: The drugs N-Acetylcysteine and Metamizole may falsely depress this assay. Normal range: <150 mg/dL Borderline High: 150-199 mg/dL High: 200-499 mg/dL Very High: >500 mg/dL Performed By: #### L 100.0100, L500.4100, L500.4058 ####[facility] [address] [facility] [place], [place], [address] MCV (mean corpuscular volume ) determinationOrdered By: Florence Mendez on 12-17-2024 MCV (RBC) [Entitic vol] 84.3 fL 81-99 [facility] Mean corpuscular hemoglobin (MCH) determinationOrdered By: Florence Mendez on 12-17-2024 MCH (RBC) [Entitic mass] 27.5 pg 27.0-32.0 [facility] Mean corpuscular hemoglobin concentration (MCHC) determinationOrdered By: Florence Mendez on 12-17-2024 MCHC (RBC) [Mass/Vol] 32.7 g/dL 32-36 [facility] Mean platelet volume determi nationOrdered By: Florence Mendez on 12-17-2024 Platelet mean volume (Bld) [Entitic vol] 11.5 fL 6.2-12.0 [facility] Monocyte percentageOrdered B y: Florence Mendez on 12-17-2024 Monocytes/100 WBC (Bld) 12.1 % High 0-10 [facility] Neutrophil percentageOrdered By: Florence Mendez on 12-17-2024 Neutrophils/100 WBC (Bld) 57.5 % 47-70 [facility] Nucleated red blood cell per centageOrdered By: Florence Mendez on 12-17-2024 Nucleated RBC/100 WBC (Bld) [Ratio] 0 % 0-5 [facility] Platelet countOrdered By: Aretha Mendez on 12-17-2024 Platelets (Bld) [#/Vol] 207 10*3/uL 150-450 [facility] Potassium measurement (mass/ volume)Ordered By: Florence Mendez on 12-17-2024 Potassium (Unsp spec) [Mass/Vol] 4.1 mmol/L 3.3-5.1 [facility] RBC Auto (Bld) [#/Vol]Ordere d By: Florence Mendez on 12-17-2024 RBC (Bld) [#/Vol] 4.65 10*6/uL 4.2-5.4 [facility] Screening total cholesterol/ high density lipoprotein (HDL) cholesterol ratioOrdered By: Florence Mendez on 12-17-2024 Cholesterol.total/Cassie sterol in HDL [Mass ratio] 3.19 {ratio} [facility] Serum creatinine measurement (mass/volume)Ordered By: Florence Mendez on 12-17-2024 Creatinine [Mass/Vol] 0.71 mg/dL 0.70-1.20 [facility] Serum globulin measurementOr dered By: Florence Mendez on 12-17-2024 Globulin (S) [Mass/Vol] 2.7 g/dL 2.2-4.2 [facility] Serum glucose measurement (m ass/volume)Ordered By: Florence Mendez on 12-17-2024 Glucose [Mass/Vol] 85 mg/dL 70-99 [facility] Serum or plasma alanine ruiz otransferase (ALT) measurementOrdered By: Florence Mendez on 12-17-2024 ALT [Catalytic activity/Vol] 18 U/L <35 [facility] Serum or plasma albumin misael urement (mass/volume)Ordered By: Florence Mendez on 12-17-2024 Albumin [Mass/Vol] 4.3 g/dL 3.4-4.8 [facility] Serum or plasma albumin/glob ulin mass ratioOrdered By: Florence Mendez on 12-17-2024 Albumin/Globulin [Mass ratio] 1.6 {ratio} 0.9-2.4 [facility] Serum or plasma alkaline zaida sphatase measurementOrdered By: Florence Mendez on 12-17-2024 ALP [Catalytic activity/Vol] 84 U/L 35-104 [facility] Serum or plasma calcium misael urement (mass/volume)Ordered By: Florence Mendez on 12-17-2024 Calcium [Mass/Vol] 9.5 mg/dL 7.6-11.0 [facility] Serum or plasma cholesterol in HDL measurement (mass/volume)Ordered By: Florence Mendez on 12-17-2024 Cholesterol in HDL [Mass/Vol] 56 mg/dL >40 [facility] Comment on above: National Cholesterol Education Program (NCEP) guidelines:<40 mg/dL: Low HDL-cholesterol (major risk factor for CHD)>= 60 mg/dL: High HDL-cholesterol (negative risk factor for CHD)HDL-cholesterol is affected by a number of factors, e.g. smoking, exercise, hormones, sex and age. Serum or plasma cholesterol measurement (mass/volume)Ordered By: Florence Mendez on 12-17-2024 Cholesterol [Mass/Vol] 179 mg/dL <201 [facility] Comment on above: Cholesterol level, D esirable <200 mg/dLBorderline high cholesterol 200-239 mg/dLHigh cholesterol >=240 mg/dLRecommendations of the NCEP Adult Treatment Panel for the following risk-cutoff thresholds for the [place] population. Serum or plasma urea nitroge n measurement (mass/volume)Ordered By: Florence Mendez on 12-17-2024 Urea nitrogen [Mass/Vol] 29 mg/dL High 4-19 [facility] Sodium levelOrdered By: Ivette Mendez on 12-17-2024 Sodium [Moles/Vol] 140 mmol/L 133-145 [facility] Total proteinOrdered By: Jen Mendez on 12-17-2024 Protein [Mass/Vol] 6.9 g/dL 5.9-8.4 [facility] Triglycerides measurementOrd ered By: Florence Mendez on 12-17-2024 Triglyceride [Mass/Vol] 141 mg/dL <199 [facility] Comment on above: The drugs N-Acetylcy steine and Metamizole may falsely depress this assay. Normal range: <150 mg/dLBorderline High: 150-199 mg/dLHigh: 200-499 mg/dLVery High: >500 mg/dL Vitamin D,25 Hydroxyon 12-17 Vitamin D 25-OH 44.9 ng/mL Normal 30-100 [facility] Comment on above: Order Comment: Order Date: 12/17/24 Order Info: 0786-1 - CMP Order Info: [id number] - LIPID Result Comment: Stacie min D Status Deficiency: <20 ng/mL (50nmol/L) Insufficiency: 20-30 ng/mL (50-75 nmol/L) Sufficiency: 30-100 ng/mL (75-250 nmol/L) Toxicity: >100 ng/mL (>250 nmol/L) Performed By: #### L 506.1001 #### [facility] [address] [place], [address] White blood cell (WBC) count Ordered By: Florence Mendez on 12-17-2024 WBC (Bld) [#/Vol] 4.7 10*3/uL 4.4-11.0 [facility] Plastic Surgery Visit Report on 11-07-2024 Plastic Surgery Visit Report [facility]astic [facility]ive Surgery [address], [address] [place] [address] OFFICE VISIT Date of Service: 11/07/24 MR#: [id number] Acct: [id number] Name: NEY MILNER Rep #: [id number] : 1955 Provider: Dr. Maryann boyd MD Age/Sex: 69/F Location: [facility] Status: Signed Intake Vital Signs 10/31/24 14:16 [...] Scar condition and fibrosis of skin L90.5 [facility] Medical History History of malignant neoplasm of [...] Follow-up as needed. 11/07/24 1503 Date Maryann Mantilla MD Cosigner Signature: Date (if applicable) CC: Normal [facility] Plastic Surgery Visit Report on 10-31-2024 Plastic Surgery Visit Report [facility]astic [facility] Surgery [address], [address] [place] [address] OFFICE VISIT Date of Service: 10/31/24 MR#: [id number] Acct: [id number] Name: NEY MILNER Rep #: [id number] : 1955 Provider: Dr. Maryann boyd MD Age/Sex: 69/F Location: [facility] Status: Signed Intake Vital Signs 10/17/24 14:20 [...] Benign neoplasm of skin of face D23.30 [facility] Medical History History of malignant neoplasm of [...] week 10/31/24 1440 Date [facility] Signature: Date (if applicable) CC: Normal [facility] Discharge Instructionon 10-05 Discharge Instruction [facility] Medical Records Department [address] [place] [address] Instructions for Home/Discharge Instructions 10/24/24 1257 MR#: [id number] Acct: [id number] Name: NEY MILNER Rep #: [id number] : 1955 69 From: Maryann Mantilla MD PCP: Dr. Florence Mendez MD Status:REG [facility] Discharge Instructions Dressing / Incision Additional Dressing/Incision [...] Care Provider: Florence Mendez Instructions Print Language: [place] Discharge Orders/Prescriptions Prescriptions: New cephalexin 500 mg [...] can be placed): Home, Self Care 10/24/24 5734 Maryann Mantilla MD CC: Dr. Florence Mendez MD Signed Normal [facility] Frozen Section (charge)on Frozen Section (charge) ------- Patient Age/Sex Location Account Attending Physician NEY MILNER 69/F [facility] [id number] Dr. Maryann Mantilla MD Specimen: [id number] Received: 10/24/24 Status: DAVE Cormier Num: [id number] Spec Type: Lesion Subm Dr: Dr. Maryann Mantilla MD HEADER OPERATION: Excision neoplasm of left cheek with frozen section PRE-OP DIAGNOSIS: Neoplasm of uncertain behavior of skin TISSUE SUBMITTED: A- Atypical lesion, left cheek FROZEN SECTION DIAGNOSIS A. Atypical lesion, left cheek, excision: Negative for malignancy. 10/24/2024 MICROSCOPIC DIAGNOSIS A. Skin, left cheek, [...] consultation by Dr Rosalba Madera (dermatopathology division, [facility]) MICROSCOPIC DESCRIPTION Slides are reviewed. All matched controls reacted appropriately. These tests were developed and their performance characteristics determined by [facility]. They may not have been cleared or approved by the U.S. Food and Drug Administration. The FDA has determined that such clearance or approval is not necessary.??? The above immunohistochemical/jose Nilda???markers are ordered and reviewed by the Pathologist. Patient Age/Sex Location Account Attending Physician NEY MILNER 69/F [facility] [id number] Dr. Maryann Mantilla MD GROSS DESCRIPTION A. [...] perpendicularA2. 6:00 end, perpendicularA3. Midportion of specimen [facility] 10-24-2024 CPT:19668,21271,74591 Patient Age/Sex Location Account Attending Physician NEY MILNER 69/F [facility] [id number] Dr. Maryann Mantilla MD Signed (signature on file) Dr. Radha Damico MD 10/31/24 1208 Normal [facility] Comment on above: Performed By: #### P FSC ####[facility] [address] [facility] [place], [address] Operative Reporton 5 Operative Report [facility] Medical Records Department [address] [place] [address] Operative Report 10/24/24 1259 MR#: [id number] Acct: [id number] Name: NEY MILNER Rep #: [id number] : 1955 69 From: Maryann Mantilla MD PCP: Dr. 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 Maryann Mantilla MD Signed Normal [facility] Plastic Surgery Visit Report on 10-17-2024 Plastic Surgery Visit Report [facility] Plastic Reconstructive Surgery [address] [facility], [address] [place] [address] OFFICE VISIT Date of Service: 10/17/24 MR#: [id number] Acct: [id number] Name: ALFNEY [place] Rep #: [id number] : 1955 Provider: Dr. Maryann boyd MD Age/Sex: 69/F Location[place] [facility] Status: Signed Intake Vital Signs 08/28/24 [...] developed Nutritional Appearance: well nourished Orientation: alert HENNV Head: normal to inspection, normocephalic and atraumatic [...] any prob (more content not included)... Normal [facility] Plastic Surgery Visit Report on 09-19-2024 Plastic Surgery Visit Report [facility]astic [facility]ive Surgery [address] [place] [address] OFFICE VISIT Date of Service: 09/19/24 MR#: [id number] Acct: [id number] Name: NEY MILNER Rep #: [id number] : 1955 Provider: Dr. Maryann boyd MD Age/Sex: 69/F Location: [facility] Status: Signed Intake Vital Signs 08/28/24 [...] is improvement to lesion. No concerns today. [facility] Medical History History of malignant neoplasm of [...] has been managing the scar with topical csil-ghe-evuymoj hydrocortisone and massage with pressure. She has [...] past year?: No 09/19/24 1450 Date Maryann Tabares Signature: Date (if applicable) CC: Normal [facility] Plastic Surgery Visit Report on 08-28-2024 Plastic Surgery Visit Report [facility]astic [facility] Surgery [address] [place], [place] [address] OFFICE VISIT Date of Service: 08/28/24 MR#: [id number] Acct: [id number] Name: NEY MILNER Rep #: [id number] : 1955 Provider: Dr. Maryann boyd MD Age/Sex: 69/F Location: [facility] Status: Signed Intake Vital Signs 07/11/24 14:42 [...] where previous lesion was removed on cheek [facility] Medical History History of malignant neoplasm of [...] No 08/28/24 1318 Date Maryann Mantilla MD Cosigner Signature: Date (if applicable) CC: Normal [facility] Magnetic resonance imaging r eportOrdered By: Georges Pardo on 08-12-2024 Study report [facility] Imaging Services [address] [place], [place] [address] Lower Ext Joint Only (Routine) MR#: [id number] Acct: [id number] Name: NYE MILNER Rep #: [id number] : 1955 F 69 From: Bert Pardo DO PCP: Dr. Florence Mendez MD Status: REG CL I Study:Lower Ext Joint Only (Routine) Date of Exam: 08/11/24 Exam# [id number] Ordering Dr: Jen Mendez MD PROCEDURE: MRI [...] MAGGY CC: Dr. Florence Mendez MD ~ Senior Technical Editor: Signed [facility] Lower Ext Joint Only (Routin e)on 08-11-2024 Lower Ext Joint Only (Routine) [facility] Imaging Services [address] [place] [address] Lower Ext Joint Only (Routine) MR#: [id number] Acct: [id number] Name: NEY MILNER Rep #: [id number] : 1955 F 69 From: Georges Martinez PCP: Dr. Florence Mendez MD Status: REG CLI Study: Lower Ext Joint Only (Routine) Date of Exam: 0 08/11/24 Exam# [id number] Ordering Dr: Florence Mendez MD PROCEDURE: MRI [...] Location: MAG[facility] CC: Dr. Florence Mendez MD Senior Technical Editor: Signed Normal [facility] Orthopedic Visit Reporton Orthopedic Visit Report [facility] [address] [place] [address] [address] [place] [address] OFFICE VISIT Date of Service: 07/26/24 MR#: [id number] Acct: [id number] Name: NEY MILNER Rep #: [id number] : 1955 Provider: SIOBHAN Keita Age/Sex: 69/F Location: [facility] Status: Signed Intake Vital Signs 07/11/24 14:42 [...] decisions made by me, SIOBHAN Keita 07/26/24 8098. Part of today???s visit was documented by [...] with discogen (more content not included)... Normal [facility] Plastic Surgery Visit Report on 07-11-2024 Plastic Surgery Visit Report [facility] [address] [place] [address] OFFICE VISIT Date of Service: 07/11/24 MR#: [id number] Acct: [id number] Name: NEY MILNER Rep #: [id number] : 1955 Provider: Dr. Maryann boyd MD Age/Sex: 69/F Location: [facility] Status: Signed Intake Vital Signs 06/27/24 14:22 [...] here post op no issues Subjective Details: Ney comes in [...] Benign neoplasm of skin of face D23.30 [facility] Medical History History of malignant neoplasm of [...] Comments: She will follow-up as needed. 07/11/24 1631 Date [facility]illa MD [facility] Signature: Date (if applicable) CC: Normal [facility] Plastic Surgery Visit Report on 06-27-2024 Plastic Surgery Visit Report [facility] [address] [place] [address] OFFICE VISIT Date of Service: 06/27/24 MR#: [id number] Acct: [id number] Name: NEY MILNER Rep #: [id number] : 1955 Provider: Dr. Maryann boyd MD Age/Sex: 69/F Location: [facility] Status: Signed Intake Vital Signs 05/17/24 12:18 [...] Benign neoplasm of skin of face D23.30 [facility] Medical History History of malignant neoplasm of [...] Additional Comments: Follow-up in 2 weeks 06/27/24 9127 Date Maryann Tabares Signature: Date (if applicable) CC: Normal [facility] Discharge Instructionon 06-06 Discharge Instruction [facility] Medical Records Department [address] [place] [address] Instructions for Home/Discharge Instructions 06/15/24 1608 MR#: [id number] Acct: [id number] Name: NEY MILNER Rep #: [id number] : 1955 69 From: Maryann Mantilla MD PCP: Dr. Florence Mendez MD Status:REG [facility] Discharge Instructions Dressing / Incision Additional Dressing/Incision [...] Care Provider: Florence Mendez Instructions Print Language: [place] Discharge Orders/Prescriptions Prescriptions: New cephalexin 500 mg [...] CC: Dr. Florence Mendez MD Signed Normal [facility] Operative Reporton Operative Report [facility] Medical Records Department [address] [place] [address] Operative Report 06/15/24 1611 MR#: [id number] Acct: [id number] Name: NEY MILNER Rep #: [id number] : 1955 69 From: Maryann Mantilla MD PCP: Dr. 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 Florence Mendez MD; Dr. Maryann Mantilla MD Signed Normal [facility] Surgery Specimen Level Tushar 06-15-2024 Surgery Specimen Level IV Patient Age/Sex Location Account Attending Physician NEY MILNER 69/F [facility] [id number] Dr. Maryann Mantilla MD Specimen: [id number] Received: 06/15/24 Status: DAVE Cormier Num: [id number] Spec Type: Lesion Subm Dr: Dr. Maryann [...] sectioned and submitted entirely in one cassette. 06/18/2024 TC:5 CPT:23965n6 Patient Age/Sex Location Account Attending Physician NEY MILNER 69/F [facility] [id number] Dr. Maryann Mantilla MD Signed (signature on file) Dr. Heather Dorado MD 06/19/24 1249 Normal [facility] Comment on above: Performed By: #### P ALVINA #### [facility] [address] [facility] [place], [address] Spine Lumbar (Routine)on Spine Lumbar (Routine) [facility] Imaging Services [address] [place] [address] Spine Lumbar (Routine) MR#: [id number] Acct: [id number] Name: NEY MILNER Rep #: [id number] : 1955 F 69 From: Lee Saunders MD PCP: Dr. Florence Mendez MD Status: REG CLI Study: Spine Lumbar (Routine) Date of Exam: 05/26/24 Exam# [id number] Ordering Dr: Emmy Diez [id number] STUDY: MRI LUMBAR SPINE WITHOUT CONTRAST REASON [...] CC: SIOBHAN Keita; Dr. Florence Mendez MD Senior Technical Editor: Signed Normal [facility] L/S Spine Bending Flex/[place] 05-10-2024 L/S Spine Bending Flex/Ext [facility] [address] [place] [address] L/S Spine Bending Flex/Ext MR#: [id number] Acct: [id number] Name: NEY MILNER Rep #: [id number] : 1955 F 69 From: Matt Bethea MD PCP: Dr. Florence Mendez MD Status: DEP AMB Study: L/S Spine Bending Flex/Ext Date of Exam: 05/10 Exam# [id number] Ordering Dr: Emmy Diez [id number] EXAM: XR LUMBOSACRAL SPINE FLEXION/EXTENSION ONLY, 2 [...] CC: SIOBHAN Keita; Dr. Florence Mendez MD Senior Technical Editor: Signed Normal [facility] Orthopedic Visit Reporton Orthopedic Visit Report [facility] [address] [place], [place] [address] [address] [place] [address] OFFICE VISIT Date of Service: 05/10/24 MR#: [id number] Acct: [id number] Name: NEY MILNER Rep #: [id number] : 1955 Provider: SIOBHAN Keita Age/Sex: 69/F Location: [facility] Status: Signed Intake Vital Signs 05/01/24 14:26 [...] exercises jumana (more content not included)... Normal [facility] Plastic Surgery Visit Report on 05-01-2024 Plastic Surgery Visit Report [facility] Plastic Reconstructive Surgery [address], [address] [place] [address] OFFICE VISIT Date of Service: 05/01/24 MR#: [id number] Acct: [id number] Name: NEY MILNER Rep #: [id number] : 1955 Provider: Dr. Maryann body MD Age/Sex: 69/F Location: [facility] Status: Signed Intake Vital Signs 05/01/24 14:26 [...] Dr. Mendez for suspicious lesion on face [facility] Medical History (Updated 05/01/24 @ 14:49 by [...] health; No fatigue, fever(s) or weight loss HENMT HENMT: Yes rhinitis; No sore throat/mouth sore, [...] developed Nutritional Appearance: well nourished Orientation: alert [facility] Head: normal to inspection, normocephalic and atraumatic [...] abrasions N (more content not included)... Normal [facility] Inital Evaluation (1) - PTon 04-19-2024 Inital Evaluation (1) - PT [facility] Physical Therapy [facility] [address] [place] [address] [address] [place] [address] / REHABILITATION SERVICES INITIAL EVALUATION MR#: [id number] Acct: [id number] Name: NEY MILNER Rep #: [id number] : 1955 69 From: Millicent Malloy PT, Cert. MDT Referring Dr.: Dr. Florence Mendez MD Status: REG RCR Insurance: [employer] SR SUPPLEMENT INS MEDICARE PART A B Patient's Visit Information Visit Information Visit Information: NEY MILNER is a 69 year old F referred to Physical Therapy by Florence Mendez MD with a diagnosis of LUMBAR DISC HERNIATION. Date of Evaluation: 04/19/24 Physical Therapist: Millicent Malloy PT, Cert MDT Visit Plan Frequency: 2-3x /Week Duration: 4-6 Weeks Plan: AQUATIC THERAPY FOR PAIN RELIEF, POSTURE CORRECTION/STRENGTHENIN G, INSTRUCTION IN APPROPRIATE BODY MECHANICS AND ACTIVITY MODIFICATIONS. DLS WITH NEUTRAL SPINE ONLY. ARJUN LE ROM, STRETCHING AND STRENGTHENING. HEP INSTRUCTION. Subjective Subjective: Work/Leisure: WORKING AT [employer] LIVING ABOUT 20 HRS A WEEK IN [...] INVERSION TABLE. CHIROPRACTOR ONCE A MONTH IN [place] Disturbed sleep: I TOSS AND TURN Previous history/Previous treatment: CHIROPRACTOR. NO BACK SURGERY OR PAIN MGMT PROCEEDURES. R HIP CORTISONE INJECTION FOR BURSITIS BY DR. ADAIR IN [place]. Treatment this episode: STEROID DOSE JAMES - helped while on it then pain came back, opioid prescribed and filled but not taken per patient report. CONSULT PENDING WITH DR. SOTO MAY 10 2024. PATIENT REPORTS SHE WAS FIRST DX'D WITH LUMBAR DISC HERNIATION BY DR. MENDEZ IN MAR 2024. Coughing/sneezing/strai cricket: DENIES INCREASED PAIN Gait: INDEP WITHOUT AD. [...] Therapy D (more content not included)... Normal [facility] Lumbar Spine 2 or 3 Viewson 03-15-2024 Lumbar Spine 2 or 3 Views [facility] Imaging Services [address] [place], [place] [address] Lumbar Spine 2 or 3 Views MR#: [id number] Acct: [id number] Name: NEY MILNER Rep #: [id number] : 1955 F 68 From: Francesco Cardenas MD PCP: Dr. Florence Mendez MD Status: REG CLI Study: Lumbar Spine 2 or 3 Views Date of Exam: Exam# [id number] Ordering Dr: [place] [id number] EXAM: XR LUMBOSACRAL SPINE, 2 OR 3 [...] EDT , CC: Dr. 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 Normal [facility] CNCOon 03-17-2023 CNCO HNO ID: [id number] Author: Coordinator, Mammography Service: ? Author Type: Physician Type: Letter Filed: 03/21/2023 11:40 PM Note Text: March 18, 2023 PID: [id number] Ney Milner [address] [address] Dear Ms. Milner, We are pleased to [...] report will be kept on file at [facility] as part of your permanent medical record and are available for your continuing care. Thank you for allowing us to help in meeting your health care needs. Sincerely, Dr. Min Interpreting Radiologist [facility] (Normal over 40) Normal [facility] JESSICA SCREENING W TOMOon 03-17 JESSICA SCREENING W DAVID * * *Final Report* * * DATE OF EXAM: Mar 17 2023 9:20AM RUST 0582 - JESSICA SCREENING W DAVID / PROCEDURE REASON: Encounter for screening mammogram for malignant neoplasm of breast * * * * Physician Interpretation * * * * RESULT: #[id number] - [facility] SCREENING W DAVID BILATERAL DIGITAL SCREENING MAMMOGRAM [...] mammogram, 03/02/2021 mammogram, and 03/11/2022 mammogram - [facility]. There are scattered areas of fibroglandular density. No significant masses, calcifications, or other findings are seen in either breast. There has been no significant interval change. IMPRESSION: NEGATIVE There is no mammographic evidence of malignancy. A 1 year screening mammogram is recommended. The exam was reviewed by a staff physician. Soraida Yeung M.D. ld,os/penrad:03/17/2023 11:15:54 Angle Bender(s): RT Shayne(R)(M), [facility] letter sent: Normal over 40 Mammogram BI-RADS: [...] Health, Family Medicine, and Medical/Surgical Oncology, the [facility] has carefully reviewed the data and reached [...] their providers when to stop screening mammograms. Senior Technical Editor: Kayleigh Transcribe Date/Time: Mar 17 2023 9:01A Dictated by: JAMEY YEUNG MD This examination was interpreted and the report reviewed and electronically signed by: SORAIDA MIN MD on Mar 17 2023 11:15AM EST [id number] Normal [facility] CNOVon 02-10-2023 CNOV Office Visit (PODIWS ) NEY MILNER ([id number]) 1955 F Date Time Provider Department 02/10/23 8:15 AM AVERY BENTON During your visit today, we recorded the [...] reaction.Seek emergent medical care immediately after use.Disp:one 2-packw/product trainer). fluticasone 50 mcg/actuation nasal spray Use 1-2 Sprays in each nostril once daily. olopatadine (PATANOL) 0.1 % ophthalmic solution Use 1 Drop in both eyes twice daily as needed. Ipratropium [place] (ATROVENT) 0.03 % NASAL nasal spray Use [...] visit. ALLERGIES Allergen Reactions Beta Blockers [Beta* Contraindication-Medica l Surgical Please avoid use of beta blockers [...] and nonlabo (more content not included)... Normal [facility] XR FOOT 3V AP/LAT/OBL LTon 0 02-10-2023 [...] toe. 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 Senior Technical Editor: PSCB Transcribe Date/Time: Feb 12 2023 9:10P Dictated by : MARCELINA GIBSON MD This examination was interpreted and the report reviewed and electronically signed by: MARCELINA GIBSON MD on Feb 12 2023 9:12PM EST [id number] Normal [facility] XR FOOT GENERAL 3V AP/LAT/OB L LEFTon 02-10-2023 [facility] TSH WITH REFLEX TO FREE T4 I F ABNORMALon 11-25-2022 TSH Qn 0.99 m[IU]/L Normal 0.44 - 3.98 [facility] Comment on above: Result Comment: TSH testing is performed using different testing methodology at [facility] than at other [facility]. Direct result comparisons should only be made within the same method. Performed By: #### T JAZMINS #### [address] [address] Lab Specimen Source Normal [facility] Comment on above: Performed By: #### T HYDS #### [address] [place] [address] Covid 19 Resultson 3 SARS-CoV-2 (COVID-19) RNA [...] You may also be contacted by the [place] Department of Health to see if any of your close [...] or Naproxen (Aleve) can also be used. Ztex-mwp-tikyakb cough and cold medicines can be used according to the instructions on the package. Some fezy-pok-ijvbebe medicines also contain acetaminophen. Make sure you [...] water are not available, use alcohol-based hand senior education specialist. Avoid touching your eyes, nose, and mouth [...] 24 carolyne (more content not included)... Normal [facility] INFLUENZA A/B, COVID 2019 PC R,SYMPTOMATICon 08-05-2022 INFLUENZA A, PCR Not detected Normal Not Detected [facility] Comment on above: Result Comment: Resp iratory virus testing is performed routinely by PCR for Influenza A/B and RSV. Not Detected results do not preclude Influenza A/B or RSV infections since the adequacy of sample collection or low viral burden may impact the clinical sensitivity of this test method. Performed By: #### C OINP #### [place] [address] INFLUENZA B, PCR Not detected Normal Not Detected [facility] Comment on above: Result Comment: Resp iratory virus testing is performed routinely by PCR for Influenza A/B and RSV. Not Detected results do not preclude Influenza A/B or RSV infections since the adequacy of sample collection or low viral burden may impact the clinical sensitivity of this test method. Performed By: #### C OINP #### [place] [address] SARS-CoV-2 (COVID-19) RNA GAMAL+probe Ql (Unsp spec) Detected Abnormal Not Detected [facility] Comment on above: Result Comment: . This test has received FDA Emergency Use Authorization (EUA) and has been verified by [facility]. This test is only authorized for the duration of time that circumstances exist to justify the authorization of the emergency use of in vitro diagnostic tests for the detection of SARS-CoV-2 virus and/or diagnosis of COVID-19 infection under section 564(b)(1) of the Act, 21 U.S.C. 360bbb-3(b)(1), unless the authorization is terminated or revoked sooner. [facility] is certified under CLIA-88 as qualified to perform high complexity testing. Testing is performed in the [facility] laboratory located at [address] [place] [address]. SARS-CoV-2/Flu/RSV Multiplex Test: Fact sheet for providers: https://www.fda.gov/media/986069/download Fact sheet for patients: https://www.fda.gov/media/976011/download Performed By: #### C OINP #### [place] [address] Lab Specimen Source Nasal, Nasopharyngeal Normal [facility] Comment on above: Performed By: #### C OINP #### [place] [address] Provider Note - ED v3on 03-0 Provider Note - ED v3 Provider Note: [...] tablet Instructions: Take as directed. Drug Name: brompheniramine/pseudoe phedrine/dextromethorph an [id number]/5 mL oral syrup Instructions: 5 milliliter(s) orally every 4-6 hours PRN cough SIGNIFICANT EVENTS: Past Medical History Description:HYPOTHYROID ISM Past Surgical History Description:APPENDECTOM Y/ RT WRIST/ LT EYE REVIEW OF SYSTEMS [...] SIGNS: T PRBP SpO2O2(LPM) %FiO2 Method 05-Aug-2022 09:07:[id number]/76 98 MDM MDM/ED COURSE: Discussed Findings with: [...] ill patient: no Electronic Signatures: Chadwick Mckeon (BEEF GRADER-BAND MASTER) (Signed 05-Aug-2022 09:22) Authored: ED Notes, HPI, PMH, ROS, PE, Results/Vital Signs, MDM/ED Course, Clinical Impression, Attestation, Chart Review, Scores Last Updated: 05-Aug-2022 09:22 by Chadwick Mckeon (BEEF GRADER-BAND MASTER) [facility] Provider Note - ED v3on 07-07 Provider [...] 4 days SIGNIFICANT EVENTS: Past Medical History Description:HYPOTHYROID ISM Past Surgical History Description:APPENDECTOM Y/ RT WRIST/ LT EYE REVIEW OF SYSTEMS [...] SIGNS: T PRBP SpO2O2(LPM) %FiO2 Method 17-Jul-2022 08:54:00-36.220295/72 94 MDM MDM/ED COURSE: Differential Diagnosis: bronchitis, [...] ill patient: no Electronic Signatures: Chadwick Mckeon (BEEF GRADER-BAND MASTER) (Signed 17-Jul-2022 09:10) Authored: ED Notes, HPI, PMH, ROS, PE, Results/Vital Signs, MDM/ED Course, Clinical Impression, Attestation, Chart Review, Scores Last Updated: 17-Jul-2022 09:10 by Chadwick Mckeon (BEEF GRADER-BAND MASTER) Normal [facility] Tobacco Screening.on 023 Tobacco use status CPHS b) No M [facility] Work Phone: JESSICA DIAG W DAVID RTon 022 JESSICA DIAG W DAVID RT * * *Final Report* * * DATE OF EXAM: Apr 21 2022 10:03AM WRW 0629 - JESSICA DIAG W DAVID RT / PROCEDURE REASON: Abnormal mammogram * * * * Physician Interpretation * * * * RESULT: #[id number] - JESSICA DIAG W DAVID RT UNILATERAL [...] mammogram, 02/28/2020 mammogram, and 02/23/2019 mammogram - [facility]. There are scattered fibroglandular elements in right [...] screening schedule is recommended. Stevenson rangel/kayleigh:04/21/2022 10:11:34 Angle Bender(s): Cherie Joya, [facility] Mammogram BI-RADS: 1 Negative Multiple national specialty organizations have released breast cancer screening guidelines for women at average risk for developing breast cancer - guidelines that are based on both evidence and opinion, yet differ on when to start and how often to screen for breast cancer. With representation from Breast Imaging, Internal Medicine, Women's Health, Family Medicine, and Medical/Surgical Oncology, the [facility] has carefully reviewed the data and reached [...] their providers when to stop screening mammograms. Senior Technical Editor: Kayleigh Transcribe Date/Time: Apr 21 2022 9:54A Dictated by: STEVENSON TOMPKINS MD This examination was interpreted and the report reviewed and electronically signed by: STEVENSON TOMPKINS MD on Apr 21 2022 10:11AM EST [id number] Normal [facility] Office Visit (Family Medicin e)on 04-08-2022 [...] doing stretches 2 years ago every am lesly sees chiropracter limit unable to jog and [...] TABSHealth Maintenance Calcium + D TABSHealth Maintenance Austin 3 1000 MG Oral CapsuleHealth Maintenance Rosuvastatin Calcium 10 MG Oral Tablettakes 1 three times per weekHyperlipidemia Levothyroxine Sodium 50 MCG Oral TabletTAKE TABLET 1 tablet daily except on sunady take 0.5 tabletHypothyroidism Vitals Vital Signs Recorded: 08Apr2022 09:10AM Heart Rate57 Nsvcionq157 Tlrugsegk10 Hushjh095.64 cm Dhmaxz47.98 kg BMI Pnfppryagx49.33 kg/m2 BSA Calculated1.83 Tobacco Useb) No PHQ-2 [...] Apr 08 2022 9:55AM EST (Author) Normal [facility] Tobacco Screening.on Adult depression screening assessment No -[facility] Work Phone: Fall risk assessment a) No falls within the last year [facility] Work Phone: Tobacco use status CPHS b) No M [facility] Work Phone: JESSICA SCREENING W TOMOon 03-11 [facility] LIPID PANEL (CORONARY RISK 2 )on 11-23-2021 Cholesterol [Mass/Vol] 185 mg/dL Normal 0 - 199 [facility] Comment on above: Result Comment: . [...] dosing. Performed By: #### L IPID #### [address] [address] Cholesterol in HDL [Mass/Vol] 61.0 mg/dL Normal [facility] Comment on above: Result Comment: . AGE VERY LOW LOW NORMAL HIGH 0-19 Y < 35 < 40 40-45 ---- 20-24 Y ---- < 40 >45 ---- >24 Y ---- < 40 40-60 >60 . Performed By: #### L IPID #### [address] [address] Cholesterol in LDL [Mass/Vol] 111 mg/dL High 0 - 99 [facility] Comment on above: Result Comment: . NEAR BORD AGE DESIRABLE OPTIMAL HIGH HIGH VERY HIGH 0-19 Y 0 - 109 --- 110-129 >/= 130 ---- 20-24 Y 0 - 119 --- 120-159 >/= 160 ---- >24 Y 0 - 99 100-129 130-159 160-189 >/=190 . Performed By: #### L IPID #### [address] [address] Cholesterol in VLDL [Mass/Vol] 13 mg/dL Normal 0 - 40 [facility] Comment on above: Performed By: #### L IPID #### [address] [address] Cholesterol.total/Cassie sterol in HDL [Mass ratio] 3.0 {ratio} Normal [facility] Comment on above: Result Comment: REF VALUES DESIRABLE < 3.4 HIGH RISK > 5.0 Performed By: #### L IPID #### [address] [address] Triglyceride [Mass/Vol] 64 mg/dL Normal 0 - 149 [facility] Comment on above: Result Comment: [...] dosing. Performed By: #### L IPID #### [address] [address] Laboratory - Chemistry and C hemistry - challengeon 11-23-2021 TSH Qn 1.21 m[IU]/L See Below [facility] Work Phone: Comment on above: Reference Range: 0.4 4 - 3.98 TSH testing is performed using different testing methodology at [facility] than at other [facility]. Direct result comparisons should only be made within the same method. Lipid Panelon 11-23-2021 Cholesterol [Mass/Vol] 185 mg/dL 0 - 199 [facility] Work Phone: Comment on above: . [...] dosing. Cholesterol in HDL [Mass/Vol] 61.0 mg/dL [facility] Work Phone: Comment on above: . AGE VERY LOW LOW N ORMAL HIGH 0-19 Y < 35 < 40 40-45 ---- 20-24 Y ---- < 40 >45 ---- >24 Y ---- < 40 40-60 >60. Cholesterol in LDL [Mass/Vol] 111 mg/dL above high threshold 0 - 99 [facility] Work Phone: Comment on above: . NEAR BORD AGE MACARIO RABLE OPTIMAL HIGH HIGH VERY HIGH 0-19 Y 0 - 109 --- 110-129 >/= 130 ---- 20-24 Y 0 - 119 --- 120-159 >/= 160 ---- >24 Y 0 - 99 100-129 130-159 160-189 >/=190. Cholesterol.total/Cassie sterol in HDL [Mass ratio] 3.0 {ratio} [facility] Work Phone: Comment on above: REF VALUESDESIRABLE < 3.4HIGH RISK > 5.0 Triglyceride [Mass/Vol] 64 mg/dL 0 - 149 M [facility] Work Phone: Comment on above: . AGE [...] Lipid Panel 13 mg/dL 0 - 40 [facility] Work Phone: TSH WITH REFLEX TO FREE T4 I F ABNORMALon 11-23-2021 TSH Qn 1.21 m[IU]/L Normal 0.44 - 3.98 [facility] Comment on above: Result Comment: TSH testing is performed using different testing methodology at [facility] than at other [facility]. Direct result comparisons should only be made within the same method. Performed By: #### T [facility] #### [facility] [address] [place] [address] Office Visit (Family Medicin e)on 11-20-2021 Follow-up visit Diagnoses/Problems Hyperlipidemia (272.4) (E78.5) [...] ago breast cancer screening Gets annually with [facility] her last one was [...] TABSHealth Maintenance Calcium + D TABSHealth Maintenance [place] 3 1000 MG Oral CapsuleHealth Maintenance Rosuvastatin Calcium 10 MG Oral Tablettakes 1 three times per weekHyperlipidemia Levothyroxine Sodium 50 MCG Oral TabletTAKE TABLET 1 tablet daily except on sunady take 0.5 tabletHypothyroidism Vitals Vital Signs Recorded: 20Nov2021 08:38AM Heart Rate56 Qtyxsffy629 Fckouzjgb52 Wxgsay604.64 cm Lfzgwb74.39 kg BMI Mpbwlxqetz83.12 kg/m2 BSA Calculated1.83 Tobacco Useb) No PHQ-2 [...] Nov 20 2021 9:17AM EST (Author) Normal [facility] Tobacco Screening.on 022 Adult depression screening assessment No -[facility] Work Phone: Tobacco use status CPHS b) No M [facility] Work Phone: Initial Visit (Pain Medicine [...] October 05 (more content not included)... Normal [facility] Electrocardiogram 12 Leadon 09-07-2021 Electrocardiogram 12 Lead Ventricular Rate 58 Atrial Rate 58 P-R Interval 130 QRS Duration 100 Q-T Interval 422 QTC Calculation(Bazett) 414 P Lenox 35 R Lenox 82 T Lenox 53 QRS Count 10 Q Onset 222 P Onset 157 P Offset 204 T Offset 433 QTC Fredericia 417 Diagnosis Class Normal Diagnosis Please see physician note for formal interpretation confirmed by Scribe Confirmed by ELSY HUERTA () on 09/10/2021 10:24:52 AM Normal [facility] No Panel Informationon 09-07 Normal [facility] Work Phone: [phone] [email or web address] .[email or web address]?RetrieveTestByDate Time?EptivocYC=[email or web address] 6&Date=09-07-2021&Time= 11%3a35%3a56%3a00&TestT ype=ECG&Site=14&OutputT ype=PDF&Ext=PDF [facility] Work Phone: [phone] Please see physicia n note for formal interpretation confirmed by Scribe [facility] Work Phone: [phone] Normal [facility] Work Phone: [phone] [facility] Work Phone: [phone] [facility] Work Phone: [phone] [facility] Work Phone: [phone] [facility] Work Phone: [phone] [facility] Work Phone: [phone] [facility] Work Phone: [phone] 1 [facility] Work Phone: [phone] [facility] Work Phone: [phone] [facility] Work Phone: [phone] 1 [facility] Work Phone: [phone] [facility] Work Phone: [phone] [facility] Work Phone: [phone] [facility] Work Phone: [...] am INDICATION: radiculopathy. COMPARISON: None. ACCESSION NUMBER(S): [id number] ORDERING CLINICIAN: Igor Khan FINDINGS: 3 views [...] by: Prasanna Fong MD Technologist: HLL Normal [facility] Auto Diffon 10-09-2018 Basophils (Bld) [#/Vol] 0.0 E3/mcL Normal 0.0-0.2 S [facility] Comment on above: Order Comment: Order Added by Discern Expert. Performed By: #### 2 [id number] #### LETY [facility] [place] [address] Basophils/100 WBC (Bld) 0.6 % Normal 0.0-2.0 S [facility] Comment on above: Order Comment: Order Added by Discern Expert. Performed By: #### 2 [id number] #### LETY [address] [place] [address] Eos Absolute 0.2 E3/mcL Normal 0.0-0.7 [facility] Comment on above: Order Comment: Order Added by Discern Expert. Performed By: #### 2 [id number] #### LETY [address] [place] [address] Eosinophils/100 WBC (Bld) 3.3 % Normal 0.0-11.0 [facility] Comment on above: Order Comment: Order Added by Discern Expert. Performed By: #### 2 [id number] #### LETY Rem[facility] [address] [place] [address] Lymphocytes (Bld) [#/Vol] 1.4 E3/mcL Normal 1.2-3.4 [facility] Comment on above: Order Comment: Order Added by Discern Expert. Performed By: #### 2 [id number] #### LETY [address] [place] [address] Lymphocytes/100 WBC (Bld) 28.4 % Normal 20.0-55.0 [facility] Comment on above: Order Comment: Order Added by Discern Expert. Performed By: #### 2 [id number] #### LETY [address] [place] [address] Stephenson Absolute 0.5 E3/mcL Normal 0.0-0.7 [facility] Comment on above: Order Comment: Order Added by Discern Expert. Performed By: #### 2 [id number] #### LETY [address] [place] [address] Monocytes/100 WBC (Bld) 9.5 % Normal 0.0-10.0 [facility] Comment on above: Order Comment: Order Added by Discern Expert. Performed By: #### 2 [id number] #### LETY [address] [place] [address] Neutro Absolute 2.9 E3/mcL Normal 1.4-6.5 [facility] Comment on above: Order Comment: Order Added by Discern Expert. Performed By: #### 2 [id number] #### LETY [address] [place] [address] Neutro Auto 58.2 % Normal 37.0-75.0 [facility] Comment on above: Order Comment: Order Added by Discern Expert. Performed By: #### 2 [id number] #### LETY [address] [place] [address] BMPon 10-09-2018 Anion gap [Moles/Vol] 10 mmol/L Normal 10-20 [facility] Comment on above: Performed By: #### 2 [id number] #### [facility] [employer] [address] [place] [address] Calcium [Mass/Vol] 9.1 mg/dL Normal 8.6-10.3 [facility] Comment on above: Performed By: #### 2 [id number] #### [employer] [employer] [address] [place] [address] Chloride [Moles/Vol] 108 mmol/L High 98-107 [facility] Comment on above: Performed By: #### 2 [id number] #### [employer] [address] [place] [address] CO2 [Moles/Vol] 27.0 mmol/L Normal 21.0-32.0 [facility] Comment on above: Performed By: #### 2 [id number] #### [employer] [address] [place] [address] Creatinine [Mass/Vol] 0.7 mg/dL Normal 0.5-1.1 [facility] Comment on above: Performed By: #### 2 [id number] #### [employer] [address] [place] [address] Glucose [Mass/Vol] 97 mg/dL Normal 70-99 [facility] Comment on above: Performed By: #### 2 [id number] #### [employer] [address] [place] [address] Potassium [Moles/Vol] 4.0 mmol/L Normal 3.5-5.3 [facility] Comment on above: Performed By: #### 2 [id number] #### [employer] [address] [place] [address] Sodium [Moles/Vol] 141 mmol/L Normal 136-145 [facility] Comment on above: Performed By: #### 2 [id number] #### [employer] [address] [place] [address] Urea nitrogen [Mass/Vol] 26 mg/dL High 6-23 [facility] Comment on above: Performed By: #### 2 [id number] #### [employer] [employer] [address] [place] [address] Urea nitrogen/Creatinine [Mass ratio] 37.1 ratio High 5.4-30.0 [facility] Comment on above: Performed By: #### 2 [id number] #### [employer] [address] [place] [address]85 CBC w/ Auto Diffon 9 Erythrocyte distribution width (RBC) [Ratio] 13.3 % Normal 11.5-14.5 [facility] Comment on above: Performed By: #### 2 [id number] #### [employer] [employer] [address] [place] [address]27 Hematocrit (Bld) [Volume fraction] 42.2 % Normal 36.0-48.0 [facility] Comment on above: Performed By: #### 2 [id number] #### [employer] [address] [place] [address] 83388 Hemoglobin (Bld) [Mass/Vol] 13.6 g/dL Normal 12.0-16.0 [facility] Comment on above: Performed By: #### 2 697400 #### [employer] [address] [place] [address] 28369 MCH (RBC) [Entitic mass] 27.5 pg Normal 27.0-31.0 [facility] Comment on above: Performed By: #### 2 [id number] #### [employer] [address] [place] [address] MCHC (RBC) [Mass/Vol] 32.3 g/dL Low 33.0-37.0 [facility] Comment on above: Performed By: #### 2 [id number] #### [employer] [address] [place] [address] MCV (RBC) [Entitic vol] 85.1 fL Normal 78.0-100.0 [facility] Comment on above: Performed By: #### 2 [id number] #### [employer] [address] [place] [address] Platelet mean volume (Bld) [Entitic vol] 9.3 fL Normal 7.4-11.0 [facility] Comment on above: Performed By: #### 2 239294 #### [employer] [address] [place] [address] Platelets (Bld) [#/Vol] 216 E3/mcL Normal 130-400 [facility] Comment on above: Performed By: #### 2 [id number] #### [employer] [address] [place] [address] 50542 RBC (Bld) [#/Vol] 4.96 E6/mcL Normal 3.90-5.40 [facility] Comment on above: Performed By: #### 2 [id number] #### [employer] [address] [place] [address] 87841 WBC (Bld) [#/Vol] 5.0 E3/mcL Normal 3.6-11.0 [facility] Comment on above: Performed By: #### 2 [id number] #### [employer] [address] [place] [address] 12374 eGFRon 10-09-2018 GFR/1.73 sq M predicted among non-blacks MDRD (S/P/Bld) [Vol rate/Area] mL/min/{1.73_m2} Normal [facility] Comment on above: Order Comment: Order added by Discern Expert. Performed By: #### 1 [id number] #### [employer] [address] [place] [address] CMPon 09-13-2018 Albumin [Mass/Vol] 4.3 g/dL Normal 3.4-5.0 [facility] Comment on above: Performed By: #### 2 058503 #### [employer] [address] [place] [address]809 Albumin/Globulin [Mass ratio] 1.8 {ratio} Normal 1.1-1.9 [facility] Comment on above: Performed By: #### 2 742188 #### [employer] [address] [place] [address] 21245 Alk Phos 91 Int._Unit/L Normal 33-136 [facility] Comment on above: Performed By: #### 2 [id number] #### [employer] [address] [place] [address] 78173 ALT [Catalytic activity/Vol] 28 Int._Unit/L Normal 7-45 [facility] Comment on above: Performed By: #### 2 [id number] #### [employer] [address] [place] [address] 56208 Anion gap [Moles/Vol] 9 mmol/L Low 10-20 [facility] Comment on above: Performed By: #### 2 450171 #### [employer] [address] [place] [address] 27701 AST [Catalytic activity/Vol] 29 Int._Unit/L Normal 9-39 [facility] Comment on above: Performed By: #### 2 754151 #### [facility] [employer] [address] [place] [address] 36729 Bili Total 0.69 mg/dL Normal 0.00-1.20 [facility] Comment on above: Performed By: #### 2 360991 #### [employer] [address] [place] [address] 64995 Calcium [Mass/Vol] 9.5 mg/dL Normal 8.6-10.3 [facility] Comment on above: Performed By: #### 2 108062 #### [employer] [address] [place] [address] 34939 Chloride [Moles/Vol] 107 mmol/L Normal 98-107 [facility] Comment on above: Performed By: #### 2 051644 #### [employer] [address] [place] [address] 68973 CO2 [Moles/Vol] 30.0 mmol/L Normal 21.0-32.0 [facility] Comment on above: Performed By: #### 2 638233 #### [employer] [address] [place] [address] 48822 Creatinine [Mass/Vol] 0.8 mg/dL Normal 0.5-1.1 [facility] Comment on above: Performed By: #### 2 [id number] #### [employer] [address] [place] [address] 61498 Globulin (S) [Mass/Vol] 2.0 g/dL Normal 2.0-4.0 [facility] Comment on above: Performed By: #### 2 [id number] #### [employer] [address] [place] [address] 41839 Glucose [Mass/Vol] 85 mg/dL Normal 70-99 [facility] Comment on above: Performed By: #### 2 780374 #### [employer] [address] [place] [address] 17888 Potassium [Moles/Vol] 3.9 mmol/L Normal 3.5-5.3 [facility] Comment on above: Performed By: #### 2 690624 #### [employer] [address] [place] [address] 59603 Protein [Mass/Vol] 6.7 g/dL Normal 6.4-8.2 [facility] Comment on above: Performed By: #### 2 [id number] #### [employer] [address] [place] [address] 78918 Sodium [Moles/Vol] 142 mmol/L Normal 136-145 [facility] Comment on above: Performed By: #### 2 813621 #### [employer] [address] [place] [address] 80828 Urea nitrogen [Mass/Vol] 27 mg/dL High 6-23 [facility] Comment on above: Performed By: #### 2 [id number] #### [employer] [address] [place] [address] 66283 Urea nitrogen/Creatinine [Mass ratio] 33.8 ratio High 5.4-30.0 [facility] Comment on above: Performed By: #### 2 077067 #### [employer] [address] [place] [address] 92265 Lipid Profileon 09-13-2018 Cholesterol [Mass/Vol] 185 mg/dL Normal 0-199 [facility] Comment on above: Result Comment: TOTA L CHOLEESTEROL: <200 NORMAL 200 - 239 BORDERLINE HIGH >240 HIGH Performed By: #### 3 [id number] #### [employer] [address] [place] [address] 30689 Cholesterol in HDL [Mass/Vol] 66 mg/dL High 40-60 [facility] Comment on above: Performed By: #### 3 [id number] #### [employer] [address] [place] [address] 81631 Cholesterol in LDL [Mass/Vol] 110 mg/dL Normal 0-130 [facility] Comment on above: Result Comment: <100 OPTIMAL 100-129 NEAR / ABOVE OPTIMAL 130-159 BORDERLINE HIGH 160-189 HIGH >190 VERY HIGH CALC LDL NOT VALID WHEN TRIGLYCERIDE IS >400 MG/DL Performed By: #### 3 [id number] #### [employer] [address] [place] [address] 50260 Cholesterol in VLDL [Mass/Vol] 9 mg/dL Normal 0-40 [facility] Comment on above: Performed By: #### 3 [id number] #### [facility] [employer] [address] [place] [address] 70379 Triglyceride [Mass/Vol] 47 mg/dL Normal 0-149 [facility] Comment on above: Result Comment: AGE DESIRABLE BORDERLINE HIGH 91 D - 9 Y 0 - 74 75 - 99 > 100 10 - 19 Y 0 - 89 90 - 129 > 130 20 -24 Y 0 - 114 115 - 149 > 150 > 25 0 - 149 150 - 199 200 - 499 Performed By: #### 3 [id number] #### [facility] [employer] [address] [place] [address] 55711 TSHon 09-13-2018 TSH Qn 0.01 mcIU/mL Low 0.30-5.60 [facility] Comment on above: Performed By: #### 2 064482 #### [facility] [employer] [address] [place] [address] 57747 eGFRon 09-13-2018 GFR/1.73 sq M predicted among non-blacks MDRD (S/P/Bld) [Vol rate/Area] mL/min/{1.73_m2} Normal [facility] Comment on above: Order Comment: Order added by Discern Expert. Performed By: #### 1 [id number] #### [facility] [employer] [address] [place] [address] 54605 US DUPLEX VENOUS LEG RIGHTon 06-05-2017 US DUPLEX VENOUS LEG RIGHT Non-Invasive Vascular Patient: [facility] Rec#: [id number] (Age): 1955(62y) Study Date: 06/03/2017 Room#: Type: Sex: F __Reading: Dr. Georges Smith, MDReading: SHASHIOReferring: Amberly KNOX III, DONSonographer: Marsha Angel, RVT, RDMSProcedure Info: [id number] Quality: _Diagnosis:I87.2 Venous insufficiency (chronic) (peripheral)I83.811 Varicose veins of right lower extremities with painLower Venous Duplex _ConclusionsThe right great saphenous vein is noncompressible from the mid to distalthigh consistent with venous ablation. The right mid to distal femoraland popliteal veins are patent and compressible with no evidence of deepvenous thrombosis. The right great saphenous vein has been previouslyligated and is not visualized from the saphenofemoral junction to themid thigh. The procedure was explained to the patient. [...] 06/05/2017 11:38:50 by: Dr. Georges Smith MD [facility] VENOUS INSUFFICIENCYon US VENOUS INSUFFICIENCY Non-Invasive Vascular Patient: [facility]F [facility] Rec#: [id number] (Age): 1955(62y) Study Date: 04/29/2017 Room#: Type: Sex: F __Reading: VESOReading: ANALY Nguyeneading: Lashawn Louis: Amberly KNOX III, DONSonographer: Lauren Vera RVT,RDMSProcedure Info: [id number] Quality: Lower Venous Reflux: Adequate _Diagnosis:I83.819 Varicose veins of unspecified lower extremities with painLower Venous Duplex Lower Venous Reflux (Limb pain 729.5 ) __ConclusionsNo evidence of deep venous thrombosis or obstruction noted bilaterally.No evidence of deep or reflux noted bilaterally. Evidence of superficialvenous reflux noted in the right great saphenous vein from the mid thighto knee. No Evidence of superficial venous reflux noted in the leftgreat saphenous vein form proximal thigh to the mid calf. No evidence ofsuperficial venous reflux noted in the small saphenous veinbilaterally. Sonogr apher's Comments: Right great saphenous vein post ligation [...] 04/29/2017 15:49:23 by: Dr. Georges Smith MD [facility] venous insufficie ncy examon 04-29-2017 Ultrasound venous insufficiency exam Non-Invasive Vascular _ Patient: [facility] Rec#: [id number] (Age): 1955(62y) Study Date: 04/29/2017 Room#: Type: Sex: F _ Reading: LEVI Reading: Dr. Georges Smith MD Reading: Amberly Knxo DO Referring: Amberly KNOX III, DON Case Resource Manager: Lauren Vera RVT, RDMS Procedure Info: [id number] Study Quality: Lower Venous Reflux: Adequate _ Diagnosis: I83.819 Varicose veins of unspecified lower extremities with pain Lower Venous Duplex Lower Venous Reflux (Limb pain 729.5 ) _ Conclusions No evidence of deep venous thrombosis [...] noted in the small saphenous vein bilaterally. _ Case Resource Manager's Comments: Right great saphenous vein post ligation [...] Dr. Georges Smith MD Invalid Interpretation Code [facility] Ultrasound venous insufficiency exam Interface, [facility]29/2017 3:50 PM EST Non-Invasive Vascular _ Patient: [facility] Rec#: [id number] (Age): 1955(62y) Study Date: 04/29/2017 Room#: Type: Sex: F _ Reading: LEVI Reading: Dr. Georges Smith MD Reading: Amberly Knox DO Referring: Amberly KNOX III, DON Case Resource Manager: Lauren Vera RVT,DELANEY Procedure Info: [id number] Study Quality: Lower Venous Reflux: Adequate _ Diagnosis: I83.819 Varicose veins of unspecified lower extremities with pain Lower Venous Duplex Lower Venous Reflux (Limb pain 729.5 ) _ Conclusions No evidence of deep venous thrombosis [...] noted in the small saphenous vein bilaterally. _ Case Resource Manager's Comments: Right great saphenous vein post ligation [...] Dr. Georges Smith MD Invalid Interpretation Code [facility] Vital Signs Date Time Vital Sign Value Performing Clinician Facility 11-07-2024 14:12-0400 Body height 167.64 cm Florence Mendez MD Work Phone: [facility] 11-07-2024 14:12-0400 Body mass index (BMI) [Ratio] 26.4 kg/m2 Florence Mendez MD Work Phone: [facility] 11-07-2024 14:12-0400 Body temperature 98.3 [degF] Florence Mendez MD Work Phone: [facility] 11-07-2024 14:12-0400 Body weight 74.38 kg Florence Mendez MD Work Phone: [facility] 11-07-2024 14:12-0400 Diastolic blood pressure 71 mm[Hg] Florence Mendez MD Work Phone: 6(903)261-309025 [address] 11-07-2024 14:12-0400 Heart rate 91 /min Florence Mendez MD Work Phone: 6(990)146-384425 [address] 11-07-2024 14:12-0400 Respiratory rate 18 /min Florence Mendez MD Work Phone: [facility] 11-07-2024 14:12-0400 SaO2% (BldA) [Mass fraction] 95 % Florence Mendez MD Work Phone: 5(467)285-808625 [address] 11-07-2024 14:12-0400 Systolic blood pressure 113 mm[Hg] Florence Mendez MD Work Phone: 4(998)546-347625 [address] 10-31-2024 14:16-0400 Body height 167.64 cm Florence Mendez MD Work Phone: [facility] 10-31-2024 14:16-0400 Body mass index (BMI) [Ratio] 26.3 kg/m2 Florence Mendez MD Work Phone: [facility] 10-31-2024 14:16-0400 Body temperature 98.2 [degF] Florence Mendez MD Work Phone: [facility] 10-31-2024 14:16-0400 Body weight 73.99 kg Florence Mendez MD Work Phone: 4(672)457-240401 [place] [address] 10-31-2024 14:16-0400 Diastolic blood pressure 71 mm[Hg] Florence Mendez MD Work Phone: [facility] 10-31-2024 14:16-0400 Heart rate 88 /min Florence Mendez MD Work Phone: [facility] 10-31-2024 14:16-0400 Respiratory rate 18 /min Florence Mendez MD Work Phone: [facility] 10-31-2024 14:16-0400 SaO2% (BldA) [Mass fraction] 95 % Florence Mendez MD Work Phone: [facility] 10-31-2024 14:16-0400 Systolic blood pressure 123 mm[Hg] Florence Mendez MD Work Phone: [facility] 10-24-2024 11:30-0400 Diastolic blood pressure 65 mm[Hg] Florence Mendez MD Work Phone: [facility] 10-24-2024 11:30-0400 Systolic blood pressure 122 mm[Hg] Florence Mendez MD Work Phone: [facility] 10-24-2024 10:49-0400 Body height 167.64 cm Florence Mendez MD Work Phone: 1(319)907-243301 [place] [address] 10-24-2024 10:49-0400 Body mass index (BMI) [Ratio] 25.8 kg/m2 Florence Mendez MD Work Phone: [facility] 10-24-2024 10:49-0400 Body temperature 98.4 [degF] Florence Mendez MD Work Phone: [facility] 10-24-2024 10:49-0400 Body weight 72.57 kg Florence Mendez MD Work Phone: [facility] 10-24-2024 10:49-0400 Heart rate 83 /min Florence Mendez MD Work Phone: [facility] 10-24-2024 10:49-0400 Respiratory rate 16 /min Florence Mendez MD Work Phone: [facility] 10-24-2024 10:49-0400 SaO2% (BldA) [Mass fraction] 98 % Florence Mendez MD Work Phone: [facility] 10-17-2024 14:20-0400 Body height 167.64 cm Florence Mendez MD Work Phone: [facility] 10-17-2024 14:20-0400 Body mass index (BMI) [Ratio] 26.3 kg/m2 Florence Mendez MD Work Phone: [facility] 10-17-2024 14:20-0400 Body temperature 97.6 [degF] Florence Mendez MD Work Phone: [facility] 10-17-2024 14:20-0400 Body weight 73.93 kg Florence Mendez MD Work Phone: [facility] 10-17-2024 14:20-0400 Diastolic blood pressure 75 mm[Hg] Florence Mendez MD Work Phone: [facility] 10-17-2024 14:20-0400 Heart rate 78 /min Florence Mendez MD Work Phone: [facility] 10-17-2024 14:20-0400 Respiratory rate 18 /min Florence Mendez MD Work Phone: [facility] 10-17-2024 14:20-0400 SaO2% (BldA) [Mass fraction] 95 % Florence Mendez MD Work Phone: [facility] 10-17-2024 14:20-0400 Systolic blood pressure 126 mm[Hg] Florence Mendez MD Work Phone: [facility] 09-19-2024 14:18-0400 Body temperature 97.9 [degF] Florence Mendez MD Work Phone: [facility] 09-19-2024 14:18-0400 Body weight 74.38 kg Florence Mendez MD Work Phone: [facility] 09-19-2024 14:18-0400 Diastolic blood pressure 75 mm[Hg] Florence Mendez MD Work Phone: [facility] 09-19-2024 14:18-0400 Heart rate 76 /min Florence Mendez MD Work Phone: [facility] 09-19-2024 14:18-0400 Respiratory rate 18 /min Florence Mendez MD Work Phone: [facility] 09-19-2024 14:18-0400 SaO2% (BldA) [Mass fraction] 96 % Florence Mendez MD Work Phone: [facility] 09-19-2024 14:18-0400 Systolic blood pressure 112 mm[Hg] Florence Mendez MD Work Phone: 0(847)[phone] [address] 08-28-2024 10:40-0400 Body mass index (BMI) [Ratio] 26.3 kg/m2 Florence Mendez MD Work Phone: [facility] 08-28-2024 10:40-0400 Body temperature 98.7 [degF] Florence Mendez MD Work Phone: 0(776)516-958901 [place] [address] 08-28-2024 10:40-0400 Body weight 74.04 kg Florence Mendez MD Work Phone: [facility] 08-28-2024 10:40-0400 Diastolic blood pressure 67 mm[Hg] Florence Mendez MD Work Phone: [facility] 08-28-2024 10:40-0400 Heart rate 71 /min Florence Mendez MD Work Phone: [facility] 08-28-2024 10:40-0400 Respiratory rate 18 /min Florence Mendez MD Work Phone: [facility] 08-28-2024 10:40-0400 SaO2% (BldA) [Mass fraction] 96 % Florence Mendez MD Work Phone: [facility] 08-28-2024 10:40-0400 Systolic blood pressure 119 mm[Hg] Florence Mendez MD Work Phone: [facility] 07-11-2024 14:42-0500 Body height 167.64 cm Florence Mendez MD Work Phone: [facility] 07-11-2024 14:42-0500 Body mass index (BMI) [Ratio] 26.3 kg/m2 Florence Mendez MD Work Phone: [facility] 07-11-2024 14:42-0500 Body temperature 98.4 [degF] Florence Mendez MD Work Phone: [facility] 07-11-2024 14:42-0500 Body weight 73.93 kg Florence Mendez MD Work Phone: [facility] 07-11-2024 14:42-0500 Diastolic blood pressure 81 mm[Hg] Florence Mendez MD Work Phone: [facility] 07-11-2024 14:42-0500 Heart rate 72 /min Florence Mendez MD Work Phone: [facility] 07-11-2024 14:42-0500 Respiratory rate 18 /min Florence Mendez MD Work Phone: [facility] 07-11-2024 14:42-0500 SaO2% (BldA) [Mass fraction] 96 % Florence Mendez MD Work Phone: [facility] 07-11-2024 14:42-0500 Systolic blood pressure 138 mm[Hg] Florence Mendez MD Work Phone: [facility] 06-27-2024 14:22-0500 Body mass index (BMI) [Ratio] 26.6 kg/m2 Florence Mendez MD Work Phone: [facility] 06-27-2024 14:22-0500 Body temperature 97.9 [degF] Florence Mendez MD Work Phone: [facility] 06-27-2024 14:22-0500 Body weight 74.84 kg Florence Mendez MD Work Phone: [facility] 06-27-2024 14:22-0500 Diastolic blood pressure 79 mm[Hg] Florence Mendez MD Work Phone: [facility] 06-27-2024 14:22-0500 Heart rate 67 /min Florence Mendez MD Work Phone: [facility] 06-27-2024 14:22-0500 Respiratory rate 18 /min Florence Mendez MD Work Phone: [facility] 06-27-2024 14:22-0500 SaO2% (BldA) [Mass fraction] 96 % Florence Mendez MD Work Phone: [facility] 06-27-2024 14:22-0500 Systolic blood pressure 139 mm[Hg] Florence Mendez MD Work Phone: 0(812)696-470625 [address] 06-15-2024 16:30-0500 Body temperature 97.6 [degF] Florence Mendez MD Work Phone: 9(325)197-542501 [place] [address] 06-15-2024 16:30-0500 Diastolic blood pressure 76 mm[Hg] Florence Mendez MD Work Phone: 3(527)[phone] [address] 06-15-2024 16:30-0500 Heart rate 74 /min Florence Mendez MD Work Phone: 3(733)248-476625 [address] 06-15-2024 16:30-0500 Respiratory rate 16 /min Florence Mendez MD Work Phone: [facility] 06-15-2024 16:30-0500 SaO2% (BldA) [Mass fraction] 100 % Florence Mendez MD Work Phone: [facility] 06-15-2024 16:30-0500 Systolic blood pressure 132 mm[Hg] Florence Mendez MD Work Phone: [facility] 06-15-2024 13:55-0500 Body mass index (BMI) [Ratio] 25.6 kg/m2 Florence Mendez MD Work Phone: [facility] 06-15-2024 13:55-0500 Body weight 72 kg Florence Mendez MD Work Phone: [facility] 05-10-2024 08:25-0500 Body mass index (BMI) [Ratio] 25.7 kg/m2 Florence Mendez MD Work Phone: [facility] 05-10-2024 08:25-0500 Body weight 72.34 kg Florence Mendez MD Work Phone: [facility] 05-01-2024 14:26-0500 Body mass index (BMI) [Ratio] 26.1 kg/m2 Florence Mendez MD Work Phone: [facility] 05-01-2024 14:26-0500 Body temperature 98 [degF] Florence Mendez MD Work Phone: [facility] 05-01-2024 14:26-0500 Body weight 73.48 kg Florence Mendez MD Work Phone: [facility] 05-01-2024 14:26-0500 Diastolic blood pressure 78 mm[Hg] Florence Mendez MD Work Phone: [facility] 05-01-2024 14:26-0500 Heart rate 78 /min Florence Mendez MD Work Phone: [facility] 05-01-2024 14:26-0500 Respiratory rate 16 /min Florence Mendez MD Work Phone: [facility] 05-01-2024 14:26-0500 SaO2% (BldA) [Mass fraction] 95 % Florence Mendez MD Work Phone: [facility] 05-01-2024 14:26-0500 Systolic blood pressure 124 mm[Hg] Florence Mendez MD Work Phone: [facility] 03-24-2023 08:30-0400 Body height 167.6 cm Liza Low MD Work Phone: [facility] 03-24-2023 08:30-0400 Body weight 73.03 kg Liza Low MD Work Phone: [facility] 03-24-2023 08:30-0400 Diastolic blood pressure 70 mm[Hg] Liza Low MD Work Phone: [facility] 03-24-2023 08:30-0400 Systolic blood pressure 112 mm[Hg] Liza Low MD Work Phone: [facility] 11-25-2022 08:02-0400 Body height 165.1 cm Eugenia Adair MD Work Phone: [facility] 11-25-2022 08:02-0400 Body mass index (BMI) [Ratio] 26.56 kg/m2 Eugenia Adair MD Work Phone: [facility] 11-25-2022 08:02-0400 Body weight 72.39 kg Eugenia Adair MD Work Phone: [facility] 11-25-2022 08:02-0400 Diastolic blood pressure 80 mm[Hg] Eugenia Adair MD Work Phone: [facility] 11-25-2022 08:02-0400 Heart rate 56 /min Eugenia Adair MD Work Phone: [facility] 11-25-2022 08:02-0400 SaO2% (BldA) [Mass fraction] 99 % Eugenia Adair MD Work Phone: [facility] 11-25-2022 08:02-0400 Systolic blood pressure 128 mm[Hg] Eugenia Adair MD Work Phone: [facility] 08-05-2022 11:07-0500 Body height 166 cm Eugenia Adair Other Phone: [facility] 08-05-2022 11:07-0500 Body temperature 97.88 [degF] Eugenia Adair Other Phone: [facility] 08-05-2022 11:07-0500 Diastolic blood pressure 76 mm[Hg] Eugenia Mana Other Phone: [facility] 08-05-2022 11:07-0500 Heart rate 86 /min Eugenia Mana Other Phone: [facility] 08-05-2022 11:07-0500 Respiratory rate 14 /min Eugenia Mana Other Phone: [facility] 08-05-2022 11:07-0500 SaO2% (BldA) [Mass fraction] 98 % Eugenia Mana Other Phone: [facility] 08-05-2022 11:07-0500 Systolic blood pressure 118 mm[Hg] Eugenia Mana Other Phone: [facility] 07-17-2022 10:54-0500 Body height 168 cm Eugenia Mana Other Phone: [facility] 07-17-2022 10:54-0500 Body temperature 96.98 [degF] Eugenia Mana Other Phone: [facility] 07-17-2022 10:54-0500 Diastolic blood pressure 72 mm[Hg] Eugenia Mana Other Phone: [facility] 07-17-2022 10:54-0500 Heart rate 80 /min Eugenia Mana Other Phone: [facility] 07-17-2022 10:54-0500 SaO2% (BldA) [Mass fraction] 94 % Eugenia Mana Other Phone: [facility] 07-17-2022 10:54-0500 Systolic blood pressure 122 mm[Hg] Eugenia Mana Other Phone: [facility] 06-10-2022 09:03-0500 Body height 167.6 cm Eugenia L Mana Work Phone: [facility] Work Phone: 06-10-2022 09:03-0500 Body mass index (BMI) [Ratio] 26.05 kg/m2 Eugenia L Mana Work Phone: [facility] Work Phone: 06-10-2022 09:03-0500 Body surface area Derived from formula 1.83 m2 Eugenia L Mana Work Phone: [facility] Work Phone: 06-10-2022 09:03-0500 Body weight 73.16 kg Eugenia L Mana Work Phone: [facility] Work Phone: 06-10-2022 09:03-0500 Diastolic blood pressure 68 mm[Hg] Eugenia L Mana Work Phone: [facility] Work Phone: 06-10-2022 09:03-0500 Heart rate 62 /min Eugenia L Mana Work Phone: [facility] Work Phone: 06-10-2022 09:03-0500 Systolic blood pressure 102 mm[Hg] Eugenia L Mana Work Phone: [facility] Work Phone: 04-08-2022 09:10-0400 Body height 167.64 cm Eugenia L Mana Work Phone: [facility] Work Phone: 04-08-2022 09:10-0400 Body mass index (BMI) [Ratio] 26.33 kg/m2 Eugenia L Mana Work Phone: [facility] Work Phone: 04-08-2022 09:10-0400 Body surface area Derived from formula 1.83 m2 Eugenia L Mana Work Phone: [facility] Work Phone: 04-08-2022 09:10-0400 Body weight 73.98 kg Eugenia L Mana Work Phone: [facility] Work Phone: 04-08-2022 09:10-0400 Diastolic blood pressure 78 mm[Hg] Eugenia L Mana Work Phone: [facility] Work Phone: 04-08-2022 09:10-0400 Heart rate 57 /min Eugenia L Mana Work Phone: [facility] Work Phone: 04-08-2022 09:10-0400 Systolic blood pressure 128 mm[Hg] Eugenia L Mana Work Phone: [facility] Work Phone: 03-11-2022 09:46-0400 Body height 167.6 cm Liza Low MD Work Phone: [facility] 03-11-2022 09:46-0400 Body weight 73.03 kg Liza Low MD Work Phone: [facility] 03-11-2022 09:46-0400 Diastolic blood pressure 62 mm[Hg] Liza Low MD Work Phone: [facility] 03-11-2022 09:46-0400 Systolic blood pressure 110 mm[Hg] Liza oLw MD Work Phone: [facility] 11-20-2021 08:38-0400 Body height 167.64 cm Eugenia Roaer Work Phone: [facility] Work Phone: 11-20-2021 08:38-0400 Body mass index (BMI) [Ratio] 26.12 kg/m2 Eugenia L Mana Work Phone: [facility] Work Phone: 11-20-2021 08:38-0400 Body surface area Derived from formula 1.83 m2 Eugenia L Mana Work Phone: [facility] Work Phone: 11-20-2021 08:38-0400 Body weight 73.39 kg Eugenia L Mana Work Phone: [facility] Work Phone: 11-20-2021 08:38-0400 Diastolic blood pressure 80 mm[Hg] Eugenia L Mana Work Phone: [facility] Work Phone: 11-20-2021 08:38-0400 Heart rate 56 /min Eugenia L Mana Work Phone: [facility] Work Phone: 11-20-2021 08:38-0400 Systolic blood pressure 120 mm[Hg] Eugenia L Mana Work Phone: [facility] Work Phone: 10-05-2021 09:59-0400 Body mass index [...] pressure 75 mm[Hg] Eugenia Mana Other Phone: [facility] 09-07-2021 14:30-0400 Heart rate 57 /min Eugenia Mana Other Phone: [facility] 09-07-2021 14:30-0400 Respiratory rate 16 /min Eugenia Mana Other Phone: [facility] 09-07-2021 14:30-0400 SaO2% (BldA) [Mass fraction] 97 % Eugenia Mana Other Phone: [facility] 09-07-2021 14:30-0400 Systolic blood pressure 116 mm[Hg] Eugenia Mana Other Phone: [facility] 09-07-2021 13:47-0400 Body height 167.6 cm Eugenia Mana Other Phone: [facility] 09-07-2021 13:47-0400 Body temperature 98.24 [degF] Eugenia Mana Other Phone: [facility] 09-07-2021 13:47-0400 Body weight 72.7 kg Eugenia Mana Other Phone: [facility] 06-15-2017 14:02-0500 BP Diastolic 77 mm[Hg] Amberly Knox [facility] Work Phone: 06-15-2017 14:02-0500 BP Systolic 117 mm[Hg] [facility] Work [facility]: 06-15-2017 14:01-0500 BMI (Body Mass Index) 25.82 kg/m2 [facility] Work Phone: 06-15-2017 14:01-0500 Height 167.6 cm [facility] Work [facility]: 06-15-2017 14:01-0500 Pulse (Heart Rate) 80 /min Amberly Knox [facility] Work Phone: 06-15-2017 14:01-0500 Respiratory Rate 16 /min [facility] Work Phone: 06-15-2017 14:01-0500 Weight 72.58 kg Amberly Knox [facility] Work Phone: 05-12-2017 07:57-0500 BP Diastolic 78 mm[Hg] Amberly Knox [facility] Work Phone: 05-12-2017 07:57-0500 BP Systolic 120 mm[Hg] [facility] Work Phone: 05-12-2017 07:57-0500 Pulse (Heart Rate) 61 /min Amberly Knox [facility] Work Phone: 05-12-2017 07:56-0500 BMI (Body Mass Index) 26.37 kg/m2 [facility] Work Phone: 05-12-2017 07:56-0500 Height 167.6 cm Amberly Knox [facility] Work Phone: 05-12-2017 07:56-0500 Respiratory Rate 16 /min [facility] Work Phone: 05-12-2017 07:56-0500 Weight 74.12 kg Amberly Knox [facility] Work Phone: 03-24-2017 07:59-0400 BP Diastolic 85 mm[Hg] Amberly Knox [facility] Work Phone: 03-24-2017 07:59-0400 BP Systolic 137 mm[Hg] [facility]: 03-24-2017 07:59-0400 Pulse (Heart Rate) 63 /min Amberly Knox [facility] Work Phone: 03-24-2017 07:58-0400 BMI (Body Mass Index) 26.87 kg/m2 Amberly Knox [facility] Work Phone: 03-24-2017 07:58-0400 Height 167.6 cm Amberly Knox [facility] Work Phone: 03-24-2017 07:58-0400 Respiratory Rate 16 /min Amberly Knox [facility] Work Phone: 03-24-2017 07:58-0400 Weight 75.52 kg Amberly Knox [facility] Work Phone: Encounters Encounter Date Encounter Type Care Provider Facility Start: 01-11-2025 ambulatory Florence Mendez Facility:[facility] Start: 12-17-2024 End: 12-17-2024 ambulatory Florence Mendez MD Work Phone: -[facility] Start: 12-17-2024 End: 12-17-[address] Florence Mendez MD -[facility] Start: 12-17-2024 End: 12-17-2024 ambulatory Florence Mendez Facility:[facility] Start: 11-07-2024 End: 11-07-[address] Maryann Mantilla MD -[facility] Work Phone: Start: 11-07-2024 End: 11-07-2024 ambulatory Florence Mendez MD Work Phone: [facility] Work Phone: Start: 10-31-2024 End: 10-31-[address] Maryann Mantilla MD -[facility] Work Phone: Start: 10-31-2024 End: 10-31-2024 ambulatory Florence Mendez MD Work Phone: [facility] Work Phone: Start: 10-24-2024 Non-patient / Non-visit [facility] Maryann tracy [facility] Start: 10-24-2024 End: 10-24-2024 Admission to same day surgery center Dr. Maryann Mantilla MD [facility] Start: 10-24-2024 End: 10-24-2024 ambulatory Florence Mendez MD Work Phone: [facility] Work Phone: Start: 10-17-2024 End: 10-17-2024 ambulatory Florence Mendez MD Work Phone: [facility] Work Phone: Start: 10-17-2024 End: 10-17-[address] Maryann Mantilla MD -[facility] Work Phone: Start: 09-19-2024 End: 09-19-[address] Maryann Mantilla MD -[facility] Work Phone: Start: 09-19-2024 End: 09-19-2024 ambulatory Florence Mendez Facility:[facility] Start: 08-28-2024 End: 08-28-[address] Maryann Mantilla MD -[facility] Work Phone: Start: 08-28-2024 End: 08-28-2024 ambulatory Florence Mendez Facility:[facility] Start: 08-11-2024 End: 08-11-2024 ambulatory Florence Mendez MD Work Phone: [facility] Work Phone: Start: 08-11-2024 End: 08-11-[address] Florence Mendez MD -[facility] Work Phone: Start: 08-11-2024 End: 08-11-2024 ambulatory Chalon Aayush Facility:[facility] Start: 07-26-2024 End: 07-26-2024 Patient encounter procedure Emmy MCCANN -[facility] Work Phone: Start: 07-26-2024 End: 07-26-2024 ambulatory Emmy Diez Facility:[facility] Start: 07-11-2024 End: 07-11-[address] Maryann Mantilla MD -[facility] Work Phone: Start: 07-11-2024 End: 07-11-2024 ambulatory Chalon Aayush Facility:[facility] Start: 06-27-2024 End: 06-27-[address] Maryann Mantilla MD -[facility] Work Phone: Start: 06-27-2024 End: 06-27-2024 ambulatory Chalon Aayush Facility:[facility] Start: 06-15-2024 ambulatory Chalon Aayush Facility:[facility] Start: 06-15-2024 Non-patient / Non-visit Dr. Maryann tracy MD -[facility] Start: 06-15-2024 End: 06-15-2024 Admission to same day surgery center Dr. Maryann Mantilla MD [facility] Start: 06-15-2024 End: 06-15-2024 ambulatory Chalon Aayush Facility:[facility] Start: 05-26-2024 End: 05-26-2024 Patient encounter procedure Emmy MCCANN [facility] Work Phone: Start: 05-26-2024 End: 05-26-2024 ambulatory Emmy Diez Facility:[facility] Start: 05-10-2024 End: 05-10-2024 Patient encounter procedure Emmy MCCANN -[facility] Work Phone: Start: 05-10-2024 End: 05-10-2024 ambulatory Emmy Diez Facility:[facility] Start: 05-01-2024 End: 05-01-[address] Maryann Mantilla MD -[facility] Work Phone: Start: 05-01-2024 End: 05-01-2024 ambulatory Chalon Aayush Facility:[facility] Start: 04-19-2024 End: 04-19-2024 ambulatory Chalon Aayush Facility:[facility] Start: 03-15-2024 End: 03-15-2024 ambulatory Chalon Aayush Facility:[facility] Start: 09-14-2023 End: 09-14-2023 ambulatory [facility] Start: 04-04-2023 End: 04-04-2023 ambulatory [facility] Start: 03-24-2023 End: 03-24-2023 ambulatory LIZA LOW Facility:[facility] Start: 03-24-2023 End: 03-24-2023 Patient encounter procedure Liza Low MD Work Phone: OB/Gynecology Comment on above: Encounter for gyneco logical examination (general) (routine) without abnormal findings (Primary Dx); Encounter for screening mammogram for breast cancer Start: 03-24-2023 End: 03-24-2023 Patient encounter status Liza Low MD Work Phone: [facility] Start: 03-17-2023 Documentation procedure Mammog rick Coordinator [facility] Start: 03-17-2023 Letter encounter Mammography Coordinator [facility] Department Start: 03-17-2023 End: 03-17-2023 ambulatory LIZA LOW Facility:[facility] Start: 03-17-2023 End: 03-17-2023 Subsequent hospital visit by physician Screen Mammo [facility] Comment on above: Encounter for screen ing mammogram for malignant neoplasm of breast [Z12.31] Start: 02-10-2023 End: 02-10-2023 ambulatory AVERY BENTON Facility:[facility] Start: 02-10-2023 End: 02-10-2023 Patient encounter procedure Avery Benton Work Phone: Podiatry Comment on above: Hallux valgus of lef t foot (Primary Dx); Hammer toe of left foot; Callus of foot Start: 02-10-2023 End: 02-10-2023 Subsequent hospital visit by physician Xr [facility] Rodriguez Aguillon Work Phone: Radiology Comment on above: Pain in left foot [M 79.672] Start: 02-04-2023 Orders Only Avery Welch moses Work Phone: Podiatry Comment on above: Pain in left foot (P rimary Dx) Start: 11-25-2022 End: 11-26-2022 ambulatory EUGENIA ADAIR [facility] Start: 11-25-2022 End: 11-25-2022 Encounter for general adult medical examination without abnormal findings [facility] Start: 11-25-2022 End: 11-25-2022 Assay of hemosiderin, quant Eugenia Adair MD Work Phone: [facility] Work Phone: Start: 11-25-2022 End: 11-25-2022 Patient encounter procedure Eugenia Adair MD Work Phone: [facility] Comment on above: Routine general medi farheen examination at health care facility (Primary Dx); Acquired hypothyroidism; Pure hypercholesterolemia; MVP (mitral valve prolapse) Start: 08-05-2022 End: 08-05-2022 Emergency department patient visit [facility] Start: 07-17-2022 End: 07-17-2022 Emergency department patient visit [facility] Start: 06-10-2022 Patient encounter procedure Eugenia Adair Work Phone: [facility] Work Phone: Start: 06-10-[address] Eugenia Orozco acility:[id number] Start: 04-21-2022 End: 04-21-2022 ambulatory LEENA KOREY Facility:[facility] Start: 04-21-2022 End: 04-21-2022 Subsequent hospital visit by physician Diagnostic Mammo [facility] Start: 04-08-2022 Patient encounter procedure Eugenia Adair Work Phone: [facility] Work Phone: Start: 04-08-[address] Eugenia Orozco acility:[id number] Start: 03-23-2022 Telephone encounter Liza Low MD Work Phone: OB/Gynecology Comment on above: Results Start: 03-12-2022 Telephone encounter Leena Castle chris [employer] Work Phone: OB/Gynecology Comment on above: Orders Start: 03-11-2022 Documentation procedure Mammog rick Coordinator [facility] Start: 03-11-2022 Letter encounter Mammography Coordinator [facility] Department Start: 03-11-2022 End: 03-11-2022 Patient encounter [...] visit by physician Screen Mammo [facility] Comment on above: Encounter for screen ing mammogram for malignant neoplasm of breast [Z12.31] Start: 11-24-2021 Chart Update Eugenia lr Work Phone: [facility] Work Phone: Start: 11-23-2021 Chart Update Eugenia lr Work Phone: [facility] Work Phone: Start: 11-20-[address] Eugenia Orozco acility:[id number] Start: 05-02-2022 Patient encounter procedure Eugenia Adair Work Phone: -[facility] Work Phone: Start: 09-07-2021 End: 09-07-2021 Emergency department patient visit Yoan Leos [facility] Emergency 16 Start: 03-02-2021 AUDIT Eugenia lr Work Phone: [facility] Work Phone: Start: 10-23-2020 Office outpatient vi sit 25 minutes Eugenia Adair Work Phone: [facility] Work Phone: Start: 01-24-2019 End: 01-28-2019 Patient encounter procedure [facility] Start: 01-24-2019 End: 01-24-2019 Patient encounter procedure [facility] Work Phone: [facility] Comment on above: Tibialis posterior t endinitis, unspecified laterality (Primary Dx) Start: 01-22-2019 End: 01-26-2019 Patient encounter procedure [facility] Start: 01-22-2019 End: 01-22-2019 Patient encounter procedure Igorjostin Khan Work Phone: [facility] Comment on above: Tibialis posterior t endinitis, unspecified laterality (Primary Dx) Start: 01-17-2019 End: 01-21-2019 Patient encounter procedure [facility] Start: 01-17-2019 End: 01-17-2019 Patient encounter procedure Igorjostin Taylormerman Work Phone: [facility] Comment on above: Tibialis posterior t endinitis, unspecified laterality (Primary Dx) Start: 01-15-2019 End: 01-19-2019 Patient encounter procedure [facility] Start: 01-15-2019 End: 01-15-2019 Patient encounter procedure [facility] Gerson Khan Work Phone: [facility] Comment on above: Tibialis posterior t endinitis, unspecified laterality Start: 06-15-2017 Office/outpatient vi sit, est, level 2 Amberly Knox Work Phone: [facility] Start: 06-03-2017 End: 06-04-2017 Ambulatory Candice Knox Facility:[place] Start: 06-03-2017 End: 06-03-2017 Ambulatory Amberly Knox Work Phone: [facility] Start: 06-03-2017 End: 06-03-2017 Ambulatory Amberly Knox Work Phone: [facility] Start: 06-02-2017 Ambulatory Candice Knox Facilit y:[place] Start: 06-02-2017 End: 06-02-2017 Ambulatory Amberly Knox Work Phone: [facility] Start: 06-01-2017 End: 06-02-2017 Ambulatory Amberly KNOX [facility] Ambulatory Start: 06-01-2017 SD OFFICE/OUTPT VISIT,PROCEDURE ONLY Amberly Knox Work Phone: [facility] Start: 06-01-2017 End: 06-01-2017 Ambulatory Amberly Knox Work Phone: [facility] Start: 05-12-2017 End: 05-12-2017 Ambulatory Amberly KNOX [facility] Ambulatory Start: 05-12-2017 Office outpatient vi sit 15 minutes Amberly Knox Work Phone: [facility] Start: 04-29-2017 End: 04-30-2017 Ambulatory Candice Knox Facility:[place] Start: 04-29-2017 End: 04-29-2017 Ambulatory Amberly Knox Work Phone: [facility] Start: 03-24-2017 End: 03-24-2017 Ambulatory Amberly KNOX [facility] Ambulatory Start: 03-24-2017 End: 03-24-2017 Office outpatient new 30 minutes Amberly Knox Work Phone: [facility] Comment on above: Varicose veins with pain (Primary Dx) Start: 02-24-2017 Ambulatory Amberly [facility] Ambulatory Procedures Date Procedure Procedure Detail Performing Clinician Start: 12-17-2024 Vitamin D, 25-hydrox y measurement Florence Mendez MD Work Phone: Comment on above: Vitamin D StatusDefi ciency: <20 ng/mL (50nmol/L)Insufficiency: 20-30 ng/mL (50-75 nmol/L)Sufficiency: 30-100 ng/mL (75-250 nmol/L)Toxicity: >100 ng/mL (>250 nmol/L) Start: 10-24-2024 Excision Florence combs MD Work Phone: Start: 08-11-2024 MRI of joint of lowe r extremity Florence Mendez MD Work Phone: Start: 05-26-2024 MRI of lumbar spine Jen Mendez MD Work Phone: Start: 05-10-2024 X-ray of lumbosacral spine Florence Mendez MD Work Phone: Start: 09-14-2023 POCT BD VERITOR TRIPLEX AG EUGENIA ADAIR Start: 04-04-2023 POCT BD VERITOR COVID-19 AG EUGENIA ADAIR Start: 03-17-2023 Screening digital br east tomosynthesis bi Liza Low MD Work Phone: Start: 02-10-2023 Radex foot complete minimum 3 views Avery Serenity Work Phone: Start: 11-25-2022 TSH WITH REFLEX TO F REE T4 IF ABNORMAL EUGENIA ADAIR Start: 04-21-2022 JESSICA DIAG W DAVID RIGHT R enee Korey [employer] Work Phone: Start: 03-11-2022 JESSICA SCREENING W DAVID Garner MD Work Phone: Start: 03-11-2022 Mammography Liza Juan Low MD Work Phone: Start: 11-23-2021 Lipid 1996 panel - S rachelle or Plasma Eugenia Adair MD Work Phone: Start: 09-07-2021 End: 09-07-2021 EKG impression Yoan PatyMarcos Leos Start: 03-02-2021 Mammography Eugenia drake MD Work Phone: Start: 05-12-2020 Colonoscopy Eugenia drake MD Work Phone: Start: 04-25-2019 Thyrotropin [Units/v olume] in Serum or Plasma Eugenia Adair MD Work Phone: Start: 02-22-2018 Mammography Jackie tovar Start: 06-24-2011 Colonoscopy Liza Low MD Work Phone: Appendectomy Eugenia Adair Work Phone: Colonoscopy Eugenia L Mana Work Phone: Excision of bunion Eugenia Adair Work Phone: Ligation of fallopian tube D ouglas L Mana Work Phone: Ligation of varicose vein Do uglas L Mana Work Phone: Operative procedure on wrist Eugenia Fischer Mana Work Phone: Surgical procedure o n eye proper Eugenia Adair Work Phone: Plan of Treatment Date Care Activity Detail Author Start: 05-12-2030 Screening for malign ant neoplasm of colon [facility] Start: 11-23-2026 Lipid 1996 panel - S rachelle or Plasma Lipid Screening [facility] Start: 11-23-2026 Lipid panel Lipid Panel [facility] Start: 11-23-2026 LIPID SCREEN LIPID SCREEN [facility] Start: 10-24-2024 Exc b9 les mrgn xcp sk tg f/e/e/n/l/m 2.1-3.0cm EXC FACE-MM B9+MACEY 2.1-3 CM [facility] Start: 10-24-2024 Repair intermediate f/e/e/n/l&/muc 2.5 cm/< INTMD RPR FACE/MM 2.5 CM[facility] Start: 10-24-2024 Patient discharge [facility] Start: 06-15-2024 Patient discharge [facility] Start: 06-15-2024 Excision tumor soft tiss face/scalp subq <2cm EXC FACE LES SC <2 CM [facility] Start: 06-15-2024 Shvg skin lesion 1 f/e/e/n/l/m diam 0.6-1.0 cm SHAVE SKIN LESION 0.6-1.0 CM [facility] Start: 05-10-2024 Patient referral [facility] Work Phone: Start: 03-17-2024 Mammography Mammogram Screening [facility] Start: 12-01-2023 End: 12-01-2023 Patient encounter procedure 12/01/2023 8:00 AM EDT Office Visit [facility] [address] [facility] [address] [place] [id number] Eugenia Adair MD [address] [facility] [address] [place] [address] [facility] Start: 03-11-2023 Mammography MAMMOGRAM [facility] Start: 02-04-2023 Covid-19 Vaccine ( season) Covid-19 Vaccine ( season) [facility] Start: 02-04-2023 Influenza vaccination INFLUENZA (#1) [facility] Start: 11-25-2022 End: 11-26-2023 TSH with reflex to Free T4 if abnormal TSH with reflex to Free T4 if abnormal Lab Routine Acquired hypothyroidism Expected: 11/25/2022 (Approximate), Expires: 11[facility]26/2023 [facility] Work Phone: Comment on above: Expected: 11/25/2022 (Approximate), Expires: 11/26/2023 Start: 11-25-2022 Patient encounter procedure [facility] Start: 11-22-2022 EPV, Provider: Eugenia Adair, Status: Pen, Time: 8:00 AM EPV, Provider: Eugenia Adair, Status: Pen, Time: 8:00 AM [facility] Work Phone: Start: 07-13-2022 COVID-19 VACCINE (5 - Moderna series) COVID-19 VACCINE (5 - Moderna series) [facility] Start: 06-06-2022 ADVANCE DIRECTIVE DISCUSSION ADVANCE DIRECTIVE DISCUSSION [facility] Start: 06-06-2022 DEPRESSION ASSESSMENT DEPRESSION ASS ESSMENT [facility] Start: 05-07-2022 COVID-19 Vaccine (4 - Booster for Moderna series) COVID-19 Vaccine (4 - Booster for Moderna series) [facility] Start: 03-02-2022 Mammography MAMMOGRAM [facility] Start: 03-02-2022 Screening for malign ant neoplasm of breast Mammogram [facility] Start: 11-23-2021 FUV, Provider: James Parker, Status: Pen, Time: 8:30 AM FUV, Provider: James Parker, Status: Pen, [facility]: 8:30 [facility] Start: 11-20-2021 EPV, Provider: Eugenia Adair, Status: Pen, Time: 8:40 AM EPV, Provider: Eugenia Adair, Status: Pen, Time: 8:40 AM [facility] Work Phone: Start: 10-29-2021 EPV, Provider: Eugenia Adair, Status: Pen, Time: 8:40 AM EPV, Provider: Eugenia Adair, Status: Pen, Time: 8:40 AM [facility] Work Phone: Start: 10-29-2021 Patient encounter procedure [facility] [place] Start: 06-06-2021 ADVANCE DIRECTIVE DISCUSSION ADVANCE DIRECTIVE DISCUSSION [facility] Start: 06-06-2021 DEPRESSION ASSESSMENT DEPRESSION ASS ESSMENT [facility] Start: 05-29-2021 COVID-19 VACCINE (4 - Booster for Moderna series) COVID-19 VACCINE (4 - Booster for Moderna series) [facility] Start: 2021 Pneumococcal Vaccine : 65+ (1 - PCV) Pneumococcal Vaccine: 65+ (1 - PCV) [facility] Start: 2021 PNEUMOCOCCAL: 65+ (1 - PCV) PNEUMOCOCCAL: 65+ (1 - PCV) [facility] Start: 04-25-2020 Thyroid stimulating hormone measurement TSH Level [facility] Start: 02-22-2019 [facility] Start: 02-22-2019 End: 02-22-2019 Treatment 02/22/2019 Treatment Rehabilitation Igor Khan, DPM [address] [place] [address] Jackie Goff, PT [facility] Start: 02-19-2019 End: 02-19-2019 Treatment 02/19/2019 Treatment Rehabilitation Igor Khan, DPM [address] [place] [address] [phone] Jamie F[facility] Start: 02-14-2019 End: 02-14-2019 Treatment 02/14/2019 Treatment Igor Cheng, JANEYM [address] [place] [address] [phone] Leena Stevens [facility] Start: 02-12-2019 End: 02-12-2019 Treatment 02/12/2019 Treatment Rehabilitation Igor Khan, DPM [address] [place] [address] Jackie Goff, PT [facility] Start: 02-09-2019 End: 02-09-2019 Treatment 02/09/2019 Treatment Rehabilitation Igor Khan, DPM [address] [place] [address] [phone] Selma Rincon [facility] Start: 02-07-2019 End: 02-07-2019 Treatment 02/07/2019 Treatment Rehabilitation Igor Khan, DPM [address] [place] [address] [facility] [place] [facility] Start: 02-04-2019 Influenza vaccinatio n given SEQUENTIAL INFLUENZA VACCINE (#1) [facility] Start: 01-24-2019 End: 01-24-2019 Treatment 01/24/2019 Treatment Rehabilitation Igor Khan, DPM [address] [place] [address] [phone] Jackie Goff, PT [facility] Start: 01-22-2019 End: 01-22-2019 Treatment 01/22/2019 Treatment Rehabilitation Igor Khan, DPM [address] [place] [address] [phone] Leena Stevens [facility] Start: 01-17-2019 End: 01-17-2019 Treatment 01/17/2019 Treatment Rehabilitation Igor Khan, DPM [address] [place] [address] [phone] Jackie Goff, PT [facility] Start: 06-24-2018 Colonoscopy COLONOSCOPY [facility] Start: 06-24-2018 COLORECTAL CANCER SCREENING COLORECTAL CANCER SCREENING [facility] Start: 06-15-2017 Ambulatory 06/15/2017 Off ice Visit Cardiology Amberly Knox III, DO [address] [place] [address] [phone] [facility] Start: 06-03-2017 Ambulatory 06/03/2017 Ninfa ointment Cardiology Amberly Knox III, DO [address] [place] [address] [phone] [facility] Start: 05-12-2017 Ambulatory 05/12/2017 Off ice Visit Cardiology Amberly Knox III, DO [address] [facility] [place] [address] [phone] [facility] Start: 04-15-2017 Ambulatory 04/15/2017 Ninfa ointment Cardiology Amberly Knox III, DO [address] [place] [address] [phone] [facility] Start: 02-04-2017 Influenza vaccination SEQUENTI AL INFLUENZA VACCINE (#1) [facility] Work Phone: Start: 2016 RSV Vaccine (1 - 1-d ose 60+ series) RSV Vaccine (1 - 1-dose 60+ series) [facility] Start: 2016 Zoster vacc, sc ZOSTER VACCINE [facility] Work Phone: Start: 03-06-2016 DIABETES SCREEN DIABETES SCREEN [facility] Start: 03-06-2016 Diabetes Screening Diabetes Screenin g [facility] Start: 02-05-2016 LIPID SCREEN LIPID SCREEN [facility] Start: 08-08-2014 FECAL OCCULT BLOOD FECAL OCCULT BLOO D [facility] Start: 2006 Administration of he rpes zoster vaccine Zoster Vaccines (1 of 2) [facility] Start: 2006 SHINGRIX VACCINE (1 of 2) SHINGRIX VACCINE (1 of 2) [facility] Start: 2001 COLOGUARD (FIT-DNA) COLOGUARD (FIT-D NA) [facility] Start: [address] COLONOGRAPHY [facility] Start: 2001 SIGMOIDOSCOPY SIGMOIDOSCOPY [facility] Start: 1978 DTaP/Tdap/Td Vaccine s (1 - Tdap) DTaP/Tdap/Td Vaccines (1 - Tdap) [facility] Start: 1975 Urine microalbumin profile [facility] Start: 1974 Diabetes mellitus screening Diabetes Screening [facility] Start: 1974 HEPATITIS C SCREENING HEPATITIS C [facility] Start: 1974 Hepatitis C screening Hepatitis C [facility] Start: 1974 HIV SCREENING HIV SCREENING [facility] Start: 1959 History and physical examination, annual for health maintenance Wellness Visit [facility] Start: 1956 Hepatitis C antibody , confirmatory test HEPATITIS C SCREENING [facility] Start: 1956 Medicare Annual Well ness Visit Medicare Annual Wellness Visit (AWV) [facility] Start: 1956 Screening for malign ant neoplasm of colon [facility] Start: 1956 Screening for osteoporosis Bone Density Scan [facility] Start: 1956 Screening mammography Mammogram O [facility] Start: 1956 HEPATITIS C SCREENING HEPATITIS C SC REENING [facility] Work Phone: Start: 1956 Screening colonoscopy COLONOSCOPY O [facility] Work Phone: Start: 1956 End: 1956 Screening for malignant neoplasm of cervix PAP SMEAR [facility] Work Phone: Start: 1956 End: 1956 Tetanus vaccination TETANUS EVERY 10 YR [facility] Work Phone: End: 04-11-2023 Diagnostic mammography computer-aided detcj uni JESSICA DIAGNOSTIC RT Radiology Routine Abnormal mammogram 1 Occurrences starting 03/12/2022 until 04/11/2023 [facility] Work Phone: Comment on above: 1 Occurrences starti ng 03/12/2022 until 04/11/2023 End: 04-10-2023 Dxa bone density study 1/> sites axial skel DXA-AXIAL SKELETON Radiology Routine Screening for osteoporosis Osteopenia, unspecified location 1 Occurrences starting 03/11/2022 until 04/10/2023 [facility] Work Phone: Comment on above: 1 Occurrences starti ng 03/11/2022 until 04/10/2023 H/O: surgery [facility] H/O: tubal ligation History of t ubal ligation [facility] History of appendectomy History of append ectomy [facility] History of colonoscopy History of colonos copy [facility] History of operative procedure on foot History of bunionectomy [facility] End: 04-10-2023 JESSICA SCREENING W DAVID JESSICA SCREENING W DAVID Radiology Routine Encounter for screening mammogram for malignant neoplasm of breast 1 Occurrences starting 03/11/2022 until 04/10/2023 [facility] Work Phone: Comment on above: 1 Occurrences starti ng 03/11/2022 until 04/10/2023 End: 04-22-2024 JESSICA SCREENING W DAVID JESSICA SCREENING W DAVID Radiology Routine Encounter for screening mammogram for breast cancer 1 Occurrences starting 03/24/2023 until 04/22/2024 [facility] Work Phone: Comment on above: 1 Occurrences starti ng 03/24/2023 until 04/22/2024 PAP FLUID CERVICAL SCREENING PAP FLUID CERVICAL SCREENING Lab Routine Screening for cervical cancer Special screening examination for human papillomavirus (HPV) Ordered: 03/11/2022 [facility] Work Phone: Comment on above: Ordered: 03/11/2022 Patient referral [facility] Work Phone: End: 06-03-2017 Ultrasound duplex venous leg right Ultrasound duplex venous leg right Routine Venous insufficiency Varicose veins of right lower extremity with pain Status post endovenous radiofrequency ablation (RFA) of saphenous vein Once for 1 Occurrences starting 06/03/2017 until 06/03/2017 [employer] Work Phone: Ultrasound duplex ve nous leg right Ultrasound duplex venous leg right Routine Venous insufficiency Varicose veins of right lower extremity with pain Status post endovenous radiofrequency ablation (RFA) of saphenous vein 06/03/2017 3:02 PM EST [facility] Work Phone: End: 06-01-2017 Ultrasound Venous Ablation Ultrasound Venous Ablation Routine Venous insufficiency Varicose veins of right lower extremity with pain Once for 1 Occurrences starting 06/01/2017 until 06/01/2017 [facility] Work Phone: Ultrasound Venous Ablation Ultrasound Venous Ablation Routine Venous insufficiency Varicose veins of right lower extremity with pain 06/01/2017 10:52 AM EST [facility] Work Phone: End: 05-25-2018 Ultrasound venous insufficiency exam Ultrasound venous insufficiency exam Routine Varicose veins with pain 1 Occurrences starting 03/24/2017 until 05/25/2018 [facility] Work Phone: Comment on above: 1 Occurrences starti ng 03/24/2017 until 05/25/2018 End: 04-11-2023 Us breast uni real time with image limited US BREAST LTD RT Radiology Routine Abnormal mammogram 1 Occurrences starting 03/12/2022 until 04/11/2023 [facility] Work Phone: Comment on above: 1 Occurrences starti ng 03/12/2022 until 04/11/2023 End: 03-05-2024 XR FOOT GENERAL 3V AP/LAT/OBL LEFT XR FOOT GENERAL 3V AP/LAT/OBL LEFT Radiology Routine Pain in left foot 1 Occurrences starting 02/04/2023 until 03/05/2024 [facility] Work Phone: Comment on above: 1 Occurrences starti ng 02/04/2023 until 03/05/2024 [facility] Immunizations Immunization Date Immunization Notes Care Provider Nigel de 03-27-2022 pneumococcal polysaccharide vaccine, 23 valent Eugenia L [employer] Work Phone: [facility] Work Phone: Comment on above: Series: 03-12-2022 Pfizer COVID-19 Vac Bivalent 30 MCG/0.3ML Intramuscular Suspension [employer] Work Phone: [facility] Work Phone: Comment on above: Series: 02-12-2022 Fluad Quadrivalent 0 .5 ML Intramuscular Prefilled Syringe [employer] Work Phone: [facility] Work Phone: 02-12-2022 influenza, injectabl e, quadrivalent, preservative free [employer] Work Phone: [facility] Work Phone: Comment on above: Series: 04-03-2021 Moderna COVID-19 Vac cine 100 MCG/0.5ML Intramuscular Suspension [employer] Work Phone: [facility] Work Phone: 03-27-2021 pneumococcal conjuga te vaccine, 13 valent Eugenia L [employer] Work Phone: [facility] Work Phone: 03-04-2021 influenza, injectabl e, quadrivalent, preservative free Eugenia L [employer] Work Phone: [facility] Work Phone: 09-25-2020 Moderna COVID-19 Vac cine 100 MCG/0.5ML Intramuscular Suspension Eugenia L [employer] Work Phone: [facility] Work Phone: 08-28-2020 Moderna COVID-19 Vac cine 100 MCG/0.5ML Intramuscular Suspension Eugenia L [employer] Work Phone: [facility] Work Phone: 03-05-2020 zoster vaccine recombinant Eugenia L [employer] Work Phone: [facility] Work Phone: 12-27-2019 zoster vaccine recombinant Eugenia L [employer] Work Phone: [facility] Work Phone: 04-20-2019 influenza, injectabl e, quadrivalent, preservative free; Translations: [Flulaval Quadrivalent 0.5 ML Intramuscular Suspension Prefilled Syringe] Eugenia L [employer] Work Phone: [facility] Work Phone: Comment on above: Series: 04-21-2018 influenza, injectabl e, quadrivalent, preservative free Eugenia L [employer] Work Phone: [facility] Work Phone: 04-25-2017 hepatitis B vaccine, adult dosage Eugenia L Mana Work Phone: [facility] Work Phone: 03-02-2017 influenza, injectabl e, quadrivalent, preservative free Eugenia L Mana Work Phone: [facility] Work Phone: 11-24-2016 hepatitis B vaccine, adult dosage Eugenia L Mana Work Phone: [facility] Work Phone: 10-13-2016 hepatitis B vaccine, adult dosage Eugenia Adair Work Phone: [facility] Work Phone: 05-14-2008 influenza virus vacc ine, unspecified formulation Liza Low MD Work Phone: [facility] 04-04-2007 influenza virus vacc ine, unspecified formulation Liza Low MD Work Phone: [facility] 04-12-2006 influenza virus vacc ine, unspecified formulation Liza Low MD Work Phone: [facility] 04-06-2005 influenza virus vacc ine, unspecified formulation Liza Low MD Work Phone: [facility] Work Phone: Payers Date Payer Category Payer Self-pay 2022 Private Health Insurance [id number] 2022 Private Health Insurance [id number] 2021 Medicare [id number] 2021 Medicare [id number] 2019 Unknown 2019 Unknown [id number] 2018 Unknown ALEXANDRE BEAL/KOTA/HMO/PPO xxxxxxxxxxxx 2018-Present xxxxxxxxxxxx [id number] 2018 Unknown [id number] 2017 Private Health Insurance [id number] 2.16.840.1.650350.3.249.1 3 1956 Unknown [id number] 2.16.840.1.731393.3.579.2 .903 1956 Unknown [id number] 2.16.840.1.307335.3.579.2 .903 1956 Unknown [id number] 2.16.840.1.630917.3.579.2 .903 1956 Unknown [id number] 2.16.840.1.936006.3.579.2 .903 1956 Unknown [id number] 2.16.840.1.634063.3.579.2 .356 1956 Unknown [id number] 2.16.840.1.906548.3.579.2 .356 1956 Unknown [id number] 2.16.840.1.447335.3.579.2 .356 1956 Unknown [id number] 2.16.840.1.978822.3.579.2 .1069 1956 Unknown [id number] 2.16.840.1.582282.3.579.2 .1069 1956 Unknown [id number] 2.16.840.1.191726.3.579.2 .1245 1956 Unknown [id number] 2.16.840.1.290601.3.579.2 .1244 1956 Unknown [id number] 2.16840.1.635659.3.579.2 .1243 1956 Unknown [id number] 2.16.840.1.298528.3.579.2 .1243 Private Health Insurance [id number] 2.16.840.1.716716.3.249.1 3 Unknown [id number] 2.16.840.1.001702.3.579.2 .462 Unknown [id number] 2.16.840.1.969757.3.579.2 .462 Unknown [id number] 2.16.840.1.752791.3.579.2 .462 Unknown [id number] 2.16.840.1.360220.3.579.2 .462 Unknown [id number] 2.16.840.1.179005.3.579.2 .462 Unknown [id number] 2.16.840.1.037337.3.579.2 .462 Unknown [id number] 2.16.840.1.107621.3.579.2 .462 Unknown [id number] 2.16.840.1.792374.3.579.2 .462 Unknown [id number] 2.16.840.1.196933.3.579.2 .462 Unknown [id number] 2.16.840.1.694513.3.579.2 .462 Unknown [id number] 2.16.840.1.364154.3.579.2 .462 Unknown [id number] 2.16.840.1.577292.3.579.2 .462 Unknown [id number] 2.16.840.1.861213.3.579.2 .462 Unknown [id number] 2.16.840.1.337461.3.579.2 .462 Unknown [id number] 2.16.840.1.793929.3.579.2 .462 Unknown [id number] 2.16.840.1.275917.3.579.2 .462 Unknown [id number] 2.16.840.1.555405.3.579.2 .462 Unknown [id number] 2.16.840.1.813027.3.579.2 .462 Unknown [id number] 2.16.840.1.463124.3.579.2 .462 Unknown [id number] 2.16.840.1.663476.3.579.2 .462 Unknown [id number] 2.16.840.1.164638.3.579.2 .462 Social History Date Type Detail Facility Start: 06-15-2017 End: 05-01-2024 Tobacco smoking status NHIS Never smoker [facility] Start: 1955 Sex Assigned At Not on file [facility] Work Phone: Start: 01-22-2019 End: 02-10-2023 Alcohol intake Current non-drinker of alcohol (finding) [facility] Start: 03-11-2022 End: 02-10-2023 Never a smoker Never a smoker [facility] Work Phone: Tobacco smoking consumption unknown [facility] Start: 03-11-2022 End: 11-25-2022 Tobacco use and exposure Smokeless tobacco non-user [facility] Start: 03-01-2022 End: 11-25-2022 Exposure to SARS-CoV-2 (event) Not sure [facility] Work Phone: Start: 11-25-2022 Alcohol intake Lifetime non-d charles (finding) [facility] Work Phone: Start: 03-11-2022 End: 02-10-2023 Gender identity Not on file [facility] Work Phone: National Score (1-100), lower number is lower risk 57 [facility] Start: 08-20-2024 Sex Female (finding) [facility] Start: 1955 Sex Assigned At Female [facility] Goals Date Patient Goal Desired Activity /State Mental Status Date Assessment Result Facility 10-24-2024 Cognitive function Voice/Name [facility] Work Phone: 06-15-2024 Cognitive function Voice/Name [facility] Work Phone: Clinical Notes 04-08-2020 to 10-24-2024 Note Date & Type Note Facility 10-24-2024 History and physical note Note Date/Time October 24, 2024 11:11 am [facility] Medical Records Department [address] [place] [address] History & Physical Exam 10/24/24 1108 MR#: [id number] Acct: [id number] Name: NEY MILNER Rep #:[id number] : 1955 69 From: Maryann Mantilla MD PCP: Dr. Florence Mendez MD Status:REG SD C Location: [place] [address] History and Physical Date of Admission: 10/24/24 [...] Mendez MD; Dr. Maryann Mantilla MD~ Signed [facility] Work Phone: 1([phone]) 706-772905-21-2025 Procedure note [facility] Medical Records Department [address] [place] [address] Operative Report 10/24/24 1259 MR#: [id number] Acct: [id number] Name: NEY MILNER Rep #:[id number] : 1955 69 From: Maryann Mantilla MD PCP: Dr. 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 Maryann Mantilla MD~ Signed [facility]05-21-2025 Discharge summary [facility] Medical Records Department [address] [place] [address] Instructions for Home/Discharge Instructions 10/24/24 1257 MR#: [id number] Acct: [id number] Name: NEY MILNER Rep #:[id number] : 1955 69 From: Maryann Mantilla MD [...] Care Provider: Florence Mendez Instructions Print Language: [place] Discharge Orders/Prescriptions Prescriptions: New cephalexin 500 mg [...] CC: Dr. Florence Mendez MD ~ Signed [facility]05-21-2025 History and physical note [facility] Medical Records Department [address] [place] [address] History & Physical Exam 10/24/24 1108 MR#: [id number] Acct: [id number] Name: NEY MILNER Rep #:[id number] : 1955 69 From: Maryann Mantilla MD PCP: Dr. Florence Mendez MD Status:REG SD C Location: [place] [address] History and Physical Date of Admission: 10/24/24 [...] Mendez MD; Dr. Maryann Mantilla MD~ Signed [facility]05-21-2025 [facility] Medical Records Department [address] [place] [address] History Physical Exam 10/24/24 1108 MR#: [id number] Acct: [id number] Name: NEY MILNER Rep #: [id number] : 1955 69 From: Maryann Mantilla MD PCP: Dr. Florence Mendez MD Status:[facility] Location: [place] [address] History and Physical Date of Admission: 10/24/24 [...] Florence Mendez MD; Dr. Maryann Mantilla MD [facility]2025 Evaluation note* Diagnosis Onset Date Resolution Status Admit Date Benign neoplasm of skin of face acut e August 28, 2024 10:34am Scar condition and fibrosis of skin acute August 28, 2024 10:34am Benign neoplasm of skin of face acut e September 19, 2024 2:10pm Scar condition and fibrosis of skin acute September 19, 2024 2:10pm Neoplasm of uncertain behavi or of skin acute October 17, 2024 2 :10pm Neoplasm of uncertain behavi or of skin acute October 24, 2024 1 0:16am Benign neoplasm of skin of face acut e October 31, 2024 2:11pm Benign neoplasm of skin of face acut e November 07, 2024 2:09pm Scar condition and fibrosis of skin acute November 07, 2024 2 :09pm [facility] Work Phone: [phone] Evaluation note* Diagnosis Onset Date Resolution Status [...] of skin acute October 24, 2024 10:16am [employer] [facility] Work Phone: 1(983) 690-281002-05-2025 Evaluation note* Diagnosis Onset Date Resolution Status [...] face acute October 31, 2024 2 :11pm [employer] [facility] Work Phone: 1(372) 437-417501-22-2025 Evaluation note* Diagnosis Onset Date Resolution Status [...] of skin acute September 19, 2024 2:10pm [facility] Work Phone: 1(174) 241-938701-22-2025 Evaluation note* Diagnosis Onset Date Resolution Status [...] of skin acute October 24, 2024 10:16am [facility] Work Phone: 1(641) [phone] [facility] Medical Records Department [address] [place] [address] History Physical Exam 06/15/24 1521 MR#: [id number] Acct: [id number] Name: NEY MILNER Rep #: [id number] : 1955 69 From: Maryann Mantilla MD PCP: Dr. Florence Mendez MD Status:[facility] Location: [place] [address] HPI - General General Date of Admission: 06/15/24 Date of Service: 06/15/24 Chief Complaint: Growing or changing neoplasms of her left cheek HPI Narrative NEY MILENR, is a 69 F who presents with relatively new onset of 2 neoplasms of left cheek. [facility] Medical History History of malignant neoplasm of [...] Mendez MD; Dr. Wolf (more content not included)...[facility]11-26-2024 Evaluation note* Diagnosis Onset Date Resolution [...] region acu te July 26, 2024 2:50pm [facility] Work Phone: [phone] 680-121510-19-2023 NoteHNO ID: [id number] Author: Liza Roach MD Service: ? 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 Milner, We are pleased to [...] report will be kept on file at [facility] as part of your permanent medical record and are available for your continuing care. Thank you for allowing us to help in meeting your health care needs. Sincerely, Dr. Min Interpreting Radiologist [facility] (Normal over 40) documented in this [facility]10-[facility]-2023 NoteHNO ID: [id number] Author: Mena Arellano Mammo Tech Service: ? Author Type: Assembly Line Worker Type: Progress Notes Filed: 03/17/2023 9:15 AM [...] BY: Jeanne Peters March 17, 2023 8:52 [facility]10-12-2023 History of Present illness Narrative* Mena Arellano [...] 17, 2023 8:52 AM documented in this encounter[facility]23 NoteHNO ID: [id number] Author: Avery Benton Service: ? Author Type: [...] reaction.Seek emergent medical care immediately after use.Disp:one 2-packw/product trainer). fluticasone 50 mcg/actuation nasal spray Use 1-2 Sprays in each nostril once daily. olopatadine (PATANOL) 0.1 % ophthalmic solution Use 1 Drop in both eyes twice daily as needed. Ipratropium [place] (ATROVENT) 0.03 % NASAL nasal spray Use [...] touch/epicritic sensation b/l intact (more content not included)...[facility]09-07-2023 Note HNO ID: [id number] Author: Anna Payne LPN Service: ? Author Type: LICENSED NURSE Type: Progress Notes Filed: 02/10/2023 8:27 AM Note Text: AMB ROOMING INTAKE FLOWSHEET DATA Pain Pain Level: 8 Pain Location: Foot-Left Description: Sore Duration Amount of Time: 3 Duration Units: Months Frequency: Continuous Patient presents with: Left Foot - New, Pain [facility]23 NoteHNO ID: [id number] Author: Consuelo Galindo RT(Debbi) Service: ? Author Type: Technologist Type: Progress [...] BY: RT Sumeet(R) February 10, 2023 8:02 [facility]09-07-2023 History of Present illness Narrative* Avery Benton [...] reaction.Seek emergent medical care immediately after use.Disp:one 2-packw/product trainer). fluticasone 50 mcg/actuation nasal spray Use 1-2 Sprays in each nostril once daily. olopatadine (PATANOL) 0.1 % ophthalmic solution Use 1 Drop in both eyes twice daily as needed. Ipratropium [place] (ATROVENT) 0.03 % NASAL nasal spray Use [...] blade and dremmel Avery Benton DPM Podiatry [address] [facility] [address] Dept: [phone] Dept * Anna Payne LPN - 02/10/2023 8:05 AM EDT AMB ROOMING INTAKE FLOWSHEET DATA Pain Pain Level: 8 Pain Location: Foot-Left Description: Sore Duration Amount of Time: 3 Duration Units: Months Frequency: Continuous Patient presents with: Left Foot - New, Pain Anna Payne LPN documented in this encounter[facility] History of Present illness Narrative* Consuelo Galindo RT(R) - 02/10/2023 8:00 AM EDT Radiology [...] 10, 2023 8:02 AM documented in this encounterMet[facility]06-22-2023 History of Present illness Narrative* Eugenia Adair [...] ago breast cancer screening Gets annually with [facility] her last one was [...] care facility - Primary documented in this [facility] Work Phone: 1(563) 682-342311-16-2022 NoteHNO ID: [id number] Author: Cherie Joya RT(R) Service: ? Author Type: Technologist Type: [...] BY: RT Fidel(R) April 21, 2022 9:47 [facility]11-16-2022 History of Present illness Narrative* Cherie Joya [...] 21, 2022 9:47 AM documented in this encounterMet[facility]-01-2022 History of Present illness Narrative* Right greater trochanteric bursitis. Injected in April felt good for 1 month continued running 30 minutes daily 5 to 6 days a week. Gradually started to return with pain now to the point of limping after walking. She had an x-ray through chiropractor. * Patient would like another injection. * She has tried icing. -[facility] Work Phone: [phone]) 213-248210-18-2022 Miscellaneous Notes* Telephone Encounter - Ivette Corona [...] or endocrinology if desired. documented in this encounterMet[facility]10-06-2022 Miscellaneous Notes* Letter - Mammography Coordinator - 03/11/2022 12:17 PM EDT March 11, 2022 PID: [id number] Ney Milner [address] [id number] Dear Ms. Milner, Your recent breast imaging exam on 03/11/2022 showed a possible finding that requires additional imaging studies for a complete evaluation. Most such findings are probably benign (not cancer). If you have a healthcare provider who ordered/prescribed your screening mammogram: Please call [phone] or [phone]: [phone] to schedule an appointment for your additional [...] and reports are kept on file at [facility] as part of your permanent medical record, and are available for your continuing care. Thank you for allowing us to help in meeting your health care needs. Sincerely, Dr. 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 documented in this encounterMet[facility]05-02-2022 History of Present illness Narrative* On a [...] * Inj. education completed written and verbally. [facility]: [phone] History of Present illness Narrative* will get [...] n * exercise and jog 45 minute [place]dr[place]z * aleve prn once a week [...] ago * breast cancer screening * done [facility] every summer had done in february 2019, april 2020 * [facility] * all other systems have been reviewed and are negative except as noted in the HPI -[facility] Work Phone: 1(213) 451-299811-03-2020 History of Present illness Narrative* right hip x 1 year after starting jogging * doing stretches 2 years ago every am * aleve and motrin * sees chiropracter * limit unable to jog and walking no pain but aftert sitting hurts to get up * unabl to sleep in the side * mammogram march 12, 2022 * PAP SMEAR 03/22/22 [facility] Work Phone: chief complaint Narrative - Reported* NPV here for [...] and allergies are available and were reviewed. [facility] Work Phone: discharge summary Author Maryann Mantilla [facility] Note Date/Time October 24, 2024 12:59 pm [facility] Medical Records Department [address] [place] [address] Instructions for Home/Discharge Instructions 10/24/24 1257 MR#: [id number] Acct: [id number] Name: NEY MILNER Rep #:[id number] : [id number] 69 From: Maryann Mantilla MD [...] Care Provider: Florence Mendez Instructions Print Language: Sri Lankan Discharge Orders/Prescriptions Prescriptions: New cephalexin 500 mg [...] CC: Dr. Florence Mendez MD ~ Signed [facility] Work Phone: Evaluation note* Diagnosis Encounter for gynecological examination (general) (routine) without abnormal findings- Primary Encounter for screening mammogram for malignant neoplasm of breast Other screening mammogram Screening for osteoporosis Special screening for osteoporosis Osteopenia, unspecified location Screening for cervical cancer Screening for malignant neoplasm of the cervix Special screening examination for human papillomavirus (HPV) documented in this encounter [facility]* Diagnosis Encounter for screening mammogram for malignant neoplasm of breast Other screening mammogram documented in this encounter [facility]* Diagnosis Abnormal mammogram- Primary Abnormal mammogram, unspecified documented in this encounter [facility]* Diagnosis Routine general medical examination at health care facility- Primary Routine general medical examination at a health care facility Acquired hypothyroidism Unspecified hypothyroidism Pure hypercholesterolemia MVP (mitral valve prolapse) Mitral valve disorders documented in this encounter [facility] Work Phone: Evaluation note* Diagnosis Pain in left foot- Primary Pain in limb documented in this encounter [facility]* Diagnosis Hallux valgus of left foot- Primary Hammer toe of left foot Callus of foot Corns and callosities [facility]* Diagnosis Encounter for gynecological examination (general) (routine) without abnormal findings- Primary Encounter for screening mammogram for breast cancer documented in this encounter [facility] note* Diagnosis Abnormal mammogram Abnormal mammogram, unspecified documented in this encounter [facility] note* Diagnosis Pain in left foot Pain in limb documented in this encounter [facility] note* Diagnosis Encounter for screening mammogram for malignant neoplasm of breast Other screening mammogram documented in this encounter [facility] for referral (narrative)* Diagnostic Procedure Only (Routine) - Authorized Specialty Diagnoses / Procedures Referred By Charles rm Referred To Contact BR IMAGING Diagnoses Encounter for screening mammogram for malignant neoplasm of breast Procedures JESSICA SCREENING W DAVID SCREENING DIGITAL BREAST TOMOSYNTHESIS BI SCREENING MAMMOGRAPHY BI 2-VIEW BREAST INC CAD Liza Roach MD [address] [place], [place] [address] [place] [address] [facility] [address] [place] [id number] Referral ID Status Reason Start Date Expiration Date Visits Requested Visits Authorized [id number] Authorized Auto-Generat ed Referral 03/11/2022 04/10/2023 [facility] Diagnostic Procedure Only (Routine) - Closed Specialty Diagnoses / Procedures Referred By Charles rm Referred To Contact BR IMAGING Diagnoses Encounter for screening mammogram for malignant neoplasm of breast Procedures JESSICA SCREENING W DAVID SCREENING BREAST DGTL DAVID UNI/BILAT ADD ON SCREENING MAMMOGRAPHY BI 2-VIEW BREAST INC CAD Liza Roach MD [address] [place] [address] [facility] [address] [place] [address] Referral ID Status Reason Start Date Expiration Date V isits Requested Visits Authorized [id number] Closed Auto-Generate d Referral 03/09/2021 04/08/2022 1 1 [facility] for referral (narrative)* Diagnostic Procedure Only (Routine) - Pending Review Specialty Diagnoses / Procedures Referred By Charles rm Referred To Contact BR IMAGING Diagnoses Abnormal mammogram Procedures JESSICA DIAGNOSTIC RT DIAGNOSTIC MAMMOGRAPHY COMPUTER-AIDED DETCJ UNI Leena Joseph APRN.BAND MASTER [address] [place] [address] [facility] [address] [place] [address] Referral ID Status Reason Start Date Expiration Date Visits Requested Visits Authorized [id number] Pending Review Auto-Generat ed Referral 03/12/2022 04/11/2023 1 1 * Diagnostic Procedure Only (Routine) - Pending Review Specialty Diagnoses / Procedures Referred By Charles rm Referred To Contact BR IMAGING Diagnoses Abnormal mammogram Procedures US BREAST LTD RT US BREAST UNI REAL TIME WITH IMAGE LIMITED Leena Joseph APRN.BAND MASTER [address] [place] [address] [facility] [address] [place] [address] Referral ID Status Reason Start Date Expiration Date Visits Requested Visits Authorized [id number] Pending Review Auto-Generat ed Referral 03/12/2022 04/11/2023 1 1 [facility] for referral (narrative)* Diagnostic Procedure Only (Routine) - Pending Review Specialty Diagnoses / Procedures Referred By Contac t Referred To Contact XR IMAGING Diagnoses Pain in left foot Procedures XR FOOT GENERAL 3V AP/LAT/OBL LEFT RADEX FOOT COMPLETE MINIMUM 3 VIEWS Avery Benton [address] [place] [address] [place] [address] Referral ID Status Reason Start Date Expiration Date Visits Requested Visits Authorized [id number] Pending Review Auto-Generat ed Referral 02/04/2023 03/05/2024 1 1 [facility] for referral (narrative)* Diagnostic Procedure Only (Routine) - Pending Review Specialty Diagnoses / Procedures Referred By Contac t Referred To Contact BR IMAGING Diagnoses Encounter for screening mammogram for breast cancer Procedures JESSICA SCREENING W DAVID SCREENING DIGITAL BREAST TOMOSYNTHESIS BI SCREENING MAMMOGRAPHY BI 2-VIEW BREAST INC CAD Liza Roach MD [address] [place] [address] [facility] Imaging [address] [place] [address] Referral ID Status Reason Start Date Expiration Date Visits Requested Visits Authorized [id number] Pending Review Auto-Generat ed Referral 04/22/2024 1 1 [facility] for referral (narrative)* Diagnostic Procedure Only (Routine) - Closed Specialty Diagnoses / Procedures Referred By Contac t Referred To Contact XR IMAGING Diagnoses Pain in left foot Procedures XR FOOT GENERAL 3V AP/LAT/OBL LEFT RADEX FOOT COMPLETE MINIMUM 3 VIEWS Avery Benton [address] [place] [address] [place] [address] Referral ID Status Reason Start Date Expiration Date V isits Requested Visits Authorized [id number] Closed Auto-Generate d Referral 02/04/2023 03/05/2024 1 1 [facility] for referral (narrative)* Diagnostic Procedure Only (Routine) - Closed Specialty Diagnoses / Procedures Referred By Charles rm Referred To Contact BR IMAGING Diagnoses Encounter for screening mammogram for malignant neoplasm of breast Procedures JESSICA SCREENING W DAVID SCREENING DIGITAL BREAST TOMOSYNTHESIS BI SCREENING MAMMOGRAPHY BI 2-VIEW BREAST INC CAD Liza Roach MD [address] [place] [address] [facility] [address] [place] [address] Referral ID Status Reason Start Date Expiration Date V isits Requested Visits Authorized [id number] Closed Auto-Generate d Referral 03/11/2022 04/10/2023 1 1 [facility] for referral (narrative)No reason for referral information availableSt. [facility] Work Phone: [facility] Narrative* Diagnostic Procedure Only (Routine) - Closed Specialty Diagnoses / Procedures Referred By Charles rm Referred To Contact BR IMAGING Diagnoses Encounter for screening mammogram for malignant neoplasm of breast Procedures JESSICA SCREENING W DAVID SCREENING BREAST DGTL DAVID UNI/BILAT ADD ON SCREENING MAMMOGRAPHY BI 2-VIEW BREAST INC CAD Liza Roach MD [address] [place] [address] [facility] Imaging [address] [place] [address] Referral ID Status Reason Start Date Expiration Date V isits Requested Visits Authorized [id number] Closed Auto-Generate d Referral 03/09/2021 04/08/2022 1 1 [facility] for visit Narrative* Diagnostic Procedure Only (Routine) - Closed Specialty Diagnoses / Procedures Referred By Charles rm Referred To Contact BR IMAGING Diagnoses Abnormal mammogram Procedures JESSICA DIAGNOSTIC RT DIAGNOSTIC MAMMOGRAPHY COMPUTER-AIDED DETCJ Leena Robles, POONAM.BAND MASTER [address] [place] [address] [facility] Imaging [address] [place] [address] Referral ID Status Reason Start Date Expiration Date V isits Requested Visits Authorized [id number] Closed Auto-Generate d Referral 03/12/2022 04/11/2023 1 1 [facility] for visit Narrative* Diagnostic Procedure Only (Routine) - Closed Specialty Diagnoses / Procedures Referred By Contac t Referred To Contact XR IMAGING Diagnoses Pain in left foot Procedures XR FOOT GENERAL 3V AP/LAT/OBL LEFT RADEX FOOT COMPLETE MINIMUM 3 VIEWS Avery Benton [address] [place] [address] [place] [address] Referral ID Status Reason Start Date Expiration Date V isits Requested Visits Authorized [id number] Closed Auto-Generate d Referral 02/04/2023 03/05/2024 1 1 [facility] for visit Narrative* Diagnostic Procedure Only (Routine) - Closed Specialty Diagnoses / Procedures Referred By Contac t Referred To Contact BR IMAGING Diagnoses Encounter for screening mammogram for malignant neoplasm of breast Procedures JESSICA SCREENING W DAVID SCREENING DIGITAL BREAST TOMOSYNTHESIS BI SCREENING MAMMOGRAPHY BI 2-VIEW BREAST INC CAD Liza Roach MD [address] [place] [address] [facility] Imaging [address] [place] [address] Referral ID Status Reason Start Date Expiration Date V isits Requested Visits Authorized [id number] Closed Auto-Generate d Referral 03/11/2022 04/10/2023 1 1 [facility] Assessments Diagnosis Venous insufficiency - Prima ry [...] FoundDocuments on File Type Date Recorded Patient Informatics Coordinator Expl anation Advance Directives and Livin g Will 01/15/2019 1:33 PM Documents on File Type Date Recorded Patient Informatics Coordinator Expl anation Advance Directives and Susi ferreira Will 01/15/2019 1:33 PM History of Present [...] (around 05/24/2017) for Recheck with testing in [place] office.. Subjective: Ney Milner is a 61 y.o. female seen in the office today for evaluation regarding venous disease. Mrs. Milner ( date 1955) was seen in the office today in [place] on March 24, 2017. She presents, as a self-referral, with a complaint of heaviness, fatigue, discomfort, pain, swelling of the lower extremities. She has a known history of bilateral great saphenous vein ligation and division [place] January [address] Gonzalez. She had been doing well but complained of increasing symptoms over the past 1-2 years. She was seen by a physician in [place] (Dr. Velazquez) who got her into compression stockings during the fall of 2015. She was seen in July 2016 to coordinate venous procedures. Shefelt that there was some confusion regarding insurance coverage and financial liability for the proc nelly, so she was reluctant to pursue therapies [...] Procedure Laterality Date APPENDECTOMY 1966 BUNIONECTOMY Bilateral 2009 eye lid surg Left unknown HIGH LIGATION [...] and memory are normal. in this encounter* Jackie Goff, PT - 01/17/2019 1:00 PM EDT [facility] DAILY TREATMENT NOTE Today's [...] OTHER Notes Jackie 07/18 12:45-1:40 Therapeutic Exercise (98207) Intervention Piriformis stretch x30 Parameters Gastroc Stretching 30x3 Intervention HEP education 6' Manual Therapy (44938) Intervention Pin/Stretch L piriformis Parameters Deep tissue palpation and mobiliztion L tibialis posterior (nerve on R toe) 12' Manual Therapy (46384) Intervention STM to L gastroc 10' Additional [...] patient tolerance. Highest electrical stimulation achieved was 4.[place] with then mechanically stimulated via twisting and [...] improvingankle ROM. Jackie Goff PT State License, [id number] documented in this encounter* Leena Stevens, BLEACHER PULP - 01/22/2019 1:00 PM EDT [facility] DAILY TREATMENT NOTE Today's [...] OTHER Notes Leena 08/15 12:55-1:35 Therapeutic Exercise (91778) Intervention Piriformis stretch x30 Parameters Gastroc Stretching 30x3 Manual Therapy (27727) Intervention Pin/Stretch L piriformis Parameters Deep tissue palpation and mobiliztion L tibialis posterior (nerve on R toe) 12' Manual Therapy (01219) Intervention STM to L gastroc 10' Additional [...] Visit with focus on pain control Leena Stevens PTA STATE LICENSE, [id number] documented in this encounter* Jackie Goff, PT - 01/24/2019 1:00 PM EDT [facility] DAILY TREATMENT NOTE Today's [...] can afford the co-pay, she 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 Objective: Trailed DN plantar fascia protocol Treatments: Physical Therapy Exercise Log - 01/24/19 7719 OTHER Notes Jackie 09/15 1:00-1:45 Therapeutic Exercise (22976) Intervention Piriformis stretch Parameters Gastroc Stretching Manual Therapy (01395) Intervention Pin/Stretch L piriformis Parameters Deep tissue palpation and mobiliztion plantar fascia 10' Manual Therapy (34919) Intervention STM to L gastroc/plantarfascia 10' Parameters Gastroc PNF 10x8 Manual Therapy (29610) Intervention Kinesio tape 3' Additional Exercises Add [...] tolerance. Highest electrical stimulation achieved was 3. [place] with then mechanically stimulated via twisting and [...] muscle mobility. Jackie Goff PT State License, [id number] documented in this encounter* Jackie Goff, PT - 01/15/2019 1:45 PM EDT [facility] Evaluation Today's Date 01/15/2019 [...] is going to get an EEG at [facility] in March. Previous Imaging: X-ray Status: [...] at hospice; babysit grandchildren Home environment: house [facility], social, or cultural considerations to be made [...] OTHER Notes Jackie 06/17 1:45-2:30 Therapeutic Exercise (04108) Intervention Piriformis stretch x30 Manual Therapy (25620) Intervention Pin/Stretch L piriformis x10 Parameters DN to L posterior tibial tendon/PF protocol (nerve on R toe) (A) Manual Therapy (62359) Intervention STM to L gastroc (A) PT [...] normal ADLs. Jackie Goff PT State License, [id number] documented in this encounter Chief Complaint mdck,.Pt. [...] 26, 2024 2:50pm Spondylolisthesis, lumbar region uar 2024 2:50pm Chief Complaint Admit Date post [...] 26, 2024 2:50pm Spondylolisthesis, lumbar region uar 2024 2:50pm Benign neoplasm of skin of [...] July 26, 2024 2:50pm Spondylolisthesis, lumbar region 2024 2:50pm Benign neoplasm of skin of [...] 26, 2024 2:50pm Spondylolisthesis, lumbar region uar 2024 2:50pm Benign neoplasm of skin of [...] neoplasm of skin of face October 2:11pm Chief Complaint Admit Date PAINFUL BUMP August 28, 2024 10: 34am 3 W FU September 19, 2024 2:1 0pm 1 M FU October 17, 2024 2:10p m post op October 31, 2024 2:11p m 1 W FU November 07, 2024 2:09p m Reason for Visit Admit Date Benign neoplasm of skin of face August [...] neoplasm of skin of face October 2:11pm Benign neoplasm of skin of face November 2:09pm Scar condition and fibrosis of skin November 07, 2024 2:09pm Additional Source Comments INFORMATION SOURCE (unrecogn ized section and content) DATE CREATED AUTHOR 11/28/2017 [facility] DATE CREATED AUTHOR AUTHOR'S ORGANIZ ATION 11/29/2017 [facility] DATE CREATED AUTHOR AUTHOR'S ORGANIZ ATION 01/13/2019 [facility] DATE CREATED AUTHOR AUTHOR'S ORGANIZ ATION 01/28/[address] [facility] DATE CREATED AUTHOR AUTHOR'S ORGANIZ ATION 04/09/2022 [facility] DATE CREATED AUTHOR AUTHOR'S ORGANIZ ATION 08/06/2022 [facility] DATE CREATED AUTHOR AUTHOR'S ORGANIZ ATION 11/26/2022 [facility] DATE CREATED AUTHOR AUTHOR'S ORGANIZ ATION 11/29/2022 [facility] DATE CREATED AUTHOR AUTHOR'S ORGANIZ ATION 02/17/2023 [facility] DATE CREATED AUTHOR AUTHOR'S ORGANIZ ATION 2023 [facility] DATE CREATED AUTHOR AUTHOR'S ORGANIZ ATION 09/16/2023 [facility] DATE CREATED AUTHOR AUTHOR'S ORGANIZ ATION 01/01/2025 [facility] Reason for Visit (unrecogniz ed section and content) Reason Comments Physical Therapy Tibialis posterior t endinitis, unspecified laterality Status Reason Specialty Diagnoses / Procedures Referred By Contact Referred To Contact Authorized Physical Therapy / Rehabilitation Diagnoses Tibialis posterior tendinitis, unspecified laterality Igor Khan DPM [address] [place] [address] [facility] [address] [facility] [place] [address] Reason Comments Varicose Veins both legs. Wears sup pport stockings. Seen by Dr Velazquez last fall. Status Reason Specialty Diagnoses / Procedures Referred By Contact Referred To Contact Authorized Physical Therapy / Rehabilitation Diagnoses Tibialis posterior tendinitis, unspecified laterality Igor Khan, BRYAN [address] [place] [address] [place] [address] Reason Comments Physical Therapy Reason Comments Yearly [...] or prosecute any alcohol or drug abuse patient.[facility] CenterIn the event this information is protected by the Federal Confidentiality of Alcohol and Drug Abuse Patient Records regulations: The Federal rules restrict any use of the information to criminally investigate or prosecute any alcohol or drug abuse patient.[facility] CenterIn the event this information is protected by the Federal Confidentiality of Alcohol and Drug Abuse Patient Records regulations: The Federal rules restrict any use of the information to criminally investigate or prosecute any alcohol or drug abuse patient.[facility] CenterIn the event this information is protected by the Federal Confidentiality of Alcohol and Drug Abuse Patient Records regulations: The Federal rules restrict any use of the information to criminally investigate or prosecute any alcohol or drug abuse patient.[facility] CenterIn the event this information is protected by the Federal Confidentiality of Alcohol and Drug Abuse Patient Records regulations: The Federal rules restrict any use of the information to criminally investigate or prosecute any alcohol or drug abuse patient.[facility] CenterIn the event this information is protected by the Federal Confidentiality of Alcohol and Drug Abuse Patient Records regulations: The Federal rules restrict any use of the information to criminally investigate or prosecute any alcohol or drug abuse patient.[facility] CenterIn the event this information is protected by the Federal Confidentiality of Alcohol and Drug Abuse Patient Records regulations: The Federal rules restrict any use of the information to criminally investigate or prosecute any alcohol or drug abuse patient.[facility] CenterIn the event this information is protected by the Federal Confidentiality of Alcohol and Drug Abuse Patient Records regulations: The Federal rules restrict any use of the information to criminally investigate or prosecute any alcohol or drug abuse patient.[facility] CenterIn the event this information is protected by the Federal Confidentiality of Alcohol and Drug Abuse Patient Records regulations: The Federal rules restrict any use of the information to criminally investigate or prosecute any alcohol or drug abuse patient.[facility] CenterIn the event this information is protected by the Federal Confidentiality of Alcohol and Drug Abuse Patient Records regulations: The Federal rules restrict any use of the information to criminally investigate or prosecute any alcohol or drug abuse patient.[facility] CenterIn the event this information is protected by the Federal Confidentiality of Alcohol and Drug Abuse Patient Records regulations: The Federal rules restrict any use of the information to criminally investigate or prosecute any alcohol or drug abuse patient.[facility] CenterIn the event this information is protected by the Federal Confidentiality of Alcohol and Drug Abuse Patient Records regulations: The Federal rules restrict any use of the information to criminally investigate or prosecute any alcohol or drug abuse patient.[facility] Care Teams (unrecognized sec tion and content) Facility Examiner Relationship Specialty Start Date End Date Eugenia Adair MD [address] [place] [address] Primary Staff Physician Family Medicine 03/09/21 Facility Examiner Relationship Specialty Start Date End Date Eugenia Adair MD [address] [place] [phone] Primary Staff Physician Family Medicine 03/09/21 Facility Examiner Relationship Specialty Start Date End Date Eugenia Adair MD [address] [place] [phone] Primary Staff Physician Family Medicine 03/09/21 Facility Examiner Relationship Specialty Start Date End Date Eugenia Adair MD [address] [place] [phone] Primary Staff Physician Family Medicine 03/09/21 Facility Examiner Relationship Specialty Start Date End Date Eugenia Adair MD [address] [place] [phone] Primary Staff Physician Family Medicine 03/09/21 Facility Examiner Relationship Specialty Start Date End Date Eugenia Adair MD [address] [facility] [address] [place] [id number] PCP - General 02/06/19 Facility Examiner Relationship Specialty Start Date End Date Eugenia Adair MD [address] [place] [phone] Primary Staff Physician Family Medicine 03/09/21 Facility Examiner Relationship Specialty Start Date End Date Eugenia Adair MD [address] [place] [phone] Primary Staff Physician Family Medicine 03/09/21 Facility Examiner Relationship Specialty Start Date End Date Eugenia Adair MD [address] [place] [phone] Primary Staff Physician Family Medicine 03/09/21 Facility Examiner Relationship Specialty Start Date End Date Florence Mendez MD [facility] [place] [address] PCP - General Internal Medicine 03/24/23 Eugenia Adair MD [address] [place] [phone] Primary Staff Physician Family Medicine 03/09/21 Facility Examiner Relationship Specialty Start Date End Date Eugenia Adair MD [address] [place] [phone] Primary Staff Physician Family Medicine 03/09/21 Facility Examiner Relationship Specialty Start Date End Date Eugenia Adair MD [address] [place] [phone] Primary Staff Physician Family Medicine 03/09/21 Team [...] November 07, 2024 End: November 07, 2024 Team Status: Active Member Role/Relationship Status Chyna Mendez MD Primary Care Provider Active Team Status: Inactive Member Role/Relationship Status Chyna Mendez MD Primary Care Provider Active St art: August 28, 2024 End: August 28, 2024 Florence Mendez MD Referring Provider Active Start : August 28, 2024 End: August 28, 2024 Dr. Maryann Mantilla MD Attending Provider Active Start: August 28, 2024 End: August 28, 2024 Team Status: Inactive Member Role/Relationship Status Chyna Mendez MD Primary Care Provider Active St art: September 19, 2024 End: September 19, 2024 Florence Mendez MD Referring Provider Active Start : September 19, 2024 End: September 19, 2024 Dr. Maryann Mantilla MD Attending Provider Active Start: September 19, 2024 End: September 19, 2024 Team Status: Inactive Member Role/Relationship Status Chyna Mendez MD Primary Care Provider Active St art: October 17, 2024 End: October 17, 2024 Florence Mendez MD Referring Provider Active Start : October 17, 2024 End: October 17, 2024 Dr. Maryann Mantilla MD Attending Provider Active Start: October 17, 2024 End: October 17, 2024 Team Status: Inactive Member Role/Relationship Status Chyna Mendez MD Primary Care Provider Active St art: October 24, 2024 End: October 24, 2024 Dr. Maryann Mantilla MD Attending Provider Active Start: October 24, 2024 End: October 24, 2024 Dr. Maryann Mantilla MD Referring Provider Active Start: October 24, 2024 End: October 24, 2024 Team Status: Active Member Role/Relationship Status Chyna Mendez MD Primary Care Provider Active St art: October 24, 2024 Dr. Maryann Mantilla MD Attending Provider Active Start: October 24, 2024 Dr. Maryann Mantilla MD Referring Provider Active Start: October 24, 2024 Dr. Maryann Mantilla MD Other Provider Active St art: October 24, 2024 Team Status: Inactive Member Role/Relationship Status Chyna Mendez MD Primary Care Provider Active St art: October 31, 2024 End: October 31, 2024 Florence Mendez MD Referring Provider Active Start : October 31, 2024 End: October 31, 2024 Dr. Maryann Mantilla MD Attending Provider Active Start: October 31, 2024 End: October 31, 2024 Team Status: Inactive Member Role/Relationship Status Chyna Mendez MD Primary Care Provider Active St art: November 07, 2024 End: November 07, 2024 Florence Mendez MD Referring Provider Active Start : November 07, 2024 End: November 07, 2024 Dr. Maryann Mantilla MD Attending Provider Active Start: November 07, 2024 End: November 07, 2024 Team Status: Inactive Member Role/Relationship Status Dates Florence Mendez MD Primary Care Provider Active St art: December 17, 2024 End: December 17, 2024 Florence Mendez MD Attending Provider Active Start : December 17, 2024 End: December 17, 2024 Florence Mendez MD Referring Provider Active Start : December 17, 2024 End: December 17, 2024 Goals (unrecognized section and content) Goals [...] BE BASED ON THE PRIMARY CLINICAL RECORDS. [employer] provides no warranty or guarantee of the accuracy or completeness of information in this document.
== END | disposition home or self-care (01) ==
LOC: CVS 14:33
PROVIDERS: PCP Family Medicine; Referring Provider Family Medicine; Visit Provider Family Medicine
DX: I34.1 Nonrheumatic mitral (valve) prolapse (principal)
CPT/HCPCS: 93306